=== PATIENT | female | born 1980 | race Caucasian/White ===

== ENCOUNTER 2023-10-27 22:22 | Emergency (ER) | payer OTHER, SELFPAY ==
--- NOTE | 2023-10-27 22:46 | ED.NURSE ---
patient checked in, then left to go home to take medications. removed from tracker, will create new account if patient returns.
--- OUTSIDE RECORDS SUMMARY | 2023-10-27 22:50 | XMS_ITS | Clinical Summary ---
Author Name Unknown Organization [place] Address [address] [facility] [place] [address] Care Team Providers Care Yard Coordinator Name Role Phone Chato Diaz MD Unavailable Chato Diaz MD Unavailable Jimenez Madera DO Primary Care Provider Jimenez Madera DO Unavailable [phone] Chato Diaz MD Unavailable Rosalba Romo MD Unavailable Allergies Active Allergy Reactions Criticality Noted Date Comments Sulfa Antibiotics 11/05/2011 Medications Medication Sig Dispensed Refills Start Date End Date Status Jmqkcsl-Aefnwrgkm-G itamin D 500-250-200 MG-MG-UNIT TABS Take by mouth daily 0 06/10/2016 Active Multiple Vitamins-Minerals (DAILY MULTI) TABS Take by mouth daily 0 Active progesterone [address] 50 mg vaginally as needed 0 Active labetalol (NORMODYNE) 100 MG tabletIndications:P VC's (premature ventricular contractions),Palpi tations Take 0.5 tablets (50 mg) by mouth 2 times daily 180 tablet 3 12/10/2021 Active Additional Information Patient taking differently:50 mg OralPRN, Reported on 08/12/2022 fish oil-omega-3 fatty acids 1000 MG capsule Take 1 g by mouth daily 0 Active co-enzyme Q-10 100 MG CAPS capsule Take 100 mg by mouth daily 0 Active INOSITOL PO Take 2 g by mouth daily 0 Active Probiotic Product (PROBIOTIC-10 PO) 0 Active UNABLE TO FIND heart calm 0 Active letrozole (FEMARA) 2.5 MG tablet TAKE 2 TABLET (5MG) ONCE DAILY DAYS 3-7 OF MENSES. 0 09/30/2022 Active OVIDREL 250 MCG/0.5ML syringe SC INJ 0 10/05/2022 Active aspirin (ASA) 81 MG chewable tablet 0 10/25/2022 Active potassium 99 MG TABS 0 Active metoprolol tartrate (LOPRESSOR) 50 MG tabletIndications:P alpitations Take 1 tablet (50 mg) by mouth every evening 90 tablet 3 11/16/2022 Active Active Problems Problem Noted Date Diagnosed Date Recurrent loss without current pregnan cy 05/04/2018 Indication for care in labor and delivery, antep artum 04/22/2017 Chest pain 01/18/2015 PCOS (polycystic ovarian syndrome) 11/07/2011 Hypercholesterolemia 11/07/2011 Overview: (Problem list name updated by automated process. Provider to review and confirm.) Hypertriglyceridemia 11/07/2011 Overview: (Problem list name updated by automated process. Provider to review and confirm.) Insulin resistance 11/07/2011 Anxiety state 04/02/2008 Palpitations Immunizations Name Administration Dates Next Due Historical DTP/aP 02/14/1987,11/24/1983,12/03/18 83,1982,1982 MMR 12/26/2018,04/29/1995,08/04/1983 OPV, trivalent, live 02/14/1987,11/24/1983,09/02,1982 TD,PF 7+ (Tenivac) 12/15/1994 TDAP Vaccine (Adacel) 05/02/2007 Family History Medical History Relation Comments Familial Adenomatous Polyposis (FAP) Father Sleep Apnea Maternal Aunt Snoring Maternal Grandmother Thyroid Disease Mother graves disease, celiac Diabetes Paternal Grandfather Relation Status Comments Father Alive Maternal Aunt Alive Maternal Grandmother Mother Alive Paternal Grandfather Social History Tobacco Use Types Packs/Day Years Used Date Smoking Tobacco: Never Smokeless Tobacco: Never Tobacco Cessation:Counseling Given: Not Answered Alcohol Use Standard Drinks/Week Comments No 0 (1 standard drink = 0.6 oz pur e alcohol) PHQ-2 Answer Date Recorded PHQ-2 Score 0 10/26/2022 Adolescent Education Answer Date Record ed Getting School Help Needed Not on file 07/15 Sex and Gender Information Value Date Recorded Sex Assigned at Female 10/26/2022 5:46 AM MOLDER MACHINE Gender Identity Female 10/26/2022 5:45 AM MOLDER MACHINE Sexual Orientation Straight 10/26/2022 5: 46 AM MOLDER MACHINE Last Filed Vital Signs Vital Sign Reading Time Taken Comments Blood Pressure 104/76 11/16/2022 1:52 PM MOLDER MACHINE Pulse 85 11/16/2022 1:52 PM MOLDER MACHINE Temperature 36.9 ??C (98.5 ??F) 10/26/2022 11:[address] Respiratory Rate 12 10/26/2022 11:13 AM MOLDER MACHINE Oxygen Saturation 98% 11/16/2022 1:52 PM MOLDER MACHINE Inhaled Oxygen Concentration - - Weight 67.1 kg (148 lb) 12/04/2022 7:37 AM MOLDER MACHINE Height 157.5 cm (5' 2) 12/04/2022 7:37 AM MOLDER MACHINE Body Mass Index 27.07 12/04/2022 7:37 AM MOLDER MACHINE Plan of Treatment Health Maintenance Due Date Last Done Comments ADVANCE CARE PLANNING 1982 HEPATITIS B IMMUNIZATION (1 of 3 - 3-dose series) 1982 COVID-19 Vaccine (#1) 1987 Pneumococcal Vaccine: Pediatrics (0 to 5 Years) and At-Risk Patients (6 to 64 Years) (1 of 2 - PCV) 1988 YEARLY PREVENTIVE VISIT 04/29/1996 04/29/1995 DTAP/TDAP/TD IMMUNIZATION (7 - Td or Tdap) 05/02/2017 05/02/2007, 12/15/1994, 02/14/1987, Additional history exists INFLUENZA VACCINE (#1) 2023 PHQ-2 (once per calendar year) 2023 10/26/2022, 10/26/2022, 02/07/2019 ANNUAL REVIEW OF HM ORDERS 10/26/2023 10/26/2022 HPV TEST 02/08/2024 02/07/2019, 02/07/2019 PAP 02/08/2024 02/07/2019 IPV IMMUNIZATION Completed 02/14/1987, 04/1984, 1982, Additional history exists HIV SCREENING Completed 08/18/2004 HEPATITIS C SCREENING Discontinued HPV IMMUNIZATION Aged Out No longer e ligible based on patient's age to complete this topic MENINGITIS IMMUNIZATION Aged Out No l onger eligible based on patient's age to complete this topic RSV MONOCLONAL ANTIBODY Aged Out No l onger eligible based on patient's age to complete this topic Care Teams Yard Coordinator Relationship Specialty [place] [address] [address] [facility] [place], [place] [id number] PCP - General Family Medicine 10/29/22 Chato Diaz MD [address] [place] [id number] Cardiovascular Disease 03/24/22 Chato Diaz MD [address] [place] [id number] Cardiovascular Disease 03/24/22 [place] [address] [place] [address] Assigned PCP 11/07/22 Chato Diaz MD [address] [place] [id number] Assigned Heart and Vascular Provider 11/21/22 Rosalba Romo MD [address] [address] Assigned Pulmonology Provider 12/12/22
--- OUTSIDE RECORDS SUMMARY | 2023-10-27 22:50 | XMS_ITS | Data Portability ---
Author Name Unknown Address [address] [place] [address] Phone [phone] Organization [facility] PHOTO EDITOR, [id number] Address [address] [address] Assessment Encounter Date Assessment Date Assessment LastModified by Organization Details LastModified Time 09/25/2021 09/25/2021 This service was provided using telemedicine including synchronous audio and/or video approved technology. The patient verbally Consents to telemedicine services, virtual check-ins and evisits. Telemedicine consultation via Synchronous Audio and Video Call. I spent a total of 40 minutes providing care for this patient including: preparing to see the patient, obtaining a medical history, completing a medically appropriate physical exam, completing documentation of visit information and plans in the EMR, counseling the patient and/or caregiver regarding her diagnosis, treatment options and follow up plans, as well as any necessary communication of subsequent test results to the patient, , , Assessment and Plan for this visit include the following: Not available 10/01/2021 15:11:20 Plan of Treatment Reminders Order Date Submit Date Provider Last Modified By Organization Details Last Modified Time Details Appointments None record ed. Lab None record ed. Referral None record ed. Procedures None record ed. Surgeries None record ed. Imaging None record ed. Medication Orders None record ed. Patient TargetsNo targets recorded. Patient Instructions Encounter Date Encounter Id Patient Instructions Last Modified By Organization Details Last Modified Time 09/25/2021 [id number] 1) Discussed all with dr payton - advice to pt would be to seek care/eval with [facility] - advised pt of this. Call with further questions. Not available 10/01/2021 15:15:11 Reason for Referral None Reported. Medical Equipment None Reported. Medications Name Sig Start Date Stop Date Status Note LastModified by Organization Details LastModified Time medroxyprogesterone 10 mg tablet active Not Available Not Available Not Available clomiphene citrate 50 mg tablet active Not Available Not Available Not Available progesterone micronized 200 mg capsule active Not Available Not Available Not Available Vitals None Recorded Social History None recorded. Functional Status None recorded. Mental Status None recorded. Family History Nothing Reported. Medical History No medical history recorded. Gynecological HistoryNo gynecological history recorded. Obstetrics History GPAL:G 0 P 0 0 0 0 Past Encounters Encounter ID Performer Location Encounter Start Date Encounter Closed Date Diagnosis/Indication [id number] HUYEN EPPERSON, GRECIA [id number] [facility]_[address] [address] 09/25/2021 13:26:00 10/02/2021 10:53:50 Recurrent miscarriage Polycystic ovary syndrome Health Concerns Section Related Observation LastModified by Organization Detai ls LastModified Time None Recorded Concern Status LastModified by Organization Details LastModified Time None Recorded Advance Directives Directive None Recorded Payers Encounter Date Sequence Insurance Name Policy Number Policy Poe Covered Member ID Poe Member ID Guarantor Name 09/25/[address] [facility] [id number] Beth Quinn [id number] Beth Quinn Notes Date Note Type Note Provider Name and Address Organization Details Recorded Time 09/25/2021 text/html HPI Notes: Cruz melchor is a new pt who present today to discuss her history and get our opinion on her health. She is 41 and has a history of PCOS, diagnosed in high school. She started menses in 5th grade and had irregular cycles from the beginning. When she was 18 she went on OC's and was on them x 5 years. She went off OC's age 23 and used no control from [age]; during this time she would have about 3 periods per year. At age 34 she started trying for . She used letrozol after trying more integrative approaches to fertility. She ended up conceiving with Letrozol 4 different times and miscarried each . She used progesterone suppositories each time. She was at different clnics for each one also. One of them was while she was a patient at [facility] she she states they did a complete genetic work-up, including MTHFR gene for which she is heterozygous. She was tested for several inflammatory and autoimmune conditions, all negative. Each miscarriage occurred around 5-6 weeks, longest one being 7 weeks gestation and was the only one where they saw a heartbeat at one point. Pt states she saw a top specialist in [place] for recurrent miscarriages and she was unable to help. She has had normal ultrasounds showing normal uterine structure, no defects, as well as normal tubal dye studies. She has also met with a vascular doctor and an engineering manager who she says were also not helpful. Pt states she has graves disease, celiac and RA in her family. She has tried Metformin and states it made her very sick so she stopped taking it. Pt states her last miscarriage was 3 years ago, April 2018. since then she has no spontaneous menses; she uses Prometrium vaginally to induce a period Q 3 months and this works. Pt states paperwork has been sent to us but at the time of visit I don't see any here. Pt states she is sedentary; she is trying to decrease her sugar intake and has been gluten and dairy free x 2 months. She says she is 5'2 and weighs 138lbs. Her current goal is to lose 10 lbs. She is unsure of her exact goal; she is considering another but is uncertain if she should attempt this or not. HUYEN EPPERSON, PAPER HANDLER [id number] [facility],[address], [place], [address], [place]AR[place] - PHOTO EDITOR 10/01/2021 15:16:19 OBGyn Episode No OBEpisode recorded.
--- OUTSIDE RECORDS SUMMARY | 2023-10-27 22:50 | XMS_ITS | Continuity of Care Document ---
Author Name Unknown Organization [facility] Address [address] [address] [place] [address] Phone Care Team Providers Care Manager Garage Name Role Phone Josh Severino MD Unavailable Unavailable Allergies, Adverse Reactions, Alerts Substance Reaction Status Criticality Sulfa (Sulfonamide Antibiotics) Unknown Active No Information Medications Medication Instructions Dosage Effective Dates (start - stop) Status Comments lansoprazole 30 mg capsule,delayed release take 1 capsule by oral route every day before a meal 30 MG - Active dicyclomine 20 mg tablet take 1 tablet by oral route 4 times every day as needed 20 MG - Active GAVISCON (unknown strength) use directed Not Available - Active Pepto-Bismol 262 mg/15 mL oral suspension use as needed - Active Herbal Medications/Suppleme nts unknown take 1 capsule by oral route every day DGL - Active Procedures Procedure Date Offic/outpt E&m Estab Mod-hi 2 19 Offic/outpt E&m Estab Mod-hi 2 19 Routine Serum Collection Gg; Iga, Igd, Igg, Igm, Ea C-reactive Prot Comp Metabolic Panel Ugi Endo; W/bx 1/mx Level Iv-surg Path Gross/micro 19 Offic/outpt E&m Estab Mod-hi 2 19 Offic/outpt E&m New Mod-hi Advance Directives Directive Yes / No Effective Date File Name No Information Encounters Encounter Description Practice Location Reason(s) For Visit Diagnoses Date Provider Providers Copied on Encounter [facility], [address] [address], [place], [place], [id number], [place] tel:[phone] [facility] No Information Jan- 2 Mere Moreno. [address] [facility] [facility] [address], [place], [place], [id number], [place]. tel:[phone] Offic/outpt E&m Estab Mod-hi 2 [facility], [address] [address], [place], [place], [address], [place] tel:[phone] [facility] GI Symptoms or Concerns (chief complaint) DyspepsiaDietary counseling and surveillance 9 Emily Marx. [address] [facility], [facility] [address], [place], [place], [address], [place]. tel:[phone] Referring Provider: Referral Self, USE FOR SELF REFERRALS. Offic/outpt E&m Estab Mod-ks 2 [facility], [address] [address], [place], [place], [address], [place] tel:[phone] [facility] GI Symptoms or Concerns (chief complaint) Chest pain, unspecified typeIrregular bowel habitsAbdominal pain, unspecified abdominal location 9 Angelo Currie. [address] [facility], [facility] [address], [place], [place], [id number], [place]. tel:[phone] Referring Provider: Referral Self, USE FOR SELF REFERRALS. [facility], [address] [address], [place], [place], [address], [place] tel:[phone] [facility] Change in bowel habits 9 Erik Grullon. [address] [facility], [place], [place], [address], [place]. tel:[phone] [facility], [address] [address], [place], [place], [address], [place] tel:[phone] [facility] Atypical chest painGastro-esophag eal reflux disease without esophagitis 9 Erik Grullon. [address] [facility] [address], [place], [place], [address], [place]. tel:[phone] Referring Provider: Referral Self, USE FOR SELF REFERRALS. Offic/outpt E&m Estab Mod-hi 2 [facility], [address] [address], [place], [place], [id number], tel:[phone] [facility] GI Symptoms or Concerns (chief complaint) Gastroesophageal reflux disease, esophagitis presence not specified 9 Deena Feliciano. [address] [facility] [address], [place], [place], [address], [place]. tel:[phone] Referring Provider: Referral Self, USE FOR SELF REFERRALS. Offic/outpt E&m New [facility], [address] [address], [place], [place], [address], [place] tel:[phone] [facility] GI Symptoms or Concerns (chief complaint) Gastroesophageal reflux disease, esophagitis presence not specifiedAtypical chest pain 9 Darian Wayne. [address] [facility] [address], [place], [place], [address], [place]. tel:[phone] Referring Provider: Cm Dumont MD, [address] [place], [address]. tel:[phone] Family History Family Member Type Diagnosis Age At Onset Brother Problem (finding) Alive and well Father Problem (finding) Alive and well Mother Problem (finding) celiac disease Payers Payer name Insurance type Covered green party ID Authoradaira marva(s) Morteza CI [id number] Social History Type Description Quantity Date Captured Comments Sex Female Smoking Status No Information Chief Complaint And Reason For Visit No Information Reason For Referral Reason For Referral No Information Plan Of Treatment Date Type Action Status Goal Lifestyle education regardin g diet completed Referral Ordered: follow-up visit with [facility] or Braden Shaffer MD upon completion of work-up ordered Referral Ordered: Xray Abdomen Complete Appointment date/timeframe: 10/05/2019 ordered History Of Present Illness Encounter Date Complaint History Of Prese nt Illness GI Symptoms or Concerns The hanh ent is here for followup of her abdominal pain and was last seen 4 days ago. Unfortunately, she was given multiple recommendations, test to do, and medications to try at her last appointment and those have not been done yet. She had basic labs, which were again unremarkable as were previous labs and CT scan of abdomen and pelvis. She was told to take some icy-hot for abdominal wall and chest wall pain, which she said was not helpful. She was asked to do Bentyl, but she has not picked that prescription up. She was asked to do an abdominal x-ray and she has not done that yet. She says over the weekend she had bad upper abdominal burning pain, worse with eating and also sometimes worse on an empty stomach. She is to have some heartburn and slime in the back of her throat, but does not have any heartburn anymore. She still has the upper abdominal burning. She is convinced that something serious or bad is going on. This is all in setting of recent miscarriage and increased GI Symptoms or Concerns This is a 39-year-old female who comes in for followup. She has previously been seen in our clinic by Dr. Farmer on 03/27/2019 for chest pain after shoveling rock and on 04/25/[address] Shaffer for chest pain, abdominal discomfort, change in bowel habits. She had undergone upper endoscopy for some of these symptoms by Dr. Valencia on 05/09/2019. This looked endoscopically normal. Biopsies from the stomach, distal, and mid esophagus were all normal. She has been on a PPI which has not helped with her symptoms. She now has been having nominally sharp chest pain, but also abdominal pain. She states abdominal pain is also since March when these other symptoms started. She describes some fullness or discomfort in her chest, this will be in the lower left chest area below her left breast, then in the left upper quadrant and now in the right upper quadrant and then is rips across her upper abdomen in a searing burning type pain. Sometimes, this can awaken her from sleep. Some GI Symptoms or Concerns Ms. Gavino hawk is here with ongoing chest pain. She reports that the pain first happened on March 21. It was bad enough that she went to the emergency room. There, it was suspected it was GI. A chest x-ray, EKG and troponin levels were all normal. At that time, she was . A short time prior to that, when she was not , she did have an abdominal discomfort that was severe enough that she had a CAT scan that was unremarkable. She also noticed a change in her stools that have persisted. Her stools are a greenish brown, rather than darker brown. The chest pain seems to be related to eating. She feels better when she eats bland food. About 30 minutes after, she has worse chest and upper abdominal pressure. Discomfort feels like a deep ache or stabbing pain. It is not atypical heartburn. She took omeprazole initially, and it felt better for a while. She stopped the medicine and did well until April 19. She was told about miscarriage at that time. She ate a lot of different GI Symptoms or Concerns Beth Quinn is a very pleasant 38-year-old woman, seen as a new patient visit today for further evaluation of her gastroesophageal reflux and atypical chest pain. She reports that she had been undergoing fertility treatments in January and February of this year. That led to some lower GI symptoms including an intermittent right-sided abdominal pain, which subsequently moved to her left side. That pain was coming and going. It would only last for a couple of seconds at a time and then resolve completely. At its worse, it was about 3 out of 10. It was not significantly associated with having bowel movements. For that, she started on a low FODMAP diet, which said that it helped. The main reason she came in today though was this past Wednesday she woke up with chest pain at around 3 or 3:30 in the morning. This was located in the middle of her chest. She described it as feeling like a rib slip. It was a sharp pain that would last for seconds at a time and then return in waves. This p Functional Status Date Functional Assessmen t No Information Instructions Date Instruction Additional Infor teddyophelia Try an alternate PPI and continue to do what we asked her to do which was doing abdominal x-ray and take Bentyl anti-spasm medicine. She should follow up with Dr. Shaffer in a few months' time. Related to Dyspepsia Lifestyle education regarding di et Related to Dietary counseling and surveillance Provider plan - we w ill check labs today including celiac labs, CMP, C-reactive protein. Check abdominal x-ray to assess stool burden. Could try topical icy hot and Bentyl to see if that could also potentially help. I will set up a followup appointment in clinic to reassess symptoms. If she is still symptomatic, we might consider colonoscopy,?gallbladder evaluation,?esophageal motility, etcetera depending on the symptoms. Related to Chest pain, unspecified type 1. Check labs today. 2. Check abd. xray to assess stool burden.3. Try topical icy hot.4. Try Bentyl (antispasm medication).5. F/U in clinic. Related to Abdominal pain, unspecified abdominal location 1. We discussed coup le of potential options at today's visit including empiric trial of omeprazole to see if we can get symptom resolution versus proceeding with an upper endoscopy to assess for esophagitis or pill esophagitis. At this time, we will plan to proceed with the empiric trial of medication as she otherwise does not have alarm signs, which would necessitate more of an urgent endoscopy. I will have her use omeprazole 20 mg daily with a plan for at least a 2-week trial. If after 1 week her symptoms are not better, it would be reasonable to have her increase the dose to 40 mg per day. If after 2 weeks, she is still having symptoms, I asked that she let us know and we could consider extending the trial for an additional couple of weeks with the thought of treating more severe esophagitis versus proceeding with upper endoscopy at that time.2. I gave her a handout on esophageal reflux lifestyle changes as well.3. We will plan to have her follow up in clinic on an as needed basis. She will call if she would like further evaluation. Related to Gastroesophageal reflux disease, esophagitis presence not specified Gastroesophageal Reflux Disease Related to Gastroesophageal reflux disease, esophagitis presence not specified Assessments Type Assessment Date No Information Patient Care Teams Name Effective Dates (start - stop) Status Members No Information
--- OUTSIDE RECORDS SUMMARY | 2023-10-27 22:50 | XMS_ITS | Clinical Summary ---
Author Name Unknown Organization [facility] Address [address] [place] [address] Care Team Providers Care Shot Coat Tender Name Role Phone Unknown, Physician Primary Care Provider [phone] Source Comments You are receiving this document as you are listed as the primary care provider,follow-up provider, or the patient has been referred to you for consultation.This is in compliance with the Medicare and[facility] EHR Incentive Program,which states Providers who transition their patient to another setting of careor provider of care or refers their patient to another provider of care shouldprovide summary care record for each transition of care or referral. navabi Allergies Active Allergy Reactions Criticality Noted Date Comments Sulfa Antibiotics Other, see comments 6 PN: Unknown reaction as child Medications Medication Sig Dispensed Refills Start Date End Date Status medroxyPROGESTERo ne (PROVERA) 10 MG tabletIndications :IZABELLA SALAS Micheal WedJun 10, 2016 1:28 PM Received from: External Pharmacy TAKE 1 TABLET (10 MG) BY MOUTH ONCE DAILY FOR 10 DAYS 1 05/05/2016 Active EPINEPHrine (EPIPEN) 0.3 MG/0.3ML injectionIndicati ons:IZABELLA SALAS Micheal WedJun 10, 2016 1:28 PM Received from: External Pharmacy INJECT 0.3 MG INTRAMUSCULARLY NEEDED 0 02/14/2016 Active Calcium-Magnesium -Vitamin D 500-250-200 MG-MG-UNIT Take 1 tablet by mouth daily (every 24 hours). 0 06/10/2016 Active cholecalciferol (VITAMIND3) 1000 UNITS capsule Take 1 capsule by mouth daily (every 24 hours). 0 06/10/2016 Active folic acid 400 MCG tablet Take 400 mcg by mouth daily (every 24 hours). 0 06/10/2016 Active Coenzyme Q10 (CO Q 10) 100 MG Take 1 capsule by mouth daily (every 24 hours). 0 06/10/2016 Active omega-3 fatty acids (FISH OIL) 1000 MG capsule Take 1 capsule by mouth daily (every 24 hours). 0 06/10/2016 Active clomiPHENE (CLOMID) 50 MG tabletIndications :Irregular menstrual cycle Take 2 tablets by mouth daily (every 24 hours). on days 3-7 of menstrual cycle 10 tablet 5 06/10/2016 Active Immunizations Name Administration Dates Next Due DTP 02/14/1987, 4,1982,1982 ,1982 MMR 04/29/1995,08/04/1983 OPV, Trivalent (Orimune or tOPV) 02/14/1987,04/1984,1982,1982 Td 12/15/1994 Family History Medical History Relation Name Comments Hypertension Father High Cholesterol Mother Hypertension Mother Thyroid Disorder Mother High Cholesterol Brother Heart Disease Maternal Grandfather High Cholesterol Maternal Grandfather Hypertension Maternal Grandfather Heart Disease Maternal Grandmother High Cholesterol Maternal Grandmother Heart Disease Paternal Grandfather High Cholesterol Paternal Grandfather Heart Disease Paternal Grandmother High Cholesterol Paternal Grandmother Hypertension Paternal Grandmother Relation Name Status Comments Father Alive Mother Alive Brother Alive Maternal Grandfather Alive Maternal Grandmother Alive Paternal Grandfather Paternal Grandmother Alive Social History Tobacco Use Types Packs/Day Years Used Date Smoking Tobacco: Never Assessed Sex and Gender Information Value Date Recorded Sex Assigned at Not on file Gender Identity Not on file Sexual Orientation Not on file Last Filed Vital Signs Vital Sign Reading Time Taken Comments Blood Pressure 112/82 06/10/2016 1:37 PM CDT Pulse 80 06/10/2016 1:37 PM CDT Temperature - - Respiratory Rate - - Oxygen Saturation - - Inhaled Oxygen Concentration - - Weight 61.8 kg (136 lb 3.2 oz) 06/10/2016 1:37 P M CDT Height - - Body Mass Index - - Plan of Treatment Health Maintenance Due Date Last Done Comments Cervical Cancer Screening Due 1982 Hep C Screening (Preventive Services) 1982 HepB (1) 1982 COVID-19 Vaccine (#1) 1982 HIV Screening (Preventive Services) 1998 Adult Preventive Visit 2000 04/29/1995 DTaP/Tdap/Td (7 - Tdap) 05/02/2017 05/02/20, 12/15/1994, 02/14/1987, Additional history exists Influenza (#1) 2023 Zoster/Shingles (1 of 2) 2032 IPV (Polio) Completed 02/14/1987, 04/1984, 1982, Additional history exists HPV Vaccine Aged Out No longer eligi ble based on patient's age to complete this topic HepA Aged Out No longer eligi ble based on patient's age to complete this topic Hib Aged Out No longer eligi ble based on patient's age to complete this topic MCV4 Aged Out No longer eligi ble based on patient's age to complete this topic Pneumococcal Aged Out No longer eligi ble based on patient's age to complete this topic Care Teams Shot Coat Tender Relationship Specialty Start Date End Date Unknown, Physician [address] [place] [address] PCP - General 01/06/1999
--- OUTSIDE RECORDS SUMMARY | 2023-10-27 22:50 | XMS_ITS | Encounter Summary ---
Author Name Unknown Organization [facility] Address [address] [place] [address] Care Team Providers Care Agribusiness Professor Name Role Phone Unknown, Physician Primary Care Provider [phone] Encounter Details Date Type Department Care Team Description 11/13/2022 1:00 PM [address] JE[facility] Telemedicine [facility] Genetics [address] [place] [address] Gisele Chi [facility] [address] [facility] [address] [place] [address] History of recurrent miscarriages (Primary Dx); POTS (postural orthostatic tachycardia syndrome) Social History Tobacco Use Types Packs/Day Years Used Date Smoking Tobacco: Never Assessed Sex and Gender Information Value Date Recorded Sex Assigned at Not on file Gender Identity Not on file Sexual Orientation Not on file documented as of this encounter Progress Notes * Gisele Munoz CGC - 11/13/2022 1:00 PM CST Genetic Counseling Consultation Name: Beth Quinn : 1980 Date: 11/13/2022 I had the pleasure of meeting with Beth Quinn on 11/13/[address] [facility] via video visit for review of personal/family history and genetic counseling, as applicable. Self referral for history of cardiovascular concerns and multiple miscarriages. Beth Quinn was alone for today's visit. Patient was located in [place]. Provider was located in [place]. The following history was collected via chart review and per patient report. IMPRESSION Beth has a very complicated medical history. She came to me searching for any additional geneticinformation that may help her situation. She reported that her two main concerns are her heart problems and history of miscarriages. She has history of recurrent loss in 2014, 2016, 2018, and 2019. These are all reported to be prior to 10th week of gestation. She has had a thorough workup with [facility] through [facility] and in [place]. The records from [facility] are available in the CareEverywhere tab from 01/2021-02/2021. I don't see records from [place], but the notes indicate that she has already met with many national fertility ex perts. She had a normal karyotype (46, XX) performed through [facility] on 05/21/2017. Beth reports that her also had a normal karyotype. She thought that she had genetic testing performed on previous miscarriage tissue, although the notes she read aloud during the appointment noted that the tissue was placed in formalin, which prevents genetic testing was being performed. I informed Beth that karyotype and POC testing are two standard genetic tests used for recurrentmiscarriages. I can look into the literature to see if there other other recommended tests, although I am guessing that the workup done at the fertility centers is the standard of care for recurrent miscarriages. Beth had questions about the different lab work that she had done and how many of her levels have been off. I informed her that ultimately that is not my speciality and I cannot help her interpret those results. She also questions if her 's history of elevated CK levels couldcontribute to miscarriages. I have not heard of this, but will look into it and send her a message. Beth's other main concern is her history of heart problems. Beth has been following with cardiology at [facility]. Starting in 03/2022 she started experiencing episodes of tachycardia waking her up from sleep. She wore a 30 day cardiac event monitor back in May. Ultimately, she was given a possible diagnosis of postural orthostatic tachycardia syndrome (POTS). We discussed that genetic testing is not offered for POTS. There are panels that focus on structural heart problems (dilation, HCM, etc) and arrhthymias, but I don't think this will be beneficial based on her records. There are some genetic conditions that are associated with POTS, such as connective tissue disorders like Gina-Danlos syndrome. This is not something we offer genetic testing for within /[facility] because we don't have any providers who can evaluate or manage EDS. We discussed the option of an evaluation at the [facility] clinic. OVERVIEW/PLAN Beth was interested in additional information and genetic testing options for her history of recurrent miscarriages and heart problems. Regarding her miscarriage history, I will look to see if there are updated guidelines that recommend additional testing beyond a karyotype. Unfortunately, a large majority of infertility and recurrent miscarriages are due to unknown causes. I informed her that POC testing can be very helpful. Thereare genetic counselors available at [facility] where she receives much of her other care. She should request information about this should she achieve another . For Beth's cardiac history, I think it would be appropriate for her to be seen by [facility] if she feels as though she has features of EDS. I can help arrange this orssofía can be referred by her other providers. I will plan to send Beth a [email or web address] message to follow up after this appointment. Beth had the opportunity to ask questions and expressed understanding of the information presented. There were no apparent barriers to the patient's ability to understand the information discussed. Beth was encouraged to call with any questions, concerns, and/or updates to the family history. It was a pleasure to meet with Beth in clinic today. Gisele Munoz MS, NICK 11/13/2022 Genetic Counselor JELLY documented in this encounter Plan of Treatment Not on file documented as of this encounter Visit Diagnoses Diagnosis History of recurrent miscarriages- Primary POTS (postural orthostatic tachycardia syndrome) Tachycardia, unspecified documented in this encounter Care Teams Agribusiness Professor Relationship Specialty Start Date End Date Unknown, Physician [address] [place] [address] PCP - General 01/06/1999 documented as of this encounter
--- OUTSIDE RECORDS SUMMARY | 2023-10-27 22:50 | XMS_ITS | Encounter Summary ---
Author Name Unknown Organization [facility] Address [address] [facility] [place] [address] Care Team Providers Care Wood Preserving Plant Laborer Name Role Phone Chaot Diaz MD Unavailable Chato Diaz MD Unavailable Jimenez Madera DO Primary Care Provider Jimenez Madera DO Unavailable [phone] Chato Diaz MD Unavailable Rosalba Romo MD Unavailable Encounter Details Date Type Department Care Team (Late st Contact Info) Description 07/02/2023 [facility] Medical Advice [facility] [address] [place] [address] [address] [place] [address] Chato Diaz MD [address] [place], [place] [address] Social History Tobacco Use Types Packs/Day Years Used Date Smoking Tobacco: Never Smokeless Tobacco: Never Alcohol Use Standard Drinks/Week Comments No 0 (1 standard drink = 0.6 oz pur e alcohol) PHQ-2 Answer Date Recorded PHQ-2 Score 0 10/26/2022 Sex and Gender Information Value Date Recorded Sex Assigned at Female 10/26/2022 5:46 AM FLOOR REFINISHER Gender Identity Female 10/26/2022 5:45 AM FLOOR REFINISHER Sexual Orientation Straight 10/26/2022 5: 46 AM FLOOR REFINISHER documented as of this encounter Miscellaneous Notes * Telephone Encounter - Elvin Carlson RN - 07/02/2023 12:40 PM CDT RN updated patient via [employer]. Could do Paxlovid if she likes Dr. Diaz * Telephone Encounter - Elvin Carlson RN - 07/02/2023 7:57 AM CDT Images from the original note were not included. [employer] messages received. RN will send to Dr. Diaz to inquire if he feels patient should be taking paxlovid based on information provided below. My heart rate is in the low 90s at rest right now and goes into the 100s with gentle walking. Have been getting fevers. Taking Tylenol. Beth Mayen [facility] Heart Team 4 (supporting Chato Diaz MD)5 minutes ago (7:51 AM) My hrv went from 40s to 16, now down to 13 on my Fitbit. My breath rate went from 15-16, to 22. I tested positive for covid yesterday. Not vaccinated... Worried for fertility that was why. I'm tryingto decide if i should take the paxlovid. It was an option with my bmi and irregular beats. Are these levels concerning? I haven't been sleeping much either. Bad headaches. documented in this encounter Plan of Treatment Not on file documented as of this encounter Visit Diagnoses Not on filedocumented in this encounter Care Teams Wood Preserving Plant Laborer Relationship Specialty [place] [address] [place] [address] PCP - General Family Medicine 10/29/22 Chato Diaz MD [address] [place] [address] Cardiovascular Disease 03/24/22 Chato Diaz MD [address] [place], [place] [id number] Cardiovascular Disease 03/24/22 [place] [address] [place] [address] Assigned PCP 11/07/22 Chato Diaz MD [address] [place], [place] [address] Assigned Heart and Vascular Provider 11/21/22 Rosalba Romo MD [address] [place] [id number] Assigned Pulmonology Provider 12/12/22 documented as of this encounter
--- OUTSIDE RECORDS SUMMARY | 2023-10-27 22:50 | XMS_ITS | Encounter Summary ---
Author Name Unknown Organization [facility] Address [address] [place] [address] Care Team Providers Care Die Sinker Apprentice Name Role Phone Unknown, Physician Primary Care Provider [phone] Encounter Details Date Type Department Care Team Description 04/29/1995 Orders Only Deepti Lima, FUNDRAISING SALE REPRESENTATIVE, LANGUAGE ASSISTANT [address] [place] [address] Social History Tobacco Use Types Packs/Day Years Used Date Smoking Tobacco: Never Assessed Sex and Gender Information Value Date Recorded Sex Assigned at Not on file Gender Identity Not on file Sexual Orientation Not on file documented as of this encounter Plan of Treatment Not on file documented as of this encounter Visit Diagnoses Not on filedocumented in this encounter Care Teams Die Sinker Apprentice Relationship Specialty Start Date End Date Unknown, Physician [address] [place] [address] PCP - General 01/06/1999 documented as of this encounter
--- OUTSIDE RECORDS SUMMARY | 2023-10-27 22:50 | XMS_ITS | Clinical Summary ---
Author Name Unknown Organization [facility] Address [place], [place] [address] Care Team Providers Care Machine Fur Cleaner Name Role Phone Josh Hsu MD Unavailable Pcp, No Primary Care Provider Unavailabl e Allergies Active Allergy Reactions Criticality Noted Date Comments Menard Other - Describe In Comment Field Unknown 10/22/2021 Found on MRT testing: Extreme Inflammation. Iodinated Contrast Media Tachycardia Unknown 10/22/2021 Lactose Other - Describe In Comment Field Unknown 10/22/2021 Found on MRT testing: Extreme Inflammation. Flaxseed Other - Describe In Comment Field Unknown 10/22/2021 MRT testing showed mild inflammation. Rahel Other - Describe In Comment Field Unknown 10/22/2021 MRT testing showed mild inflammation. Sulfa (Sulfonamide Antibiotics) 06/22/2006 family has allergies to this Wheat Other - Describe In Comment Field Unknown 10/22/2021 MRT testing showed mild inflammation. Medications Medication Sig Dispensed Refills Start Date End Date Status LORazepam (ATIVAN) 0.5 mg tab Take 0.5 mg by mouth once daily if needed. Use when flying. 0 Active propranoloL (INDERAL) 20 mg tablet Take 0.5 Tablets by mouth 3 times daily if needed. 0 03/02/2020 Active progesterone micronized (PROMETRIUM) 200 mg capsule Insert 1 Capsule into the vagina. 1 capsule per vagina on menstrual cycle days 30-40 for 14 days. 0 Active labetaloL (TRANDATE) 100 mg tablet Take 50 mg by mouth. 0 12/10/2021 Active medication order composerIndications :PCOS (polycystic ovarian syndrome),History of recurrent miscarriages *NOW Vit D 1,000 IU daily *Co-Q10 100 mg daily *Calcium-magnesi um-vitamin D 500-250-200 nightly *Potassium citrate 99 mcg daily *New Chapter Women's vitamin daily * [employer] Fish oil to 2,000mg daily *DIM Complex by [employer]: 2 capsules once daily with food *Natalie Herbs Chaste Tree Santiago (Vitex): 1-2 capsules daily in the morning. Stop taking when you have your period (bleeding starts) and restart in 7 days. -Heart Calm - taurine, magnesium glycinate, potassium, phosphorus: Take 1 capsule prn for PVCs Biocidin LSF Liposomal Formula Liquid: Start with 1 pump per day and gradually increase to three times per day 0 05/24/2023 Active Mudltihx-Cx-Tnz-Fe- FA tab tablet Take 1 Tablet by mouth once daily. 0 Active Oxgzd-0-ULC-EPA-Fis h Oil (Fish OiL) 1,000 mg (120 mg-180 mg) cap Take by mouth. 0 Active coenzyme q10 (Co Q-10) 100 mg cap Take 100 mg by mouth once daily. 0 Active cholecalciferol (Vitamin D) 1,000 unit tablet Take 1,000 units by mouth once daily. 0 Active methylPREDNISolone (Medrol, Jaxson,) 4 mg tabletIndications:N umbness Take by mouth as instructed per packaging. 21 Tablet 0 10/21/2023 Active cyclobenzaprine (FLEXERIL) 5 mg tabletIndications:C ervical radiculopathy Take 1 Tablet (5 mg) by mouth at bedtime if needed for Muscle Spasm. 20 Tablet 0 10/25/2023 Active methylPREDNISolone (Medrol, Jaxson,) 4 mg tabletIndications:N umbness Take by mouth as instructed per packaging. 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 Provider to review and confirm.) (Problem list name updated by automated process. Provider to review and confirm.) Insulin resistance 11/07/2011 Palpitations 11/10/2008 Overview: child monitor: September 2008: Normal holter: showing a few sinus arrythmia, PVC/PAC and Sinus Tachycardia. See report 09/25/08 - No further workup per Cards. Polycystic ovaries 04/02/2008 Anxiety state, unspecified 04/02/2008 Encounters Date Type Department Care Team Description 10/27/2023 Nurse Triage [facility] Centralized Nurse Triage Pcp, No Ear Pain/problem 10/27/2023 Telephone [facility] [address] [place] [address] Clinic, [facility] General Illness/Other 10/26/2023 4:00 PM TAXATION INSPECTOR Telemedicine [address] [address] Jonelle Franklin NP Follow Up; Telehealth 10/26/2023 Travel 10/25/2023 11:00 AM TAXATION INSPECTOR [place] [facility] [address] [place] [address] Jasiel Villela MD Shoulder Pain/problem (Left shoulder); Fever; Throat Problem 10/25/2023 Travel 10/21/2023 10:00 AM TAXATION INSPECTOR [place]illary [place] [facility] [address] [place] [address] 10/21/2023 9:45 AM TAXATION INSPECTOR Ancillary Procedure [address] [address] 10/21/2023 9:00 AM TAXATION INSPECTOR [place] [facility] [id number] [place] [address] Natalie Lindo MD Pain 10/21/2023 Travel 08/16/2023 11:00 AM CDT Telemedicine [address] [address] Jonelle Franklin NP Follow Up; Telehealth from Last 3 Months Immunizations Name Administration Dates Next Due DTP 02/14/1987, 4,1982,1981,1982 MMR 12/26/2018,04/29/1995,08/04/1983 Oral Polio Vaccine 02/14/1987, 4,1982,1981 Td (Age >=7 Years) 12/15/1994 Td, Preservative Free (age > = 7 Years) 12/15/1994 Tdap 05/02/2007 Family History Medical History Relation Name Comments Other Mother Diabetes Paternal Grandfather Relation Name Status Comments Mother Paternal Grandfather Social History Tobacco Use Types Packs/Day Years Used Date Smoking Tobacco: Never Smokeless Tobacco: Never Tobacco Cessation:Counseling Given: No Alcohol Use Standard Drinks/Week Comments No 0 (1 standard drink = 0.6 oz pur e alcohol) Social Connections Answer Date Recorded Frequency of Communication with Friends and Fami ly 0 10/25/2023 Financial Resource Strain Answer Date R ecorded Difficulty of Paying Living Expenses 3 10/25/2023 Difficulty of Paying Living Expenses Not on file 10/25/2023 Food Insecurity Answer Date Recorded Worried About Running Out of Food in the Last Ye ar 1 10/25/2023 Transportation Needs Answer Date Record ed Lack of Transportation (Medical) 1 10/25/2023 Housing Stability Answer Date Recorded Unable to Pay for Housing in the Last Year 1 10/25/2023 Sex and Gender Information Value Date Recorded Sex Assigned at Not on file Gender Identity Not on file Sexual Orientation Not on file Obstetrics History Last Filed Vital Signs Vital Sign Reading Time Taken Comments Blood Pressure 108/68 10/25/2023 11:05 AM TAXATION INSPECTOR Pulse 82 10/25/2023 11:05 AM TAXATION INSPECTOR Temperature 36.7 ??C (98 ??F) 06/04/2022 9:30 AM CDT Respiratory Rate 18 10/21/2023 9:16 AM TAXATION INSPECTOR Oxygen Saturation 97% 10/21/2023 9:16 AM TAXATION INSPECTOR Inhaled Oxygen Concentration - - Weight 71.2 kg (157 lb) 10/25/2023 11:05 AM TAXATION INSPECTOR Height 161 cm (5' 3.39) 10/25/2023 11:05 AM TAXATION INSPECTOR Body Mass Index 27.47 10/25/2023 11:05 AM TAXATION INSPECTOR Plan of Treatment Upcoming Encounters Date Type Department Care Team (Late st Contact Info) Description 10/28/2023 9:00 AM TAXATION INSPECTOR Office Visit [facility] [address] [place] [address] Mechelle Mendoza PA [address] [place] [address] Health Maintenance Due Date Last Done Comments COVID-19 vaccine series (#1) 1982 Depression screening for age 12+ 1994 HIV for age 15-65 1997 Hepatitis C screening for age 18-79 2000 Tetanus booster 05/02/2017 05/02/2007, 11/19, 12/15/1994 Influenza for age 9-49 06/18/2023 Pap test for age 21-65 02/08/2024 9 (Verified in Care Everywhere or Patient Record) BMI (ht and wt on same day) for age 18+ 10/25/2024 10/25/2023, 10/21/2023, 11/03/2019, Additional history exists Tdap Completed 05/02/2007 Pneumococcal series for age 6-64 Aged Out No longer eligible based on patient's age to complete this topic Procedures Procedure Name Priority Date/Time Associated Diagnosis Comments XR SPINE CERVICAL 3 VIEWS Routine 10/21/2023 10:03 AM TAXATION INSPECTOR Numbness XR SHOULDER 3 VIEWS LEFT Routine 10/21/2023 10:02 AM TAXATION INSPECTOR Chronic left shoulder pain from Last 3 Months Results * XR SPINE CERVICAL 3 VIEWS (10/21/2023 10:03 AM TAXATION INSPECTOR) Anatomical Region Laterality Modality CERVICAL SPINE Computed Radiogr aphy 10/25/2023 4:33 PM TAXATION INSPECTOR Impressions 10/25/2023 4:33 PM TAXATION INSPECTOR Unremarkable cervical spine. Dictated by Cortes Mccormick MD @ Oct ??8 2023 ??4:33PM (Electronically Signed) ?? Narrative 10/25/2023 4:33 PM TAXATION INSPECTOR For Patients: ??As a result of the Cures Act, medical imaging exams and procedure reports are released immediately into your electronic medical record. ??You may view this report before your referring provider. ??If you have questions, please contact your health care provider. INDICATION: Numbness. TECHNIQUE: Cervical spine 3 view. COMPARISON: None. FINDINGS: Bones: Alignment is normal. ??No fractures or significant bone lesions. ?? Joints: Disc spaces and facets are unremarkable. ?? Soft tissues: Unremarkable. Procedure Note Cortes Mccormick MD - 10/25/2023 For Patients: As a result of the s Act, medical imagingexams and procedure reports are released immediately into your electronicmedical record. You may view this report before your referring provider.If you have questions, please contact your health care provider. INDICATION: Numbness. TECHNIQUE: Cervical spine 3 view. COMPARISON: None. FINDINGS: Bones: Alignment is normal. No fractures or significant bone lesions. Joints: Disc spaces and facets are unremarkable. Soft tissues: Unremarkable. IMPRESSION: Unremarkable cervical spine. Dictated by Cortes Mccormick MD @ Oct 25 2023 4:33PM (Electronically Signed) Natalie Lindo MD GENERAL IMAGING * XR SHOULDER 3 VIEWS LEFT (10/21/2023 10:02 AM TAXATION INSPECTOR) Anatomical Region Laterality Modality SHOULDERS, SHOULDER L Computed R adiography 10/25/2023 4:31 PM TAXATION INSPECTOR Narrative 10/25/2023 4:31 PM TAXATION INSPECTOR For Patients: ??As a result of the s Act, medical imaging exams and procedure reports are released immediately into your electronic medical record. ??You may view this report before your referring provider. ??If you have questions, please contact your health care provider. Indication: Left shoulder pain. Technique: Left shoulder 3 views. Comparison: None. Findings: Bones: Alignment is normal. No fractures or bone lesions. ?? Joint spaces: Unremarkable. ?? Soft tissues: Unremarkable. ?? Impression: Unremarkable left shoulder. No specific finding to explain pain. Dictated by Cortes Mccormick MD @ Oct ??2023 ??4:31PM (Electronically Signed) ?? Procedure Note Cortes Mccormick MD - 10/25/2023 For Patients: As a result of the Cures Act, medical imagingexams and procedure reports are released immediately into your electronicmedical record. You may view this report before your referring provider.If you have questions, please contact your health care provider. Indication: Left shoulder pain. Technique: Left shoulder 3 views. Comparison: None. Findings: Bones: Alignment is normal. No fractures or bone lesions. Joint spaces: Unremarkable. Soft tissues: Unremarkable. Impression: Unremarkable left shoulder. No specific finding to explain pain. Dictated by Cortes Mccormick MD @ Oct 25 2023 4:31PM (Electronically Signed) Natalie Lindo MD GENERAL IMAGING from Last 3 Months Care Teams Machine Fur Cleaner Relationship Specialty Start Date End Date Pcp, No . PCP - General 02/05/22 Josh Hsu MD [address] [place] [address] Consulting Physician Cardiovascular Disease 01/18/15
--- OUTSIDE RECORDS SUMMARY | 2023-10-27 22:50 | XMS_ITS | Encounter Summary ---
Author Name Unknown Organization [facility] Address [address] [place] [address] Care Team Providers Care Mop Handle Assembler Name Role Phone Unknown, Physician Primary Care Provider [phone] Encounter Details Date Type Department Care Team Description 05/13/1995 [place] [address] [place] [address] Social History Tobacco Use Types Packs/Day Years Used Date Smoking Tobacco: Never Assessed Sex and Gender Information Value Date Recorded Sex Assigned at Not on file Gender Identity Not on file Sexual Orientation Not on file documented as of this encounter Plan of Treatment Not on file documented as of this encounter Visit Diagnoses Not on filedocumented in this encounter Care Teams Mop Handle Assembler Relationship Specialty Start Date End Date Unknown, Physician [address] [place] [address] PCP - General 01/06/1999 documented as of this encounter
--- OUTSIDE RECORDS SUMMARY | 2023-10-27 22:50 | XMS_ITS | Encounter Summary ---
Author Name Unknown Organization [facility] Address [address] [facility] [place] [address] Care Team Providers Care Clinical Trials Assistant Name Role Phone Chato Diaz MD Unavailable [phone] Chato Diaz MD Unavailable Jimenez Madera DO Primary Care Provider Jimenez Madera DO Unavailable Chato Diaz MD Unavailable Rosalba Romo MD Unavailable Encounter Details Date Type Department Care Team (Late st Contact Info) Description 07/14/2023 MyC Medical Advice [facility] [place] [address] [place] [address] [address] [place] [address] Chato Diaz MD [address] [place] [address] Social History Tobacco Use Types Packs/Day Years [...] Sex Assigned at Female 10/26/2022 5:46 AM CASH SALES AUDIT CLERK Gender Identity Female 10/26/2022 5:45 AM CASH SALES AUDIT CLERK Sexual Orientation Straight 10/26/2022 5: 46 AM CASH SALES AUDIT CLERK documented as of this encounter Plan of Treatment Not on file documented as of this encounter Visit Diagnoses Not on filedocumented in this encounter Care Teams Clinical Trials Assistant Relationship Specialty [place] [address] [place] [address] PCP - General Family Medicine 10/29/22 Chato Diaz MD [address] [place] [id number] Cardiovascular Disease 03/24/22 Chato Diaz MD [address] [place] [address] Cardiovascular Disease 03/24/22 [place] [address] [place] [address] Assigned PCP 11/07/22 Chato Diaz MD [address] [place] [address] Assigned Heart and Vascular Provider 11/21/22 Rosalba Romo MD [address] [place], [place] [address] Assigned Pulmonology Provider 12/12/22 documented as of this encounter
--- OUTSIDE RECORDS SUMMARY | 2023-10-27 22:50 | XMS_ITS | Referral Summary ---
Author Name Unknown Organization [facility] Address [address] [facility] [place] [address] Care Team Providers Care Stripper And Taper Name Role Phone Chato Diaz MD Unavailable Chato Diaz MD Unavailable Jimenez Madera DO Primary Care Provider Jimenez Madera DO Unavailable [phone] Chato Diaz MD Unavailable Rosalba Romo MD Unavailable Allergies Active Allergy Reactions Criticality Noted Date Comments Sulfa Antibiotics 11/05/2011 Medications Medication Sig Dispensed Refills Start Date End Date Status Ksoblgp-Yrgrpkqoz-J itamin D 500-250-200 MG-MG-UNIT TABS Take by [...] 7+ (Tenivac) 12/15/1994 TDAP Vaccine (Adacel) 05/02/2007 Social History Tobacco Use Types Packs/Day Years [...] Sex Assigned at Female 10/26/2022 5:46 AM ANALYSIS ENGINEER Gender Identity Female 10/26/2022 5:45 AM ANALYSIS ENGINEER Sexual Orientation Straight 10/26/2022 5: 46 AM ANALYSIS ENGINEER Last Filed Vital Signs Vital Sign Reading Time Taken Comments Blood Pressure 104/76 11/16/2022 1:52 PM ANALYSIS ENGINEER Pulse 85 11/16/2022 1:52 PM ANALYSIS ENGINEER Temperature 36.9 ??C (98.5 ??F) 10/26/2022 11:[address] Respiratory Rate 12 10/26/2022 11:13 AM ANALYSIS ENGINEER Oxygen Saturation 98% 11/16/2022 1:52 PM ANALYSIS ENGINEER Inhaled Oxygen Concentration - - Weight 67.1 kg (148 lb) 12/04/2022 7:37 AM ANALYSIS ENGINEER Height 157.5 cm (5' 2) 12/04/2022 7:37 AM ANALYSIS ENGINEER Body Mass Index 27.07 12/04/2022 7:37 AM ANALYSIS ENGINEER Plan of Treatment Not on file Care Teams Stripper And Taper Relationship Specialty [place] [address] [place] [address] PCP - General Family Medicine 10/29/22 Chato Diaz MD [address] [place] [id number] Cardiovascular Disease 03/24/22 Chato Diaz MD [address] [place] [id number] Cardiovascular Disease 03/24/22 [place] [address] [place] [address] Assigned PCP 11/07/22 Chato Diaz MD [address] [facility] [address] [place] [address] Assigned Heart and Vascular Provider 11/21/22 Rosalba Romo MD [address] [place], [place] [address] Assigned Pulmonology Provider 12/12/22
--- OUTSIDE RECORDS SUMMARY | 2023-10-27 22:51 | XMS_ITS | Encounter Summary ---
Author Name Unknown Organization [facility] Address [address] [facility] [place] [address] Care Team Providers Care Meat Manager Name Role Phone Chato Diaz MD Unavailable [phone] Chato Diaz MD Unavailable [phone] Ref-Primary, Physician Primary Care Provider Marko Smith MD Unavailable + Chato Diaz MD Unavailable [phone] Jimenez Madera DO Primary Care Provider Jimenez Madera DO Unavailable [phone] Chato Diaz MD Unavailable [phone] Rosalba Room MD Unavailable [phone] Encounter Details Date Type Department Care Team (Late st Contact Info) Description 08/12/2022 [facility] Medical Advice [facility] [place] [address] [facility] [address] [place] [address] Marko Smith MD [address] [facility] [address] [place], [place] [address] Social History Tobacco Use Types Packs/Day Years Used Date Smoking Tobacco: Never Smokeless Tobacco: Never Alcohol Use Standard Drinks/Week Comments No 0 (1 standard drink = 0.6 oz pur e alcohol) PHQ-2 Answer Date Recorded PHQ-2 Score 0 02/07/2019 Sex and Gender Information Value Date Recorded Sex Assigned at Female 10/26/2022 5:46 AM PETROLEUM INSPECTOR SUPERVISOR Gender Identity Female 10/26/2022 5:45 AM PETROLEUM INSPECTOR SUPERVISOR Sexual Orientation Straight 10/26/2022 5: 46 AM PETROLEUM INSPECTOR SUPERVISOR COVID-19 Exposure Response Date Recorded In the last 10 days, have yo u been in contact with someone who was confirmed or suspected to have Coronavirus/COVID-19? No / Unsure 08/12/2022 9:10 AM CDT documented as of this encounter Plan of Treatment Not on file documented as of this encounter Visit Diagnoses Not on filedocumented in this encounter Care Teams Meat Manager Relationship Specialty Start Date End Date No Ref-Primary, Physician PCP - General 08/12/22 10/28/22 [place] [address] [place] [address] PCP - General Family Medicine 10/29/22 Chato Diaz MD [address] [place] [id number] Cardiovascular Disease 03/24/22 Chato Diaz MD [address] [place] [id number] Cardiovascular Disease 03/24/22 Marko Smith MD [address] [place] [address] Assigned Heart and Vascular Provider 08/15/22 11/20/22 Chato iDaz MD [address] [place] [address] Assigned Heart and Vascular Provider 07/18/22 08/14/22 [place] [address] [place] [address] Assigned PCP 11/07/22 Chato Diaz MD [address] [facility] [address] [place], [place] [address] Assigned Heart and Vascular Provider 11/21/22 Rosalba Romo MD [address] [place], [place] [address] Assigned Pulmonology Provider 12/12/22 documented as of this encounter
--- OUTSIDE RECORDS SUMMARY | 2023-10-27 22:51 | XMS_ITS | Encounter Summary ---
Author Name Unknown Organization [facility] Address [address] [facility] [place] [address] Care Team Providers Care Fitness Coordinator Name Role Phone Chato Diaz MD Unavailable Chato Diaz MD Unavailable Jimenez Madera DO Primary Care Provider Jimenez Madera DO Unavailable Chato Diaz MD Unavailable Rosalba Romo MD Unavailable Reason for Visit * Reason Onset Date Comments MyChart Communication 07/02/2023 Encounter Details Date Type Department Care Team (Latest Contact Info) Description 07/02/2023 MyC Medical [address] [address] [place] [id number] [place] [address] MyChart Communication Social History Tobacco Use Types Packs/Day Years Used Date Smoking Tobacco: Never Smokeless Tobacco: Never Alcohol Use Standard Drinks/Week Comments No 0 (1 standard drink = 0.6 oz pur e alcohol) PHQ-2 Answer Date Recorded PHQ-2 Score 0 10/26/2022 Sex and Gender Information Value Date Recorded Sex Assigned at Female 10/26/2022 5:46 AM FIELD GAUGER Gender Identity Female 10/26/2022 5:45 AM FIELD GAUGER Sexual Orientation Straight 10/26/2022 5: 46 AM FIELD GAUGER documented as of this encounter Miscellaneous Notes * Telephone Encounter - Yas Cisneros RN - 07/02/2023 10:28 AM CDT Per protocol, RN triaged though telephone encounter due to chest pain. Please see tel. Encounter for more information. Yas Cristobal RN * Telephone Encounter - Bárbara Urrutia RN - 07/02/2023 9:23 AM CDT See my chart COVID positve Bárbara Urrutia RN documented in this encounter Plan of Treatment Not on file documented as of this encounter Visit Diagnoses Not on filedocumented in this encounter Care Teams Fitness Coordinator Relationship Specialty Start [place] [address] [place] [address] PCP - General Family Medicine 10/29/22 Chato Diaz MD [address] [place] [address] Cardiovascular Disease 03/24/22 Chato Diaz MD [address] [place] [address] Cardiovascular Disease 03/24/22 [place] [address] [place] [address] Assigned PCP 11/07/22 Chato Diza MD [address] [place] [address] Assigned Heart and Vascular Provider 11/21/22 Rosalba Romo MD [address] [place] [address] Assigned Pulmonology Provider 12/12/22 documented as of this encounter
--- OUTSIDE RECORDS SUMMARY | 2023-10-27 22:51 | XMS_ITS | Encounter Summary ---
Author Name Unknown Organization [place] Address [address] [facility] [place] [address] Care Team Providers Care Antique Automobiles Repairer Name Role Phone Chato Diaz MD Unavailable [phone] Chato Diaz MD Unavailable [phone] Marko Smith MD Unavailable + Jimenez Madera DO Primary Care Provider Jimenez Madera DO Unavailable [phone] Chato Diaz MD Unavailable Rosalba Romo MD Unavailable [phone] Reason for Referral * Diagnostic Imaging XR (Routine) - Pending Review Specialty Diagnoses / Procedures Referred By Betsy manzanares Referred To Contact Diagnoses Fertility testing Procedures XR Hysterosalpingogram June Luna DO [address] [facility] [address] [place] [address] Referral ID Status Reason Start Date Expiration Date V isits Requested Visits Authorized [id number] Pending Review 11/05/2022 11/05/2023 1 1 UNT REVIEW SPECIALIST * Diagnostic Imaging XR (Routine) - Pending Review Specialty Diagnoses / Procedures Referred By Betsy manzanares Referred To Contact Diagnoses Fertility testing Procedures XR Hysterosalpingogram FURNITURE ARRANGER Performs Cath June Luna DO [address] [place] [address] Referral ID Status Reason Start Date Expiration Date V isits Requested Visits Authorized [id number] Pending Review 11/05/2022 11/05/2023 1 1 UNT REVIEW SPECIALIST Encounter Details Date Type Department Care Team (Late st Contact Info) Description 11/05/2022 Orders Only [place] [facility] [address] [place] [address] June Luna DO [address] [place] [id number] Fertility testing (Primary Dx) Social History Tobacco Use Types Packs/Day Years Used Date Smoking Tobacco: Never Smokeless Tobacco: Never Alcohol Use Standard Drinks/Week Comments No 0 (1 standard drink = 0.6 oz pur e alcohol) PHQ-2 Answer Date Recorded PHQ-2 Score 0 10/26/2022 Sex and Gender Information Value Date Recorded Sex Assigned at Female 10/26/2022 5:46 AM ACCOUNT REVIEW SPECIALIST Gender Identity Female 10/26/2022 5:45 AM ACCOUNT REVIEW SPECIALIST Sexual Orientation Straight 10/26/2022 5: 46 AM ACCOUNT REVIEW SPECIALIST COVID-19 Exposure Response Date Recorded In the last 10 days, have yo u been in contact with someone who was confirmed or suspected to have Coronavirus/COVID-19? No / Unsure 10/28/2022 8:49 AM ACCOUNT REVIEW SPECIALIST documented as of this encounter Plan of Treatment Scheduled Orders Name Type Priority Associated Diagnoses Orde r Schedule XR Hysterosalpingogram OB/GY N Performs Cath Imaging Routine Fertility testing Expected: 11/09/2022 (Approximate), Expires: 11/05/2023 XR Hysterosalpingogram Imaging Routine Fertility testing Expected: 11/09/2022 (Approximate), Expires: 11/05/2023 documented as of this encounter Visit Diagnoses Diagnosis Fertility testing- Primary documented in this encounter Care Teams Antique Automobiles Repairer Relationship Specialty [place] [address] [place] [address] PCP - General Family Medicine 10/29/22 Chato Diaz MD [address] [place] [address] Cardiovascular Disease 03/24/22 Chato Diaz MD [address] [place] [address] Cardiovascular Disease 03/24/22 Marko Smith MD [address] [place] [address] Assigned Heart and Vascular Provider 08/15/22 11/20/22 [place] [address] [place] [address] Assigned PCP 11/07/22 Chato Diaz MD [address] [place] [address] Assigned Heart and Vascular Provider 11/21/22 Rosalba Romo MD [address] [place], [place] [address] Assigned Pulmonology Provider 12/12/22 documented as of this encounter
--- OUTSIDE RECORDS SUMMARY | 2023-10-27 22:51 | XMS_ITS | Encounter Summary ---
Author Name Unknown Organization [place] Address [address] [facility] [place] [address] Care Team Providers Care Golf Starter And Ranger Name Role Phone Chato Diaz MD Unavailable [phone] Chato Diaz MD Unavailable [phone] Ref-Primary, Physician Primary Care Provider Marko Smith MD Unavailable + Jimenez Madera DO Primary Care Provider Jimenez Madera DO Unavailable [phone] Chato Diaz MD Unavailable [phone] Rosalba Romo MD Unavailable [phone] Reason for Visit * Reason Onset Date Comments Call Back 10/23/2022 Referral daniel vigil Encounter Details Date Type Department Care Team (Late st Contact Info) Description 10/23/2022 Telephone [facility] [place] [address] [facility] [address] [place] [address] Chato Diaz MD [address] [facility] [address] [place] [id number] Call Back (Referral questions ) Social History Tobacco Use Types Packs/Day Years Used Date Smoking Tobacco: Never Smokeless Tobacco: Never Alcohol Use Standard Drinks/Week Comments No 0 (1 standard drink = 0.6 oz pur e alcohol) PHQ-2 Answer Date Recorded PHQ-2 Score 0 10/26/2022 Sex and Gender Information Value Date Recorded Sex Assigned at Female 10/26/2022 5:46 AM VIRTUAL OFFICE ASSISTANT Gender Identity Female 10/26/2022 5:45 AM VIRTUAL OFFICE ASSISTANT Sexual Orientation Straight 10/26/2022 5: 46 AM VIRTUAL OFFICE ASSISTANT COVID-19 Exposure Response Date Recorded In the last 10 days, have yo u been in contact with someone who was confirmed or suspected to have Coronavirus/COVID-19? No / Unsure 10/26/2022 5:52 AM VIRTUAL OFFICE ASSISTANT documented as of this encounter Miscellaneous Notes * Telephone Encounter - Abiola Ballard MA - 10/23/2022 2:33 PM [facility] Phone Message May a detailed message be left on voicemail: yes Reason for Call: Other: Please call pt back to discuss referral for POTS. Pt is very confused on where to go. Action Taken: Message routed to: Other: Cardiology Travel Screening: Not Applicable Thank you! [facility] UAL OFFICE ASSISTANT documented in this encounter Plan of Treatment Not on file documented as of this encounter Visit Diagnoses Not on filedocumented in this encounter Care Teams Golf Starter And Ranger Relationship Specialty Start Date End Date No Ref-Primary, Physician PCP - General 08/12/22 10/28/22 [place] [address] [place] [address] PCP - General Family Medicine 10/29/22 Chato Diaz MD [address] [place] [address] Cardiovascular Disease 03/24/22 Chato Diaz MD [address] [place] [address] Cardiovascular Disease 03/24/22 Marko Smith MD [address] [place], [place] [address] Assigned Heart and Vascular Provider 08/15/22 11/20/22 [place] [address] [place] [address] Assigned PCP 11/07/22 Chato Diaz MD [address] [place], [place] [address] Assigned Heart and Vascular Provider 11/21/22 Rosalba Romo MD [address] [place] [id number] Assigned Pulmonology Provider 12/12/22 documented as of this encounter
--- OUTSIDE RECORDS SUMMARY | 2023-10-27 22:51 | XMS_ITS | Encounter Summary ---
Author Name Unknown Organization [place] Address [address] [facility] [place] [address] Care Team Providers Care Senior Controls Engineer Name Role Phone Chato Diaz MD Unavailable [phone] Chato Diaz MD Unavailable [phone] Ref-Primary, Physician Primary Care Provider Marko Smith MD Unavailable + Jimenez Madera DO Primary Care Provider Jimenez Madera DO Unavailable [phone] Chato Diaz MD Unavailable Rosalba Romo MD Unavailable [phone] Encounter Details Date Type Department Care Team (Late st Contact Info) Description 09/26/2022 [facility] [place] [address] [facility] [address] [place] [address] Chato Diaz MD [address] [facility] [address] [place] [address] Social History Tobacco Use Types Packs/Day Years Used Date Smoking Tobacco: Never Smokeless Tobacco: Never Alcohol Use Standard Drinks/Week Comments No 0 (1 standard drink = 0.6 oz pur e alcohol) PHQ-2 Answer Date Recorded PHQ-2 Score 0 02/07/2019 Sex and Gender Information Value Date Recorded Sex Assigned at Female 10/26/2022 5:46 AM NEEDLE GRINDER Gender Identity Female 10/26/2022 5:45 AM NEEDLE GRINDER Sexual Orientation Straight 10/26/2022 5: 46 AM NEEDLE GRINDER documented as of this encounter Miscellaneous Notes * Telephone Encounter - Elvin Carlson RN - 10/23/2022 11:41 AM NEEDLE GRINDER Continuent message received. Attachment is within Continuent encounter. RN will send to Dr. Diaz for further review. 3 spikes in the 140s happened last night. My watch can't log it unfortunately correctly. It's awful. I tried to do an at home study. I don't have drops in my oxygen at all at night- according to my o2 on my watch. No crazy heart drops either- just the jumps. I'm noticing it a lot more after fertility med causing ovulation and now going into progesterone phase with increased heart and dreams. Is there a way to shut dreams off? Your like a magician , i know you'll find a way!!! Lol. ;) I think endocrinology maybe too. [place] rejected me so far for anything. Btw, you'll see my mom soon in November. See you then! LE GRINDER documented in this encounter Plan of Treatment Not on file documented as of this encounter Visit Diagnoses Not on filedocumented in this encounter Care Teams Senior Controls Engineer Relationship Specialty Start Date End Date No Ref-Primary, Physician PCP - General 08/12/22 10/28/22 [place] [address] [place] [address] PCP - General Family Medicine 10/29/22 Chato Diaz MD [address] [facility] [address] [place] [address] Cardiovascular Disease 03/24/22 Chato Diaz MD [address] [place] [address] Cardiovascular Disease 03/24/22 Marko Smith MD [address] [place] [address] Assigned Heart and Vascular Provider 08/15/22 11/20/22 [place] [address] [place] [address] Assigned PCP 11/07/22 Chato Diaz MD [address] [place] [address] Assigned Heart and Vascular Provider 11/21/22 Rosalba Romo MD [address] [place], [place] [address] Assigned Pulmonology Provider 12/12/22 documented as of this encounter
--- OUTSIDE RECORDS SUMMARY | 2023-10-27 22:51 | XMS_ITS | Encounter Summary ---
Author Name Unknown Organization [place] Address [address] [facility] [place] [address] Care Team Providers Care Boat Designer Name Role Phone Chato Diaz MD Unavailable [phone] Chato Diaz MD Unavailable [phone] Ref-Primary, Physician Primary Care Provider Marko Smith MD Unavailable + Jimenez Madera DO Primary Care Provider Jimenez Madera DO Unavailable Chato Diaz MD Unavailable Rosalba Romo MD Unavailable [phone] Encounter Details Date Type Department Care Team (Late st Contact Info) Description 08/21/2022 [facility] [place] [place] [address] [facility] [address] [place] [address] Chato Diaz MD [address] [facility] [address] [place] [address] Social History Tobacco Use Types Packs/Day Years Used Date Smoking Tobacco: Never Smokeless Tobacco: Never Alcohol Use Standard Drinks/Week Comments No 0 (1 standard drink = 0.6 oz pur e alcohol) PHQ-2 Answer Date Recorded PHQ-2 Score 0 02/07/2019 Sex and Gender Information Value Date Recorded Sex Assigned at Female 10/26/2022 5:46 AM RETAIL CUSTODIAL ASSOCIATE Gender Identity Female 10/26/2022 5:45 AM RETAIL CUSTODIAL ASSOCIATE Sexual Orientation Straight 10/26/2022 5: 46 AM RETAIL CUSTODIAL ASSOCIATE COVID-19 Exposure Response Date Recorded In the last 10 days, have yo u been in contact with someone who was confirmed or suspected to have Coronavirus/COVID-19? Unable to assess 08/21/2022 4:29 PM CDT documented as of this encounter Plan of Treatment Not on file documented as of this encounter Visit Diagnoses Not on filedocumented in this encounter Care Teams Boat Designer Relationship Specialty Start Date End Date No Ref-Primary, Physician PCP - General 08/12/22 10/28/22 [place] [address] [facility] [place] [address] PCP - General Family Medicine 10/29/22 Chato Diaz MD [address] [place] [address] Cardiovascular Disease 03/24/22 Chato Diaz MD [address] [place] [address] Cardiovascular Disease 03/24/22 Marko Smith MD [address] [place] [address] Assigned Heart and Vascular Provider 08/15/22 11/20/22 [place] [address] [place] [address] Assigned PCP 11/07/22 Chato Diaz MD [address] [place] [address] Assigned Heart and Vascular Provider 11/21/22 Rosalba Romo MD [address] [place], [place] [address] Assigned Pulmonology Provider 12/12/22 documented as of this encounter
--- OUTSIDE RECORDS SUMMARY | 2023-10-27 22:51 | XMS_ITS | Encounter Summary ---
Author Name Unknown Organization [place] Address [address] [facility] [place] [address] Care Team Providers Care Alteration Hand Name Role Phone Cecelia Kruegerveronica Young Primary Care Provider [phone] Chato Diaz MD Unavailable [phone] Chato Diaz MD Unavailable [phone] Ref-Primary, Physician Primary Care Provider Marko Smith MD Unavailable + Chato Diaz MD Unavailable [phone] Jimenez Madera DO Primary Care Provider [phone] Jimenez Madera DO Unavailable [phone] Chato Diaz MD Unavailable [phone] Rosalba Romo MD Unavailable [phone] Encounter Details Date Type Department Care Team (Late st Contact Info) Description 07/17/2022 [facility] [place] [address] [facility] [address] [place] [address] Chato Diaz MD [address] [facility] [address] [place] [address] Social History Tobacco Use Types Packs/Day Years Used Date Smoking Tobacco: Never Smokeless Tobacco: Never Alcohol Use Standard Drinks/Week Comments No 0 (1 standard drink = 0.6 oz pur e alcohol) PHQ-2 Answer Date Recorded PHQ-2 Score 0 02/07/2019 Sex and Gender Information Value Date Recorded Sex Assigned at Female 10/26/2022 5:46 AM ROUGH RIB GRADER Gender Identity Female 10/26/2022 5:45 AM ROUGH RIB GRADER Sexual Orientation Straight 10/26/2022 5: 46 AM ROUGH RIB GRADER COVID-19 Exposure Response Date Recorded In the last 10 days, have yo u been in contact with someone who was confirmed or suspected to have Coronavirus/COVID-19? No / Unsure 07/17/2022 11:00 AM CDT documented as of this encounter Plan of Treatment Not on file documented as of this encounter Visit Diagnoses Not on filedocumented in this encounter Care Teams Alteration Hand Relationship Specialty Start Date End Date Keven Krueger [address] [id number] PCP - General Family Practice 05/01/19 08/11/22 No Ref-Primary, Physician PCP - General 08/12/22 10/28/22 [place] [address] [place] [address] PCP - General Family Medicine 10/29/22 Chato Diaz MD [address] [place] [address] Cardiovascular Disease 03/24/22 Chaot Diaz MD [address] [place] [address] Cardiovascular Disease 03/24/22 Marko Smith MD [address] [place] [address] Assigned Heart and Vascular Provider 08/15/22 11/20/22 Chato Diaz MD [address] [place], [place] [address] Assigned Heart and Vascular Provider 07/18/22 08/14/22 [place] [address] [place] [address] Assigned PCP 11/07/22 Chato Diaz MD [address] [place] [address] Assigned Heart and Vascular Provider 11/21/22 Rosalba Romo MD [address] [place], [place] [address] Assigned Pulmonology Provider 12/12/22 documented as of this encounter
--- OUTSIDE RECORDS SUMMARY | 2023-10-27 22:51 | XMS_ITS | Encounter Summary ---
Author Name Unknown Organization [place] Address [address] [facility] [place] [address] Care Team Providers Care Validation Engineer Name Role Phone Chato Lopez MD Unavailable Chato Lopez MD Unavailable Jimenez Madera DO Primary Care Provider Jimenez Madera DO Unavailable [phone] Chato Lopez MD Unavailable Rosalba Romo MD Unavailable [phone] Encounter Details Date Type Department Care Team (Late st Contact Info) Description 03/31/2023 [facility] [place] [place] [facility] [id number] [place] [address] [address] [place] [address] Chato Lopez MD [address] [facility] [address] [place], [place] [address] Social History Tobacco Use Types Packs/Day Years Used Date Smoking Tobacco: Never Smokeless Tobacco: Never Alcohol Use Standard Drinks/Week Comments No 0 (1 standard drink = 0.6 oz pur e alcohol) PHQ-2 Answer Date Recorded PHQ-2 Score 0 10/26/2022 Sex and Gender Information Value Date Recorded Sex Assigned at Female 10/26/2022 5:46 AM TRAVELING INVENTORY ASSOCIATE Gender Identity Female 10/26/2022 5:45 AM TRAVELING INVENTORY ASSOCIATE Sexual Orientation Straight 10/26/2022 5: 46 AM TRAVELING INVENTORY ASSOCIATE documented as of this encounter Miscellaneous Notes * Telephone Encounter - Elvin Carlson RN - 03/31/2023 7:07 AM CDT mychart message received. RN will send to Dr. Lopez for further review and recommendation. Hi dr lopez, I've been getting these heavy heartbeats. Maybe it's like a bounding pulse if that's a thing? It sometimes wakes me up in my sleep and sometimes less often i feel it during the day. At night, when i wake up from it- I'll cross my legs and sometimes that helps. Or if i bare down for a sec- that willtake the feeling away for a few seconds- but then it can come right back. It'll last a couple minutes and then go away and come back and go away. Any ideas on what causes this? It's not a fast rhythmUSUALLY. ??It can happen in the 60s-80s bpm. Thanks! documented in this encounter Plan of Treatment Not on file documented as of this encounter Visit Diagnoses Not on filedocumented in this encounter Care Teams Validation Engineer Relationship Specialty [place] [address] [place] [address] PCP - General Family Medicine 10/29/22 Chato Lopez MD [address] [place] [address] Cardiovascular Disease 03/24/22 Chato Lopez MD [address] [place] [address] Cardiovascular Disease 03/24/22 [place] [address] [place] [address] Assigned PCP 11/07/22 Chato Lopez MD [address] [facility] [address] [place], [place] [address] Assigned Heart and Vascular Provider 11/21/22 Rosalba Romo MD [address] [facility] [address] [place], [place] [address] Assigned Pulmonology Provider 12/12/22 documented as of this encounter
--- OUTSIDE RECORDS SUMMARY | 2023-10-27 22:51 | XMS_ITS | Encounter Summary ---
Author Name Unknown Organization [place] Address [address] [place] [address] Care Team Providers Care Supervisor Firearms Name Role Phone Chato Diaz MD Unavailable [phone] Chato Diaz MD Unavailable [phone] Ref-Primary, Physician Primary Care Provider Marko Smith MD Unavailable + Encounter Details Date Type Department Care Team (Latest Contact Info) Description 10/28/2022 Travel Social History Tobacco Use Types Packs/Day Years Used Date Smoking Tobacco: Never Smokeless Tobacco: Never Alcohol Use Standard Drinks/Week Comments No 0 (1 standard drink = 0.6 oz pur e alcohol) PHQ-2 Answer Date Recorded PHQ-2 Score 0 10/26/2022 Sex and Gender Information Value Date Recorded Sex Assigned at Female 10/26/2022 5:46 AM DIP DYER Gender Identity Female 10/26/2022 5:45 AM DIP DYER Sexual Orientation Straight 10/26/2022 5: 46 AM DIP DYER COVID-19 Exposure Response Date Recorded In the last 10 days, have yo u been in contact with someone who was confirmed or suspected to have Coronavirus/COVID-19? No / Unsure 10/28/2022 8:49 AM DIP DYER documented as of this encounter Plan of Treatment Not on file documented as of this encounter Visit Diagnoses Not on filedocumented in this encounter Care Teams Supervisor Firearms Relationship Specialty Start Date End Date No Ref-Primary, Physician PCP - General 08/12/22 10/28/22 Chato Diaz MD [address] [place] [id number] Cardiovascular Disease 03/24/22 Chato Diaz MD [address] [place] [address] Cardiovascular Disease 03/24/22 Marko Smith MD [address] [place] [address] Assigned Heart and Vascular Provider 08/15/22 11/20/22 documented as of this encounter
--- OUTSIDE RECORDS SUMMARY | 2023-10-27 22:51 | XMS_ITS | Encounter Summary ---
Author Name Unknown Organization [facility] Address [address] [place] [address]. [place] [address] Care Team Providers Care Senior Devops Engineer Name Role Phone Chato Diaz MD Unavailable Chato Diaz MD Unavailable Jimenez Madera DO Primary Care Provider Jimenez Madera DO Unavailable [phone] Chato Diaz MD Unavailable Reason for Visit * Reason Comments cardio referred * Consultation (Routine: Next available opening) - Closed Specialty Diagnoses / Procedures Referred By Betsy t Referred To Contact Sleep Medicine Diagnoses Cardiac arrhythmia, unspecified cardiac arrhythmia [place] [address] [place] [address] [phone] Referral ID Status Reason Start Date Expiration Date Visits Re quested Visits Authorized [id number] Closed 10/26/2022 10/26/2023 1 1 Encounter Details Date Type Department Care Team (Late st Contact Info) Description 12/04/2022 8:00 AM BRAKE SPECIALIST Virtual Visit [facility] [address] [place] [phone] [place] [address] [place] [address] Rosalba Romo MD [address] [place] [address] Cardiac arrhythmia, unspecified cardiac arrhythmia type (Primary Dx); Vivid dream; Other insomnia Social History Tobacco Use Types Packs/Day Years Used Date Smoking Tobacco: Never Smokeless Tobacco: Never Tobacco Cessation:Counseling Given: Not Answered Alcohol Use Standard Drinks/Week Comments No 0 (1 standard drink = 0.6 oz pur e alcohol) PHQ-2 Answer Date Recorded PHQ-2 Score 0 10/26/2022 Sex and Gender Information Value Date Recorded Sex Assigned at Female 10/26/2022 5:46 AM BRAKE SPECIALIST Gender Identity Female 10/26/2022 5:45 AM BRAKE SPECIALIST Sexual Orientation Straight 10/26/2022 5: 46 AM BRAKE SPECIALIST COVID-19 Exposure Response Date Recorded In the last 10 days, have yo u been in contact with someone who was confirmed or suspected to have Coronavirus/COVID-19? No / Unsure 11/16/2022 1:47 PM BRAKE SPECIALIST documented as of this encounter Last Filed Vital Signs Vital Sign Reading Time Taken Comments Blood Pressure - - Pulse - - Temperature - - Respiratory Rate - - Oxygen Saturation - - Inhaled Oxygen Concentration - - Weight 67.1 kg (148 lb) 12/04/2022 7:37 AM BRAKE SPECIALIST Height 157.5 cm (5' 2) 12/04/2022 7:37 AM BRAKE SPECIALIST Body Mass Index 27.07 12/04/2022 7:37 AM BRAKE SPECIALIST documented in this encounter Patient Instructions * Patient Instructions* Rosalba Romo MD - 12/04/2022 8:00 AM BRAKE SPECIALIST Images from the original note were not included. MY TREATMENT INFORMATION FOR SLEEP APNEA- Beth Quinn DOCTOR : Rosalba Romo MD Am I having a home sleep study? --->Watch the video for the device you are using: -Disposable device sent out require phone/computer application- https://www.[employer].com/watch?v=BCce_vbiwxE Frequently asked questions: 1. What is Obstructive Sleep Apnea (JOCY)? JOCY is the most common type of sleep apnea. Apnea means, without breath. Apnea is most often caused by narrowing or collapse of the upper airway as musclesrelax during sleep. Almost everyone has occasional apneas. Most people with sleep apnea have had brief interruptions atnight frequently for many years. The severity of sleep apnea is related to how frequent and severe the events are. 2. What are the consequences of JOCY? Symptoms include: feeling sleepy during the day, snoring loudly, gasping or stopping of breathing, trouble sleeping, and occasionally morning headaches or heartburn at night. Sleepiness can be serious and even increase the risk of falling asleep while driving. Other health consequences may include development of high blood pressure and other cardiovascular disease in persons who are susceptible. Untreated JOCY can contribute to heart disease, stroke and diabetes. 3. What are the treatment options? In most situations, sleep apnea is a lifelong disease that must be managed with daily therapy. Medications are not effective for sleep apnea and surgery is generally not considered until other therapies have been tried. Your treatment is your choice . Continuous Positive Airway (CPAP) works right away and is the therapy that is effective in nearly everyone. An oral device to hold your jaw forward is usually the next most reliable option. Other options include postioning devices (to keep you off your back), weight loss, and surgery including a tongue pacing device. There is more detail about some of these options below. 4. Are my sleep studies covered by insurance? Although we will request verification of coverage, weadvise you also check in advance of the study to ensure there is coverage. Important tips for those choosing CPAP and similar devices Know your equipment: CPAP is continuous positive airway pressure that prevents obstructive sleep apnea by keeping the throat from collapsing while you are sleeping. In most cases, the device is ???smart?? and can slowlyself-adjusts if your throat collapses and keeps a record every day of how well you are treated-this information is available to you and your care team. BPAP is bilevel positive airway pressure that keeps your throat open and also assists each breath with a pressure boost to maintain adequate breathing. Special kinds of BPAP are used in patients who have inadequate breathing from lung or heart disease. In most cases, the device is ???smart?? and can slowly self-adjusts to assist breathing. Like CPAP, the device keeps a record of how well you aretreated. Your mask is your connection to the device. You get to choose what feels most comfortable and the staff will help to make sure if fits. Here: are some examples of the different masks that are available: Alston points to remember on your journey with sleep apnea: Sleep study. PAP devices often need to be adjusted during a sleep study to show that they are effective and adjusted right. Good tips to remember: Try wearing just the mask during a quiet time during the day so your body adapts to wearing it. A humidifier is recommended for comfort in most cases to prevent drying of your nose and throat. Allergy medication from your provider may help you if you are having nasal congestion. Getting settled-in. It takes more than one night for most of us to get used to wearing a mask. Try wearing just the mask during a quiet time during the day so your body adapts to wearing it. A humidifier is recommended for comfort in most cases. Our team will work with you carefully on the first day and will be in contact within 4 days and again at 2 and 4 weeks for advice and remote device adjustments. Your therapy is evaluated by the device each day. Use it every night. The more you are able to sleep naturally for 7-8 hours, the more likely you will have good sleep and to prevent health risks or symptoms from sleep apnea. Even if you use it 4 hours it helps. Occasionally all of us are unable to use a medical therapy, in sleep apnea, it is not dangerous to miss one night. Communicate. Call our skilled team on the number provided on the first day if your visit for problems that make it difficult to wear the device. Over 2 out of 3 patients can learn to wear the device long-term with help from our team. Remember to call our team or your sleep providers if you are unable to wear the device as we may have other solutions for those who cannot adapt to mask CPAP therapy. It is recommended that you sleep your sleep provider within the first 3 months and yearly after that if you are not having problems. Use it for your health. We encourage use of CPAP masks during daytime quiet periods to allow your face and brain to adapt to the sensation of CPAP so that it will be a more natural sensation to awaken to at night or during naps. This can be very useful during the first few weeks or months of adapting to CPAP though it does not help medically to wear CPAP during wakefulness and should not be used as a strategy just to meet guidelines. Take care of your equipment. Make sure you clean your mask and tubing using directions every day and that your filter and mask are replaced as recommended or if they are not working. BESIDES CPAP, WHAT OTHER THERAPIES ARE THERE? Positioning Device Positioning devices are generally used when sleep apnea is mild and only occurs on your back.This example shows a pillow that straps around the waist. It may be appropriate for those whose sleep study shows milder sleep apnea that occurs primarily when lying flat on one's back. Preliminary studies have shown benefit but effectiveness at home may need to be verified by a home sleep test. These devices are generally not covered by medical insurance. Examples of devices that maintain sleeping on the back to prevent snoring and mild sleep apnea. Belt type body positioner http://[employer]/ Electronic reminder http://nightshifttherapy.Demdex/ Oral Appliance What is oral appliance therapy? An oral appliance device fits on your teeth at night like a retainer used after having braces. The device is made by a specialized dentist and requires several visits over 1-2 months before a manufactured device is made to fit your teeth and is adjusted to prevent your sleep apnea. Once an oral device is working properly, snoring should be improved. A home sleep test may be recommended at that time if to determine whether the sleep apnea is adequately treated. Some things to remember: -Oral devices are often, but not always, covered by your medical insurance. Be sure to check with your insurance provider. -If you are referred for oral therapy, you will be given a list of specialized dentists to consideror you may choose to visit the Web site of the [place] [employer] -Oral devices are less likely to work if you have severe sleep apnea or are extremely overweight. More detailed information An oral appliance is a small acrylic device that fits over the upper and lower teeth (similar to a retainer or a mouth guard). This device slightly moves jaw forward, which moves the base of the tongue forward, opens the airway, improves breathing for effective treat snoring and obstructive sleep apnea in perhaps 7 out of 10 people . The best working devices are custom-made by a dental device radio message router after a mold is made of the teeth 1, 2, 3. When is an oral appliance indicated? Oral appliance therapy is recommended as a first-line treatment for patients with primary snoring, mild sleep apnea, and for patients with moderate sleep apnea who prefer appliance therapy to use of CPAP4, 5. Severity of sleep apnea is determined by sleep testing and is based on the number of respiratory events per hour of sleep. How successful is oral appliance therapy? The success rate of oral appliance therapy in patients with mild sleep apnea is 75-80% while in patients with moderate sleep apnea it is 50-70%. The chance of success in patients with severe sleep apnea is 40-50%. The research also shows that oral appliances have a beneficial effect on the cardiovascular health of JOCY patients at the same magnitude as CPAP therapy7. Oral appliances should be a second-line treatment in cases of severe sleep apnea, but if not completely successful then a combination therapy utilizing CPAP plus oral appliance therapy may be effective. Oral appliances tend to be effective in a broad range of patients although studies show that thepatients who have the highest success are females, younger patients, those with milder disease, andless severe obesity. 3, 6. Finding a dentist that practices dental sleep medicine Specific training is available through the [employer] for dentists interested in working in the field of sleep. To find a dentist who is educated in the field of sleep and the use of oral appliances, near you, visit the Web site of the [employer]. References 1. Gissel et al. Objectively measured vs self-reported compliance during oral appliance therapy for sleep-disordered breathing. Chest 2013; 144(5): 6870-6301. 2. Zurdo, et al. Objective measurement of compliance during oral appliance therapy for sleep-disordered breathing. Thorax 2013; 68(1): 91-96. 3. Sanjay, et al. Mandibular advancement devices in 620 men and women with JOCY and snoring: tolerability and predictors of treatment success. Chest 2004; 125: 3038-5763. 4. Ede et al. Oral appliances for snoring and JOCY: a review. Sleep 2006; 29: 244-262. 5. Lian et al. Oral appliance treatment for JOCY: an update. J Clin Sleep Med 2014; 10(2): 215-227. 6. Khang et al. Predictors of OSAH treatment outcome. J Bulloch Res 2007; 86: 0738-2233. Weight Loss: Weight loss is a long-term strategy that may improve sleep apnea in some patients. Weight management is a personal decision and the decision should be based on your interest and the potential benefits. If you are interested in exploring weight loss strategies, the following discussion covers the impact on weight loss on sleep apnea and the approaches that may be successful. Being overweight does not necessarily mean you will have health consequences. Those who have BMI over 35 or over 27 with existing medical conditions carries greater risk. Weight loss decreases severity of sleep apnea in most people with obesity. For those with mild obesity who have developed snoring with weight gain, even 15-30 pound weight loss can improve and occasionally eliminate sleep apnea. Structured and life-long dietary and health habits are necessary to lose weight and keep healthier weight levels. Though there may be significant health benefits from weight loss, long-term weight loss is very difficult to achieve- studies show success with dietary management in less than 10% of people. In addition, substantial weight loss may require years of dietary control and may be difficult if patients have severe obesity. In these cases, surgical management may be considered. Finally, older individuals who have tolerated obesity without health complications may be less likely to benefit from weight loss strategies. Surgery: Surgery for obstructive sleep apnea is considered generally only when other therapies fail to work.Surgery may be discussed with you if you are having a difficult time tolerating CPAP and or when there is an abnormal structure that requires surgical correction. Nose and throat surgeries often enlarge the airway to prevent collapse. Most of these surgeries create pain for 1-2 weeks and up to halfof the most common surgeries are not effective throughout life. You should carefully discuss the benefits and drawbacks to surgery with your sleep provider and surgeon to determine if it is the best solution for you. More information Surgery for JOCY is directed at areas that are responsible for narrowing or complete obstruction of the airway during sleep. There are a wide range of procedures available to enlarge and/or stabilize the airway to prevent blockage of breathing in the three major areas where it can occur: the palate,tongue, and nasal regions. Successful surgical treatment depends on the accurate identification of the factors responsible for obstructive sleep apnea in each person. A personalized approach is required because there is no single treatment that works well for everyone. Because of anatomic variation, consultation with an examination by a sleep surgeon is a critical first step in determining what surgical options are best for each patient. In some cases, examination during sedation may be recommended in order to guide the selection of procedures. Patients will be counseled about risks and benefits as well as the typical recovery course after surgery. Surgery is typically not a cure for a person???s JOCY. However, surgery will often significantly improve one???s JOCY severity (termed ???success rate?? ). Even in the absence of a cure, surgery will decrease the cardiovascular risk associated with OSA7; improve overall quality of life8 (sleepiness, functionality, sleep quality, etc). Palate Procedures: Patients with JOCY often have narrowing of their airway in the region of their tonsils and uvula. The goals of palate procedures are to widen the airway in this region as well as to help the tissues resist collapse. Modern palate procedure techniques focus on tissue conservation and soft tissue rearrangement, rather than tissue removal. Often the uvula is preserved in this procedure. Residual sleep apnea is common in patient after pharyngoplasty with an average reduction in sleep apnea events of33%2. Tongue Procedures: ExamWhile patients are awake, the muscles that surround the throat are active and keep this region open for breathing. These muscles relax during sleep, allowing the tongue and other structures to collapse and block breathing. There are several different tongue procedures available. Selection of a tongue base procedure depends on characteristics seen on physical exam. Generally, procedures are aimed at removing bulky tissues in this area or preventing the back of the tongue from falling back during sleep. Success rates for tongue surgery range from 50-62%3. Hypoglossal Nerve Stimulation: Hypoglossal nerve stimulation has recently received approval from the [place] Food and Drug Administration for the treatment of obstructive sleep apnea. This is based on research showing that the system was safe and effective in treating sleep apnea6. Results showed that the median AHI score decreased 68%, from 29.3 to 9.0. This therapy uses an implant system that senses breathing patterns and delivers mild stimulation to airway muscles, which keeps the airway open during sleep. The system consists of three fully implanted components: a small generator (similar in size to a pacemaker), a breathing sensor, and a stimulation lead. Using a small handheld remote, a patient turns the therapy on before bed and off upon awakening. Candidates for this device must be greater than 18 years of age, have moderate to severe JOCY (AHI between 15-65), BMI less than 35, have tried CPAP/oral appliance for at least 8 weeks without success, and have appropriate upper airway anatomy (determined by a sleep endoscopy performed by Dr. Hernán Fuentes). Hypoglossal Nerve Stimulation Pathway: The sleep surgeon???s office will work with the patient through the insurance prior-authorization process (including communications and appeals). Nasal Procedures: Nasal obstruction can interfere with nasal breathing during the day and night. Studies have shown that relief of nasal obstruction can improve the ability of some patients to tolerate positive airwaypressure therapy for obstructive sleep apnea1. Treatment options include medications such as nasal saline, topical corticosteroid and antihistamine sprays, and oral medications such as antihistaminesor decongestants. Non-surgical treatments can include external nasal dilators for selected patients. If these are not successful by themselves, surgery can improve the nasal airway either alone or incombination with these other options. Combination Procedures: Combination of surgical procedures and other treatments may be recommended, particularly if patients have more than one area of narrowing or persistent positional disease. The success rate of combination surgery ranges from 66-80%2,3. References Kell Deleon. The Role of the Nose in Snoring and Obstructive Sleep Apnoea: An Update. Eur Arch Otorhinolaryngol. 2011; 268: 1365-73. Melania SM; Amanda JA; Augie JR; Alexus JF; Cesario MB; Sybil SG; Naheed OROZCO. Surgical modifications of the upper airway for obstructive sleep apnea in adults: a systematic review and meta-analysis. SLEEP 2010;33(10):6516-5094. Rachel Vargas. Hypopharyngeal surgery in obstructive sleep apnea: an evidence-based medicine review. Arch Otolaryngol Head Neck Surg. 2005;132(2):206-13. Pankaj YH1, Elicia Y, Venkatesh RAFAEL. The efficacy of anatomically based multilevel surgery for obstructive sleep apnea. Otolaryngol Head Neck Surg. 2003 Jul;129(4):327-35. Cheryl Cannon. Hypopharyngeal Surgery in Obstructive Sleep Apnea: An Evidence-Based Medicine Review. Arch Otolaryngol Head Neck Surg. 2005;132(2):206-13. Omega MAGANA et al. Upper-Airway Stimulation for Obstructive Sleep Apnea. N Engl J Med. 2014 Oct 26;370(2):139-49. Elinor Y et al. Increased Incidence of Cardiovascular Disease in Middle-aged Men with Obstructive Sleep Apnea. Am J Respir Crit Care Med; 2002 166: 159-165 Todd REID et al. Studying Life Effects and Effectiveness of Palatopharyngoplasty (SLEEP) study: Subjective Outcomes of Isolated Uvulopalatopharyngoplasty. Otolaryngol Head Neck Surg. 2011; 144: 623-631. WHAT IF I ONLY HAVE SNORING? Mandibular advancement devices, lateral sleep positioning, long-term weight loss and treatment of nasal allergies have been shown to improve snoring. Exercising tongue muscles with a game ([employer]://apps.[employer]/arnulfo/cfrjwyf-yigpwt-jcktkop/cp9056243930) or stimulating the tongue during the day with a device (https://doi.org/10.3390/cql80019614)have improved snoring in some individuals. Remember to Drive Safe... Drive Alive Sleep health profoundly affects your health, mood, and your safety. Thirty three percent of the population (one in three of us) is not getting enough sleep and many have a sleep disorder. Not gettingenough sleep or having an untreated / undertreated sleep condition may make us sleepy without even knowing it. In fact, our driving could be dramatically impaired due to our sleep health. As your provider, here are some things I would like you to know about driving: Here are some warning signs for impairment and dangerous drowsy driving: -Having been awake more than 16 hours -Looking tired -Eyelid drooping -Head nodding (it could be too late at this point) -Driving for more than 30 minutes Some things you could do to make the driving safer if you are experiencing some drowsiness: -Stop driving and rest -Call for transportation -Make sure your sleep disorder is adequately treated Some things that have been shown NOT to work when experiencing drowsiness while driving: -Turning on the radio -Opening windows -Eating any ???distracting?? / ???entertaining?? foods (e.g., sunflower seeds, candy, or any other) -Talking on the phone Your decision may not only impact your life, but also the life of others. Please, remember to drivesafe for yourself and all of us. E SPECIALIST documented in this encounter Progress Notes * Rosalba Romo MD - 12/04/2022 8:00 AM CST Video-Visit Details Type of service: Video Visit Video Start Time (time video started): 7:59 AM Video End Time (time video stopped): 8:48 AM Originating Location (pt. Location): Home Distant Location (provider location): Off-site Mode of Communication: Video Conference via [employer] Chief complaint: Consultation requested by Jimenez Madera DO for evaluation of nocturnal tachycardia and palpitations History of Present Illness: 42-year-old female with past medical history of frequent miscarriages, polycystic ovarian syndrome, describes the development of nocturnal tachycardias. She recalls this starting after an ectopic last spring. She was treated with methotrexate for few months butshe started developing episodes where she would wake up with a sense of palpitations and heart racing. She eventually wore a monitor and that showed that heart rates would go up into the 140s and sometimes 160s. She finds the symptoms frightening. She has been learning to manage them. Sometimes crossing her legs can help. She is also tried various medications including metoprolol and labetalol. She is working with cardiology. She was recommended to have an evaluation for possible sleep apnea. She has noticed that these episodes are starting to happen more in the second half of the night and may be associated with vivid dreaming. Sometimes she can abort them if she wakes up with a sense of low heart rate and stays still she can prevent her her heart rate from jumping up really high. They tend to happen more on her left side than her right. She has been sleeping a little bit more on her back lately. She has occasional nocturnal reflux symptoms. Snoring is minimal. She is currently sleeping on the floor so she is not disturbed by her 's movements. She is a light sleeper. She uses a fan for white noise and keeps the bedroom cool. It is also dark. She is having difficulty returning to sleep 2-3 nights a week after these episodes. Sometimes she will listen to a TV show without watching it to help her fall asleep. The episodes tend to happen at higher frequency for a week or 2and then lower frequency for a few weeks. On occasion they can happen during the day. No history of restless legs, sleepwalking, sleep talking or dream enactment behavior. She is not drinking any caffeinated beverages or alcohol. She does a regular sleep schedule going to bed around 930 to 10 PM and getting up around 5- 5 30. She is not taking any naps. She denies excessive daytime sleepiness. Boyden Sleepiness Scale Sitting and reading: Would never doze Watching TV: Would never doze Sitting, inactive in a public place (e.g. a theatre or a meeting): Would never doze As a passenger in a car for an hour without a break: Slight chance of dozing Lying down to rest in the afternoon when circumstances permit: Would never doze Sitting and talking to someone: Would never doze Sitting quietly after a lunch without alcohol: Would never doze In a car, while stopped for a few minutes in traffic: Would never doze Total score - Boyden: 1 (Less than 10 normal) Insomnia Severity Scale GERI Total Score: 10 Total score categories: 0-7 = No clinically significant insomnia 8-14 = Subthreshold insomnia 15-21 = Clinical insomnia (moderate severity) 22-28 = Clinical insomnia (severe) Past Medical History: Diagnosis Date ??? Anxiety ??? Anxiety state 04/02/2008 ??? Chest pain 01/18/2015 ??? Hypercholesterolemia 11/07/2011 (Problem list name updated by automated process. Provider to review and confirm.) ??? Hyperlipidemia ??? Hypertriglyceridemia ??? Insulin resistance 11/07/2011 ??? Miscarriage recurrent x3 ??? Other specified viral warts ??? Palpitations ??? PCOS (polycystic ovarian syndrome) 11/07/2011 ??? PVC's (premature ventricular contractions) ??? Recurrent loss without current 05/04/2018 ??? Sinus tachycardia ??? Syncope Allergies Allergen Reactions ??? Sulfa Drugs Current Outpatient Medications Medication ??? Lzeeqmt-Ucxprbhgv-Rgodgvw D 500-250-200 MG-MG-UNIT TABS ??? co-enzyme Q-10 100 MG CAPS capsule ??? fish oil-omega-3 fatty acids 1000 MG capsule ??? labetalol (NORMODYNE) 100 MG tablet ??? letrozole (FEMARA) 2.5 MG tablet ??? metoprolol tartrate (LOPRESSOR) 50 MG tablet ??? Multiple Vitamins-Minerals (DAILY MULTI) TABS ??? OVIDREL 250 MCG/0.5ML syringe SC INJ ??? potassium 99 MG TABS ??? Probiotic Product (PROBIOTIC-10 PO) ??? progesterone 50 MG VA SUPP ??? UNABLE TO FIND ??? aspirin (ASA) 81 MG chewable tablet ??? INOSITOL PO No current facility-administered medications for this visit. Social History Socioeconomic History ??? Marital status: Spouse name: Not on file ??? Number of children: Not on file ??? Years of education: Not on file ??? Highest education level: Not on file Occupational History ??? 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 Smoking status: Never ??? Smokeless tobacco: Never Vaping Use ??? Vaping Use: Never used Substance and Sexual Activity ??? Alcohol use: No Alcohol/week: 0.0 standard drinks ??? Drug use: No ??? Sexual activity: Yes Partners: Male control/protection: None Other Topics Concern ??? Service No ??? Blood Transfusions No ??? Caffeine Concern No ??? Occupational Exposure No ??? Hobby Hazards No ??? Sleep Concern No ??? Stress Concern Yes ??? Weight Concern No ??? Special Diet Yes Comment: less sugar ??? Back Care No ??? Exercise Yes Comment: daily ??? Bike Helmet Yes ??? Seat Belt Yes ??? Self-Exams Yes ??? Parent/sibling w/ CABG, [place] or angioplasty before 65F 55M? Not Asked Social History Narrative ??? Not on file Social Determinants of Health Financial Resource Strain: Not on file Food Insecurity: Not on file Transportation Needs: Not on file Physical Activity: Not on file Stress: Not on file Social Connections: Not on file Intimate Partner Violence: Not on file Housing Stability: Not on file Family History Problem Relation Age of Onset ??? Thyroid Disease Mother graves disease, celiac ??? Familial Adenomatous Polyposis (FAP) Father ??? Diabetes Paternal Grandfather EXAM: Ht 1.575 m (5' 2) Wt 67.1 kg (148 lb) BMI 27.07 kg/m?? GENERAL: Alert and no distress EYES: Eyes grossly normal to inspection. No discharge or erythema, or obvious scleral/conjunctival abnormalities. RESP: No audible wheeze, cough, or visible cyanosis. No visible retractions or increased work of breathing. SKIN: Visible skin clear. No significant rash, abnormal pigmentation or lesions. NEURO: Cranial nerves grossly intact. Mentation and speech appropriate for age. PSYCH: Mentation appears normal, affect normal, judgement and insight intact, normal speech and appearance well-groomed. TSH Date Value Ref Range Status 03/22/2018 1.390 0.450 - 4.500 uIU/mL Final ASSESSMENT: 42-year-old female with history of polycystic ovarian syndrome, frequent miscarriages now developing supraventricular tachycardia events from sleep. Rare also happens occasionally during the day. Overall she is at low risk for obstructive sleep apnea however symptoms are concerning and she does have a history of PCOS which puts her at a little higher risk. She had home sleep apnea testing attempted through [facility] the [facility] but was unable to complete adequate test result. PLAN: Recommended second attempt for home sleep apnea testing this time with a WatchPAT One. Patient is instructed to not take her any metoprolol or labetalol as a preventative that night in case it impacts the quality of the test (PAT). If she needs it to abort a tachycardia episode with labetalol that night that is fine. Patient will work with the patient scheduler to try to coordinate testing during the typical 2-week period where symptoms are worse. 63 minutes spent on the date of the encounter doing chart review, history and exam, documentation and further activities per the note Rosalba Romo M.D. Pulmonary/Critical Care/Sleep Medicine [facility] Floor 1, [address] [place], [place] [address]e. [place] [address] Appointments: [phone] The above note was dictated using voice recognition software and may include typographical errors. Please contact the author for any clarifications. E SPECIALIST documented in this encounter Nursing Notes * Taryn Travis - 12/04/2022 8:00 AM CST Is the patient currently in the state of [place]? YES Visit mode:VIDEO If the visit is dropped, the patient can be reconnected by: VIDEO VISIT: Text to cell phone: [phone] Will anyone else be joining the visit? NO How would you like to obtain your AVS? MyChart Are changes needed to the allergy or medication list? NO Comments or concerns regarding today's visit: N/A E SPECIALIST documented in this encounter Plan of Treatment Scheduled Orders Name Type Priority Associated Diagnoses Orde r Schedule HST - Home Sleep Apnea Test - WatchPat NonReturnable Procedures Routine Cardiac arrhythmia, unspecified cardiac arrhythmia type Vivid dream Other insomnia Expected: 01/01/2023 (Approximate), Expires: 12/04/2023 documented as of this encounter Visit Diagnoses Diagnosis Cardiac arrhythmia, unspecified cardiac arrhythmia type- Primary Vivid dream Other dysfunctions of sleep stages or arousal from sleep Other insomnia documented in this encounter Care Teams Senior Devops Engineer Relationship Specialty [place] [address] [place] [address] PCP - General Family Medicine 10/29/22 Chato Diaz MD [address] [place] [address] Cardiovascular Disease 03/24/22 Chato Diaz MD [address] [place] [address] MD Cardiovascular Disease 03/24/22 [place] [address] [place] [address] Assigned PCP 11/07/22 Chato Diaz MD [address] [place] [address] Assigned Heart and Vascular Provider 11/21/22 documented as of this encounter
--- OUTSIDE RECORDS SUMMARY | 2023-10-27 22:51 | XMS_ITS | Encounter Summary ---
Author Name Unknown Organization [place] Address [address] [facility] [place] [address] Care Team Providers Care Hotel Services Supervisor Name Role Phone Chato Diaz MD Unavailable [phone] Chato Diaz MD Unavailable [phone] Ref-Primary, Physician Primary Care Provider Marko Smith MD Unavailable + Jimenez Madera DO Primary Care Provider [phone] Jimenez Madera DO Unavailable [phone] Chato Diaz MD Unavailable [phone] Rosalba Romo MD Unavailable [phone] Reason for Visit * Reason Onset Date Comments Referral 10/26/2022 Encounter Details Date Type Department Care Team (Late st Contact Info) Description 10/26/2022 Telephone [facility]rology [facility] - [address], [address] [place] [address] Unknown Referral Social History Tobacco Use Types Packs/Day Years Used Date Smoking Tobacco: Never Smokeless Tobacco: Never Alcohol Use Standard Drinks/Week Comments No 0 (1 standard drink = 0.6 oz pur e alcohol) PHQ-2 Answer Date Recorded PHQ-2 Score 0 10/26/2022 Sex and Gender Information Value Date Recorded Sex Assigned at Female 10/26/2022 5:46 AM BLENDING COORDINATOR Gender Identity Female 10/26/2022 5:45 AM BLENDING COORDINATOR Sexual Orientation Straight 10/26/2022 5: 46 AM BLENDING COORDINATOR COVID-19 Exposure Response Date Recorded In the last 10 days, have yo u been in contact with someone who was confirmed or suspected to have Coronavirus/COVID-19? No / Unsure 10/28/2022 8:49 AM BLENDING COORDINATOR documented as of this encounter Miscellaneous Notes * Telephone Encounter - Wandy Rosenberg - 10/26/2022 2:37 PM CST [facility] Phone Message May a detailed message be left on voicemail: yes Reason for Call: Appointment Intake Referring Provider Name: Jimenez Madera DO Diagnosis and/or Symptoms: Patient has symptoms suggestive of Pots disorder POTS is not listed in our protocols. Please review and contact the patient to discuss scheduling options. Action Taken: Message routed to: Other: [facility] Travel Screening: Not Applicable DING COORDINATOR documented in this encounter Plan of Treatment Not on file documented as of this encounter Visit Diagnoses Not on filedocumented in this encounter Care Teams Hotel Services Supervisor Relationship Specialty Start Date End Date No Ref-Primary, Physician PCP - General 08/12/22 10/28/22 [place] [address] [place] [address] PCP - General Family Medicine 10/29/22 Chato Diaz MD [address] [place] [address] Cardiovascular Disease 03/24/22 Chato Diaz MD [address] [place] [address] Cardiovascular Disease 03/24/22 Marko Smith MD [address] [place] [address] Assigned Heart and Vascular Provider 08/15/22 11/20/22 [place] [address] [place] [address] Assigned PCP 11/07/22 Chato Diaz MD [address] [facility] [address] [place], [place] [address] Assigned Heart and Vascular Provider 11/21/22 Rosalba Romo MD [address] [place], [place] [address] Assigned Pulmonology Provider 12/12/22 documented as of this encounter
--- OUTSIDE RECORDS SUMMARY | 2023-10-27 22:51 | XMS_ITS | Encounter Summary ---
Author Name Unknown Organization [place] Address [address] [facility] [place] [address] Care Team Providers Care Branding Specialist Name Role Phone Chato Diaz MD Unavailable [phone] Chato Diaz MD Unavailable [phone] Marko Smith MD Unavailable + Jimenez Madera DO Primary Care Provider [phone] Reason for Visit * Reason Onset Date Comments Results 10/29/2022 Encounter Details Date Type Department Care Team (Late st Contact Info) Description 10/29/2022 MyC Medical Advice [address] [address] Jimenez Madera DO [address] [place] [id number] Results Social History Tobacco Use Types Packs/Day Years Used Date Smoking Tobacco: Never Smokeless Tobacco: Never Alcohol Use Standard Drinks/Week Comments No 0 (1 standard drink = 0.6 oz pur e alcohol) PHQ-2 Answer Date Recorded PHQ-2 Score 0 10/26/2022 Sex and Gender Information Value Date Recorded Sex Assigned at Female 10/26/2022 5:46 AM INFORMATION SERVICES VICE PRESIDENT Gender Identity Female 10/26/2022 5:45 AM INFORMATION SERVICES VICE PRESIDENT Sexual Orientation Straight 10/26/2022 5: 46 AM INFORMATION SERVICES VICE PRESIDENT COVID-19 Exposure Response Date Recorded In the last 10 days, have derrell valdivia been in contact with someone who was confirmed or suspected to have Coronavirus/COVID-19? No / Unsure 10/28/2022 8:49 AM INFORMATION SERVICES VICE PRESIDENT documented as of this encounter Miscellaneous Notes * Telephone Encounter - Barney Santillan RN - 10/29/2022 9:41 AM CST Please see pt Li Creative Technologiest message and advise on results from 10/28/22 Barney Daniels RN RMATION SERVICES VICE PRESIDENT documented in this encounter Plan of Treatment Not on file documented as of this encounter Visit Diagnoses Not on filedocumented in this encounter Care Teams Branding Specialist Relationship Specialty [place] [address] [place] [address] PCP - General Family Medicine 10/29/22 Chato Diaz MD [address] [place] [address] Cardiovascular Disease 03/24/22 Chato Diaz MD [address] [place] [id number] Cardiovascular Disease 03/24/22 Marko Smith MD [address] [place] [address] Assigned Heart and Vascular Provider 08/15/22 11/20/22 documented as of this encounter
--- OUTSIDE RECORDS SUMMARY | 2023-10-27 22:51 | XMS_ITS | Encounter Summary ---
Author Name Unknown Organization [place] Address [address] [facility] [place] [address] Care Team Providers Care Balancer Scale Name Role Phone Chato Diaz MD Unavailable [phone] Chato Diaz MD Unavailable [phone] Ref-Primary, Physician Primary Care Provider Marko Smith MD Unavailable + Jimenez Madera DO Primary Care Provider Jimenez Madera DO Unavailable [phone] Chato Diaz MD Unavailable [phone] Rosalba Romo MD Unavailable [phone] Reason for Visit * Reason Onset Date Comments Appointment 10/28/2022 Encounter Details Date Type Department Care Team (Late st Contact Info) Description 10/28/2022 Telephone [facility] - [address], [address] [place] [address] Nadeem Blanco MD [address] [place] [address] Appointment Social History Tobacco Use Types Packs/Day Years Used Date Smoking Tobacco: Never Smokeless Tobacco: Never Alcohol Use Standard Drinks/Week Comments No 0 (1 standard drink = 0.6 oz pur e alcohol) PHQ-2 Answer Date Recorded PHQ-2 Score 0 10/26/2022 Sex and Gender Information Value Date Recorded Sex Assigned at Female 10/26/2022 5:46 AM FISHER POUND NET OR TRAP Gender Identity Female 10/26/2022 5:45 AM FISHER POUND NET OR TRAP Sexual Orientation Straight 10/26/2022 5: 46 AM FISHER POUND NET OR TRAP COVID-19 Exposure Response Date Recorded In the last 10 days, have yo u been in contact with someone who was confirmed or suspected to have Coronavirus/COVID-19? No / Unsure 10/28/2022 8:49 AM FISHER POUND NET OR TRAP documented as of this encounter Miscellaneous Notes * Telephone Encounter - Tikajosé Rosa - 10/28/2022 3:40 PM CST Spoke with patient today to schedule with a general neurologist per patient call staff message. Patient is primarily concerned with a diagnosis of POTS and wants to know if this is something that canbe diagnosed by a general neurologist-Dr. Blanco- is this something that he has experience with. Patient also mentioned something about a Tilt Test and asked if this is something a neurologist would do. Please advise. Patient is currently scheduled and understands if this is not the right placeor provider to be scheduled with. ER POUND NET OR TRAP documented in this encounter Plan of Treatment Not on file documented as of this encounter Visit Diagnoses Not on filedocumented in this encounter Care Teams Balancer Scale Relationship Specialty Start Date End Date No Ref-Primary, Physician PCP - General 08/12/22 10/28/22 [place] [address] [place] [address] PCP - General Family Medicine 10/29/22 Chato Diaz MD [address] [facility] [address] [place] [address] Cardiovascular Disease 03/24/22 Chato Diaz MD [address] [place] [address] Cardiovascular Disease 03/24/22 Marko Smith MD [address] [place] [address] Assigned Heart and Vascular Provider 08/15/22 11/20/22 [place] [address] [place] [address] Assigned PCP 11/07/22 Chato Diaz MD [address] [place] [address] Assigned Heart and Vascular Provider 11/21/22 Rosalba Romo MD [address] [place], [place] [address] Assigned Pulmonology Provider 12/12/22 documented as of this encounter
--- OUTSIDE RECORDS SUMMARY | 2023-10-27 22:51 | XMS_ITS | Encounter Summary ---
Author Name Unknown Organization [place] Address [address] [facility] [place] [address] Care Team Providers Care Tablet Tester Name Role Phone Chato Diaz MD Unavailable [phone] Chato Diaz MD Unavailable [phone] Marko Smith MD Unavailable + Jimenez Madera DO Primary Care Provider [phone] Jimenez Madera DO Unavailable [phone] Reason for Visit * Reason Comments Palpitations Follow up palpitatio ns Encounter Details Date Type Department Care Team (Late st Contact Info) Description 11/16/2022 1:45 PM CLINICAL SOCIAL WORK AIDE Office Visit [facility] [address] [facility] [address] [place] [address] Chato Diaz MD [address] [facility] [address] [place], [place] [address] Palpitations (Primary Dx) Social History Tobacco Use Types Packs/Day Years Used Date Smoking Tobacco: Never Smokeless Tobacco: Never Tobacco Cessation:Counseling Given: Not Answered Alcohol Use Standard Drinks/Week Comments No 0 (1 standard drink = 0.6 oz pur e alcohol) PHQ-2 Answer Date Recorded PHQ-2 Score 0 10/26/2022 Sex and Gender Information Value Date Recorded Sex Assigned at Female 10/26/2022 5:46 AM CLINICAL SOCIAL WORK AIDE Gender Identity Female 10/26/2022 5:45 AM CLINICAL SOCIAL WORK AIDE Sexual Orientation Straight 10/26/2022 5: 46 AM CLINICAL SOCIAL WORK AIDE COVID-19 Exposure Response Date Recorded In the last 10 days, have derrell u been in contact with someone who was confirmed or suspected to have Coronavirus/COVID-19? No / Unsure 11/16/2022 1:47 PM CLINICAL SOCIAL WORK AIDE documented as of this encounter Last Filed Vital Signs Vital Sign Reading Time Taken Comments Blood Pressure 104/76 11/16/2022 1:52 PM CLINICAL SOCIAL WORK AIDE Pulse 85 11/16/2022 1:52 PM CLINICAL SOCIAL WORK AIDE Temperature - - Respiratory Rate - - Oxygen Saturation 98% 11/16/2022 1:52 PM CLINICAL SOCIAL WORK AIDE Inhaled Oxygen Concentration - - Weight 69 kg (152 lb 1.6 oz) 11/16/2022 1:52 PM CLINICAL SOCIAL WORK AIDE Height 158.8 cm (5' 2.5) 11/16/2022 1:52 PM CLINICAL SOCIAL WORK AIDE Body Mass Index 27.38 11/16/2022 1:52 PM CLINICAL SOCIAL WORK AIDE documented in this encounter Progress Notes * Chato Diaz MD - 11/16/2022 1:45 PM CST Cardiology Progress Note Assessment and Plan: 1. Sinus tachycardia ?? Trial of metoprolol tartrate 50 mg at bedtime to cover overnight. ?? Okay for further evaluation at [facility]. 30 minutes was spent with the patient, precharting and reviewing tests as well as post visit charting all done today.. This note was transcribed using electronic voice recognition software and there may be typographical errors present. 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 We discussed some of her concerns and questions. Review of Systems: Review of Systems: Skin: Eyes: ENT: Respiratory: Negative Cardiovascular: palpitations;Positive for;dizziness;chest pain Gastroenterology: Genitourinary: Musculoskeletal: Neurologic: Psychiatric: Heme/Lymph/Imm: Endocrine: Physical Exam: Vitals: BP 104/76 (BP Location: Right arm, Patient Position: Sitting, Cuff Size: Adult Regular) Pulse 85 Ht 1.588 m (5' 2.5) Wt 69 kg (152 lb 1.6 oz) LMP 09/28/2022 (Approximate) SpO2 98% BMI 27.38 kg/m?? Constitutional: cooperative, alert and oriented, well developed, well nourished, in no acute distress Skin: warm and dry to the touch, no apparent skin lesions or masses noted Head: normocephalic, no masses or lesions Eyes: Equal and reactive Chest: normal breath sounds, clear to auscultation, normal A-P diameter, normal symmetry, normal respiratory excursion, no use of accessory muscles Cardiac: regular rhythm;no murmurs, gallops or rubs detected;normal S1 and S2 Extremities and Back: no deformities, clubbing, cyanosis, erythema observed;no edema Neurological: no gross motor deficits;affect appropriate Medications: Current Outpatient Medications Medication Sig Dispense Refill ??? Ktuydta-Updjwvtnx-Jvmfxvt D 500-250-200 MG-MG-UNIT TABS Take by mouth daily ??? co-enzyme Q-10 100 MG CAPS capsule Take 100 mg by mouth daily ??? fish oil-omega-3 fatty acids 1000 MG capsule Take 1 g by mouth daily ??? INOSITOL PO Take 2 g by mouth daily ??? labetalol (NORMODYNE) 100 MG tablet Take 0.5 tablets (50 mg) by mouth 2 times daily (Patient taking differently: Take 50 mg by mouth as needed) 180 tablet 3 ??? letrozole (FEMARA) 2.5 MG tablet TAKE 2 TABLET (5MG) ONCE DAILY DAYS 3-7 OF MENSES. ??? metoprolol tartrate (LOPRESSOR) 50 MG tablet Take 1 tablet (50 mg) by mouth every evening 90 tablet 3 ??? Multiple Vitamins-Minerals (DAILY MULTI) TABS Take by mouth daily ??? OVIDREL 250 MCG/0.5ML syringe SC INJ ??? potassium 99 MG TABS ??? Probiotic Product (PROBIOTIC-10 PO) ??? progesterone [address] 50 mg vaginally as needed ??? aspirin (ASA) 81 MG chewable tablet (Patient not taking: Reported on 11/16/2022) ??? UNABLE TO FIND heart calm Data: All laboratory data reviewed No results found for this or any previous visit (from the past 24 hour(s)). All laboratory data reviewed Lab Results Component Value Date CHOL 270 10/28/2022 Lab Results Component Value Date HDL 58 10/28/2022 Lab Results Component Value Date LDL 194 10/28/2022 Lab Results Component Value Date TRIG 91 10/28/2022 No results found for: CHOLHDLRATIO TSH Date Value Ref Range Status 03/22/2018 1.390 0.450 - 4.500 uIU/mL Final Last Basic Metabolic Panel: Lab Results Component Value Date NA 138 10/28/2022 NA 139 08/30/2017 Lab Results Component Value Date POTASSIUM 4.3 10/28/2022 POTASSIUM 3.9 08/30/2017 Lab Results Component Value Date CHLORIDE 105 10/28/2022 CHLORIDE 106 08/30/2017 Lab Results Component Value Date CONRADO 9.5 10/28/2022 CONRADO 9.0 08/30/2017 Lab Results Component Value Date CO2 22 10/28/2022 CO2 25 08/30/2017 Lab Results Component Value Date BUN 13.5 10/28/2022 BUN 15 08/30/2017 Lab Results Component Value Date CR 0.75 10/28/2022 CR 0.67 08/30/2017 Lab Results Component Value Date GLC 94 10/28/2022 GLC 88 08/30/2017 Lab Results Component Value Date WBC 7.9 07/26/2017 Lab Results Component Value Date RBC 4.15 07/26/2017 Lab Results Component Value Date HGB 12.9 07/26/2017 Lab Results Component Value Date HCT 36.6 07/26/2017 Lab Results Component Value Date MCV 88 07/26/2017 Lab Results Component Value Date MCH 31.1 07/26/2017 Lab Results Component Value Date MCHC 35.2 07/26/2017 Lab Results Component Value Date RDW 12.3 07/26/2017 Lab Results Component Value Date PLT 285 07/26/2017 ICAL SOCIAL WORK AIDE documented in this encounter Plan of Treatment Not on file documented as of this encounter Visit Diagnoses Diagnosis Palpitations- Primary documented in this encounter Care Teams Tablet Tester Relationship Specialty [place] [address] [address] [address] PCP - General Family Medicine 10/29/22 Chato Diaz MD [address] [facility] [address] [place] [address] Cardiovascular Disease 03/24/22 Chato Diaz MD [address] [place] [address] Cardiovascular Disease 03/24/22 Marko Smith MD [address] [place] [address] Assigned Heart and Vascular Provider 08/15/22 11/20/22 [place] [address] [place] [address] Assigned PCP 11/07/22 documented as of this encounter
--- OUTSIDE RECORDS SUMMARY | 2023-10-27 22:51 | XMS_ITS | Encounter Summary ---
Author Name Unknown Organization [place] Address [address] [place] [address] Care Team Providers Care Manager Metal Name Role Phone Chato Diaz MD Unavailable [phone] Chato Diaz MD Unavailable [phone] Marko Smith MD Unavailable + Jimenez Madera DO Primary Care Provider [phone] Jimenez Madera DO Unavailable [phone] Encounter Details Date Type Department Care Team (Latest Contact Info) Description 11/16/2022 Travel Social History Tobacco Use Types Packs/Day Years Used Date Smoking Tobacco: Never Smokeless Tobacco: Never Alcohol Use Standard Drinks/Week Comments No 0 (1 standard drink = 0.6 oz pur e alcohol) PHQ-2 Answer Date Recorded PHQ-2 Score 0 10/26/2022 Sex and Gender Information Value Date Recorded Sex Assigned at Female 10/26/2022 5:46 AM KNOCKOUT MACHINE OPERATOR Gender Identity Female 10/26/2022 5:45 AM KNOCKOUT MACHINE OPERATOR Sexual Orientation Straight 10/26/2022 5: 46 AM KNOCKOUT MACHINE OPERATOR COVID-19 Exposure Response Date Recorded In the last 10 days, have yo u been in contact with someone who was confirmed or suspected to have Coronavirus/COVID-19? No / Unsure 11/16/2022 1:47 PM KNOCKOUT MACHINE OPERATOR documented as of this encounter Plan of Treatment Not on file documented as of this encounter Visit Diagnoses Not on filedocumented in this encounter Care Teams Manager Metal Relationship Specialty [place] [address] [address] [address] PCP - General Family Medicine 10/29/22 Chato Diaz MD [address] [place] [id number] Cardiovascular Disease 03/24/22 Chato Diaz MD [address] [place] [id number] Cardiovascular Disease 03/24/22 Marko Smith MD [address] [place] 216085 Assigned Heart and Vascular Provider 08/15/22 11/20/22 [place] [address] [address] [address] Assigned PCP 11/07/22 documented as of this encounter
--- OUTSIDE RECORDS SUMMARY | 2023-10-27 22:51 | XMS_ITS | Encounter Summary ---
Author Name Unknown Organization [place] Address [address] [facility] [place] [address] Care Team Providers Care Canceling And Cutting Control Clerk Name Role Phone Chato Diaz MD Unavailable [phone] Chato Diaz MD Unavailable [phone] Jimenez Madera DO Primary Care Provider Jimenez Madera DO Unavailable [phone] Chato Diaz MD Unavailable Rosalba Romo MD Unavailable [phone] Encounter Details Date Type Department Care Team (Late st Contact Info) Description 06/15/2023 [facility] Medical Advice [facility] Heart [facility] [address] [place] [address] [address] [place] [address] Chato Diaz MD [address] [facility] [address] [place] [address] Social History Tobacco Use Types Packs/Day Years Used Date Smoking Tobacco: Never Smokeless Tobacco: Never Alcohol Use Standard Drinks/Week Comments No 0 (1 standard drink = 0.6 oz pur e alcohol) PHQ-2 Answer Date Recorded PHQ-2 Score 0 10/26/2022 Sex and Gender Information Value Date Recorded Sex Assigned at Female 10/26/2022 5:46 AM DENTIST Gender Identity Female 10/26/2022 5:45 AM DENTIST Sexual Orientation Straight 10/26/2022 5: 46 AM DENTIST documented as of this encounter Plan of Treatment Not on file documented as of this encounter Visit Diagnoses Not on filedocumented in this encounter Care Teams Canceling And Cutting Control Clerk Relationship Specialty [place] [address] [place] [address] PCP - General Family Medicine 10/29/22 Chato Diaz MD [address] [place], [place] [address] Cardiovascular Disease 03/24/22 Chato Diaz MD [address] [place], [place] [address] Cardiovascular Disease 03/24/22 [place] [address] [place] [address] Assigned PCP 11/07/22 Chato Diaz MD [address] [place], [place] [address] Assigned Heart and Vascular Provider 11/21/22 Rosalba Romo MD [address] [place], [place] [address] Assigned Pulmonology Provider 12/12/22 documented as of this encounter
--- OUTSIDE RECORDS SUMMARY | 2023-10-27 22:51 | XMS_ITS | Encounter Summary ---
Author Name Unknown Organization [place] Address [address] [facility] [place] [address] Care Team Providers Care Delivery Representative Name Role Phone Chato Diaz MD Unavailable [phone] Chato Diaz MD Unavailable [phone] Marko Smith MD Unavailable + Jimenez Madera DO Primary Care Provider [phone] Jimenez Madera DO Unavailable [phone] Chato Diaz MD Unavailable [phone] Rosalba Romo MD Unavailable [phone] Encounter Details Date Type Department Care Team (Late st Contact Info) Description 11/18/2022 [facility] Medical Advice [facility] [place] [address] [place] [address] [address] [place] [address] Chato Diaz MD [address] [facility] [address] [place], [place] [address] Social History Tobacco Use Types Packs/Day Years Used Date Smoking Tobacco: Never Smokeless Tobacco: Never Alcohol Use Standard Drinks/Week Comments No 0 (1 standard drink = 0.6 oz pur e alcohol) PHQ-2 Answer Date Recorded PHQ-2 Score 0 10/26/2022 Sex and Gender Information Value Date Recorded Sex Assigned at Female 10/26/2022 5:46 AM AIRPLANE TECHNICIAN Gender Identity Female 10/26/2022 5:45 AM AIRPLANE TECHNICIAN Sexual Orientation Straight 10/26/2022 5: 46 AM AIRPLANE TECHNICIAN COVID-19 Exposure Response Date Recorded In the last 10 days, have yo u been in contact with someone who was confirmed or suspected to have Coronavirus/COVID-19? No / Unsure 11/16/2022 1:47 PM AIRPLANE TECHNICIAN documented as of this encounter Plan of Treatment Not on file documented as of this encounter Visit Diagnoses Not on filedocumented in this encounter Care Teams Delivery Representative Relationship Specialty [place] [address] [place] [address] PCP - General Family Medicine 10/29/22 Chato Diaz MD [address] [place] [address] Cardiovascular Disease 03/24/22 Chato Diaz MD [address] [place] [address] Cardiovascular Disease 03/24/22 Marko Smith MD [address] [place] [address] Assigned Heart and Vascular Provider 08/15/22 11/20/22 [place] [address] [place] [address] Assigned PCP 11/07/22 Chato Diaz MD [address] [place] [address] Assigned Heart and Vascular Provider 11/21/22 Rosalba Romo MD [address] [place] [address] Assigned Pulmonology Provider 12/12/22 documented as of this encounter
--- OUTSIDE RECORDS SUMMARY | 2023-10-27 22:51 | XMS_ITS | Encounter Summary ---
Author Name Unknown Organization [place] Address [address] [facility] [place] [address] Care Team Providers Care Industrial Specialist Name Role Phone Chato Diaz MD Unavailable [phone] Chato Diaz MD Unavailable [phone] Ref-Primary, Physician Primary Care Provider Marko Smith MD Unavailable + Encounter Details Date Type Department Care Team (Late st Contact Info) Description 10/28/2022 8:45 AM BOOM CONVEYOR OPERATOR [facility] [address] [place] [address] Cardiac arrhythmia, unspecified cardiac arrhythmia type; Low vitamin D level Social History Tobacco Use Types Packs/Day Years Used Date Smoking Tobacco: Never Smokeless Tobacco: Never Alcohol Use Standard Drinks/Week Comments No 0 (1 standard drink = 0.6 oz pur e alcohol) PHQ-2 Answer Date Recorded PHQ-2 Score 0 10/26/2022 Sex and Gender Information Value Date Recorded Sex Assigned at Female 10/26/2022 5:46 AM BOOM CONVEYOR OPERATOR Gender Identity Female 10/26/2022 5:45 AM BOOM CONVEYOR OPERATOR Sexual Orientation Straight 10/26/2022 5: 46 AM BOOM CONVEYOR OPERATOR COVID-19 Exposure Response Date Recorded In the last 10 days, have yo u been in contact with someone who was confirmed or suspected to have Coronavirus/COVID-19? No / Unsure 10/28/2022 8:49 AM BOOM CONVEYOR OPERATOR documented as of this encounter Plan of Treatment Not on file documented as of this encounter Procedures Procedure Name Priority Date/Time Associated Diagnosis Comments VITAMIN D DEFICIENCY SCREENING Routine 10/28/2022 8:50 AM BOOM CONVEYOR OPERATOR Low vitamin D level MAGNESIUM Routine 10/28/2022 8:50 AM BOOM CONVEYOR OPERATOR Cardiac arrhythmia, unspecified cardiac arrhythmia type LIPID PROFILE Routine 10/28/2022 8:50 AM BOOM CONVEYOR OPERATOR Cardiac arrhythmia, unspecified cardiac arrhythmia type BASIC METABOLIC PANEL Routine 10/28/2022 8:50 AM BOOM CONVEYOR OPERATOR Cardiac arrhythmia, unspecified cardiac arrhythmia type documented in this encounter Results * Vitamin D Deficiency (10/28/2022 8:50 AM BOOM CONVEYOR OPERATOR) Vitamin D, Total (25-Hydroxy) 37 20 - 75 ug/L 10/28/2022 6:55 PM BOOM CONVEYOR OPERATOR [facility] Blood BLOOD SPECIMEN / Unknown Venipuncture / Unknown 10/28/2022 8:50 AM BOOM CONVEYOR OPERATOR 10/28/2022 8:50 AM BOOM CONVEYOR OPERATOR Narrative [facility]/ENDO - 10/28/2022 6:55 PM BOOM CONVEYOR OPERATOR Season, race, dietary intake, and treatment affect the concentration of 32-fiacfth-Ndkwdxx D. Values may decrease during winter months and increase during summer months. Values 20-29 ug/L may indicate Vitamin D insufficiency and values <20 ug/L may indicate Vitamin D deficiency. Vitamin D determination is routinely performed by an immunoassay specific for 25 hydroxyvitamin D3. ??If an individual is on vitamin D2(ergocalciferol) supplementation, please specify 25 [place] vitamin D2 and D3 level determination by LCMSMS test VITD23. Jimenez Madera DO LAB - BLOOD ORDERABL ES [facility]/PROT/ENDO [facility]Prot/Endo [address] [facility], [address] [phone] * (ABNORMAL) Magnesium (10/28/2022 8:50 AM BOOM CONVEYOR OPERATOR) Magnesium 3.1(H) 1.7 - 2.3 mg/dL 10/28/2022 5:14 PM BOOM CONVEYOR OPERATOR [facility] Blood BLOOD SPECIMEN / Unknown Venipuncture / Unknown 10/28/2022 8:50 AM BOOM CONVEYOR OPERATOR 10/28/2022 8:50 AM BOOM CONVEYOR OPERATOR Jimenez Madera DO LAB - BLOOD ORDERABL ES [facility] [address] [facility], [address] [place] [address], [facility] [phone] * BASIC METABOLIC PANEL (10/28/2022 8:50 AM BOOM CONVEYOR OPERATOR) Sodium 138 136 - 145 mmol/L 10/28/2022 5:14 PM BOOM CONVEYOR OPERATOR [facility] Potassium 4.3 3.4 - 5.3 mmol/L 10/28/2022 5:14 PM BOOM CONVEYOR OPERATOR [facility] Chloride 105 98 - 107 mmol/L 10/28/2022 5:14 PM BOOM CONVEYOR OPERATOR [facility] Carbon Dioxide (CO2) 22 22 - 29 mmol/L 10/28/2022 5:14 PM BOOM CONVEYOR OPERATOR [facility] Anion Gap 11 7 - 15 mmol/L 10/28/2022 5:14 PM BOOM CONVEYOR OPERATOR [facility] Urea Nitrogen 13.5 6.0 - 20.0 mg/dL 10/28/2022 5:14 PM BOOM CONVEYOR OPERATOR [facility] Creatinine 0.75 0.51 - 0.95 mg/dL 10/28/2022 5:14 PM BOOM CONVEYOR OPERATOR [facility] Calcium 9.5 8.6 - 10.0 mg/dL 10/28/2022 5:14 PM BOOM CONVEYOR OPERATOR [facility] Glucose 94 70 - 99 mg/dL 10/28/2022 5:14 PM BOOM CONVEYOR OPERATOR [facility] GFR Estimate >90 >60 mL/min/1.7 3m2 10/28/2022 5:14 PM BOOM CONVEYOR OPERATOR [facility] Comment:Effective September 182020 eGFRcr in adults is calculated using the 2020 CKD-EPI creatinine equation which includes age and gender (Surinder zheng al., NEJM, DOI: 10.1056/CTSWnw7928562) Blood BLOOD SPECIMEN / Unknown Venipuncture / Unknown 10/28/2022 8:50 AM BOOM CONVEYOR OPERATOR 10/28/2022 8:50 AM BOOM CONVEYOR OPERATOR Jimenez Madera DO LAB - BLOOD ORDERABL ES [facility] [address] [facility], [address] [address], [facility] [phone] * (ABNORMAL) Lipid Profile (10/28/2022 8:50 AM BOOM CONVEYOR OPERATOR) Cholesterol 270(H) <200 mg/dL 10/28/2022 5:14 PM BOOM CONVEYOR OPERATOR [facility] Triglycerides 91 <150 mg/dL 10/28/2022 5:14 PM BOOM CONVEYOR OPERATOR [facility] Direct Measure HDL 58 >=50 mg/dL 10/28/2022 5:14 PM BOOM CONVEYOR OPERATOR [facility] LDL Cholesterol Calculated 194(H) <=100 mg/dL 10/28/2022 5:14 PM BOOM CONVEYOR OPERATOR [facility] Non HDL Cholesterol 212(H) <130 mg/dL 10/28/2022 5:14 PM BOOM CONVEYOR OPERATOR [facility] Blood BLOOD SPECIMEN / Unknown Venipuncture / Unknown 10/28/2022 8:50 AM BOOM CONVEYOR OPERATOR 10/28/2022 8:50 AM BOOM CONVEYOR OPERATOR Narrative [facility] - 10/28/2022 5:14 PM BOOM CONVEYOR OPERATOR Cholesterol Desirable: ??<200 mg/dL Triglycerides Normal: ??Less than 150 mg/dL Borderline High: ??150-199 mg/dL High: ??200-499 mg/dL Very High: ??Greater than or equal to 500 mg/dL Direct Measure HDL Female: ??Greater than or equal to 50 mg/dL Male: ??Greater than or equal to 40 mg/dL LDL Cholesterol Desirable: ??<100mg/dL Above Desirable: ??100-129 mg/dL Borderline High: ??130-159 mg/dL High: ??160-189 mg/dL Very High: ??>= 190 mg/dL Non HDL Cholesterol Desirable: ??130 mg/dL Above Desirable: ??130-159 mg/dL Borderline High: ??160-189 mg/dL High: ??190-219 mg/dL Very High: ??Greater than or equal to 220 mg/dL Jimenez Madera DO LAB - BLOOD ORDERABL ES [facility] Lab [address] [facility] [facility], [address] [place] [address], [facility] [phone] documented in this encounter Visit Diagnoses Diagnosis Cardiac arrhythmia, unspecified cardiac arrhythmia type Low vitamin D level documented in this encounter Care Teams Industrial Specialist Relationship Specialty Start Date End Date No Ref-Primary, Physician PCP - General 08/12/22 10/28/22 Chato Diaz MD [address] [place] [address] Cardiovascular Disease 03/24/22 Chato Diaz MD [address] [place] [address] Cardiovascular Disease 03/24/22 Marko Smith MD [address] [place] [address] Assigned Heart and Vascular Provider 08/15/22 11/20/22 documented as of this encounter
--- OUTSIDE RECORDS SUMMARY | 2023-10-27 22:51 | XMS_ITS | Encounter Summary ---
Author Name Unknown Organization [place] Address [address] [facility] [place] [address] Care Team Providers Care Manager Supply Chain Planning Name Role Phone Chato Diaz MD Unavailable Chato Diaz MD Unavailable Jimenez Madera DO Primary Care Provider Jimenez Madera DO Unavailable [phone] Chato Diaz MD Unavailable Rosalba Romo MD Unavailable [phone] Encounter Details Date Type Department Care Team (Late st Contact Info) Description 04/05/2023 [facility] Medical Advice [facility] Neurology [address], [address] [place] [address] Beba Ocampo Social History Tobacco Use Types Packs/Day Years Used Date Smoking Tobacco: Never Smokeless Tobacco: Never Alcohol Use Standard Drinks/Week Comments No 0 (1 standard drink = 0.6 oz pur e alcohol) PHQ-2 Answer Date Recorded PHQ-2 Score 0 10/26/2022 Sex and Gender Information Value Date Recorded Sex Assigned at Female 10/26/2022 5:46 AM ACTUARIAL ASSISTANT Gender Identity Female 10/26/2022 5:45 AM ACTUARIAL ASSISTANT Sexual Orientation Straight 10/26/2022 5: 46 AM ACTUARIAL ASSISTANT documented as of this encounter Plan of Treatment Not on file documented as of this encounter Visit Diagnoses Not on filedocumented in this encounter Care Teams Manager Supply Chain Planning Relationship Specialty [place] [address] [place] [address] PCP - General Family Medicine 10/29/22 Chato Diaz MD [address] [place] [id number] Cardiovascular Disease 03/24/22 Chato Diaz MD [address] [place] [address] Cardiovascular Disease 03/24/22 [place] [address] [address] [place] [address] Assigned PCP 11/07/22 Chato Diaz MD [address] [place], [place] [address] Assigned Heart and Vascular Provider 11/21/22 Rosalba Romo MD [address] [place], [place] [address] Assigned Pulmonology Provider 12/12/22 documented as of this encounter
--- OUTSIDE RECORDS SUMMARY | 2023-10-27 22:52 | XMS_ITS | Encounter Summary ---
Author Name Unknown Organization [place] Address [address] [facility] [place] [address] Care Team Providers Care Line Department Supervisor Name Role Phone Gypsy Mcfadden APRN LAPPER Unavailable + Keven Krueger Primary Care Provider + [phone] Chato Diaz MD Unavailable [phone] Chato Diaz MD Unavailable [phone] Chato Diaz MD Unavailable [phone] Ref-Primary, Physician Primary Care Provider Marko Smith MD Unavailable + Chato Diaz MD Unavailable [phone] Jimenez Madera DO Primary Care Provider +[phone] Jimenez Madera DO Unavailable +[phone] Chato Diaz MD Unavailable +[phone] Rosalba Romo MD Unavailable +[phone] Encounter Details Date Type Department Care Team (Late st Contact Info) Description 01/29/2021 [facility] [place] [address] [facility] [address] [place] [phone] Chato Diaz MD [address] [facility] [address] [place] [id number] Social History Tobacco Use Types Packs/Day Years Used Date Smoking Tobacco: Never Smokeless Tobacco: Never Alcohol Use Standard Drinks/Week Comments No 0 (1 standard drink = 0.6 oz pur e alcohol) PHQ-2 Answer Date Recorded PHQ-2 Score 0 02/07/2019 Sex and Gender Information Value Date Recorded Sex Assigned at Female 10/26/2022 5:46 AM DATA SPECIALIST Gender Identity Female 10/26/2022 5:45 AM DATA SPECIALIST Sexual Orientation Straight 10/26/2022 5: 46 AM DATA SPECIALIST documented as of this encounter Miscellaneous Notes * Telephone Encounter - Elvin Carlson RN - 02/06/2021 9:41 AM CDT [employer] message received. RN will send to Dr. Diaz as MARCELINO. Thank you- I have an appt scheduled with [facility]- and if they feel it is related or something of concern- they are going to have me see hematology over there. I'll keep you posted if I hear anything on the hematology side. Thanks again. Also, tyrell is recovering slowly but surely from her stroke... And seems in happy spirits now that she's back home. Have a great weekend! * Telephone Encounter - Elvin Carlson RN - 02/06/2021 7:25 AM CDT jesus manuelt message received. Will send update to Dr. Diaz for review. We are still open to the idea of getting , if that happens. Also, I'm such a worry wart. Should I be concerned about a positive platelet anti body, and the monocytes, lymphocytes being slightly elevated fairly often? I looked back and my platelets are on the high end of normal and sometimesslightly over. Does any of this make sense? H pylori test was negative. Thanks for any advice. 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 * Telephone Encounter - Leigha Cheatham RN - 02/03/2021 9:07 AM CDT MyChart message received from patient. Will route to Dr. Diaz for review. Last OV 04/29/2020 w/ Dr. Diaz: ?? Assessment and Plan: ? 1. Symptomatic PVCs ?? Currently improved after hormone treatment has resolved. ?? Plan to use the labetalol as needed MAME Weldon February 03, 2021 9:11 AM * Telephone Encounter - Elvin Carlson RN - 01/29/2021 1:30 PM CDT Updated mychart message received. Will send to Dr. Diaz for review. Sounds good. Is there a specific test you would recommend having done to confirm this diagnosis besides the same one? What I mean by that is, if this is still positive but the platelets are fine, then I don't have to worry about this being an issue? Or is this going to be a clotting issue if it tests positive again? * Telephone Encounter - Elvin Carlson RN - 01/29/2021 1:12 PM CDT Images from the original note were not included. Follow up mychart message received. RN will send to Dr. Diaz for review. Wow. I thought i attached it. Lol. One of those days. It's platelet ab indirect, igg. It's showing as positive. I attached it below. * Telephone Encounter - Elvin Carlson RN - 01/29/2021 7:34 AM CDT mychart message received. RN will send to Dr. Diaz for further review and recommendation. 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 This was a test I don't think I've had done before but it came out positive. She said, this could definitely have contributed to recurrent loss (I did mention all mine were at 5.5-8 weeks, so they were really early). She said I would need to retest to confirm it is a genuine positive. Also I would need to rule out it isn't something like h. pylori that could give a false positive. Couple quick questions, because I know you do vascular... 1) do you think this could contribute to recurrent loss that early? I read somewhere, the platelet thing isn't an issue until like 16 weeks. 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 What would this mean for me? I have never had an issue with blood clotting. However, when I was having more regular cycles when I was younger, I did bleed heavier. My mom is also a carrier for hemachromatosis. Not sure what that means. :/ Thanks!! 04/29/[address] Diaz 1. Symptomatic PVCs ?? Currently improved after hormone treatment has resolved. ?? Plan to use the labetalol as needed ?? This note was transcribed using electronic voice recognition software and there may be typographical errors present. Chato Diaz MD documented in this encounter Plan of Treatment Not on file documented as of this encounter Visit Diagnoses Not on filedocumented in this encounter Care Teams Line Department Supervisor Relationship Specialty Start Date End Date Keven Krueger [address] [address] PCP - General Family Practice 05/01/19 08/11/22 No Ref-Primary, Physician PCP - General 08/12/22 10/28/22 [place] [address] [address] [place], [place] [id number] PCP - General Family Medicine 10/29/22 Gypsy Mcfadden APRN LAPPER [address] [place] [address] Assigned PCP 02/12/19 02/07/22 Chato Diaz MD [address] [place] [address] Assigned Heart and Vascular Provider 08/09/20 11/01/21 Chato Diaz MD [address] [place], [place] [address] Cardiovascular Disease 03/24/22 Chato Diaz MD [address] [place] [address] Cardiovascular Disease 03/24/22 Marko Smith MD [address] [place] [address] Assigned Heart and Vascular Provider 08/15/22 11/20/22 Chato Diaz MD [address] [place] [address] Assigned Heart and Vascular Provider 07/18/22 08/14/22 [place] [address] [place] [address] Assigned PCP 11/07/22 Chato Diaz MD [address] [place] [address] Assigned Heart and Vascular Provider 11/21/22 Rosalba Romo MD [address] [address] Assigned Pulmonology Provider 12/12/22 documented as of this encounter
--- OUTSIDE RECORDS SUMMARY | 2023-10-27 22:52 | XMS_ITS | Encounter Summary ---
Author Name Unknown Organization [place] Address [address] [facility] [place] [address] Care Team Providers Care Sales Expert Name Role Phone Gypsy Mcfadden APRN SHEEP FARMER Unavailable + Keven Krueger Primary Care Provider + [phone] Chato Diaz MD Unavailable [phone] Chato Diaz MD Unavailable [phone] Chato Diaz MD Unavailable [phone] Ref-Primary, Physician Primary Care Provider Marko Smith MD Unavailable + Chato Diaz MD Unavailable [phone] Jimenez Madera DO Primary Care Provider [phone] Jimenez Madera DO Unavailable [phone] Chato Diaz MD Unavailable [phone] Rosalba Romo MD Unavailable +[phone] Encounter Details Date Type Department Care Team (Late st Contact Info) Description 03/23/2021 [facility] [place] [address] [facility] [address] [place] [address] Chato Diaz MD [address] [facility] [address] [place] [id number] Social History Tobacco Use Types Packs/Day Years Used Date Smoking Tobacco: Never Smokeless Tobacco: Never Alcohol Use Standard Drinks/Week Comments No 0 (1 standard drink = 0.6 oz pur e alcohol) PHQ-2 Answer Date Recorded PHQ-2 Score 0 02/07/2019 Sex and Gender Information Value Date Recorded Sex Assigned at Female 10/26/2022 5:46 AM COMPLIANCE PROGRAM MANAGER Gender Identity Female 10/26/2022 5:45 AM COMPLIANCE PROGRAM MANAGER Sexual Orientation Straight 10/26/2022 5: 46 AM COMPLIANCE PROGRAM MANAGER documented as of this encounter Miscellaneous Notes * Telephone Encounter - Miri Herzog RN - 03/24/2021 8:30 AM CDT MyChart message received from patient: I have been having barely any irregular heartbeats, which has been a wonderful break. Yesterday (Wednesday) I was outside slowly moving around, but I made sure I drank. I even went in the pool to makesure I stayed cool. In the morning I walked a lot at a car show and did feel fatigued and I haven'tbeen have a little but of balance being off slightly. However, yesterday I got an irregular beat and then I felt icky after. This icky feeling seems to happen more often now after an irregular beat or beats. So, can heat cause this? I did stay hydrated was much as possible. Other question. I read an article that women with pcos can have cardiac hypertrophy. Apparently that alone can cause irregular beats, fatigue (which I get easily with exercise), etc. This would have been caught by now, correct? I believe I've had at least some heart imaging. Thanks for letting me know. Also, I've been seeing a dietitian who suggests going vegan. She says all carbs are fine, meat is bad. How is this diet for heart health? Will route to Dr. Diaz for review. documented in this encounter Plan of Treatment Not on file documented as of this encounter Visit Diagnoses Not on filedocumented in this encounter Care Teams Sales Expert Relationship Specialty Start Date End Date Keven Krueger [place] [address] [place], [place] [id number] PCP - General Family Practice 05/01/19 08/11/22 No Ref-Primary, Physician PCP - General 08/12/22 10/28/22 [place] [address] [address] [place], [place] [address] PCP - General Family Medicine 10/29/22 Gypsy Mcfadden APRN CNP [address] [place], [place] [address] Assigned PCP 02/12/19 02/07/22 Chato Diaz MD [address] [place] [address] Assigned Heart and Vascular Provider 08/09/20 11/01/21 Chato Diaz MD [address] [place] [address] Cardiovascular Disease 03/24/22 Chato Diaz MD [address] [place] [address] Cardiovascular Disease 03/24/22 Marko Smith MD [address] [place] [address] Assigned Heart and Vascular Provider 08/15/22 11/20/22 Chato Diaz MD [address] [place] [address] Assigned Heart and Vascular Provider 07/18/22 08/14/22 [place] [address] [place] [address] Assigned PCP 11/07/22 Chato Diaz MD [address] [facility] [address] [place] [address] Assigned Heart and Vascular Provider 11/21/22 Rosalba Romo MD [address] [facility] [address] [place], [place] [address] Assigned Pulmonology Provider 12/12/22 documented as of this encounter
--- OUTSIDE RECORDS SUMMARY | 2023-10-27 22:52 | XMS_ITS | Encounter Summary ---
Author Name Unknown Organization [place] Address [address] [place] [address] Care Team Providers Care Housing Liaison Name Role Phone Gypsy Mcfadden APRN CIRCULAR SAW FILER Unavailable + Keven Krueger Primary Care Provider + [phone] Chato Diaz MD Unavailable [phone] Chato Diaz MD Unavailable +[phone] Chato Diaz MD Unavailable [phone] Ref-Primary, Physician Primary Care Provider Marko Smith MD Unavailable + Chato Diaz MD Unavailable [phone] Jimenez Madera DO Primary Care Provider [phone] Jimenez Madera DO Unavailable [phone] Chato Diaz MD Unavailable [phone] Rosalba Romo MD Unavailable [phone] Encounter Details Date Type Department Care Team (Late st Contact Info) Description 04/24/2020 [facility] Medical Advice [facility] [place] [address] [facility] [address] [place] [address] Chato Diaz MD [address] [facility] [address] [place] [address] Social History Tobacco Use Types Packs/Day Years Used Date Smoking Tobacco: Never Smokeless Tobacco: Never Alcohol Use Standard Drinks/Week Comments No 0 (1 standard drink = 0.6 oz pur e alcohol) PHQ-2 Answer Date Recorded PHQ-2 Score 0 02/07/2019 Sex and Gender Information Value Date Recorded Sex Assigned at Female 10/26/2022 5:46 AM FISH CUTTER Gender Identity Female 10/26/2022 5:45 AM FISH CUTTER Sexual Orientation Straight 10/26/2022 5: 46 AM FISH CUTTER documented as of this encounter Plan of Treatment Not on file documented as of this encounter Visit Diagnoses Not on filedocumented in this encounter Care Teams Housing Liaison Relationship Specialty Start Date End Date Keven Krueger [address] [id number] PCP - General Family Practice 05/01/19 08/11/22 No Ref-Primary, Physician PCP - General 08/12/22 10/28/22 [place] [address] [place] [address] PCP - General Family Medicine 10/29/22 Gypsy Mcfadden APRN CIRCULAR SAW FILER [address] [place] [address] Assigned PCP 02/12/19 02/07/22 Chato Diaz MD [address] [place] [address] Assigned Heart and Vascular Provider 08/09/20 11/01/21 Chato Diaz MD [address] [place] [address] Cardiovascular Disease 03/24/22 Chato Diaz MD [address] [place] [address] Cardiovascular Disease 03/24/22 Marko Smith MD [address] [place] [address] Assigned Heart and Vascular Provider 08/15/22 11/20/22 Chato Diaz MD [address] [place] [address] Assigned Heart and Vascular Provider 07/18/22 08/14/22 [place] [address] [place] [address] Assigned PCP 11/07/22 Chato Diaz MD [address] [place] [address] Assigned Heart and Vascular Provider 11/21/22 Rosalba Romo MD [address] [place], [place] [address] Assigned Pulmonology Provider 12/12/22 documented as of this encounter
--- OUTSIDE RECORDS SUMMARY | 2023-10-27 22:52 | XMS_ITS | Encounter Summary ---
Author Name Unknown Organization [place] Address [address] [facility] [place] [address] Care Team Providers Care Food Storeroom Clerk Name Role Phone Gypsy Mcfadden APRN COOK SHORT ORDER Unavailable + Keven Krueger Primary Care Provider + [phone] Chato Diaz MD Unavailable [phone] Chato Diaz MD Unavailable [phone] Chato Diaz MD Unavailable [phone] Ref-Primary, Physician Primary Care Provider Marko Smith MD Unavailable + Chato Diaz MD Unavailable [phone] Jimenez Madera DO Primary Care Provider +[phone] Jimenez Madera DO Unavailable [phone] Chato Diaz MD Unavailable [phone] Rosalba Romo MD Unavailable +[phone] Encounter Details Date Type Department Care Team (Late st Contact Info) Description 11/19/2020 [facility] [place] [address] [facility] [address] [place] [address] Chato Diaz MD [address] [facility] [address] [place] [address] Social History Tobacco Use Types Packs/Day Years Used Date Smoking Tobacco: Never Smokeless Tobacco: Never Alcohol Use Standard Drinks/Week Comments No 0 (1 standard drink = 0.6 oz pur e alcohol) PHQ-2 Answer Date Recorded PHQ-2 Score 0 02/07/2019 Sex and Gender Information Value Date Recorded Sex Assigned at Female 10/26/2022 5:46 AM TRAINING REPRESENTATIVE Gender Identity Female 10/26/2022 5:45 AM TRAINING REPRESENTATIVE Sexual Orientation Straight 10/26/2022 5: 46 AM TRAINING REPRESENTATIVE documented as of this encounter Miscellaneous Notes * Telephone Encounter - Leigha Cheatham RN - 11/19/2020 2:55 PM TRAINING REPRESENTATIVE [employer] message received from patient, will route to Dr. Diaz for review. MAME Weldon November 19, 2020 3:01 PM NING REPRESENTATIVE documented in this encounter Plan of Treatment Not on file documented as of this encounter Visit Diagnoses Not on filedocumented in this encounter Care Teams Food Storeroom Clerk Relationship Specialty Start Date End Date Keven Krueger [address] [address] PCP - General Family Practice 05/01/19 08/11/22 No Ref-Primary, Physician PCP - General 08/12/22 10/28/22 [place] [address] [place] [address] PCP - General Family Medicine 10/29/22 Gypsy Mcfadden APRN CNP [address] [place] [address] Assigned PCP 02/12/19 02/07/22 Chato Diaz MD [address] [place] [address] Assigned Heart and Vascular Provider 08/09/20 11/01/21 Chato Diaz MD [address] [place] [address] Cardiovascular Disease 03/24/22 Chato Diaz MD [address] [place], [place] [address] Cardiovascular Disease 03/24/22 Marko Smith MD [address] [place], [place] [address] Assigned Heart and Vascular Provider 08/15/22 11/20/22 Chato Diaz MD [address] [place], [place] [address] Assigned Heart and Vascular Provider 07/18/22 08/14/22 [place] [address] [place] [address] Assigned PCP 11/07/22 Chato Diaz MD [address] [place] [address] Assigned Heart and Vascular Provider 11/21/22 Rosalba Romo MD [address] [place], [place] [address] Assigned Pulmonology Provider 12/12/22 documented as of this encounter
--- OUTSIDE RECORDS SUMMARY | 2023-10-27 22:52 | XMS_ITS | Encounter Summary ---
Author Name Unknown Organization [place] Address [address] [facility] [place] [address] Care Team Providers Care Food Service Coordinator Name Role Phone Cecelia Kruegerveronica Young Primary Care Provider + [phone] Chato Diaz MD Unavailable [phone] Chato Diaz MD Unavailable [phone] Ref-Primary, Physician Primary Care Provider Marko Smith MD Unavailable + Chato Diaz MD Unavailable [phone] Jimenez Madera DO Primary Care Provider +[phone] Jimenez Madera DO Unavailable [phone] Chato Diaz MD Unavailable [phone] Rosalba Romo MD Unavailable [phone] Reason for Visit * Reason Onset Date Comments Call Back 04/01/2022 Holter Monitor Encounter Details Date Type Department Care Team (Late st Contact Info) Description 04/01/2022 [facility] [place] [id number] [facility] [address] [place] [address] Chato Diaz MD [address] [facility] [address] [place] [address] Call Back (Holter Monitor) Social History Tobacco Use Types Packs/Day Years Used Date Smoking Tobacco: Never Smokeless Tobacco: Never Alcohol Use Standard Drinks/Week Comments No 0 (1 standard drink = 0.6 oz pur e alcohol) PHQ-2 Answer Date Recorded PHQ-2 Score 0 02/07/2019 Sex and Gender Information Value Date Recorded Sex Assigned at Female 10/26/2022 5:46 AM RESTAURANT EXPEDITOR Gender Identity Female 10/26/2022 5:45 AM RESTAURANT EXPEDITOR Sexual Orientation Straight 10/26/2022 5: 46 AM RESTAURANT EXPEDITOR documented as of this encounter Miscellaneous Notes * Telephone Encounter - Ashley Soares - 04/01/2022 8:59 AM CDT [facility] Call Center Phone Message May a detailed message be left on voicemail: yes Reason for Call: Other: Patient states she was recently seen at the ER and they recommended for herto get a holter monitor. Patient was wondering if this is something she should do or if she should just come in to see her doctor. Please call patient back to discuss further, thank you. Action Taken: Message routed to: Other: Cardiology Travel Screening: Not Applicable documented in this encounter Plan of Treatment Not on file documented as of this encounter Visit Diagnoses Not on filedocumented in this encounter Care Teams Food Service Coordinator Relationship Specialty Start Date End Date Keven Krueger [address] [address] PCP - General Family Practice 05/01/19 08/11/22 No Ref-Primary, Physician PCP - General 08/12/22 10/28/22 [place] [address] [place] [address] PCP - General Family Medicine 10/29/22 Chato Diaz MD [address] [facility] [address] [place] [address] Cardiovascular Disease 03/24/22 Chato Diaz MD [address] [place] [address] Cardiovascular Disease 03/24/22 Marko Smith MD [address] [place] [address] Assigned Heart and Vascular Provider 08/15/22 11/20/22 Chato Diaz MD [address] [place] [address] Assigned Heart and Vascular Provider 07/18/22 08/14/22 [place] [address] [place] [address] Assigned PCP 11/07/22 Chato Diaz MD [address] [place] [address] Assigned Heart and Vascular Provider 11/21/22 Rosalba Romo MD [address] [place], [place] [address] Assigned Pulmonology Provider 12/12/22 documented as of this encounter
--- OUTSIDE RECORDS SUMMARY | 2023-10-27 22:52 | XMS_ITS | Encounter Summary ---
Author Name Unknown Organization [place] Address [address] [facility] [place] [address] Care Team Providers Care Drywall Foreman Name Role Phone Cecelia Kruegerveronica Young Primary Care Provider + [phone] Chato Diaz MD Unavailable [phone] Chato Diaz MD Unavailable [phone] Ref-Primary, Physician Primary Care Provider Marko Smith MD Unavailable + Chato Diaz MD Unavailable [phone] Jimenez Madera DO Primary Care Provider +[phone] Jimenez Madera DO Unavailable [phone] Chato Diaz MD Unavailable +[phone] Rosalba Romo MD Unavailable +[phone] Reason for Referral * CV Testing (Routine) - Closed Specialty Diagnoses / Procedures Referred By Contac t Referred To Contact Diagnoses Palpitations Procedures Cardiac Event Monitor Adult Pediatric Chato Diaz MD [address] [facility] [address] [place] [address] Referral ID Status Reason Start Date Expiration Date Visits Re quested Visits Authorized [id number] Closed 06/02/2022 06/02/2023 1 1 Reason for Visit * Reason Onset Date Comments Orders 06/02/2022 Request for Zio Patch Encounter Details Date Type Department Care Team (Late st Contact Info) Description 06/02/2022 [facility] [place] [address] [facility] [address] [place] [phone] Chato Diaz MD [address] [facility] [address] [place] [address] Orders (Request for Zio Patch) Social History Tobacco Use Types Packs/Day Years Used Date Smoking Tobacco: Never Smokeless Tobacco: Never Alcohol Use Standard Drinks/Week Comments No 0 (1 standard drink = 0.6 oz pur e alcohol) PHQ-2 Answer Date Recorded PHQ-2 Score 0 02/07/2019 Sex and Gender Information Value Date Recorded Sex Assigned at Female 10/26/2022 5:46 AM DIET AIDE Gender Identity Female 10/26/2022 5:45 AM DIET AIDE Sexual Orientation Straight 10/26/2022 5: 46 AM DIET AIDE documented as of this encounter Miscellaneous Notes * Telephone Encounter - Miri Murry RN - 06/02/2022 8:49 AM CDT Reviewed chart. Dr. Diaz ok with 30 day event monitor for patient (see encounter 03/31/22). Order placed. Message sent to scheduling to set up 30 day event monitor. * Telephone Encounter - Rachelle Hernandez - 06/02/2022 8:29 AM CDT [facility] Call Center Phone Message May a detailed message be left on voicemail: yes Reason for Call: Order(s): Other: Reason for requested: Beth calling to request a 30 day Ziopatch order be placed so she can get that done prior to her upcoming appointment. Mirnaease call her once the order is placed to schedule. Date needed: 06/02/2022 Provider name: Dr. Diaz Action Taken: Message routed to: Other: Cardiology Travel Screening: Not Applicable documented in this encounter Plan of Treatment Not on file documented as of this encounter Results * CARDIAC EVENT MONITOR APPLICATION AND PROVIDER INTERPRETATION (06/10/2022 10:30 AM CDT) Anatomical Region Laterality Modality Other Chato Diaz MD CV CARDIAC SERVICE S ORDERABLES documented in this encounter Visit Diagnoses Diagnosis Palpitations- Primary documented in this encounter Care Teams Drywall Foreman Relationship Specialty Start Date End Date Keven Krueger [address] [id number] PCP - General Family Practice 05/01/19 08/11/22 No Ref-Primary, Physician PCP - General 08/12/22 10/28/22 [place] [address] [place] [address] PCP - General Family Medicine 10/29/22 Chato Diaz MD [address] [place] [address] Cardiovascular Disease 03/24/22 Chato Diaz MD [address] [place] [address] Cardiovascular Disease 03/24/22 Marko Smith MD [address] [place] [address] Assigned Heart and Vascular Provider 08/15/22 11/20/22 Chato Diaz MD [address] [place] [address] Assigned Heart and Vascular Provider 07/18/22 08/14/22 [place] [address] [place] [address] Assigned PCP 11/07/22 Chato Diaz MD [address] [facility] [address] [place] [address] Assigned Heart and Vascular Provider 11/21/22 Rosalba Romo MD [address] [facility] [address] [place], [place] [address] Assigned Pulmonology Provider 12/12/22 documented as of this encounter
--- OUTSIDE RECORDS SUMMARY | 2023-10-27 22:52 | XMS_ITS | Encounter Summary ---
Author Name Unknown Organization [place] Address [address] [place] [place] [address] Care Team Providers Care Screw Eye Assembler Name Role Phone Gypsy Mcfadden APRN PRODUCT MARKETING CONSULTANT Unavailable + Keven Krueger Primary Care Provider + [phone] Chato Diaz MD Unavailable [phone] Chato Diaz MD Unavailable [phone] Chato Diaz MD Unavailable [phone] Ref-Primary, Physician Primary Care Provider Marko Smith MD Unavailable + Chato Diaz MD Unavailable [phone] iJmenez Madera DO Primary Care Provider +[phone] Jimenez Madera DO Unavailable [phone] Chato Diaz MD Unavailable [phone] Rosalba Romo MD Unavailable +[phone] Encounter Details Date Type Department Care Team (Late st Contact Info) Description 03/06/2020 [place] Medical Advice [facility] [place] [address] [facility] [address] [place] [address] Chato Diaz MD [address] [facility] [address] [place] [address] Social History Tobacco Use Types Packs/Day Years Used Date Smoking Tobacco: Never Smokeless Tobacco: Never Alcohol Use Standard Drinks/Week Comments No 0 (1 standard drink = 0.6 oz pur e alcohol) PHQ-2 Answer Date Recorded PHQ-2 Score 0 02/07/2019 Sex and Gender Information Value Date Recorded Sex Assigned at Female 10/26/2022 5:46 AM PUSH BENCH OPERATOR HELPER Gender Identity Female 10/26/2022 5:45 AM PUSH BENCH OPERATOR HELPER Sexual Orientation Straight 10/26/2022 5: 46 AM PUSH BENCH OPERATOR HELPER COVID-19 Exposure Response Date Recorded In the last month, have you been in contact with someone who was confirmed or suspected to have Coronavirus / COVID-19? No / Unsure 03/05/2020 8:31 AM CDT documented as of this encounter Miscellaneous Notes * Telephone Encounter - Salma Teresa EP - 03/12/2020 4:53 PM CDT PATIENT WELLNESS TELEPHONE SCREENING Step 1: Answer all screening questions. 1. In the past 3 weeks, have you been exposed to someone with a known positive illness below? COVID-19 (known or suspected): NO Chickenpox: NO Measles: NO Pertussis: NO 2. Do you have any of the following new symptoms or symptoms that have started within the past 14 days? Fever (subjective or >100.0)?: NO A new cough: NO Shortness of breath: NO Chills?NO New loss of taste or smell?NO Generalized body aches?NO New persistent headache?NO New sore throat?NO Nausea, vomiting or diarrhea: NO Step 2: If the patient is positive for symptoms, consult the ordering provider/consult IP to determine if the procedure is deemed necessary and inform the patient you will call them back. Step 3 . If no symptoms, patient informed of the no visitor policy in place. YES Step 4. If positive new symptoms, and the procedure is deemed necessary. Notify your frozen food department manager/batch plant supervisor. The patient must be informed to call the procedural department. A operations team leader with the appropriate PPE will bring the mask to the patient at door 2. The patient will be brought to the proceduraldepartment and registered over the phone. * Telephone Encounter - Leigha Cheatham RN - 03/07/2020 8:42 AM CDT MyChart message received from patient regarding questions on TSH lab. Will route to provider for further review. MAME Weldon March 07, 2020 8:42 AM documented in this encounter Plan of Treatment Not on file documented as of this encounter Visit Diagnoses Not on filedocumented in this encounter Care Teams Screw Eye Assembler Relationship Specialty Start Date End Date Thanh Kruegerolaveronica Young [address] [id number] PCP - General Family Practice 05/01/19 08/11/22 No Ref-Primary, Physician PCP - General 08/12/22 10/28/22 [place] [address] [place] [address] PCP - General Family Medicine 10/29/22 Gypsy Mcfadden APRN CNP [address] [place] [address] Assigned PCP 02/12/19 02/07/22 Chato Diaz MD [address] [place] [id number] Assigned Heart and Vascular Provider 08/09/20 11/01/21 Chato Diaz MD [address] [place] [address] Cardiovascular Disease 03/24/22 Chato Diaz MD [address] [place] [address] Cardiovascular Disease 03/24/22 Marko Smith MD [address] [place] [address] Assigned Heart and Vascular Provider 08/15/22 11/20/22 Chato Diaz MD [address] [place] [address] Assigned Heart and Vascular Provider 07/18/22 08/14/22 [place] [address] [place] [address] Assigned PCP 11/07/22 Chato Diaz MD [address] [place] [address] Assigned Heart and Vascular Provider 11/21/22 Rosalba Romo MD [address] [place], [place] [address] Assigned Pulmonology Provider 12/12/22 documented as of this encounter
--- OUTSIDE RECORDS SUMMARY | 2023-10-27 22:52 | XMS_ITS | Encounter Summary ---
Author Name Unknown Organization [place] Address [address] [facility] [place] [address] Care Team Providers Care Inventory Controller Name Role Phone Gypsy Mcfadden APRN LUMBER SALES SUPERVISOR Unavailable + Keven Krueger Primary Care Provider + [phone] Chato Diaz MD Unavailable [phone] Chato Diaz MD Unavailable [phone] Chato Diaz MD Unavailable [phone] Ref-Primary, Physician Primary Care Provider Marko Smith MD Unavailable + Chato Diaz MD Unavailable [phone] Jimenez Madera DO Primary Care Provider [phone] Jimenez Madera DO Unavailable [phone] Chato Diaz MD Unavailable [phone] Rosalba Romo MD Unavailable [phone] Encounter Details Date Type Department Care Team (Late st Contact Info) Description 03/04/2020 [place] Medical Advice [facility] [address] [facility] [address] [place] [address] Chato Diaz MD [address] [facility] [address] [place] [address] Social History Tobacco Use Types Packs/Day Years Used Date Smoking Tobacco: Never Smokeless Tobacco: Never Alcohol Use Standard Drinks/Week Comments No 0 (1 standard drink = 0.6 oz pur e alcohol) PHQ-2 Answer Date Recorded PHQ-2 Score 0 02/07/2019 Sex and Gender Information Value Date Recorded Sex Assigned at Female 10/26/2022 5:46 AM TIRE REPAIRMAN Gender Identity Female 10/26/2022 5:45 AM TIRE REPAIRMAN Sexual Orientation Straight 10/26/2022 5: 46 AM TIRE REPAIRMAN COVID-19 Exposure Response Date Recorded In the last month, have you been in contact with someone who was confirmed or suspected to have Coronavirus / COVID-19? No / Unsure 03/05/2020 8:31 AM CDT documented as of this encounter Plan of Treatment Not on file documented as of this encounter Visit Diagnoses Not on filedocumented in this encounter Care Teams Inventory Controller Relationship Specialty Start Date End Date Keven Krueger [address] [phone] PCP - General Family Practice 05/01/19 08/11/22 No Ref-Primary, Physician PCP - General 08/12/22 10/28/22 [place] [address] [place] [address] PCP - General Family Medicine 10/29/22 Gypsy Mcfadden APRN LUMBER SALES SUPERVISOR [address] [place] [address] Assigned PCP 02/12/19 02/07/22 Chato Diaz MD [address] [facility] [address] [place] [address] Assigned Heart and Vascular Provider 08/09/20 11/01/21 Chato Diaz MD [address] [place], [place] [address] Cardiovascular Disease 03/24/22 Chato Diaz MD [address] [place] [address] Cardiovascular Disease 03/24/22 Marko Smith MD [address] [place], [place] [address] Assigned Heart and Vascular Provider 08/15/22 11/20/22 Chato Diaz MD [address] [place], [place] [address] Assigned Heart and Vascular Provider 07/18/22 08/14/22 [place] [address] [place] [address] Assigned PCP 11/07/22 Chato Diaz MD [address] [place] [address] Assigned Heart and Vascular Provider 11/21/22 Rosalba Romo MD [address] [place], [place] [address] Assigned Pulmonology Provider 12/12/22 documented as of this encounter
--- OUTSIDE RECORDS SUMMARY | 2023-10-27 22:52 | XMS_ITS | Encounter Summary ---
Author Name Unknown Organization [place] Address [address] [place] [address] Care Team Providers Care Ice Cream Maker Name Role Phone Cecelia Kruegerveronica Young Primary Care Provider + [phone] Chato Diaz MD Unavailable [phone] Chato Diaz MD Unavailable [phone] Ref-Primary, Physician Primary Care Provider Marko Smith MD Unavailable + Chato Diaz MD Unavailable [phone] Jimenez Madera DO Primary Care Provider +[phone] Jimenez Madera DO Unavailable Chato Diaz MD Unavailable [phone] Rosalba Romo MD Unavailable +[phone] Encounter Details Date Type Department Care Team (Late st Contact Info) Description 03/31/2022 [facility] Medical Advice [facility] [place] [address] [facility] [address] [place] [address] Chato Diaz MD [address] [facility] [address] [place] [address] Social History Tobacco Use Types Packs/Day Years Used Date Smoking Tobacco: Never Smokeless Tobacco: Never Alcohol Use Standard Drinks/Week Comments No 0 (1 standard drink = 0.6 oz pur e alcohol) PHQ-2 Answer Date Recorded PHQ-2 Score 0 02/07/2019 Sex and Gender Information Value Date Recorded Sex Assigned at Female 10/26/2022 5:46 AM ENGINE PILOT Gender Identity Female 10/26/2022 5:45 AM ENGINE PILOT Sexual Orientation Straight 10/26/2022 5: 46 AM ENGINE PILOT documented as of this encounter Miscellaneous Notes * Telephone Encounter - Miri Murry RN - 04/06/2022 1:22 PM CDT Images from the original note were not included. Chato Diaz MD You 37 minutes ago (12:44 PM) CK Sure, let's list propranolol just as historic and we can figure out dosing later. I'm okay with 30 day event monitor for her as well. Message text Responded to patient via [employer]. * Telephone Encounter - Elvin Carlson RN - 03/31/2022 9:16 AM CDT [facility] message received. RN will send to Dr. Diaz for review. Dr Diaz, something isn't right. I woke up again last night (around 330am) and my chest felt funny- when I finally figured out that it was my heart beating so fast that woke me up, I put on my oximeter. The rate was ranging between 150s- 160s. I went in to ER. When I got there it was 110-120s. They hooked everything up and said- yes, your heart is beating fast- but normal. After a bit, my heart switched again and when back into 150s-160s for a few minutes and then switched back off to regular. I feel it. Like I'm having to work hard to breath normal and relaxed, I have to move or it feels like my heart is coming out of my chest. It's a hard pounding. I can put my hand on my chest and feel it banging. They have me something like propranolol and Ativan and sent me home. They ran labs and they said everything looks ok. They asked what I was taking. I'm going to let you know too. I can't keep having this. It's awful. I feel worried to be alone. Now I have a headache from everything that happened. Such an awful way to wake up. Frightening, but because of all my irregular beats in the past- I can focus on staying calm. I'm not full of anxiety, I am severely uncomfortable though during it... And confused to know what to do. Here's what I'm on: Jordan/d chiro inositol by randell andersen (for PCOS) Ovablend (herbals, I'm including a picture of them, I just take two a day total) Zinc picollinate 22mg for PCOS Fish oil twice a day Chito/mag blend 500/250 Potassium citrate 99mcg Vitamin d 1000 Coq10 100mg Ovablend x2 pills Women's multivitamin by randell andersen Extra methylfolate (400) because of taking methotrexate (2.5 months ago) and being mthfr c677t documented in this encounter Plan of Treatment Not on file documented as of this encounter Visit Diagnoses Not on filedocumented in this encounter Care Teams Ice Cream Maker Relationship Specialty Start Date End Date Keven Krueger [address] [address] PCP - General Family Practice 05/01/19 08/11/22 No Ref-Primary, Physician PCP - General 08/12/22 10/28/22 [place] [address] [place] [address] PCP - General Family Medicine 10/29/22 Chato Diaz MD [address] [facility] [address] [place] [address] Cardiovascular Disease 03/24/22 Chato Diaz MD [address] [place] [address] Cardiovascular Disease 03/24/22 Marko Smith MD [address] [place] [address] Assigned Heart and Vascular Provider 08/15/22 11/20/22 Chato Diaz MD [address] [place] [address] Assigned Heart and Vascular Provider 07/18/22 08/14/22 [place] [address] [place] [address] Assigned PCP 11/07/22 Chato Diaz MD [address] [place] [address] Assigned Heart and Vascular Provider 11/21/22 Rosalba Romo MD [address] [place], [place] [address] Assigned Pulmonology Provider 12/12/22 documented as of this encounter
--- OUTSIDE RECORDS SUMMARY | 2023-10-27 22:52 | XMS_ITS | Encounter Summary ---
Author Name Unknown Organization [place] Address [address] [facility] [place] [address] Care Team Providers Care Heel Trimmer Name Role Phone Gypsy Mcfadden APRN DIRECTOR ADVERTISING Unavailable + Keven Krueger Primary Care Provider + [phone] Chato Diaz MD Unavailable [phone] Chato Diaz MD Unavailable +[phone] Chato Diaz MD Unavailable [phone] Ref-Primary, Physician Primary Care Provider Marko Smith MD Unavailable + Chato Diaz MD Unavailable [phone] Jimenez Madera DO Primary Care Provider +[phone] Jimenez Madera DO Unavailable [phone] Chato Diaz MD Unavailable +[phone] Rosalba Romo MD Unavailable [phone] Encounter Details Date Type Department Care Team (Late st Contact Info) Description 05/06/[address] [address] [facility] [place] [address] [facility] [address] [place] [address] Chato Diaz MD [address] [facility] [address] [place] [address] Social History Tobacco Use Types Packs/Day Years Used Date Smoking Tobacco: Never Smokeless Tobacco: Never Alcohol Use Standard Drinks/Week Comments No 0 (1 standard drink = 0.6 oz pur e alcohol) PHQ-2 Answer Date Recorded PHQ-2 Score 0 02/07/2019 Sex and Gender Information Value Date Recorded Sex Assigned at Female 10/26/2022 5:46 AM BOX TENDER Gender Identity Female 10/26/2022 5:45 AM BOX TENDER Sexual Orientation Straight 10/26/2022 5: 46 AM BOX TENDER COVID-19 Exposure Response Date Recorded In the last month, have you been in contact with someone who was confirmed or suspected to have Coronavirus / COVID-19? No / Unsure 04/29/2020 10:01 AM CDT documented as of this encounter Plan of Treatment Not on file documented as of this encounter Visit Diagnoses Not on filedocumented in this encounter Care Teams Heel Trimmer Relationship Specialty Start Date End Date Keven Krueger [address] [phone] PCP - General Family Practice 05/01/19 08/11/22 No Ref-Primary, Physician PCP - General 08/12/22 10/28/22 [place] [address] [place] [address] PCP - General Family Medicine 10/29/22 Gypsy Mcfadden APRN DIRECTOR ADVERTISING [address] [place] [address] Assigned PCP 02/12/19 02/07/22 Chato Diaz MD [address] [facility] [address] [place] [address] Assigned Heart and Vascular Provider 08/09/20 11/01/21 Chato Diaz MD [address] [place], [place] [address] Cardiovascular Disease 03/24/22 Chato Diaz MD [address] [place] [address] Cardiovascular Disease 03/24/22 Marko Smith MD [address] [place], [place] [address] Assigned Heart and Vascular Provider 08/15/22 11/20/22 Chato Diaz MD [address] [place] [address] Assigned Heart and Vascular Provider 07/18/22 08/14/22 [place] [address] [place] [address] Assigned PCP 11/07/22 Chato Diaz MD [address] [place] [address] Assigned Heart and Vascular Provider 11/21/22 Rosalba Romo MD [address] [place], [place] [address] Assigned Pulmonology Provider 12/12/22 documented as of this encounter
--- OUTSIDE RECORDS SUMMARY | 2023-10-27 22:52 | XMS_ITS | Encounter Summary ---
Author Name Unknown Organization [place] Address [address] [facility] [place] [address] Care Team Providers Care Retail Property Manager Name Role Phone Gypsy Mcfadden APRN INKING MACHINE TENDER Unavailable + Keven Kreuger Primary Care Provider + [phone] Chato Diaz MD Unavailable [phone] Chato Diaz MD Unavailable +[phone] Chato Diaz MD Unavailable +[phone] Ref-Primary, Physician Primary Care Provider Marko Smith MD Unavailable + Chato Diaz MD Unavailable [phone] Jimenez Madera DO Primary Care Provider +[phone] Jimenez Madera DO Unavailable [phone] Chato Diaz MD Unavailable +[phone] Rosalba Romo MD Unavailable [phone] Encounter Details Date Type Department Care Team (Late st Contact Info) Description 04/24/[address] [facility] [place] [address] [facility] [address] [place] [address] Chato Diaz MD [address] [facility] [address] [place] [address] Social History Tobacco Use Types Packs/Day Years Used Date Smoking Tobacco: Never Smokeless Tobacco: Never Alcohol Use Standard Drinks/Week Comments No 0 (1 standard drink = 0.6 oz pur e alcohol) PHQ-2 Answer Date Recorded PHQ-2 Score 0 02/07/2019 Sex and Gender Information Value Date Recorded Sex Assigned at Female 10/26/2022 5:46 AM MUSEUM EXHIBIT TECHNICIAN Gender Identity Female 10/26/2022 5:45 AM MUSEUM EXHIBIT TECHNICIAN Sexual Orientation Straight 10/26/2022 5: 46 AM MUSEUM EXHIBIT TECHNICIAN documented as of this encounter Plan of Treatment Not on file documented as of this encounter Visit Diagnoses Not on filedocumented in this encounter Care Teams Retail Property Manager Relationship Specialty Start Date End Date Keven Krueger [address] [phone] PCP - General Family Practice 05/01/19 08/11/22 No Ref-Primary, Physician PCP - General 08/12/22 10/28/22 [place] [address] [place] [address] PCP - General Family Medicine 10/29/22 Gypsy Mcfadden APRN INKING MACHINE TENDER [address] [place] [address] Assigned PCP 02/12/19 02/07/22 Chato Diaz MD [address] [place] [address] Assigned Heart and Vascular Provider 08/09/20 11/01/21 Chato Diaz MD [address] [place] [address] Cardiovascular Disease 03/24/22 Chato Diaz MD [address] [place] [address] Cardiovascular Disease 03/24/22 Marko Smith MD [address] [place] [address] Assigned Heart and Vascular Provider 08/15/22 11/20/22 Chtao Diaz MD [address] [place] [address] Assigned Heart and Vascular Provider 07/18/22 08/14/22 [place] [address] [place] [address] Assigned PCP 11/07/22 Chato Diaz MD [address] [place] [address] Assigned Heart and Vascular Provider 11/21/22 Rosalba Romo MD [address] [place], [place] [address] Assigned Pulmonology Provider 12/12/22 documented as of this encounter
--- OUTSIDE RECORDS SUMMARY | 2023-10-27 22:52 | XMS_ITS | Encounter Summary ---
Author Name Unknown Organization [place] Address [address] [facility] [place] [address] Care Team Providers Care Cops Name Role Phone Gypsy Mcfadden APRN NETWORK ASSOCIATE Unavailable + Keven Krueger Primary Care Provider + [phone] Chato Diaz MD Unavailable Chato Diaz MD Unavailable [phone] Ref-Primary, Physician Primary Care Provider Marko Smith MD Unavailable + Chato Diaz MD Unavailable Jimenez Madera DO Primary Care Provider +[phone] Jimenez Madera DO Unavailable [phone] Chato Diaz MD Unavailable Rosalba Romo MD Unavailable [phone] Encounter Details Date Type Department Care Team (Late st Contact Info) Description 01/01/2022 [facility] Medical Advice [facility] [address] [place] [address] Gypsy Mcfadden, ANA LAURA NETWORK ASSOCIATE [address] [place] [address] Social History Tobacco Use Types Packs/Day Years Used Date Smoking Tobacco: Never Smokeless Tobacco: Never Alcohol Use Standard Drinks/Week Comments No 0 (1 standard drink = 0.6 oz pur e alcohol) PHQ-2 Answer Date Recorded PHQ-2 Score 0 02/07/2019 Sex and Gender Information Value Date Recorded Sex Assigned at Female 10/26/2022 5:46 AM WARP DYEING VAT TENDER Gender Identity Female 10/26/2022 5:45 AM WARP DYEING VAT TENDER Sexual Orientation Straight 10/26/2022 5: 46 AM WARP DYEING VAT TENDER documented as of this encounter Miscellaneous Notes * Telephone Encounter - Gypsy Mcfadden APRN CNP - 01/05/2022 8:20 AM CDT Sent to me in error. Gypsy Mcfadden NETWORK ASSOCIATE documented in this encounter Plan of Treatment Not on file documented as of this encounter Visit Diagnoses Not on filedocumented in this encounter Care Teams Cops Relationship Specialty Start Date End Date Keven Krueger [address] [phone] PCP - General Family Practice 05/01/19 08/11/22 No Ref-Primary, Physician PCP - General 08/12/22 10/28/22 [place] [address] [place] [address] PCP - General Family Medicine 10/29/22 Gypsy Mcfadden APRN NETWORK ASSOCIATE [address] [place] [address] Assigned PCP 02/12/19 02/07/22 Chato Diaz MD [address] [facility] [address] [place] [address] Cardiovascular Disease 03/24/22 Chato Diaz MD [address] [place] [address] Cardiovascular Disease 03/24/22 Marko Smith MD [address] [place] [address] Assigned Heart and Vascular Provider 08/15/22 11/20/22 Chato Diaz MD [address] [place] [address] Assigned Heart and Vascular Provider 07/18/22 08/14/22 [place] [address] [place] [address] Assigned PCP 11/07/22 Chato Diaz MD [address] [place] [address] Assigned Heart and Vascular Provider 11/21/22 Rosalba Romo MD [address] [place] [address] 450164 Assigned Pulmonology Provider 12/12/22 documented as of this encounter
--- OUTSIDE RECORDS SUMMARY | 2023-10-27 22:52 | XMS_ITS | Encounter Summary ---
Author Name Unknown Organization [place] Address [address] [facility] [place] [address] Care Team Providers Care Print Washer Name Role Phone Gypsy Mcfadden APRN NURSE EXAMINER Unavailable + Keven Krueger Primary Care Provider + [phone] Chato Diaz MD Unavailable [phone] Chato Diaz MD Unavailable +[phone] Chato Diaz MD Unavailable [phone] Ref-Primary, Physician Primary Care Provider Marko Smith MD Unavailable + Chato Diaz MD Unavailable [phone] Jimenez Madera DO Primary Care Provider +[phone] Jimenez Madera DO Unavailable Chato Diaz MD Unavailable [phone] Rosalba Romo MD Unavailable +[phone] Encounter Details Date Type Department Care Team (Late st Contact Info) Description 06/03/2021 [facility] [place] [address] [facility] [address] [place] [address] Chato Diaz MD [address] [facility] [address] [place] [address] Social History Tobacco Use Types Packs/Day Years Used Date Smoking Tobacco: Never Smokeless Tobacco: Never Alcohol Use Standard Drinks/Week Comments No 0 (1 standard drink = 0.6 oz pur e alcohol) PHQ-2 Answer Date Recorded PHQ-2 Score 0 02/07/2019 Sex and Gender Information Value Date Recorded Sex Assigned at Female 10/26/2022 5:46 AM KEYBOARD INSTRUMENT TUNER Gender Identity Female 10/26/2022 5:45 AM KEYBOARD INSTRUMENT TUNER Sexual Orientation Straight 10/26/2022 5: 46 AM KEYBOARD INSTRUMENT TUNER documented as of this encounter Miscellaneous Notes * Telephone Encounter - Leigha Cheatham RN - 06/04/2021 8:35 AM CDT [employer]hart message received from patient; Will route to Dr. Diaz for review. Last OV 04/29/20 w/ Dr. Diaz: Assessment and Plan: ? 1. Symptomatic PVCs ?? Currently improved after hormone treatment has resolved. ?? Plan to use the labetalol as needed MAME Weldon June 04, 2021 8:36 AM documented in this encounter Plan of Treatment Not on file documented as of this encounter Visit Diagnoses Not on filedocumented in this encounter Care Teams Print Washer Relationship Specialty Start Date End Date Keven Krueger [address] [phone] PCP - General Family Practice 05/01/19 08/11/22 No Ref-Primary, Physician PCP - General 08/12/22 10/28/22 [place] [address] [place] [address] PCP - General Family Medicine 10/29/22 Gypsy Mcfadden APRN NURSE EXAMINER [address] [place] [address] Assigned PCP 02/12/19 02/07/22 Chato Diaz MD [address] [place] [address] Assigned Heart and Vascular Provider 08/09/20 11/01/21 Chato Diaz MD [address] [place] [address] Cardiovascular Disease 03/24/22 Chato Diaz MD [address] [place] [address] Cardiovascular Disease 03/24/22 Mrako Smith MD [address] [place] [address] Assigned Heart and Vascular Provider 08/15/22 11/20/22 Chato Diaz MD [address] [place] [address] Assigned Heart and Vascular Provider 07/18/22 08/14/22 [place] [address] [place] [address] Assigned PCP 11/07/22 Chato Diaz MD [address] [place] [address] Assigned Heart and Vascular Provider 11/21/22 Rosalba Romo MD [address] [address] [address] Assigned Pulmonology Provider 12/12/22 documented as of this encounter
--- OUTSIDE RECORDS SUMMARY | 2023-10-27 22:52 | XMS_ITS | Encounter Summary ---
Author Name Unknown Organization [place] Address [address] [facility] [place] [address] Care Team Providers Care Press Service Reader Name Role Phone Gypsy Mcfadden APRN CYBER OPS PLANNER Unavailable + Keven Krueger Primary Care Provider + [phone] Chato Diaz MD Unavailable [phone] Chato Diaz MD Unavailable [phone] Chato Diaz MD Unavailable [phone] Ref-Primary, Physician Primary Care Provider Marko Smith MD Unavailable + Chato Diaz MD Unavailable [phone] Jimenez Madera DO Primary Care Provider +[phone] Jimenez Madera DO Unavailable Chato Diaz MD Unavailable [phone] Rosalba Romo MD Unavailable [phone] Encounter Details Date Type Department Care Team (Late st Contact Info) Description 03/04/2020 [facility] Heart [facility] [address] [facility] [address] [place] [address] Chato Diaz MD [address] [facility] [address] [place] [address] Social History Tobacco Use Types Packs/Day Years Used Date Smoking Tobacco: Never Smokeless Tobacco: Never Alcohol Use Standard Drinks/Week Comments No 0 (1 standard drink = 0.6 oz pur e alcohol) PHQ-2 Answer Date Recorded PHQ-2 Score 0 02/07/2019 Sex and Gender Information Value Date Recorded Sex Assigned at Female 10/26/2022 5:46 AM STEWARDING SUPERVISOR Gender Identity Female 10/26/2022 5:45 AM STEWARDING SUPERVISOR Sexual Orientation Straight 10/26/2022 5: 46 AM STEWARDING SUPERVISOR COVID-19 Exposure Response Date Recorded In the last month, have you been in contact with someone who was confirmed or suspected to have Coronavirus / COVID-19? No / Unsure 03/05/2020 8:31 AM CDT documented as of this encounter Plan of Treatment Not on file documented as of this encounter Visit Diagnoses Not on filedocumented in this encounter Care Teams Press Service Reader Relationship Specialty Start Date End Date Keven Krueger [address] [phone] PCP - General Family Practice 05/01/19 08/11/22 No Ref-Primary, Physician PCP - General 08/12/22 10/28/22 [place] [address] [place] [address] PCP - General Family Medicine 10/29/22 Gypsy Mcfadden APRN CYBER OPS PLANNER [address] [place] [address] Assigned PCP 02/12/19 02/07/22 Chato Diaz MD [address] [facility] [address] [place] [address] Assigned Heart and Vascular Provider 08/09/20 11/01/21 Chato Diaz MD [address] [place], [place] [address] Cardiovascular Disease 03/24/22 Chato Diaz MD [address] [place] [address] Cardiovascular Disease 03/24/22 Marko Smith MD [address] [place], [place] [address] Assigned Heart and Vascular Provider 08/15/22 11/20/22 Chato Diaz MD [address] [place], [place] [address] Assigned Heart and Vascular Provider 07/18/22 08/14/22 [place] [address] [place] [address] Assigned PCP 11/07/22 Chato Diaz MD [address] [place] [address] Assigned Heart and Vascular Provider 11/21/22 Rosalba Romo MD [address] [place], [place] [address] Assigned Pulmonology Provider 12/12/22 documented as of this encounter
--- OUTSIDE RECORDS SUMMARY | 2023-10-27 22:52 | XMS_ITS | Encounter Summary ---
Author Name Unknown Organization [place] Address [address] [facility] [place] [address] Care Team Providers Care Manager Medicare Marketing Name Role Phone Gypsy Mcfadden APRN SCHOOL COMMISSIONER Unavailable + Keven Krueger Primary Care Provider + [phone] Chato Diaz MD Unavailable [phone] Chato Diaz MD Unavailable +[phone] Chato Diaz MD Unavailable +[phone] Ref-Primary, Physician Primary Care Provider Marko Smith MD Unavailable + Chato Diaz MD Unavailable +[phone] Jimenez Madera DO Primary Care Provider +[phone] Jimenez Madear DO Unavailable [phone] Chato Diaz MD Unavailable +[phone] Rosalba Romo MD Unavailable [phone] Encounter Details Date Type Department Care Team (Late st Contact Info) Description 09/01/2019 [facility] [place] [address] [facility] [address] [place] [address] Chato Diaz MD [address] [facility] [address] [place] [address] Social History Tobacco Use Types Packs/Day Years Used Date Smoking Tobacco: Never Smokeless Tobacco: Never Alcohol Use Standard Drinks/Week Comments No 0 (1 standard drink = 0.6 oz pur e alcohol) PHQ-2 Answer Date Recorded PHQ-2 Score 0 02/07/2019 Sex and Gender Information Value Date Recorded Sex Assigned at Female 10/26/2022 5:46 AM RESIDENT PHYSICIAN Gender Identity Female 10/26/2022 5:45 AM RESIDENT PHYSICIAN Sexual Orientation Straight 10/26/2022 5: 46 AM RESIDENT PHYSICIAN documented as of this encounter Plan of Treatment Not on file documented as of this encounter Visit Diagnoses Not on filedocumented in this encounter Care Teams Manager Medicare Marketing Relationship Specialty Start Date End Date Keven Krueger [address] [phone] PCP - General Family Practice 05/01/19 08/11/22 No Ref-Primary, Physician PCP - General 08/12/22 10/28/22 [place] [address] [place] [address] PCP - General Family Medicine 10/29/22 Gypsy Mcfadden APRN SCHOOL COMMISSIONER [address] [place] [address] Assigned PCP 02/12/19 02/07/22 Chato Diaz MD [address] [place] [address] Assigned Heart and Vascular Provider 08/09/20 11/01/21 Chato Diaz MD [address] [place] [address] Cardiovascular Disease 03/24/22 Chato Diaz MD [address] [place] 118[address] Cardiovascular Disease 03/24/22 Marko Smith MD [address] [place] 239625 Assigned Heart and Vascular Provider 08/15/22 11/20/22 Chato Diaz MD [address] [place] [address] Assigned Heart and Vascular Provider 07/18/22 08/14/22 [place] [address] [place] [address] Assigned PCP 11/07/22 Chato Diaz MD [address] [place] [address]85 Assigned Heart and Vascular Provider 11/21/22 Rosalba Romo MD [address] [place], [place] [address] Assigned Pulmonology Provider 12/12/22 documented as of this encounter
--- OUTSIDE RECORDS SUMMARY | 2023-10-27 22:52 | XMS_ITS | Encounter Summary ---
Author Name Unknown Organization [place] Address [address] [facility] [place] [address] Care Team Providers Care Mind Reader Name Role Phone Gypsy Mcfadden APRN SALESFORCE SPECIALIST Unavailable + Keven Krueger Primary Care Provider + [phone] Chato Diaz MD Unavailable [phone] Chato Diaz MD Unavailable +[phone] Chato Diaz MD Unavailable [phone] Ref-Primary, Physician Primary Care Provider Marko Smith MD Unavailable + Chato Diaz MD Unavailable [phone] Jimenez Madera DO Primary Care Provider +[phone] Jimenez Madera DO Unavailable +[phone] Chato Diaz MD Unavailable +[phone] Rosalba Romo MD Unavailable +[phone] Encounter Details Date Type Department Care Team (Late st Contact Info) Description 08/08/2021 [facility] [place] [address] [facility] [address] [place] [address] Chato Diaz MD [address] [facility] [address] [place] [address] Social History Tobacco Use Types Packs/Day Years Used Date Smoking Tobacco: Never Smokeless Tobacco: Never Alcohol Use Standard Drinks/Week Comments No 0 (1 standard drink = 0.6 oz pur e alcohol) PHQ-2 Answer Date Recorded PHQ-2 Score 0 02/07/2019 Sex and Gender Information Value Date Recorded Sex Assigned at Female 10/26/2022 5:46 AM CLOCK ASSEMBLER Gender Identity Female 10/26/2022 5:45 AM CLOCK ASSEMBLER Sexual Orientation Straight 10/26/2022 5: 46 AM CLOCK ASSEMBLER documented as of this encounter Plan of Treatment Not on file documented as of this encounter Visit Diagnoses Not on filedocumented in this encounter Care Teams Mind Reader Relationship Specialty Start Date End Date Keven Krueger [address] [phone] PCP - General Family Practice 05/01/19 08/11/22 No Ref-Primary, Physician PCP - General 08/12/22 10/28/22 [place] [address] [address] [place], [place] [address] PCP - General Family Medicine 10/29/22 Gypsy Mcfadden APRN SALESFORCE SPECIALIST [address] [place] [address] Assigned PCP 02/12/19 02/07/22 Chato Diaz MD [address] [place] [address] Assigned Heart and Vascular Provider 08/09/20 11/01/21 Chato Diaz MD [address] [place] [address] Cardiovascular Disease 03/24/22 Chato Diaz MD [address] [place] [address]1455 Cardiovascular Disease 03/24/22 Marko Smith MD [address] [place] 129985 Assigned Heart and Vascular Provider 08/15/22 11/20/22 Chato Diaz MD [address] [place] 68[address]15 Assigned Heart and Vascular Provider 07/18/22 08/14/22 [place] [address] [place] [address] Assigned PCP 11/07/22 Chato Diaz MD [address] [place] [address]85 Assigned Heart and Vascular Provider 11/21/22 Rosalba Romo MD [address] [place], [place] [address] Assigned Pulmonology Provider 12/12/22 documented as of this encounter
--- OUTSIDE RECORDS SUMMARY | 2023-10-27 22:52 | XMS_ITS | Encounter Summary ---
Author Name Unknown Organization [place] Address [address] [facility] [place] [address] Care Team Providers Care Cargo Agent Name Role Phone Gypsy Mcfadden APRN COURTROOM DEPUTY Unavailable + Keven Krueger Primary Care Provider + [phone] Chato Diaz MD Unavailable [phone] Chato Diaz MD Unavailable +[phone] Chato Diaz MD Unavailable [phone] Ref-Primary, Physician Primary Care Provider Marko Smith MD Unavailable + Chato Diaz MD Unavailable [phone] Jimenez Madera DO Primary Care Provider +[phone] Jimenez Madera DO Unavailable [phone] Chato Diaz MD Unavailable +[phone] Rosalba Romo MD Unavailable +[phone] Encounter Details Date Type Department Care Team (Late st Contact Info) Description 09/02/2021 [facility] [place] [address] [facility] [address] [place] [address] Chato Diaz MD [address] [facility] [address] [place] [address] Social History Tobacco Use Types Packs/Day Years Used Date Smoking Tobacco: Never Smokeless Tobacco: Never Alcohol Use Standard Drinks/Week Comments No 0 (1 standard drink = 0.6 oz pur e alcohol) PHQ-2 Answer Date Recorded PHQ-2 Score 0 02/07/2019 Sex and Gender Information Value Date Recorded Sex Assigned at Female 10/26/2022 5:46 AM MOBILE SERVICE RV TECHNICIAN Gender Identity Female 10/26/2022 5:45 AM MOBILE SERVICE RV TECHNICIAN Sexual Orientation Straight 10/26/2022 5: 46 AM MOBILE SERVICE RV TECHNICIAN documented as of this encounter Miscellaneous Notes * Telephone Encounter - Elvin Carlson RN - 09/02/2021 9:55 AM MOBILE SERVICE RV TECHNICIAN [email or web address] message received. RN will send to Dr. Diaz as MARCELINO. Thank you, have a great Thanksgiving :) I will start stomach OTCs. Pretty harsh diet change, so just wanted to get basics figured. Here's a couple records from January also to add in. LE SERVICE RV TECHNICIAN * Telephone Encounter - Elvin Carlson RN - 09/02/2021 7:52 AM MOBILE SERVICE RV TECHNICIAN Images from the original note were not included. [email or web address] messages received. RN will send to Dr. Diaz for review. For comparison, this was my previous one in July. They look different to me but I'm no expert ;) Beth Quinn Charles Xavier, MD 1 hour ago (6:49 AM) I see that the file is password protected. I sent it again below and updated it. The password is [email or web address] ?? thank you for looking. It's an ecg Beth Quinn Charles Xavier, MD 1 hour ago (6:45 AM) I hate asking this- but can you peak at this quick and lmk if anything stands out? I'm just trying to figure this out. Yesterday I had a horrible ripping sensation on my left side by my stomach and then have been getting these weird shocky tingles. Chest randomly and fingers/hands a little. Trying to distinguish if it's diet/dietitian changes causing odd sensations or heart. Thanks! Not a fun feeling. If no heart indications- I will move to OTC heartburn meds. LE SERVICE RV TECHNICIAN documented in this encounter Plan of Treatment Not on file documented as of this encounter Visit Diagnoses Not on filedocumented in this encounter Care Teams Cargo Agent Relationship Specialty Start Date End Date Keven Krueger [address] [phone] PCP - General Family Practice 05/01/19 08/11/22 No Ref-Primary, Physician PCP - General 08/12/22 10/28/22 [place] [address] [address] [place], [place] [address] PCP - General Family Medicine 10/29/22 Gypsy Mcfadden APRN CNP [address] [place] 1858968 Assigned PCP 02/12/19 02/07/22 Chato Diaz MD [address] [place] [address] Assigned Heart and Vascular Provider 08/09/20 11/01/21 Chato Diaz MD [address] [place] 928[address] Cardiovascular Disease 03/24/22 Chato Diaz MD [address] [place] [address] Cardiovascular Disease 03/24/22 Marko Smith MD [address] [place], [place] [address] Assigned Heart and Vascular Provider 08/15/22 11/20/22 Chato Diaz MD [address] [place], [place] [address] Assigned Heart and Vascular Provider 07/18/22 08/14/22 [place] [address] [place] [address] Assigned PCP 11/07/22 Chato Diaz MD [address] [place] [address] Assigned Heart and Vascular Provider 11/21/22 Rosalba Romo MD [address] [place], [place] [address] Assigned Pulmonology Provider 12/12/22 documented as of this encounter
--- OUTSIDE RECORDS SUMMARY | 2023-10-27 22:52 | XMS_ITS | Encounter Summary ---
Author Name Unknown Organization [place] Address [address] [facility] [place] [address] Care Team Providers Care Maintenance Engineer Oil Field Name Role Phone Gypsy Mcfadden APRN CRIME SCENE EVIDENCE TECHNICIAN Unavailable + Keven Krueger Primary Care Provider + [phone] Chato Diaz MD Unavailable +[phone] Chato Diaz MD Unavailable [phone] Chato Diaz MD Unavailable [phone] Ref-Primary, Physician Primary Care Provider Marko Smith MD Unavailable + Chato Diaz MD Unavailable [phone] Jimenez Madera DO Primary Care Provider +[phone] Jimenez Madera DO Unavailable [phone] Chato Diaz MD Unavailable +[phone] Rosalba Romo MD Unavailable +[phone] Encounter Details Date Type Department Care Team (Late st Contact Info) Description 10/21/[address] [facility] [address] [facility] [place] [address] [facility] [address] [place] [address] Chato Diaz MD [address] [facility] [address] [place] [address] Social History Tobacco Use Types Packs/Day Years Used Date Smoking Tobacco: Never Smokeless Tobacco: Never Alcohol Use Standard Drinks/Week Comments No 0 (1 standard drink = 0.6 oz pur e alcohol) PHQ-2 Answer Date Recorded PHQ-2 Score 0 02/07/2019 Sex and Gender Information Value Date Recorded Sex Assigned at Female 10/26/2022 5:46 AM SPINNING FRAME CHANGER Gender Identity Female 10/26/2022 5:45 AM SPINNING FRAME CHANGER Sexual Orientation Straight 10/26/2022 5: 46 AM SPINNING FRAME CHANGER documented as of this encounter Plan of Treatment Not on file documented as of this encounter Visit Diagnoses Not on filedocumented in this encounter Care Teams Maintenance Engineer Oil Field Relationship Specialty Start Date End Date Keven Krueger [address] [phone] PCP - General Family Practice 05/01/19 08/11/22 No Ref-Primary, Physician PCP - General 08/12/22 10/28/22 [place] [address] [address] [place], [place] [address] PCP - General Family Medicine 10/29/22 Gypsy Mcfadden APRN CRIME SCENE EVIDENCE TECHNICIAN [address] [place] [address] Assigned PCP 02/12/19 02/07/22 Chato Diaz MD [address] [place] [address] Assigned Heart and Vascular Provider 08/09/20 11/01/21 Chato Diaz MD [address] [place] [address] Cardiovascular Disease 03/24/22 Chato Diaz MD [address] [place] 525035 Cardiovascular Disease 03/24/22 Marko Smith MD [address] [place] 386705 Assigned Heart and Vascular Provider 08/15/22 11/20/22 Chato Diaz MD [address] [place] [address]887[address] Assigned Heart and Vascular Provider 07/18/22 08/14/22 [place] [address] [place] [address] Assigned PCP 11/07/22 Chato Diaz MD [address] [place] [address] Assigned Heart and Vascular Provider 11/21/22 Rosalba Romo MD [address] [place], [place] [address] Assigned Pulmonology Provider 12/12/22 documented as of this encounter
--- OUTSIDE RECORDS SUMMARY | 2023-10-27 22:52 | XMS_ITS | Encounter Summary ---
Author Name Unknown Organization [place] Address [address] [facility] [place] [address] Care Team Providers Care Mail Censor Name Role Phone Thanh Kruegersemaj Young Primary Care Provider + [phone] Chato Diaz MD Unavailable [phone] Chato Diaz MD Unavailable [phone] Ref-Primary, Physician Primary Care Provider Marko Smith MD Unavailable + Chato Diaz MD Unavailable [phone] Jimenez Madera DO Primary Care Provider +[phone] Jimenez Madera DO Unavailable [phone] Chato Diaz MD Unavailable [phone] Rosalba Romo MD Unavailable [phone] Reason for Visit * Reason Onset Date Comments Appointment 06/26/2022 NEW EP Encounter Details Date Type Department Care Team (Late st Contact Info) Description 06/26/2022 Telephone [facility] Heart [address] [address] Maico Gambino MD [address] [place] [id number] Appointment (NEW EP) Social History Tobacco Use Types Packs/Day Years Used Date Smoking Tobacco: Never Smokeless Tobacco: Never Alcohol Use Standard Drinks/Week Comments No 0 (1 standard drink = 0.6 oz pur e alcohol) PHQ-2 Answer Date Recorded PHQ-2 Score 0 02/07/2019 Sex and Gender Information Value Date Recorded Sex Assigned at Female 10/26/2022 5:46 AM GENERAL PRODUCTION LABORER Gender Identity Female 10/26/2022 5:45 AM GENERAL PRODUCTION LABORER Sexual Orientation Straight 10/26/2022 5: 46 AM GENERAL PRODUCTION LABORER COVID-19 Exposure Response Date Recorded In the last 10 days, have yo u been in contact with someone who was confirmed or suspected to have Coronavirus/COVID-19? No / Unsure 06/10/2022 10:07 AM CDT documented as of this encounter Miscellaneous Notes * Telephone Encounter - Laina Duarte CMA - 06/26/2022 12:28 PM CDT Spoke with pt who said she couldn't get a hold of office regarding on how long she should wear the monitor she got it placed 06/10 and wore it til 06/24 and sent it back. Got her in with Im[facility] 07/27 Pt did not wear for 30 days * Telephone Encounter - Ashley Soares - 06/26/2022 11:30 AM CDT Health Call Center Phone Message May a detailed message be left on voicemail: yes Reason for Call: Other: Patient called looking to discuss her NEW EP appt with a member of her careteam. Patient would like to discuss who would be best suited for her. Patient had various questionsfor her care team, but did not want a message to be placed. Please call patient back to further discuss, thank you. Action Taken: Message routed to: Other: Cardiology Travel Screening: Not Applicable documented in this encounter Plan of Treatment Not on file documented as of this encounter Visit Diagnoses Not on filedocumented in this encounter Care Teams Mail Censor Relationship Specialty Start Date End Date Keven Krueger [address] [id number] PCP - General Family Practice 05/01/19 08/11/22 No Ref-Primary, Physician PCP - General 08/12/22 10/28/22 [place] [address] [place] [address] PCP - General Family Medicine 10/29/22 Chato Diaz MD [address] [place] [id number] Cardiovascular Disease 03/24/22 Chato Diaz MD [address] [place] [address] Cardiovascular Disease 03/24/22 Marko Smith MD [address] [place] [address] Assigned Heart and Vascular Provider 08/15/22 11/20/22 Chato Diaz MD [address] [place] [address] Assigned Heart and Vascular Provider 07/18/22 08/14/22 [place] [address] [place] [address] Assigned PCP 11/07/22 Chato Diaz MD [address] [place] [id number] Assigned Heart and Vascular Provider 11/21/22 Rosalba Romo MD [address] [address] Assigned Pulmonology Provider 12/12/22 documented as of this encounter
--- OUTSIDE RECORDS SUMMARY | 2023-10-27 22:53 | XMS_ITS | Clinical Summary ---
Author Name Unknown Organization [facility] Address [address] [place] [address] Care Team Providers Care Workers Compensation Claims Adjuster Name Role Phone None Reported, Pcp Primary Care Provider Unavail able Source Comments Patient records contain information from all sites at [facility]. For routine questions regarding patient records, call [phone] during business hours, M-F 8:00 AM - 5:00 PM Central Time. Record requests for emergency care only can be directed to [phone] at any time.[facility] Allergies Active Allergy Reactions Criticality Noted Date Comments Sulfa (Sulfonamide Antibiotics) Other (see comments) 06/22/2006 family has allergies to this Medications Medication Sig Dispensed Refills Start Date End Date Status omega 3-wjb-jad-fish oil 1,000 mg (120 mg-180 mg) capsule Take 1,000 mg by mouth daily. 0 11/03/2019 Active co-enzyme Q-10 (CO Q-10) 100 mg capsule Take 1 capsule by mouth daily. 0 06/10/2016 Active labetaloL (NORMODYNE) 100 mg tablet Take 50 mg by mouth as needed. 0 03/05/2020 Active POTASSIUM CITRATE ORAL Take 99 mcg by mouth. 0 Act nithya propranoloL (INDERAL) 20 mg tablet 20 mg every 8 (eight) hours. 0 03/02/2020 Active vit calc,iron,folic ( VITAMIN ORAL) 0 Active CALCIUM CITRATE ORAL Take 1 tablet by mouth daily. 0 Active progesterone (PROMETRIUM) 200 mg capsule progesterone micronized 200 mg capsule 0 Active cholecalciferol, vitamin D3, (cholecalciferol) 25 mcg (1,000 Unit) tablet Take 25 mcg by mouth daily. 0 Active progesterone (PROMETRIUM) 100 mg capsule Take 300 mg by mouth at bedtime. 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 Hyperplasia Endometrial With Atypia (Primary Dx) 08/02/2023 Clinical Communication Department of Obstetrics and Gynecology in [place], [place] [address] [place] [address] Rachelle Gómez M.D. Appointment 07/28/2023 Orders Only Department of Obstetrics and Gynecology in [place], [place] [address] [place] [address] Xenia Delatorre M.S.N., R.N. from Last 3 Months Social History Tobacco Use Types Packs/Day Years Used Date Smoking Tobacco: Never Smokeless Tobacco: Never Tobacco Cessation:Counseling Given: Not Answered Humiliation, Afraid, Rape, and Kick questionnair e Answer Date Recorded Within the last year, have y ou been afraid of your partner or ex-partner? No 11/24/2022 Within the last year, have y ou been humiliated or emotionally abused in other ways by your partner or ex-partner? No Within the last year, have y ou been kicked, hit, slapped, or otherwise physically hurt by your partner or ex-partner? No 11/24/2022 Within the last year, have y ou been raped or forced to have any kind of sexual activity by your partner or ex-partner? No 11/24/2022 Social Connection and Isolat ion Panel [NHANES] Answer Date Recorded In a typical week, how many times do you talk on the phone with family, friends, or neighbors? More than three times a week 11/24/2022 How often do you get togethe r with friends or relatives? Three times a week 11/24/2022 How often do you attend chur ch or hindu services? More than 4 times per year 11/24/2022 Do you belong to any clubs o r organizations such as synagogue groups, unions, fraternal or athletic groups, or school groups? Yes 11/24/2022 How often do you attend meet ings of the clubs or organizations you belong to? More than 4 times per year 11/24/2022 Are you , , di vorced, , never , or living with a partner? 11/24/2022 AUDIT-C Answer Date Recorded Q1: How often do you have a drink containing alc ohol? Never 11/24/2022 Average Number of Drinks Not on file 023 Frequency of Binge Drinking Not on file 04/2023 Overall Financial Resource Strain (CARDIA) Answe r Date Recorded How hard is it for you to pa y for the very basics like food, housing, medical care, and heating? Not hard at all 11/24/2022 PHQ-2 Answer Date Recorded PHQ-2 Score 0 11/04/2022 [facility] - Occupational Stress Questionnaire Answer Date Recorded Do you feel stress - tense, restless, nervous, or anxious, or unable to sleep at night because your mind is troubled all the time - these days? Only a little 11/24/2022 Exercise Vital Sign Answer Date Recorde d On average, how many days pe r week do you engage in moderate to strenuous exercise (like a brisk walk)? 3 days 11/24/2022 On average, how many minutes do you engage in exercise at this level? 30 min 11/24/2022 Hunger Vital Sign Answer Date Recorded Within the past 12 months, y ou worried that your food would run out before you got the money to buy more. Never true 11/24/19 23 Within the past 12 months, t he food you bought just didn't last and you didn't have money to get more. Never true 11/24/2022 PRAPARE - Transportation Answer Date Re corded In the past 12 months, has l ack of transportation kept you from medical appointments or from getting medications? No 04/2023 In the past 12 months, has l ack of transportation kept you from meetings, work, or from getting things needed for daily living? No 11/24/2022 Housing Stability Vital Sign Answer Cornelio e Recorded In the last 12 months, was t here a time when you were not able to pay the mortgage or rent on time? No 11/24/2022 In the last 12 months, how many places have you lived? 1 11/24/2022 In the last 12 months, was t here a time when you did not have a steady place to sleep or slept in a fpc (including now)? No 11/24/2022 Nutrition Answer Date Recorded Nutrition: EVOO Fat Source Yes 11/24 On average, how many serving s of fruits and vegetables do you eat per day (serving size is equal to 1 cup or approximately the size of a tennis ball)? 2-3 11/24/2022 Dental Answer Date Recorded Dental: Regular Dentist Yes 05/21/20 Employment Answer Date Recorded Employment status Unemployed/not in [facility] [employer] [employer] paid workforce and NOT seeking employment 11/24/2022 Education Answer Date Recorded What is the highest level of school you have completed or the highest degree you have received? Associate degree: academic program 03/08/2020 Sex and Gender Information Value Date Recorded Sex Assigned at Female 05/07/2018 8:20 PM CDT Gender Identity Female 05/07/2018 8:20 PM CDT Sexual Orientation Straight 05/07/2018 8: 20 PM CDT Last Filed Vital Signs Vital Sign Reading Time Taken Comments Blood Pressure 104/70 05/21/2022 10:42 AM CDT Pulse 76 05/21/2022 10:42 AM CDT Temperature - - Respiratory Rate - - Oxygen Saturation - - Inhaled Oxygen Concentration - - Weight 67.4 kg (148 lb 9.4 oz) 05/21/2022 10:42 AM CDT Height 160.3 cm (5' 3.11) 05/21/2022 10:42 AM C DT Body Mass Index 26.23 05/21/2022 10:42 AM CDT Plan of Treatment Health Maintenance Due Date Last Done Comments HIV Screening 1982 Hepatitis B Vaccines (1 of 3 - 3-dose series) 1982 Mammogram 1982 COVID-19 Vaccine (#1) 1982 DTaP,Tdap,and Td Vaccines (7 - Td or Tdap) 05/02/2017 05/02/2007, 12/15/1994, 02/14/1987, Additional history exists Cervical Cancer Screening 02/07/20222018, 05/18/2016 (Performed elsewhere) Influenza Vaccine (#1) 2023 Lipid (Cholesterol) Screening 10/28/2027 10/28/2022, 05/31/2015 Depression Screening (Annual PHQ-2) Completed 11/04/2022 HPV Vaccines Aged Out No longer eligi ble based on patient's age to complete this topic Pneumococcal vaccine (0-64 years) Aged Out No longer eligible based on patient's age to complete this topic Care Teams Workers Compensation Claims Adjuster Relationship Specialty Start Date End Date None Reported, Pcp PCP - General Family Medicine 05/20/22
--- OUTSIDE RECORDS SUMMARY | 2023-10-27 22:53 | XMS_ITS | Encounter Summary ---
Author Name Unknown Organization [place] Address [address] [facility] [place] [address] Care Team Providers Care Bottom Sander Name Role Phone Gypsy Mcfadden APRN [employer] Unavailable + Keven Krueger Primary Care Provider + [phone] Chato Diaz MD Unavailable [phone] Chato Diaz MD Unavailable [phone] Chato Diaz MD Unavailable [phone] Ref-Primary, Physician Primary Care Provider Marko Smith MD Unavailable + Chato Diaz MD Unavailable [phone] Jimenez Madera DO Primary Care Provider [phone] Jimenez Madera DO Unavailable Chato Diaz MD Unavailable [phone] Rosalba Romo MD Unavailable [phone] Encounter Details Date Type Department Care Team (Late st Contact Info) Description 09/01/2019 [place] [facility] [place] [address] [facility] [address] [place] [address] Chato Diaz MD [address] [facility] [address] [place] [address] Social History Tobacco Use Types Packs/Day Years Used Date Smoking Tobacco: Never Smokeless Tobacco: Never Alcohol Use Standard Drinks/Week Comments No 0 (1 standard drink = 0.6 oz pur e alcohol) PHQ-2 Answer Date Recorded PHQ-2 Score 0 02/07/2019 Sex and Gender Information Value Date Recorded Sex Assigned at Female 10/26/2022 5:46 AM [employer] MANAGER Gender Identity Female 10/26/2022 5:45 AM [employer] MANAGER Sexual Orientation Straight 10/26/2022 5: 46 AM CAR[employer] GR[employer] MANAGER documented as of this encounter Miscellaneous Notes * Telephone Encounter - Elvin Carlson RN - 09/01/2019 1:30 PM [employer] MANAGER Received [employer] message from patient in reply to Dr. Diaz's response and recommendations. RN will send to Dr. Diaz to inquire about chief pilot as well as if any alternative testing can be performed d/t patient's previous reaction with contrast dye. Is there a way to get a recommendation to a chief pilot (I didn't know what that Dr would be called so that definitely helps!) and also- what are alternatives to the dye test- I had a bad reactionwith contrast dye before. Can they do an ultrasound of the arteries at all? I wouldn't be concerned- but the odd pain just hasn't resolved. Or are there other ways to no if their isn't clogging? I would say it does feel almost like something deep inside is spasms or squeezes- or maybe angry nerve feelings- hard to explain :'( . Thanks! [employer]AMPING [employer] MANAGER * Telephone Encounter - Elvin Carlson RN - 09/01/2019 7:23 AM [employer] MANAGER [employer] message(s) received. RN will send patient's [employer] messages to Dr. Diaz for review and recommendation. 7:24 (AM) My body also bounces back and forth on these two levels. Maybe this is a general Dr question.... But I just wonder if this isn't heart or autoimmune. Maybe there is some way to come up with some ideaon where to go next. Chest pain, joint pain- worse in the morning, fatigue, recurrent miscarriage. I'd love to just have an answer or know who to see or what to check. I don't want to miscarry again if we get , and I don't want to feel like an 80 year old grandma (I've felt this way since my 20s). 6:51 (AM) Also- I've been sweating more than normal, felt crushing fatigue, I've been getting headaches (I never get headaches), and I worry something bad will happen because of this pain that comes and goes. It has been since February. I've NEVER had heartburn last longer than a few days. I've never had it last months on end. (6:44 AM) I'm still having chest pain. I've been using a series of antacids and that has helped take down one aspect of the pain. I notice that the other aspect is still present. When I describe it to others, they say it sounds like angina. It's like my chest is squeezing. Yesterday I got hit with a hard zap/pressure for a second and it was right below the breast line and hit the left shoulder at exactly the same time. How can I distinguish if this isn't some sort of angina vs indigestion? On the echostess test- does it ultrasound the arteries going to the heart? Or is there something we can do to see that? I'm very concerned that they could be clogging up since I have had high cholesterol since I was 18 (21 years now). My chest hurts almost every day now, and it's a squeezing deep ache... I know you weren't concerned... But something in my brain keeps telling me to look more into my heart. Probably because thats where it hurts. 07/28/[address] Diaz 1. Palpitations ?? Negative stress test ?? Patient would like to do things naturally. May resume the potassium supplementation and start magnesium supplementation. ?? Patient still has the prescriptions for diltiazem and labetalol if needed. ? 2. Hyperlipidemia with strong family history of multivessel coronary artery disease ?? Patient will try diet and exercise ?? In 3 months, will check lipids and if LDL greater than 120, may start a small dose of pravastatin. ?? [employer]ING GR[employer] MANAGER documented in this encounter Plan of Treatment Not on file documented as of this encounter Visit Diagnoses Not on filedocumented in this encounter Care Teams Bottom Sander Relationship Specialty Start Date End Date Keven Krueger [address] [phone] PCP - General Family Practice 05/01/19 08/11/22 No Ref-Primary, Physician PCP - General 08/12/22 10/28/22 [place] [address] [place] [address] PCP - General Family Medicine 10/29/22 Gypsy Mcfadden APRN CNP [address] [place] [address] Assigned PCP 02/12/19 02/07/22 Chato Diaz MD [address] [place] [address] Assigned Heart and Vascular Provider 08/09/20 11/01/21 Chato Diaz MD [address] [place] [address] Cardiovascular Disease 03/24/22 Chato Diaz MD [address] [place] [address] Cardiovascular Disease 03/24/22 Marko Smith MD [address] [place] [address] Assigned Heart and Vascular Provider 08/15/22 11/20/22 Chato Diaz MD [address] [place] [address] Assigned Heart and Vascular Provider 07/18/22 08/14/22 [place] [address] [place] [address] Assigned PCP 11/07/22 Chato Diaz MD [address] [place] [address] Assigned Heart and Vascular Provider 11/21/22 Rosalba Romo MD [address] [place], [place] [address] Assigned Pulmonology Provider 12/12/22 documented as of this encounter
--- OUTSIDE RECORDS SUMMARY | 2023-10-27 22:53 | XMS_ITS | Encounter Summary ---
Author Name Unknown Organization [place] Address [address] [facility] [place] [address] Care Team Providers Care Online User Experience Strategist Name Role Phone Gypsy Mcfadden APRN [employer] Unavailable + Keven Krueger Primary Care Provider + [phone] Chato Diaz MD Unavailable [phone] Chato Diaz MD Unavailable [phone] Chato Diaz MD Unavailable [phone] Ref-Primary, Physician Primary Care Provider Marko Smith MD Unavailable + Chato Diaz MD Unavailable [phone] Jimenez Madera DO Primary Care Provider [phone] Jimenez Madera DO Unavailable [phone] Chato Diaz MD Unavailable [phone] Rosalba Romo MD Unavailable [phone] Encounter Details Date Type Department Care Team (Late st Contact Info) Description 07/10/2019 [place] [facility] [place] [address] [facility] [address] [place] [address] Chato Diaz MD [address] [facility] [address] [place] [address] Social History Tobacco Use Types Packs/Day Years Used Date Smoking Tobacco: Never Smokeless Tobacco: Never Alcohol Use Standard Drinks/Week Comments No 0 (1 standard drink = 0.6 oz pur e alcohol) PHQ-2 Answer Date Recorded PHQ-2 Score 0 02/07/2019 Sex and Gender Information Value Date Recorded Sex Assigned at Female 10/26/2022 5:46 AM ONCOLOGY SOCIAL WORKER Gender Identity Female 10/26/2022 5:45 AM ONCOLOGY SOCIAL WORKER Sexual Orientation Straight 10/26/2022 5: 46 AM ONCOLOGY SOCIAL WORKER documented as of this encounter Plan of Treatment Not on file documented as of this encounter Visit Diagnoses Not on filedocumented in this encounter Care Teams Online User Experience Strategist Relationship Specialty Start Date End Date Keven Krueger [address] [phone] PCP - General Family Practice 05/01/19 08/11/22 No Ref-Primary, Physician PCP - General 08/12/22 10/28/22 [place] [address] [place] [address] PCP - General Family Medicine 10/29/22 Gypsy Mcfadden APRN [employer] [address] [place] [id number] Assigned PCP 02/12/19 02/07/22 Chato Diaz MD [address] [place] [address] Assigned Heart and Vascular Provider 08/09/20 11/01/21 Chato Diaz MD [address] [place] [address] Cardiovascular Disease 03/24/22 Chato Diaz MD [address] [place] [id number] Cardiovascular Disease 03/24/22 Marko Smith MD [address] [place] [id number] Assigned Heart and Vascular Provider 08/15/22 11/20/22 Chato Diaz MD [address] [place] [id number] Assigned Heart and Vascular Provider 07/18/22 08/14/22 [place] [address] [place] [address] Assigned PCP 11/07/22 Chato Diaz MD [address] [place] [id number] Assigned Heart and Vascular Provider 11/21/22 Rosalba Romo MD [address] [place], [place] [address] Assigned Pulmonology Provider 12/12/22 documented as of this encounter
--- OUTSIDE RECORDS SUMMARY | 2023-10-27 22:53 | XMS_ITS | Encounter Summary ---
Author Name Unknown Organization [facility] Address [address] [place] [address] Care Team Providers Care Offender Employment Specialist Name Role Phone Gypsy Mcfadden APRN LEAD FRONT DESK AGENT Unavailable + Keven Krueger Primary Care Provider + [phone] Chato Diaz MD Unavailable [phone] Chato Diaz MD Unavailable +[phone] Cahto Diaz MD Unavailable +[phone] Ref-Primary, Physician Primary Care Provider Marko Smith MD Unavailable + Chato Diaz MD Unavailable [phone] Jimenez Madera DO Primary Care Provider +[phone] Jimenez Madera DO Unavailable [phone] Chato Diaz MD Unavailable +[phone] Rosalba Romo MD Unavailable +[phone] Encounter Details Date Type Department Care Team (Late st Contact Info) Description 07/09/2019 [place] Medical Advice [facility] [place] [address] [facility] [address] [place] [phone] Chato Diaz MD [address] [facility] [address] [place] [address] Social History Tobacco Use Types Packs/Day Years Used Date Smoking Tobacco: Never Smokeless Tobacco: Never Alcohol Use Standard Drinks/Week Comments No 0 (1 standard drink = 0.6 oz pur e alcohol) PHQ-2 Answer Date Recorded PHQ-2 Score 0 02/07/2019 Sex and Gender Information Value Date Recorded Sex Assigned at Female 10/26/2022 5:46 AM LEASING MACHINE TENDER Gender Identity Female 10/26/2022 5:45 AM LEASING MACHINE TENDER Sexual Orientation Straight 10/26/2022 5: 46 AM LEASING MACHINE TENDER documented as of this encounter Plan of Treatment Not on file documented as of this encounter Visit Diagnoses Not on filedocumented in this encounter Care Teams Offender Employment Specialist Relationship Specialty Start Date End Date Keven Krueger [address] [id number] PCP - General Family Practice 05/01/19 08/11/22 No Ref-Primary, Physician PCP - General 08/12/22 10/28/22 [place] [address] [place] [address] PCP - General Family Medicine 10/29/22 Gypsy Mcfadden APRN LEAD FRONT DESK AGENT [address] [place] [address] Assigned PCP 02/12/19 02/07/22 Chato Diaz MD [address] [place] [address] Assigned Heart and Vascular Provider 08/09/20 11/01/21 Chato Diaz MD [address] [place] [address] Cardiovascular Disease 03/24/22 Chato Diaz MD [address] [place] 471875 Cardiovascular Disease 03/24/22 Marko Smith MD [address] [place] 663125 Assigned Heart and Vascular Provider 08/15/22 11/20/22 Chtao Diaz MD [address] [place] [address] Assigned Heart and Vascular Provider 07/18/22 08/14/22 [place] [address] [place] [address] Assigned PCP 11/07/22 Chato Diaz MD [address] [place] [address] Assigned Heart and Vascular Provider 11/21/22 Rosalba Romo MD [address] [place], [place] [address] Assigned Pulmonology Provider 12/12/22 documented as of this encounter
--- OUTSIDE RECORDS SUMMARY | 2023-10-27 22:53 | XMS_ITS | Encounter Summary ---
Author Name Unknown Organization [facility] Address [address] [facility] [place] [address] Care Team Providers Care Pet House Sitter Name Role Phone Keven Krueger Primary Care Provider [phone] Michelle Ware PA-C Unavailable Michelle Ware PA-C Unavailable No Ref-Primary, Physician Primary Care Provider Gypsy Mcfadden APRN CAR PILOT Unavailable + Keven Krueger Primary Care Provider [phone] Chato Diaz MD Unavailable +[phone] Chato Diaz MD Unavailable +[phone] Chato Diaz MD Unavailable [phone] No Ref-Primary, Physician Primary Care Provider Marko Smith MD Unavailable + Chato Diaz MD Unavailable +[phone] Jimenez Madera DO Primary Care Provider [phone] Jimenez Madera DO Unavailable [phone] Chato Diaz MD Unavailable +[phone] Rosalba Romo MD Unavailable Encounter Details Date Type Department Care Team (Late st Contact Info) Description 04/25/2018 [place] Medical Advice [facility] [id number] [place] [phone] Michelle Ware PA-C [address] [place], [place] [phone] Social History Tobacco Use Types Packs/Day Years Used Date Smoking Tobacco: Never Smokeless Tobacco: Never Alcohol Use Standard Drinks/Week Comments No 0 (1 standard drink = 0.6 oz pur e alcohol) Comments Yes Sex and Gender Information Value Date Recorded Sex Assigned at Female 10/26/2022 5:46 AM MEDICAL CARE EVALUATION SPECIALIST Gender Identity Female 10/26/2022 5:45 AM MEDICAL CARE EVALUATION SPECIALIST Sexual Orientation Straight 10/26/2022 5: 46 AM MEDICAL CARE EVALUATION SPECIALIST documented as of this encounter Plan of Treatment Not on file documented as of this encounter Visit Diagnoses Not on filedocumented in this encounter Care Teams Pet House Sitter Relationship Specialty Start Date End Date Keven Krueger [address] [address] PCP - General Family Practice 12/26/15 02/06/19 Michelle Ware PA-C [address] [place] [address] PCP - Assigned PCP 07/02/17 12/20/18 No Ref-Primary, Physician PCP - General 02/07/19 04/30/19 Keven Krueger [address] [address] PCP - General Family Practice 05/01/19 08/11/22 No Ref-Primary, Physician PCP - General 08/12/22 10/28/22 [place] [address] [place] [address] PCP - General Family Medicine 10/29/22 Michelle Ware PA-C [address] [place] [address] Assigned PCP 07/02/17 02/11/19 Gypsy Mcfadden APRN [facility] [address] [place] [address] Assigned PCP 02/12/19 02/07/22 Chato Diaz MD [address] [place] [address] Assigned Heart and Vascular Provider 08/09/20 11/01/21 Chato Diaz MD [address] [place] [address] Cardiovascular Disease 03/24/22 Chato Diaz MD [address] [place] [address] Cardiovascular Disease 03/24/22 Marko Smith MD [address] [place] [address] Assigned Heart and Vascular Provider 08/15/22 11/20/22 Chato Diaz MD [address] [place] [address] Assigned Heart and Vascular Provider 07/18/22 08/14/22 [place] [address] [place] [address] Assigned PCP 11/07/22 Chato Diaz MD [address] [facility] [address] [place] [address] Assigned Heart and Vascular Provider 11/21/22 Rosalba Romo MD [address] [place], [place] [address] Assigned Pulmonology Provider 12/12/22 documented as of this encounter
--- OUTSIDE RECORDS SUMMARY | 2023-10-27 22:53 | XMS_ITS | Encounter Summary ---
Author Name Unknown Organization [facility] Address [address] [place] [address] Care Team Providers Care Tool Trouble Shooter Name Role Phone Gypsy Mcfadden APRN SOFTWARE DEVELOPER INTERN Unavailable + Keven Krueger Primary Care Provider + [phone] Chato Diaz MD Unavailable [phone] Chato Diaz MD Unavailable [phone] Chato Diaz MD Unavailable [phone] Ref-Primary, Physician Primary Care Provider Marko Smith MD Unavailable + Chato Diaz MD Unavailable [phone] Jimenez Madera DO Primary Care Provider [phone] Jimenez Madera DO Unavailable [phone] Chato Diaz MD Unavailable [phone] Rosalba Romo MD Unavailable [phone] Reason for Referral * (Routine) - Closed Specialty Diagnoses / Procedures Referred By Contranjana t Referred To Contact Diagnoses Encounter for preconception consultation Sienna Marks MD [address] [place] [address] Referral ID Status Reason Start Date Expiration Date Visits Re quested Visits Authorized [id number] Closed 08/08/2019 08/07/2020 1 1 Question Answer M Location [facility] Indication: recurrent loss Inflammatory Bowel Disease Clinic: Joint MFM and GI Consultation: Yes Genetic Counseling Consultation: No fax [phone]/Taryn Marks/Remedios Comments >> Patient may proceed with recommendations for further testing as directed by the Maternal Medicine Specialist >> Please be aware that coverage of these services is subject to the terms and limitations of your health insurance plan. Call member services at your health plan with any benefit or coverage questions. Please bring the following to your appointment: >> Any x-rays, CTs or MRIs which have been performed. Contact the facility where they were done to arrange for slat pickler prior to your scheduled appointment. Any new CT, MRI or other procedures ordered by your specialist must be performed at a [facility] facility or coordinated by your clinic's referral office. >> List of current medications >> This referral request >> Any documents/labs given to you for this referral Encounter Details Date Type Department Care Team (Latest Contact Info) Description 08/08/2019 Transcribe Orders [facility] [address] [place] [address] Sienna Marks MD [address] [place], [place] [id number] Encounter for preconception consultation (Primary Dx) Social History Tobacco Use Types Packs/Day Years Used Date Smoking Tobacco: Never Smokeless Tobacco: Never Alcohol Use Standard Drinks/Week Comments No 0 (1 standard drink = 0.6 oz pur e alcohol) PHQ-2 Answer Date Recorded PHQ-2 Score 0 02/07/2019 Sex and Gender Information Value Date Recorded Sex Assigned at Female 10/26/2022 5:46 AM MARKETING RECRUITER Gender Identity Female 10/26/2022 5:45 AM MARKETING RECRUITER Sexual Orientation Straight 10/26/2022 5: 46 AM MARKETING RECRUITER documented as of this encounter Plan of Treatment Scheduled Referrals Name Type Priority Associated Diagnoses Orde r Schedule MAT MED CTR REFERRAL-PRECONCEPTI ON Referral Routine Encounter for preconception consultation Ordered: 08/08/2019 documented as of this encounter Visit Diagnoses Diagnosis Encounter for preconception consultation- Primary documented in this encounter Care Teams Tool Trouble Shooter Relationship Specialty Start Date End Date Keven Krueger [address] [phone] PCP - General Family Practice 05/01/19 08/11/22 No Ref-Primary, Physician PCP - General 08/12/22 10/28/22 [place] [address] [address] [place], [place] [phone] PCP - General Family Medicine 10/29/22 Gypsy Mcfadden APRN CNP [address] [place], [place] [address] Assigned PCP 02/12/19 02/07/22 Chato Diaz MD [address] [place] [address] Assigned Heart and Vascular Provider 08/09/20 11/01/21 Chato Diaz MD [address] [place] [address] Cardiovascular Disease 03/24/22 Chato Diaz MD [address] [place] 1677[address] Cardiovascular Disease 03/24/22 Marko Smith MD [address] [place] [address]14[address] Assigned Heart and Vascular Provider 08/15/22 11/20/22 Chato Diaz MD [address] [place], [place] [address] Assigned Heart and Vascular Provider 07/18/22 08/14/22 [place] [address] [place] [address] Assigned PCP 11/07/22 Chato Diaz MD [address] [place], [place] [address] Assigned Heart and Vascular Provider 11/21/22 Rosalba Romo MD [address] [place], [place] [address] Assigned Pulmonology Provider 12/12/22 documented as of this encounter
--- OUTSIDE RECORDS SUMMARY | 2023-10-27 22:53 | XMS_ITS | Encounter Summary ---
Author Name Unknown Organization [facility] Address [address] [facility] [place] [address] Care Team Providers Care Egg Buyer Name Role Phone Gypsy Mcfadden APRN DOVETAILER Unavailable + Keven Krueger Primary Care Provider + [phone] Chato Diaz MD Unavailable [phone] Chato Diaz MD Unavailable [phone] Chato Diaz MD Unavailable [phone] Ref-Primary, Physician Primary Care Provider Marko Smith MD Unavailable + Chato Diaz MD Unavailable [phone] Jimenez Madera DO Primary Care Provider [phone] Jimenez Madera DO Unavailable [phone] Chato Diaz MD Unavailable [phone] Rosalba Romo MD Unavailable [phone] Encounter Details Date Type Department Care Team (Late st Contact Info) Description 09/01/2019 [place] Medical Advice [facility] [place] [address] [facility] [address] [place] [address] Chato Diaz MD [address] [facility] [address] [place] [address] Social History Tobacco Use Types Packs/Day Years Used Date Smoking Tobacco: Never Smokeless Tobacco: Never Alcohol Use Standard Drinks/Week Comments No 0 (1 standard drink = 0.6 oz pur e alcohol) PHQ-2 Answer Date Recorded PHQ-2 Score 0 02/07/2019 Sex and Gender Information Value Date Recorded Sex Assigned at Female 10/26/2022 5:[address] SQL DEVELOPER Gender Identity Female 10/26/2022 5:[address] SQL DEVELOPER Sexual Orientation Straight 10/26/2022 5: [address] SQL DEVELOPER documented as of this encounter Plan of Treatment Not on file documented as of this encounter Visit Diagnoses Not on filedocumented in this encounter Care Teams Egg Buyer Relationship Specialty Start Date End Date Keven Krueger [address] [phone] PCP - General Family Practice 05/01/19 08/11/22 No Ref-Primary, Physician PCP - General 08/12/22 10/28/22 [place] [address] [place] [address] PCP - General Family Medicine 10/29/22 Gypsy Mcfadden APRN DOVETAILER [address] [place] [address] Assigned PCP 02/12/19 02/07/22 Chato Diaz MD [address] [place] [address] Assigned Heart and Vascular Provider 08/09/20 11/01/21 Chato Diaz MD [address] [place] [address] Cardiovascular Disease 03/24/22 Chato Diaz MD [address] [place] [address] Cardiovascular Disease 03/24/22 Marko Smith MD [address] [place] 4[address] Assigned Heart and Vascular Provider 08/15/22 11/20/22 Chato Diaz MD [address] [place] [address] Assigned Heart and Vascular Provider 07/18/22 08/14/22 [place] [address] [place] [address] Assigned PCP 11/07/22 Chato Diaz MD [address] [place] [address] Assigned Heart and Vascular Provider 11/21/22 Rosalba Romo MD [address] [place], [place] [address] Assigned Pulmonology Provider 12/12/22 documented as of this encounter
--- OUTSIDE RECORDS SUMMARY | 2023-10-27 22:53 | XMS_ITS | Encounter Summary ---
Author Name Unknown Organization [facility] Address [address] [facility] [place] [address] Care Team Providers Care Distillery Miller Name Role Phone Elke Allred MD Primary Care Provider Keven Krueger Primary Care Provider [phone] Michelle Ware-C Unavailable Michelle Ware-Pancho Unavailable No Ref-Primary, Physician Primary Care Provider Gypsy Mcfadden APRN PUBLIC ACCOUNTANT Unavailable + Keven Krueger Primary Care Provider [phone] Chato Diaz MD Unavailable +[phone] Chato Diaz MD Unavailable [phone] Chato Diaz MD Unavailable +[phone] No Ref-Primary, Physician Primary Care Provider Marko Smith MD Unavailable + Chato Diaz MD Unavailable [phone] Jimenez Madera DO Primary Care Provider [phone] Jimenez Madera DO Unavailable [phone] Chato Diaz MD Unavailable Rosalba Romo MD Unavailable Encounter Details Date Type Department Care Team (Late st Contact Info) Description 08/05/2012 Office Visit-[facility] INTERFACE P DEPT Aramis Jolley MD [address] [facility] [place] [address] [place], [place] [address] Social History Tobacco Use Types Packs/Day Years Used Date Smoking Tobacco: Never Smokeless Tobacco: Never Alcohol Use Standard Drinks/Week Comments No 0 (1 standard drink = 0.6 oz pur e alcohol) Sex and Gender Information Value Date Recorded Sex Assigned at Female 10/26/2022 5:46 AM BRASS MOLDER Gender Identity Female 10/26/2022 5:45 AM BRASS MOLDER Sexual Orientation Straight 10/26/2022 5: 46 AM BRASS MOLDER documented as of this encounter Progress Notes * Aramis Jolley MD - 08/05/2012 10:00 AM CDT Hairspring Truer: Aramis Jolley Status: Final - Signature Encounter: 2012-08-05 10:00:00.000 Type: Neurology Letter [facility] [address] [place] [address] August 05, 2012 Leann Ray MD [address] [address] RE: Beth Quinn : 1980 KRYSTYNA: 08/05/2012 Dear Leann: Thank you for the referral of Richa Kai for chief complaint of tremor. As you know, she is a 32-year-old, right-handed woman with complaints of tremor about three weeks ago. She also had symptoms of tingling. She is here with her mother, Oksana. She reports the first symptom was that she was in the car with her . They were holding hands, and her hand twitched. Then, she noticed thatshe awoke from sleep one night and her left hand seemed to be twitching and tapping her on the leg.She has noticed symptoms when she works at her keyboard. At a certain angle, her left index finger starts to twitch. She also has noticed that when she flexes her right wrist, it has a ratchet quality, and is not smooth. She says at times her muscles are not moving smoothly. Her handwriting is normal. She has noticed that some days are better than others. She does report that she did have some sort of illness about this time including fever. She does get a tingling in her arms at times whenshe has the tremor. She does not have the symptom in her legs. The symptom is now much improved. She has had some problems with neck pain and saw a chiropractor. The symptoms seemed to improve after that chiropractic treatment. She has no problems with vision, hearing, speech, swallowing, or bowel or bladder function. She does have a history of vitamin D deficiency and also polycystic ovarian syndrome. She has not been taking her vitamin D replacement, but when she started a multivitamin recently, she began to feel better. She has a history of anxiety and panic in the past, but this feels differently. She also has noticed at times a clumsiness in the left fingers when she goes to grab something small like a sheet of paper. Her past medical history is otherwise largely noncontributory. She is ALLERGIC TO SULFA. Social history is that she is without children. She does not work outside the home. Family history is positive for tremor in her mother, and also her maternal grandfather. On exam, the patient is cooperative and in no distress. Blood pressure 120/75 in the sitting position, and 110/80 in the standing position. There are no carotid bruits. Auscultation of the heart shows S1, S2 without murmur, rub, or gallop. Chest is clear to auscultation. On neurologic exam, the patient is alert, oriented, and lucid. Cranial nerve testing shows full visual jim to confrontation.Funduscopic exam shows sharp discs bilaterally. Eye movements are complete and conjugate without nystagmus. Pupils react to light. Facies are symmetric. Tongue protrudes in the midline. Motor evaluation shows no pronator drift, normal finger tapping, nsbest-cbfz-pdtgam, and nvni-uwym-jdrd. There isno tremor with her hands held out in front of her. There is no rigidity at the wrists, and I could not detect any ratchet quality or see any ratchet quality on movement of her hands. She has excellent strength in the arms and legs. Muscle stretch reflexes are of normal amplitude and symmetric. Toesare downgoing. Sensory exam shows preserved vibration and temperature. Romberg sign is absent. The patient can walk on her heels, toes, and tandem without difficulty. She has had extensive testing at your clinic. A folic acid level is normal. ZENY is negative. Glucose is 112. A TSH is normal. Vitamin B12 level is 7.9. An ESR is 15. A CBC is normal. Assessment: Intermittent tremor. Discussion: This patient is seen for evaluation of intermittent tremor. Her exam today is completely normal. I reassured the patient on this and on her negative workup to date. I would recommend monitoring her neurologic status for now. The tremor may have been due to her illness that she describes. She may have a hereditary disposition to develop essential tremor. However, I find no evidence forit at the current time. There is no tremor when she holds her hands out in front of her or assumes different postures. I would recommend monitoring her neurologic status. If there is any return of symptoms or escalation of symptoms, she would need to have followup to review her exam and determine what further workup should be undertaken. She is in agreement with the plan. If you have questions about this, please contact me. Sincerely, Aramis Jolley MD Department of Neurology [facility] [id number] Electronically signed by:Aramis Jolley M.D. Aug 05 2012 12:52PM BRASS MOLDER documented in this encounter Plan of Treatment Not on file documented as of this encounter Visit Diagnoses Not on filedocumented in this encounter Care Teams Distillery Miller Relationship Specialty Start Date End Date Elke Allred MD [facility] [address] [place] [address] PCP - General 07/25/04 12/25/15 Keven Krueger [address] [address] PCP - General Family Practice 12/26/15 02/06/19 Michelle Ware PA-C [address] [place] [address] PCP - Assigned PCP 07/02/17 12/20/18 No Ref-Primary, Physician PCP - General 02/07/19 04/30/19 Keven Krueger [address] [address] PCP - General Family Practice 05/01/19 08/11/22 No Ref-Primary, Physician PCP - General 08/12/22 10/28/22 [place] [address] [place] [address] PCP - General Family Medicine 10/29/22 Michelle Ware PA-C [address] [place] [address] Assigned PCP 07/02/17 02/11/19 Gypsy Mcfadden APRN PUBLIC ACCOUNTANT [address] [address] [id number] Assigned PCP 02/12/19 02/07/22 Chato Diaz MD [address] [place] [address] [place] [address] Assigned Heart and Vascular Provider 08/09/20 11/01/21 Chato Diaz MD [address] [place] [address] Cardiovascular Disease 03/24/22 Chato Diaz MD [address] [place], [place] [address] Cardiovascular Disease 03/24/22 Marko Smith MD [address] [place], [place] [address] Assigned Heart and Vascular Provider 08/15/22 11/20/22 Chato Diaz MD [address] [place] [address] Assigned Heart and Vascular Provider 07/18/22 08/14/22 [place] [address] [place] [address] Assigned PCP 11/07/22 Chato Diaz MD [address] [place] [address] Assigned Heart and Vascular Provider 11/21/22 Rosalba Romo MD [address] [place], [place] [address] Assigned Pulmonology Provider 12/12/22 documented as of this encounter
--- OUTSIDE RECORDS SUMMARY | 2023-10-27 22:53 | XMS_ITS | Encounter Summary ---
Author Name Unknown Organization [place] Address [address] [facility] [place] [address] Care Team Providers Care Lumber Stacker Name Role Phone Gypsy Mcfadden APRN FIELD SUPPORT ENGINEER Unavailable + Keven Krueger Primary Care Provider + [phone] Chato Lopez MD Unavailable [phone] Chato Lopez MD Unavailable +[phone] Chato Lopez MD Unavailable +[phone] Ref-Primary, Physician Primary Care Provider Marko Smith MD Unavailable + Chato Lopez MD Unavailable +[phone] Jimenez Madera DO Primary Care Provider +[phone] Jimenez Madera DO Unavailable +[phone] Chato Lopez MD Unavailable +[phone] Rosalba Romo MD Unavailable +[phone] Encounter Details Date Type Department Care Team (Late st Contact Info) Description 05/11/2019 [facility] [place] [address] [facility] [address] [place] [phone] Chato Lopez MD [address] [facility] [address] [place] [address] Social History Tobacco Use Types Packs/Day Years Used Date Smoking Tobacco: Never Smokeless Tobacco: Never Alcohol Use Standard Drinks/Week Comments No 0 (1 standard drink = 0.6 oz pur e alcohol) PHQ-2 Answer Date Recorded PHQ-2 Score 0 02/07/2019 Sex and Gender Information Value Date Recorded Sex Assigned at Female 10/26/2022 5:46 AM RACE BOARD ATTENDANT Gender Identity Female 10/26/2022 5:45 AM RACE BOARD ATTENDANT Sexual Orientation Straight 10/26/2022 5: 46 AM RACE BOARD ATTENDANT documented as of this encounter Miscellaneous Notes * Telephone Encounter - Elvin Carlson RN - 05/12/2019 11:19 AM CDT mychart message received. RN will send to Dr. Lopez for review. Ok great- i will let the gastro know. The next thing he suggested was testing for esophageal spasms. I've been feeling fairly better though after the endoscopy. Maybe i just needed to have a swizzle stick run around down there! Lol. Thanks again! * Telephone Encounter - Carmen Carvalho RN - 05/11/2019 10:58 AM CDT MyChart message received: Hi- just had the echo stress test done. My chest is actually feeling a bit better today. Had the endoscopy done and had a lot more chest pain then and they wanted me to follow through with the echo. At the echo i did get a little nervous. I've had so much stress from miscarriage, father in law drinking again, and life. If I'm being completely honest- Lately I've been getting lightheaded if i talk about medical stuff. Sometimes i get lightheaded anyway and a little dizzy... Like sitting and watc nia a movie (i get it worse crossing or pulling my legs up for a while). I usually go to the chiropractor and feel better for a week or so. I do think that over the past month my blood pressure has been fluctuating. Not sure why its off or if stress can have a reverse effect and make it drop... Orif it's just from lack of exercise. I've been pretty sedate the last few weeks. Maybe dr lopez will have some insight. I asked to not do the dye because dr lopez thought this test was only necessary If i continued to experience issues. He was certain it's just gastro. They didn't find anything gastro related- but he said they can't see things if they are on the mend. So i could have had it but they are clearing up. Because of the gastro dr recommending stress test- i figured i better follow through. Can lack of exer cise cause blood pressure to fluctuate and lightheaded? Feel free to message me dr lopezs suggestions and details about test. He's welcome to call if he prefers. Thanks! Oh- just adding on to that last letter... I've had very poor sleep lately too. Not sure if that effects things as well. One last last thing in regards to the first message... I forgot to mention i started feeling symptoms of the lower blood pressure and bigger swings about 5 weeks ago. I miscarried 2 weeks ago and thepregnancy hormone is finally negative now. I know sometimes that can cause shifts too. I was activeduring that time except the last 2 or 3 weeks. I have been gently active only. Resting a lot. Will route to Dr. Lopez to review patients concerns and stress echo (currently in process) documented in this encounter Plan of Treatment Not on file documented as of this encounter Visit Diagnoses Not on filedocumented in this encounter Care Teams Lumber Stacker Relationship Specialty Start Date End Date Keven Krueger [address] [address] PCP - General Family Practice 05/01/19 08/11/22 No Ref-Primary, Physician PCP - General 08/12/22 10/28/22 [place] [address] [place] [address] PCP - General Family Medicine 10/29/22 Gypsy Mcfadden APRN FIELD SUPPORT ENGINEER [address] [place] [address] Assigned PCP 02/12/19 02/07/22 Chato Lopez MD [address] [place] [address] Assigned Heart and Vascular Provider 08/09/20 11/01/21 Chato Lopez MD [address] [place] [address] Cardiovascular Disease 03/24/22 Chato Lopez MD [address] [place] [address] Cardiovascular Disease 03/24/22 Marko Smith MD [address] [place] [address] Assigned Heart and Vascular Provider 08/15/22 11/20/22 Chato Lopez MD [address] [place] [address] Assigned Heart and Vascular Provider 07/18/22 08/14/22 [place] [address] [address] [address] Assigned PCP 11/07/22 Chato Lopez MD [address] [place] [address] Assigned Heart and Vascular Provider 11/21/22 Rosalba Romo MD [address] [address] Assigned Pulmonology Provider 12/12/22 documented as of this encounter
--- OUTSIDE RECORDS SUMMARY | 2023-10-27 22:53 | XMS_ITS | Encounter Summary ---
Author Name Unknown Organization [place] Address [address] [facility] [place] [address] Care Team Providers Care Tree Trimmer Name Role Phone Gypsy Mcfadden APRN SAND CLEANING MACHINE OPERATOR Unavailable + Keven Krueger Primary Care Provider + [phone] Chato Diaz MD Unavailable [phone] Chato Diaz MD Unavailable +[phone] Chato Diaz MD Unavailable +[phone] Ref-Primary, Physician Primary Care Provider Marko Smith MD Unavailable + Chato Diaz MD Unavailable +[phone] Jimenez Madera DO Primary Care Provider +[phone] Jimenez Madera DO Unavailable [phone] Chato Diaz MD Unavailable +[phone] Rosalba Romo MD Unavailable +[phone] Encounter Details Date Type Department Care Team (Late st Contact Info) Description 07/10/[address] [place] [facility] [address] [facility] [place] [address] [facility] [address] [place] [address] Chato Diaz MD [address] [facility] [address] [place] [address] Social History Tobacco Use Types Packs/Day Years Used Date Smoking Tobacco: Never Smokeless Tobacco: Never Alcohol Use Standard Drinks/Week Comments No 0 (1 standard drink = 0.6 oz pur e alcohol) PHQ-2 Answer Date Recorded PHQ-2 Score 0 02/07/2019 Sex and Gender Information Value Date Recorded Sex Assigned at Female 10/26/2022 5:46 AM LAB SUPPORT TECHNICIAN Gender Identity Female 10/26/2022 5:45 AM LAB SUPPORT TECHNICIAN Sexual Orientation Straight 10/26/2022 5: 46 AM LAB SUPPORT TECHNICIAN documented as of this encounter Plan of Treatment Not on file documented as of this encounter Visit Diagnoses Not on filedocumented in this encounter Care Teams Tree Trimmer Relationship Specialty Start Date End Date Keven Krueger [address] [phone] PCP - General Family Practice 05/01/19 08/11/22 No Ref-Primary, Physician PCP - General 08/12/22 10/28/22 [place] [address] [place] [address] PCP - General Family Medicine 10/29/22 Gypsy Mcfadden APRN SAND CLEANING MACHINE OPERATOR [address] [place] [address] Assigned PCP 02/12/19 02/07/22 Chato Diaz MD [address] [place] [address] Assigned Heart and Vascular Provider 08/09/20 11/01/21 Chato Diaz MD [address] [place] [address] Cardiovascular Disease 03/24/22 Chato Diaz MD [address] [place] [address]79[address] Cardiovascular Disease 03/24/22 Marko Smith MD [address] [place] [id number] Assigned Heart and Vascular Provider 08/15/22 11/20/22 Chato Diaz MD [address] [place] [address] Assigned Heart and Vascular Provider 07/18/22 08/14/22 [place] [address] [place] [address] Assigned PCP 11/07/22 Chato Diaz MD [address] [place] 4[address] Assigned Heart and Vascular Provider 11/21/22 Rosalba Romo MD [address] [place], [place] [address] Assigned Pulmonology Provider 12/12/22 documented as of this encounter
--- OUTSIDE RECORDS SUMMARY | 2023-10-27 22:53 | XMS_ITS | Encounter Summary ---
Author Name Unknown Organization [place] Address [address] [place] [address] Care Team Providers Care Manager House Name Role Phone Gypsy Mcfadden APRN PHP SOFTWARE ENGINEER Unavailable + Keven Krueger Primary Care Provider + [phone] Chato Diaz MD Unavailable +[phone] Chato Diaz MD Unavailable +[phone] Chato Diaz MD Unavailable +[phone] Ref-Primary, Physician Primary Care Provider Marko Smith MD Unavailable + Chato Diaz MD Unavailable +[phone] Jimenez Madera DO Primary Care Provider +[phone] Jimenez Madera DO Unavailable +[phone] Chato Diaz MD Unavailable +[phone] Rosalba Romo MD Unavailable +[phone] Encounter Details Date Type Department Care Team (Late st Contact Info) Description 07/30/2019 [place] [facility] [place] [address] [facility] [address] [place] [address] Chato Diaz MD [address] [facility] [address] [place] [address] Social History Tobacco Use Types Packs/Day Years Used Date Smoking Tobacco: Never Smokeless Tobacco: Never Alcohol Use Standard Drinks/Week Comments No 0 (1 standard drink = 0.6 oz pur e alcohol) PHQ-2 Answer Date Recorded PHQ-2 Score 0 02/07/2019 Sex and Gender Information Value Date Recorded Sex Assigned at Female 10/26/2022 5:46 AM DRILL PRESS TENDER Gender Identity Female 10/26/2022 5:45 AM DRILL PRESS TENDER Sexual Orientation Straight 10/26/2022 5: 46 AM DRILL PRESS TENDER documented as of this encounter Miscellaneous Notes * Telephone Encounter - Elvin Carlson RN - 08/03/2019 7:59 AM CDT Patient's mychart response. RN will send to Dr. Diaz for review/MARCELINO Chow. Ok. It did all that while I was standing a long time or sitting. Not doing activity. Please don't think I'm crazy. How would I know if i had pots? I was reading on it and I get a lot of the symptoms. Fatigue that's worse with exercise, foggy thinking, intolerance to heat, if I sit and get up I feel light headed, changing my head different directions gets me dizzy, standing for a long time- I occasionally get dizzy, etc. Thanks Dr Diaz! I asked grams about coming in and she says her heart has been feeling better. She isgoing to get surgery on her eyes. Would you prefer to see her for preop or local Dr? * Telephone Encounter - Elvin Carlson RN - 08/03/2019 7:31 AM CDT Follow up mychart message received. RN will send to Dr. Diaz for review. last night we went to visit my bro in law at [place]. I got out of car and walked, then took elevator. My heart rate was all over. It would jump from 89 to 112, 126 to 98, 79 to 97, all over and in the matter of seconds each time. It was very erratic- not gradual increases and decreases- but jumping. There was a pulsimator in the room so I compared. Sure enough, similar results... Maybe slightly less drastic jumps- but still erratic. I'm trying to learn about my heart and i now understand increasing and decreasing heart rate due to external and internal factors- but this made NO sense. Since then my heart rate is no longer averaging in the low 60s... It's like it switched and is now in the 70s to 80s again resting. My hubby saw the erratic stuff last night and he was like- maybe that's just what you're heart does, and that explains palpitations. I didn't feel weird or anything when it was happening- maybe a little on edge. I've had sharp zappy heartburn yesterday and today. That about it. Is this still normal for my age? :/ if so, I'm selling the tracker. Lol. ??I don't like knowing so much. Thank you for being patient... Just trying to learn how my body works to keep it the best I can. I was exercising (treadmill) before and it was incredibly hard to get my heart in the upper 120s.Last night, it did mid 120s on its own (and everything else in between), barely walking. So confused. * Telephone Encounter - Elvin Carlson RN - 07/31/2019 7:10 AM CDT [employer] message received. RN will send to Dr. Diaz for review and recommendation. After the appointment my heart started to go into a low heart rate. No idea why. It's been in the low 50s at night in bed and mid 60s to 80s for daily activity. It's also trickier to get heart in target range. It takes more effort. When i an exercising and I slow down the pass my heart will go up for a few seconds and then down. Why does it go up each time a slow down? Do I need to be concerned ab out it being so low... I just looked a bit ago laying in bed and it was 51. Just seems like a big change in such a short time. Sorry to keep bugging!! 07/28/19 1. Palpitations ?? Negative stress test ?? [...] may start a small dose of pravastatin. documented in this encounter Plan of Treatment Not on file documented as of this encounter Visit Diagnoses Not on filedocumented in this encounter Care Teams Manager House Relationship Specialty Start Date End Date Keven Krueger [address] [phone] PCP - General Family Practice 05/01/19 08/11/22 No Ref-Primary, Physician PCP - General 08/12/22 10/28/22 [place] [address] [place] [address] PCP - General Family Medicine 10/29/22 Gypsy Mcfadden APRN CNP [address] [place] [address] Assigned PCP 02/12/19 02/07/22 Chato Diaz MD [address] [place] [id number] Assigned Heart and Vascular Provider 08/09/20 11/01/21 Chato Diaz MD [address] [place] 855405 Cardiovascular Disease 03/24/22 Chato Diaz MD [address] [place] [address]37[address] Cardiovascular Disease 03/24/22 Marko Smith MD [address] [place] 4415[address] Assigned Heart and Vascular Provider 08/15/22 11/20/22 Chato Diaz MD [address] [place] [address] Assigned Heart and Vascular Provider 07/18/22 08/14/22 [place] [address] [place] [address] Assigned PCP 11/07/22 Chato Diaz MD [address] [place] [address] Assigned Heart and Vascular Provider 11/21/22 Rosalba Romo MD [address] [place] [address]3894 Assigned Pulmonology Provider 12/12/22 documented as of this encounter
--- OUTSIDE RECORDS SUMMARY | 2023-10-27 22:53 | XMS_ITS | Encounter Summary ---
Author Name Unknown Organization [place] Address [address] [facility] [place] [address] Care Team Providers Care Ping Pong Table Assembler Name Role Phone Gypsy Mcfadden APRN REQUIREMENTS ENGINEER Unavailable + Keven Krueger Primary Care Provider + [phone] Chato Diaz MD Unavailable [phone] Chato Diaz MD Unavailable +[phone] Chato Diaz MD Unavailable +[phone] Ref-Primary, Physician Primary Care Provider Marko Smith MD Unavailable + Chato Diaz MD Unavailable +[phone] Jimenez Madera DO Primary Care Provider +[phone] Jimenez Madera DO Unavailable Chato Diaz MD Unavailable +[phone] Rosalba Romo MD Unavailable +[phone] Encounter Details Date Type Department Care Team (Late st Contact Info) Description 05/11/2019 [place] [facility] [place] [address] [facility] [address] [place] [address] Chato Diaz MD [address] [facility] [address] [place] [address] Social History Tobacco Use Types Packs/Day Years Used Date Smoking Tobacco: Never Smokeless Tobacco: Never Alcohol Use Standard Drinks/Week Comments No 0 (1 standard drink = 0.6 oz pur e alcohol) PHQ-2 Answer Date Recorded PHQ-2 Score 0 02/07/2019 Sex and Gender Information Value Date Recorded Sex Assigned at Female 10/26/2022 5:46 AM COCOA ROASTER Gender Identity Female 10/26/2022 5:45 AM COCOA ROASTER Sexual Orientation Straight 10/26/2022 5: 46 AM COCOA ROASTER documented as of this encounter Plan of Treatment Not on file documented as of this encounter Visit Diagnoses Not on filedocumented in this encounter Care Teams Ping Pong Table Assembler Relationship Specialty Start Date End Date Keven Krueger [address] [phone] PCP - General Family Practice 05/01/19 08/11/22 No Ref-Primary, Physician PCP - General 08/12/22 10/28/22 [place] [address] [place] [address] PCP - General Family Medicine 10/29/22 Gypsy Mcfadden APRN REQUIREMENTS ENGINEER [address] [place] [address] Assigned PCP 02/12/19 02/07/22 Chato Diaz MD [address] [place] [address] Assigned Heart and Vascular Provider 08/09/20 11/01/21 Chato Diaz MD [address] [place] [address] Cardiovascular Disease 03/24/22 Chato Diaz MD [address] [place] 528565 Cardiovascular Disease 03/24/22 Marko Smith MD [address] [place] [address] Assigned Heart and Vascular Provider 08/15/22 11/20/22 Chato Diaz MD [address] [place] 139495 Assigned Heart and Vascular Provider 07/18/22 08/14/22 [place] [address] [place] [address] Assigned PCP 11/07/22 Chato Diaz MD [address] [place] 740845 Assigned Heart and Vascular Provider 11/21/22 Rosalba Romo MD [address] [place], [place] [address] Assigned Pulmonology Provider 12/12/22 documented as of this encounter
--- OUTSIDE RECORDS SUMMARY | 2023-10-27 22:53 | XMS_ITS | Encounter Summary ---
Author Name Unknown Organization [place] Address [address] [place] [address] Care Team Providers Care Household Appliance Repairer Name Role Phone Gypsy Mcfadden APRN MANAGER FREELANCE Unavailable + Keven Krueger Primary Care Provider + [phone] Chato Diaz MD Unavailable [phone] Chato Diaz MD Unavailable +[phone] Chato Diaz MD Unavailable +[phone] Ref-Primary, Physician Primary Care Provider Marko Smith MD Unavailable + Chato Diaz MD Unavailable +[phone] Jimenez Madera DO Primary Care Provider +[phone] Jimenez Madera DO Unavailable +[phone] Chato Diaz MD Unavailable +[phone] Rosalba Romo MD Unavailable +[phone] Encounter Details Date Type Department Care Team (Late st Contact Info) Description 05/11/2019 [place] [facility] [place] [address] [facility] [address] [place] [address] Chato Diaz MD [address] [facility] [address] [place] [address] Social History Tobacco Use Types Packs/Day Years Used Date Smoking Tobacco: Never Smokeless Tobacco: Never Alcohol Use Standard Drinks/Week Comments No 0 (1 standard drink = 0.6 oz pur e alcohol) PHQ-2 Answer Date Recorded PHQ-2 Score 0 02/07/2019 Sex and Gender Information Value Date Recorded Sex Assigned at Female 10/26/2022 5:46 AM MANAGER REVIEW Gender Identity Female 10/26/2022 5:45 AM MANAGER REVIEW Sexual Orientation Straight 10/26/2022 5: 46 AM MANAGER REVIEW documented as of this encounter Plan of Treatment Not on file documented as of this encounter Visit Diagnoses Not on filedocumented in this encounter Care Teams Household Appliance Repairer Relationship Specialty Start Date End Date Keven Krueger [address] [phone] PCP - General Family Practice 05/01/19 08/11/22 No Ref-Primary, Physician PCP - General 08/12/22 10/28/22 [place] [address] [place] [address] PCP - General Family Medicine 10/29/22 Gypsy Mcfadden APRN MANAGER FREELANCE [address] [place] [address] Assigned PCP 02/12/19 02/07/22 Chato Diaz MD [address] [place] [address] Assigned Heart and Vascular Provider 08/09/20 11/01/21 Chato Diaz MD [address] [place] [address] Cardiovascular Disease 03/24/22 Chato Diaz MD [address] [place] [address] Cardiovascular Disease 03/24/22 Marko Smith MD [address] [place] [address]7035 Assigned Heart and Vascular Provider 08/15/22 11/20/22 Chato Diaz MD [address] [place] 248255 Assigned Heart and Vascular Provider 07/18/22 08/14/22 [place] [address] [place] [address] Assigned PCP 11/07/22 Chato Diaz MD [address] [place] 375675 Assigned Heart and Vascular Provider 11/21/22 Rosalba Romo MD [address] [place], [place] [address] Assigned Pulmonology Provider 12/12/22 documented as of this encounter
--- OUTSIDE RECORDS SUMMARY | 2023-10-27 22:53 | XMS_ITS | Encounter Summary ---
Author Name Unknown Organization [place] Address [address] [facility] [address] Care Team Providers Care Massotherapist Name Role Phone Gypsy Mcfadden APRN DIESEL MECHANIC CONSTRUCTION Unavailable + Keven Krueger Primary Care Provider + [phone] Chato Diaz MD Unavailable [phone] Chato Diaz MD Unavailable +[phone] Chato Diaz MD Unavailable +[phone] Ref-Primary, Physician Primary Care Provider Marko Smith MD Unavailable + Chato Diaz MD Unavailable +[phone] Jimenez Madera DO Primary Care Provider +[phone] Jimenez Madera DO Unavailable [phone] Chato Diaz MD Unavailable +[phone] Rosalba Romo MD Unavailable +[phone] Encounter Details Date Type Department Care Team (Late st Contact Info) Description 07/28/2019 [place] [facility] [place] [address] [facility] [address] [place] [address] Chato Diaz MD [address] [facility] [address] [place] [address] Social History Tobacco Use Types Packs/Day Years Used Date Smoking Tobacco: Never Smokeless Tobacco: Never Alcohol Use Standard Drinks/Week Comments No 0 (1 standard drink = 0.6 oz pur e alcohol) PHQ-2 Answer Date Recorded PHQ-2 Score 0 02/07/2019 Sex and Gender Information Value Date Recorded Sex Assigned at Female 10/26/2022 5:46 AM QUALITY ASSURANCE SUPERVISOR FINAL Gender Identity Female 10/26/2022 5:45 AM QUALITY ASSURANCE SUPERVISOR FINAL Sexual Orientation Straight 10/26/2022 5: 46 AM QUALITY ASSURANCE SUPERVISOR FINAL documented as of this encounter Plan of Treatment Not on file documented as of this encounter Visit Diagnoses Not on filedocumented in this encounter Care Teams Massotherapist Relationship Specialty Start Date End Date Keven Krueger [address] [phone] PCP - General Family Practice 05/01/19 08/11/22 No Ref-Primary, Physician PCP - General 08/12/22 10/28/22 [place] [address] [place] [address] PCP - General Family Medicine 10/29/22 Gypsy Mcfadden APRN DIESEL MECHANIC CONSTRUCTION [address] [place] [address] Assigned PCP 02/12/19 02/07/22 Chato Diaz MD [address] [place] [address] Assigned Heart and Vascular Provider 08/09/20 11/01/21 Chato Diaz MD [address] [place] [address] Cardiovascular Disease 03/24/22 Chato Diaz MD [address] [place] 915035 Cardiovascular Disease 03/24/22 Marko Smith MD [address] [place] 194055 Assigned Heart and Vascular Provider 08/15/22 11/20/22 Chato Diaz MD [address] [place] [address]35 Assigned Heart and Vascular Provider 07/18/22 08/14/22 [place] [address] [place] [address] Assigned PCP 11/07/22 Chato Diaz MD [address] [place] 2250[address] Assigned Heart and Vascular Provider 11/21/22 Rosalba Romo MD [address] [place], [place] [address] Assigned Pulmonology Provider 12/12/22 documented as of this encounter
--- OUTSIDE RECORDS SUMMARY | 2023-10-27 22:53 | XMS_ITS | Encounter Summary ---
Author Name Unknown Organization [facility] Address [address] [place] [address] Care Team Providers Care Studio Operations Engineer In Charge Name Role Phone Keven Krueger Primary Care Provider [phone] Michelle Ware PA-C Unavailable Michelle Ware PA-C Unavailable No Ref-Primary, Physician Primary Care Provider Gypsy Mcfadden APRN RENTAL CLERK Unavailable + Keven Krueger Primary Care Provider [phone] Chato Diaz MD Unavailable [phone] Chato Diaz MD Unavailable [phone] Chato Diaz MD Unavailable [phone] No Ref-Primary, Physician Primary Care Provider Marko Smith MD Unavailable + Chato Diaz MD Unavailable +[phone] Jimenez Madera DO Primary Care Provider [phone] Jimenez Madera DO Unavailable [phone] Chato Diaz MD Unavailable [phone] Rosalba Romo MD Unavailable Reason for Referral * - Closed Specialty Diagnoses / Procedures Referred By Betsy manzanares Referred To Contact Diagnoses Encounter for preconception consultation Kyra Silva MD [address] [address] [place] [address] Referral ID Status Reason Start Date Expiration Date Visits Re quested Visits Authorized [id number] Closed 05/27/2018 05/27/2019 1 1 Question Answer [facility] Consult Yes - In consult clinic Comments recurrent loss x3 * - Closed Specialty Diagnoses / Procedures Referred By Betsy manzanares Referred To Contact Diagnoses Encounter for preconception consultation Kyra Silva MD [address] [facility] [address] [place] [address] Referral ID Status Reason Start Date Expiration Date Visits Re quested Visits Authorized [id number] Closed 05/26/2018 05/26/2019 1 1 Question Answer [facility] Location [facility] Indication: recurrent loss x3 Genetic Counseling Consultation: No fax data warehousing specialist Basia Silva [phone] Comments >> Patient may proceed with recommendations for further testing as directed by the Maternal Medicine Specialist >> Dear Patient: Please be aware that coverage of these services is subject to the terms and limitations of your health insurance plan. Call member services at your health plan with any benefit or coverage questions. Please bring the following to your appointment: >> Any x-rays, CTs or MRIs which have been performed. Contact the facility where they were done to arrange for black pickler prior to your scheduled appointment. Any new CT, MRI or other procedures ordered by your specialist must be performed at a [facility] facility or coordinated by your clinic's referral office. >> List of current medications >> This referral request >> Any documents/labs given to you for this referral Encounter Details Date Type Department Care Team (Late st Contact Info) Description 05/26/2018 Orders Only [facility] [place] [address] [address] Kyra Silva MD [address] [facility] [address] [place] [address] Encounter for preconception consultation (Primary Dx) Social History Tobacco Use Types Packs/Day Years Used Date Smoking Tobacco: Never Smokeless Tobacco: Never Alcohol Use Standard Drinks/Week Comments No 0 (1 standard drink = 0.6 oz pur e alcohol) Sex and Gender Information Value Date Recorded Sex Assigned at Female 10/26/2022 5:46 AM ETL INFORMATICA ARCHITECT Gender Identity Female 10/26/2022 5:45 AM ETL INFORMATICA ARCHITECT Sexual Orientation Straight 10/26/2022 5: 46 AM ETL INFORMATICA ARCHITECT documented as of this encounter Plan of Treatment Scheduled Referrals Name Type Priority Associated Diagnoses Orde r Schedule MAT MED CTR REFERRAL-PRECONCEPT ION Referral Routine Encounter for preconception consultation Ordered: 05/26/2018 [facility] Office Visit Referral Routine Encounter for preconception consultation 1 Occurrences starting 05/27/2018 until 05/27/2019 documented as of this encounter Visit Diagnoses Diagnosis Encounter for preconception consultation- Primary documented in this encounter Care Teams Studio Operations Engineer In Charge Relationship Specialty Start Date End Date Keven Krueger [address] [address] PCP - General Family Practice 12/26/15 02/06/19 Michelle Ware PA-C [address] [place] [address] PCP - Assigned PCP 07/02/17 12/20/18 No Ref-Primary, Physician PCP - General 02/07/19 04/30/19 Keven Krueger [address] [address] PCP - General Family Practice 05/01/19 08/11/22 No Ref-Primary, Physician PCP - General 08/12/22 10/28/22 [place] [address] [place] [address] PCP - General Family Medicine 10/29/22 Michelle Ware PA-C [address] [place] [address] Assigned PCP 07/02/17 02/11/19 Gypsy Mcfadden APRN CNP [address] [place] [place], [place] [id number] Assigned PCP 02/12/19 02/07/22 Chato Diaz MD [address] [place] [address] Assigned Heart and Vascular Provider 08/09/20 11/01/21 Chato Diaz MD [address] [place] [address] Cardiovascular Disease 03/24/22 Chato Diaz MD [address] [place] [address] Cardiovascular Disease 03/24/22 Marko Smith MD [address] [place] [address] Assigned Heart and Vascular Provider 08/15/22 11/20/22 Chato Diaz MD [address] [place] [address] Assigned Heart and Vascular Provider 07/18/22 08/14/22 [place] [address] [address] [place] [address] Assigned PCP 11/07/22 Chato Diaz MD [address] [place] [address] Assigned Heart and Vascular Provider 11/21/22 Rosalba Romo MD [address] [place], [place] [address] Assigned Pulmonology Provider 12/12/22 documented as of this encounter
--- OUTSIDE RECORDS SUMMARY | 2023-10-27 22:53 | XMS_ITS | Encounter Summary ---
Author Name Unknown Organization [facility] Address [address] [facility] [place] [address] Care Team Providers Care Systems Analyst Name Role Phone Keven Krueger Primary Care Provider [phone] Michelle Ware PA-C Unavailable Michelle Ware PA-C Unavailable No Ref-Primary, Physician Primary Care Provider Gypsy Mcfadden APRN TAX EXAMINER Unavailable + Keven Krueger Primary Care Provider [phone] Chato Diaz MD Unavailable [phone] Chato Diaz MD Unavailable [phone] Chato Diaz MD Unavailable [phone] No Ref-Primary, Physician Primary Care Provider Marko Smith MD Unavailable + Chato Diaz MD Unavailable +[phone] Jimenez Madera DO Primary Care Provider [phone] Jimenez Madera DO Unavailable [phone] Chato Diaz MD Unavailable [phone] Rosalba Romo MD Unavailable [phone] Encounter Details Date Type Department Care Team (Late st Contact Info) Description 04/10/2018 [facility] Only [facility] [place] [facility] [address] [place] [place] [phone] Jean Jimenez MD [facility] [address] [facility] [address] [place] [phone] Social History Tobacco Use Types Packs/Day Years Used Date Smoking Tobacco: Never Smokeless Tobacco: Never Alcohol Use Standard Drinks/Week Comments No 0 (1 standard drink = 0.6 oz pur e alcohol) Comments Yes Sex and Gender Information Value Date Recorded Sex Assigned at Female 10/26/2022 5:46 AM WIRE BENDER Gender Identity Female 10/26/2022 5:45 AM WIRE BENDER Sexual Orientation Straight 10/26/2022 5: 46 AM WIRE BENDER documented as of this encounter Plan of Treatment Not on file documented as of this encounter Visit Diagnoses Not on filedocumented in this encounter Care Teams Systems Analyst Relationship Specialty Start Date End Date Keven Krueger [address] [address] PCP - General Family Practice 12/26/15 02/06/19 Michelle Ware PA-C [address] [place] [address] PCP - Assigned PCP 07/02/17 12/20/18 No Ref-Primary, Physician PCP - General 02/07/19 04/30/19 Keven Krueger [address] [address] PCP - General Family Practice 05/01/19 08/11/22 No Ref-Primary, Physician PCP - General 08/12/22 10/28/22 [place] [address] [place] [address] PCP - General Family Medicine 10/29/22 Michelle Ware PA-C [address] [place] [address] Assigned PCP 07/02/17 02/11/19 Gypsy Mcfadden APRN [facility] [address] [place] [address] Assigned PCP 02/12/19 02/07/22 Chato Diaz MD [address] [place] [address] Assigned Heart and Vascular Provider 08/09/20 11/01/21 Chato Diaz MD [address] [place] [address] Cardiovascular Disease 03/24/22 Chato Diaz MD [address] [place] [address] Cardiovascular Disease 03/24/22 Marko Smith MD [address] [place] [address] Assigned Heart and Vascular Provider 08/15/22 11/20/22 Chato Diaz MD [address] [place], [place] [address] Assigned Heart and Vascular Provider 07/18/22 08/14/22 [place] [address] [place] [address] Assigned PCP 11/07/22 Chato Diaz MD [address] [facility] [address] [place], [place] [address] Assigned Heart and Vascular Provider 11/21/22 Rosalba Romo MD [address] [place], [place] [address] Assigned Pulmonology Provider 12/12/22 documented as of this encounter
--- OUTSIDE RECORDS SUMMARY | 2023-10-27 22:54 | XMS_ITS | Encounter Summary ---
Author Name Unknown Organization [facility] Address [address] [place] [address] Care Team Providers Care Gear Generator Set Up Operator Name Role Phone None Reported, Pcp Primary Care Provider Unavail able Reason for Visit * Outpatient (Routine) - Closed Specialty Diagnoses / Procedures Referred By Contac t Referred To Contact Obstetrics and Gynecology Diagnoses Hyperplasia Endometrial With Atypia Rachelle Gómez M.D. [address] [place] [address] [facility] Referral ID Status Reason Start Date Expiration Date Visits Re quested Visits Authorized [id number] Closed 04/26/2023 04/25/2024 1 1 Encounter Details Date Type Department Care Team (Late st Contact Info) Description 05/25/2023 11:30 AM CDT Office Visit Department of Obstetrics and Gynecology in [place], [place] [address] [place] [address] Rachelle Gómez M.D. [address] [place] [phone] Hyperplasia Endometrial With Atypia Social History Tobacco Use Types Packs/Day Years Used Date Smoking Tobacco: Never Smokeless Tobacco: Never Humiliation, Afraid, Rape, and Kick questionnair e [...] often do you attend chur ch or scientologist services? More than 4 times per year 11/24/2022 Do you belong to any clubs o r organizations such as mandaeism groups, unions, fraternal or athletic groups, or [...] Answer Date Recorded PHQ-2 Score 0 11/04/2022 [facility] - Occupational Stress [...] place to sleep or slept in a [facility]p (including now)? No 11/24/2022 Nutrition Answer Date Recorded Nutrition: EVOO Fat Source Yes 11/24 On average, how many serving s of fruits and vegetables do you eat per day (serving size is equal to 1 cup or approximately the size of a tennis ball)? 2-3 11/24/2022 Dental Answer Date Recorded Dental: Regular Dentist Yes 05/21/20 Employment Answer Date Recorded Employment status Unemployed/not in th e paid workforce and NOT seeking employment 11/24/2022 Education Answer Date Recorded What is the highest level of school you have completed or the highest degree you have received? Associate degree: academic program 03/08/2020 Sex and Gender Information Value Date Recorded Sex Assigned at Female 05/07/2018 8:20 PM CDT Gender Identity Female 05/07/2018 8:20 PM CDT Sexual Orientation Straight 05/07/2018 8: 20 PM CDT documented as of this encounter Progress Notes * Rachelle Gómez M.D. - 05/25/2023 11:30 AM CDT SUBJECTIVE REFERRING PROVIDER Rachelle Gómez M.D. REASON FOR VISIT Consult HISTORY OF PRESENT CONDITION Chief complaint: Endometrial Cancer Ms. Quinn is a 43 y.o., who presents in consultation at the request of Rachelle Gómez M.D. for an opinion regarding complex atypical endometrial hyperplasia. Patient presents today to discuss levonorgestrel IUD placement. Patient has no new complaints. The following portions of the patient's history were reviewed and updated as appropriate: allergies, current medications, family history, medical history, social history, surgical history and problemlist. FAMILY HISTORY Breast, ovarian, colon, or uterine cancer-related family history is not on file. REVIEW OF SYSTEMS A comprehensive review of systems was negative except as noted in HPI. OBJECTIVE VITAL SIGNS There is no height or weight on file to calculate BMI. ECOG status: 0 PHYSICAL EXAM 1. General: Well appearing, no apparent distress, alert and oriented. [place]UR[place] Exam Amb DIAGNOSTICS Hemoglobin Date Value Ref Range Status 05/31/2015 13.6 12.0 - 15.5 G/DL Final Leukocytes Date Value Ref Range Status 05/31/2015 6.3 3.5 - 10.5 X10(9)/L Final Platelet Count Date Value Ref Range Status 05/31/2015 355 150 - 450 X10(9)/L Final EXT Glucose Date Value Ref Range Status 10/28/2022 94 70 - 99 mg/dL Final EXT Creatinine, S Date Value Ref Range Status 10/28/2022 0.75 0.51 - 0.95 mg/dL Final PATHOLOGY, LAST 30 DAYS No results found for this or any previous visit (from the past 720 hour(s)). IMAGING RESULTS, LAST 7 DAYS - IMPRESSION ONLY No results found. ASSESSMENT / PLAN Visit diagnosis: #1 Hyperplasia Endometrial With Atypia I reviewed with the patient the management of complex hyperplasia with atypia. We discussed the role of surgery and the role of hormone treatment. Discussed with the patient my preference would be toproceed with treatment with levonorgestrel IUD. Patient is nervous and reluctant to proceed with anIUD at this time. The patient would like to proceed with cyclic progesterone treatment. I reviewed with the patient that although this is not standard of care would be a reasonable option. Will plan for the patient undergo close follow-up. We will see her back here in 3 months for hysteroscopy and biopsy. I discussed with the patient that this would be done with our online journalist team. The patient is encouraged to reach out if she has increasing bleeding or would like to proceed with more definitive management prior to that visit. We again discussed with the patient's desire is to achieve if possible. Questions were answered to the best of my ability. PATIENT EDUCATION Ready to learn, no apparent learning barriers were identified; learning preferences include listening. Explained diagnosis and treatment plan; patient expressed understanding of the content. INFORMED CONSENT Discussed the risks, benefits, and alternatives of the procedure and of possible blood transfusion.Discussed the necessity of other members of the healthcare team participating in the procedure. Allquestions answered and consent given. I discussed with the patient that in our practice at [facility], we sometimes perform overlapping surgeries, meaning that I will be present for the entire critical portion of the surgery, and that my team members will assist me with the noncritical portions of the procedure. BILLING I personally spent over half of a total 45 minutes in counseling and discussion with the patient and coordination of care as described above. Rachelle Gómez M.D. documented in this encounter Miscellaneous Notes * Addendum Note - Brooklyn Dial RAmandaN. - 05/25/2023 11:30 AM CDTAddended by: BROOKLYN DIAL on: 05/31/2023 08:35 AM Modules accepted: Orders documented in this encounter Plan of Treatment Not on file documented as of this encounter Visit Diagnoses Diagnosis Hyperplasia Endometrial With Atypia documented in this encounter Care Teams Gear Generator Set Up Operator Relationship Specialty Start Date End Date None Reported, Pcp PCP - General Family Medicine 05/20/22 documented as of this encounter
--- OUTSIDE RECORDS SUMMARY | 2023-10-27 22:54 | XMS_ITS | Encounter Summary ---
Author Name Unknown Organization [facility] Address [address] [place] [address] Care Team Providers Care Kier Drier Name Role Phone None Reported, Pcp Primary Care Provider Unavail able Encounter Details Date Type Department Care Team (Late st Contact Info) Description 05/20/2023 Clinical Communication Department of Obstetrics and Gynecology in [place], [place] [address] [place] [address] Brooklyn Dial RIvan [address] [place] [address] Social History Tobacco Use Types Packs/Day Years [...] often do you attend chur ch or zoroastrianism services? More than 4 times per year 11/24/2022 Do you belong to any clubs o r organizations such as hoahaoism groups, unions, fraternal or athletic groups, or [...] Answer Date Recorded PHQ-2 Score 0 11/04/2022 [facility] - Occupational Stress Questionnaire Answer Date Recorded [...] place to sleep or slept in a senior care (including now)? No 11/24/2022 Nutrition Answer Date Recorded Nutrition: EVOO Fat Source Yes 11/24 On average, how many serving s of fruits and vegetables do you eat per day (serving size is equal to 1 cup or approximately the size of a tennis ball)? 2-3 11/24/2022 Dental Answer Date Recorded Dental: Regular Dentist Yes 05/21/20 Employment Answer Date Recorded Employment status Unemployed/not in e paid workforce and NOT seeking employment [...] on filedocumented in this encounter Care Teams Kier Drier Relationship Specialty Start Date End Date None Reported, Pcp PCP - General Family Medicine 05/20/22 documented as of this encounter
--- OUTSIDE RECORDS SUMMARY | 2023-10-27 22:54 | XMS_ITS | Encounter Summary ---
Author Name Unknown Organization [facility] Address [address] [place] [address] Care Team Providers Care Tumbler Machine Operator Name Role Phone None Reported, Pcp Primary Care Provider Unavail able Reason for Referral * MRI/CAT/PET Scan (Routine) - Closed Specialty Diagnoses / Procedures Referred By Betsy manzanares Referred To Contact Radiology Diagnoses Endometriosis Procedures MR Gynecologic Pelvis without and with IV Contrast Rachelle Gómez M.D. [address] [place] [address] [facility] Referral ID Status Reason Start Date Expiration Date Visits Re quested Visits Authorized [id number] Closed 04/23/2023 04/22/2024 1 1 Reason for Visit * MRI/CAT/PET Scan (Routine) - Closed Specialty Diagnoses / Procedures Referred By Betsy manzanares Referred To Contact Radiology Diagnoses Endometriosis Procedures MR Gynecologic Pelvis without and with IV Contrast Rachelle Gómez M.D. [address] [place] [address] [facility] Referral ID Status Reason Start Date Expiration Date Visits Re quested Visits Authorized [id number] Closed 04/23/2023 04/22/2024 1 1 Encounter Details Date Type Department Care Team (Latest Contact Info) Description 2023 7:13 AM CDT - 2023 11:59 PM CDT Hospital Encounter Department of Radiology, [facility] in [place], [place] [address] [place] [address] Rachelle Gómez M.D. [address] [place] [address] Endometriosis Discharge Disposition: Home or Self Care Social History Tobacco Use Types Packs/Day Years [...] week 11/24/2022 How often do you attend [facility] or congregation services? More than 4 times per year 11/24/2022 Do you belong to any clubs o r organizations such as rastafari groups, unions, fraternal or athletic groups, or [...] Answer Date Recorded PHQ-2 Score 0 11/04/2022 [facility] of Occupat ional Health - Occupational Stress [...] place to sleep or slept in a care home (including now)? No 11/24/2022 Nutrition Answer Date [...] PM CDT documented as of this encounter Medications at Time of Discharge Medication Sig Dispensed Refills Start Date End Date CALCIUM CITRATE ORAL Take 1 tablet by mouth daily. 0 cholecalciferol, vitamin D3, (cholecalciferol) 25 mcg (1,000 Unit) tablet Take 25 mcg by mouth daily. 0 co-enzyme Q-10 (CO Q-10) 100 mg capsule Take 1 capsule by mouth daily. 0 06/10/2016 labetaloL (NORMODYNE) 100 mg tablet Take 50 mg by mouth as needed. 0 03/05/2020 omega 2-vzg-emc-fish oil 1,000 mg (120 mg-180 mg) capsule Take 1,000 mg by mouth daily. 0 11/03/2019 POTASSIUM CITRATE ORAL Take 99 mcg by mouth. 0 vit calc,iron,folic ( VITAMIN ORAL) 0 progesterone (PROMETRIUM) 200 mg capsule progesterone micronized 200 mg capsule 0 propranoloL (INDERAL) 20 mg tablet 20 mg every 8 (eight) hours. 0 03/02/2020 documented as of this encounter Nursing Notes * Jasiel Gusman M.S.N., R.N. - 2023 7:45 AM CDT Glucagon Administration Screening: Does patient have an allergy to glucagon or lactose (e.g. hives, difficulty breathing, anaphylaxis,necrolytic migratory erythema)? Note: nausea vomiting, bloating, and diarrhea are common and expected adverse effects of glucagon and/or lactose intolerance. NO If no???continue. Does patient have a history of insulinoma or phenochromocytoma? NO If no???continue. If yes, discuss with Radiologist. Does patient have diabetes? YES If no.. continue.. If yes??? initiate nurse initiated protocol to order POC blood glucose . If yes and insulin dependent, provide patient with Glucagon Injections if you Have Diabetes card. What is patient's glucose? (Need RMG) - less than 70 treat f using Hypoglycemia Nurse Initiated Protocol - between 70 and 300 administer medication as ordered. - greater than 300 notify radiologist and do not administer medication. Is patient safe to receive Glucagon If yes.. Administer Glucagon as outlined in order. (Patient needs RMG's as she stated being pre-diabetic and had taken medication for diabetes in the past. ) Does the patient need to remain NPO following scan for additional appointments today? NO Gel Administration Screening: * If also ordered with Glucagon, perform that screening as well. If not ordered with Glucagon, verify with Technologist if this may have been an oversight and Glucagon is wanted. Does patient have an allergy or sensitivity to Lidocaine or other amide-type (Prilocaine, Mepivacaine, Bupivacaine, Levobupivacaine, Articaine, Ropivacaine) local anesthetics? NO If no... continue Prostate exams only: Does patient have a latex allergy? NO If no, administer as ordered and outlined in medication reference document. * Stella Guadalupe R.N. - 2023 7:45 AM CDT This RN obtained blood sample and tested patient's BG. BG level between 70-300. documented in this encounter Plan of Treatment Not on file documented as of this encounter Procedures Procedure Name Priority Date/Time Associated Diagnosis Comments MR GYNECOLOGIC PELVIS WITHOUT AND WITH IV CONTRAST RAD - Routine (most inpatients and all outpatients) 2023 8:43 AM CDT Endometriosis GLUCOSE POCT, B Routine 2023 7:32 AM CDT documented in this encounter Results * MR Gynecologic Pelvis without and with IV Contrast (2023 8:43 AM CDT) Anatomical Region Laterality Modality Pelvis, Abdominal RST LOS, A bdominal ARZ LOS, Abdominal FLA LOS, Musculoskeletal ARZ LOS N/A Magnetic Resonance 2023 8:32 AM CDT Impressions 2023 10:13 AM CDT No evidence of deep infiltrative endometrial deposits within the pelvis. Narrative 2023 10:13 AM CDT EXAM: MR GYNECOLOGIC PELVIS WITHOUT AND WITH IV CONTRAST COMPARISON: None FINDINGS: ANTERIOR COMPARTMENT: BLADDER: Bladder is absent of any disease. No evidence of implants within the vesicouterine pouch, vesicovaginal septum, or distal ureters. MIDDLE COMPARTMENT: UTERUS: Uterus is anteflexed. Measures 4.7 x 4.0 x 6.3cm. Nabothian cysts. UTERINE LIGAMENTS: Round, and broad ligaments appear normal without any thickening or nodularity. VAGINA: The vagina is well distended with gel. Normal appearance. OVARIES: The ovaries are visualized and are marginally increased in appearance with multiple peripherally follicles in keeping with known PCOS. The right ovary measures 3.3 x 2.3 x 2.2 cm. The left ovary measures 2.8 x 2.7 x 1.9 cm. Kissing ovaries morphology is absent. FALLOPIAN TUBES: Nondilated and normal in appearance. POSTERIOR COMPARTMENT: RECTUM: Normal appearance to the rectum without any evidence of serosal deposits or enhancing nodules. TORUS UTERINUS: Normal appearance without significant thickening or deposits. UTEROSACRAL LIGAMENTS: Right side: Normal. Left side: ??Normal POUCH OF MITCHEL: No evidence of any nodular deposits within the pouch of Mitchel. Additional sites: Normal posterior vaginal fornix and rectovaginal septum. ADDITIONAL SITES: APPENDIX: Visualized and normal. LYMPH NODES: No lymphadenopathy. FREE FLUID: No free fluid. KIDNEYS: Bilateral kidneys are normal. No hydronephrosis. URETERS: Not well visualized. OTHER: No evidence of nodular deposits within the cecum, small bowel, inguinal canal, sciatic nerve, anterior abdominal wall liver, diaphragm, and upper abdomen. Tarlov cysts. Procedure Note Aramis Velazquez M.B.B.S., MMichell. - 2023 EXAM: MR GYNECOLOGIC PELVIS WITHOUT AND WITH IV CONTRAST COMPARISON: None FINDINGS: ANTERIOR COMPARTMENT: BLADDER: Bladder is absent of any disease. No evidence of implants withinthe vesicouterine pouch, vesicovaginal septum, or distal ureters. MIDDLE COMPARTMENT: UTERUS: Uterus is anteflexed. Measures 4.7 x 4.0 x 6.3cm. Nabothian cysts. UTERINE LIGAMENTS: Round, and broad ligaments appear normal without anythickening or nodularity. VAGINA: The vagina is well distended with gel. Normal appearance. OVARIES: The ovaries are visualized and are marginally increased inappearance with multiple peripherally follicles in keeping with known PCOS. The right ovarymeasures 3.3 x 2.3 x 2.2 cm. The left ovary measures 2.8 x 2.7 x 1.9 cm. Kissing ovaries morphology isabsent. FALLOPIAN TUBES: Nondilated and normal in appearance. POSTERIOR COMPARTMENT: RECTUM: Normal appearance to the rectum without any evidence of serosaldeposits or enhancing nodules. TORUS UTERINUS: Normal appearance without significant thickening ordeposits. UTEROSACRAL LIGAMENTS: Right side: Normal. Left side: Normal POUCH OF MITCHEL: No evidence of any nodular deposits within the pouch ofDouglas. Additional sites: Normal posterior vaginal fornix and rectovaginalseptum. ADDITIONAL SITES: APPENDIX: Visualized and normal. LYMPH NODES: No lymphadenopathy. FREE FLUID: No free fluid. KIDNEYS: Bilateral kidneys are normal. No hydronephrosis. URETERS: Not well visualized. OTHER: No evidence of nodular deposits within the cecum, small bowel,inguinal canal, sciatic nerve, anterior abdominal wall liver, diaphragm, and upper abdomen. Tarlovcysts. IMPRESSION: No evidence of deep infiltrative endometrial deposits within the pelvis. Rachelle RUIZ MRI PROCEDU RES * Glucose, POCT (2023 7:32 AM CDT) Glucose, POCT, B 95 70 - 140 mg/dL 2023 7:40 AM CDT PCMO Blood 2023 7:32 AM CDT 2023 7:40 AM CDT Unknown Provider LAB POCT ORDERABLES- MANUAL POC RST SCIENTOLOGIST OUTPATIENT LABS [address] [place] [address], [facility] P[facility] [address] [place] [address] documented in this encounter Visit Diagnoses Diagnosis Endometriosis documented in this encounter Administered Medications Inactive Administered Medications - up to 3 most recent administrations Medication Order MAR Action Action Date Dose Rate Site gadobutrol injection 0.01-30 mL (GADAVIST) 0.01-30 mL, intravenous, Once in imaging, contrast, Starting on Wed05/03/23 at 0721, For 1 dose, Imaging Protocol Orders, Dose per Radiant Medication Guidelines Intrathecal doses greater than 0.25 mL not recommended. Given 2023 8:36 AM CDT 7 mL glucagon injection 0.5-1 mg (GlucaGen) 0.5-1 mg, subcutaneous, Once, On Wed05/03/23 at 0745, For 1 dose, Imaging Protocol Orders Given 2023 8:37 AM CDT 1 mg Right Upper Arm (Back) sodium chloride (PF) 0.9 % injection 1-100 mL 1-100 mL, intravenous, Once, On Wed05/03/23 at 0745, For 1 dose, Imaging Protocol Orders Given 2023 8:37 AM CDT 40 mL ultrasound gel topical gel 60-180 mL 60-180 mL, vaginal, Once, On Wed05/03/23 at 0745, For 1 dose, Imaging Protocol Orders, Dose per Radiant Medication Guidelines Given 2023 8:38 AM CDT 60 mL documented in this encounter Care Teams Tumbler Machine Operator Relationship Specialty Start Date End Date None Reported, Pcp PCP - General Family Medicine 05/20/22 documented as of this encounter
--- OUTSIDE RECORDS SUMMARY | 2023-10-27 22:54 | XMS_ITS | Encounter Summary ---
Author Name Unknown Organization [facility] Address [address] [place] [address] Care Team Providers Care Cad Designer Name Role Phone None Reported, Pcp Primary Care Provider Unavail able Encounter Details Date Type Department Care Team (Late st Contact Info) Description 05/04/2023 Clinical Communication Department of Obstetrics and Gynecology in [place], [place] [address] [place] [address] Jeanette Farmer, R.N. [address] [place] [address] Social History Tobacco Use Types Packs/Day Years [...] often do you attend chur ch or scientology services? More than 4 times per year 11/24/2022 Do you belong to any clubs o r organizations such as spiritism groups, unions, fraternal or athletic groups, or [...] Answer Date Recorded PHQ-2 Score 0 11/04/2022 [facility] of Occupat ional [facility] - Occupational Stress Questionnaire Answer Date [...] to sleep or slept in a senior living (including now)? No 11/24/2022 Nutrition Answer Date Recorded Nutrition: EVOO Fat Source Yes 11/24 On average, how many serving s of fruits and vegetables do you eat per day (serving size is equal to 1 cup or approximately the size of a tennis ball)? 2-3 11/24/2022 Dental Answer Date Recorded Dental: Regular Dentist Yes 05/21/20 Employment Answer Date Recorded Employment status Unemployed/not in [employer] paid workforce and NOT seeking employment 11/24/2022 [...] PM CDT documented as of this encounter Miscellaneous Notes * Telephone Encounter - Jeanette Farmer R.N. - 05/04/2023 4:31 PM CDT Patient states she did not tolerate oral progesterone in the past and wants vaginal progesterone to induce a period. * Telephone Encounter - Jeanette Farmer R.N. - 05/04/2023 9:59 AM CDT I contacted Richa to discuss her pelvic MRI results. We discussed the MRI was within normal limits, there is no evidence of endometriosis, and there is no evidence of a deeply invasive endometrial cancer. She is scheduled to see Dr. Rachelle Gómez virtually on 05/25/23, and I offered to change that appointment to [id number] if she is interested in an IUD. She would like to contact her local doctor to see if an IUD can be placed sooner. Beth asks if she can try progesterone vaginally right now to help induce bleeding. She states she has pain on her right side, which is similar to ovulation pain. She has used progesterone vaginally in the past. She asks if she can take 300 mg vaginally. I will notify Doctor Gómez of this question. documented in this encounter Plan of Treatment Not on file documented as of this encounter Visit Diagnoses Not on filedocumented in this encounter Care Teams Cad Designer Relationship Specialty Start Date End Date None Reported, Pcp PCP - General Family Medicine 05/20/22 documented as of this encounter
--- OUTSIDE RECORDS SUMMARY | 2023-10-27 22:54 | XMS_ITS ---
Author Name Unknown Organization [facility] Address [address] [place] [address] Care Team Providers Care Restoration Officer Name Role Phone Unavailable Unavailable Unavailable Surgery Details Not on file Complications Check Surgery Details section. Procedure Estimated Blood Loss Check Surgery Details section. Procedure Findings Check Surgery Details section. Procedure Specimens Taken Check Surgery Details section.
--- OUTSIDE RECORDS SUMMARY | 2023-10-27 22:54 | XMS_ITS | Encounter Summary ---
Author Name Unknown Organization [facility] Address [address] [place] [address] Care Team Providers Care C Unix Developer Name Role Phone None Reported, Pcp Primary Care Provider Unavail able Encounter Details Date Type Department Care Team (Late st Contact Info) Description 06/01/2023 Orders Only Department of Obstetrics and Gynecology in [place], [place] [address] [place] [address] Xenia Delatorre M.S.N., R.N. [address] [place] [address] Hyperplasia Endometrial With Atypia (Primary Dx) Social History Tobacco Use Types [...] often do you attend chur ch or hoahaoism services? More than 4 times per year 11/24/2022 Do you belong to any clubs o r organizations such as jehovah's witness groups, unions, fraternal or athletic groups, or [...] Answer Date Recorded PHQ-2 Score 0 11/04/2022 [facility] of Occupat ional Health - Occupational Stress [...] place to sleep or slept in a detention (including now)? No 11/24/2022 Nutrition Answer Date [...] encounter Visit Diagnoses Diagnosis Hyperplasia Endometrial With Atypia- Primary documented in this encounter Care Teams C Unix Developer Relationship Specialty Start Date End Date None Reported, Pcp PCP - General Family Medicine 05/20/22 documented as of this encounter
--- OUTSIDE RECORDS SUMMARY | 2023-10-27 22:54 | XMS_ITS | Encounter Summary ---
Author Name Unknown Organization [facility] Address [address] [place] [address] Care Team Providers Care Checkman Name Role Phone None Reported, Pcp Primary Care Provider Unavail able Reason for Visit * Reason Onset Date Comments Communication 05/12/2023 CLL Encounter Details Date Type Department Care Team (Latest Contact Info) Description 05/12/2023 Clinical Communication Department of Obstetrics and Gynecology in [place], [place] [address] [place] [address] Rachelle Gómez M.D. [address] [place] [address] Communication (CLL) Social History Tobacco Use Types Packs/Day Years [...] often do you attend chur ch or episcopal services? More than 4 times per year 11/24/2022 Do you belong to any clubs o r organizations such as faith groups, unions, fraternal or athletic groups, or [...] Answer Date Recorded PHQ-2 Score 0 11/04/2022 [facility] of Occupat ional Health - Occupational [...] encounter Miscellaneous Notes * Telephone Encounter - Brooklyn Dial R.N. - 05/12/2023 3:12 PM CDT Patient called today to check on the path review being done at [facility]. She is aware it is in process and we are unsure of how long it will take to be final. She would like a phone call with the results, sooner than her 05/25/[address] Gómez. I will put a message in to the team. documented in this encounter Plan of Treatment Not on file documented as of this encounter Visit Diagnoses Not on filedocumented in this encounter Care Teams Checkman Relationship Specialty Start Date End Date None Reported, Pcp PCP - General Family Medicine 05/20/22 documented as of this encounter
--- OUTSIDE RECORDS SUMMARY | 2023-10-27 22:54 | XMS_ITS | Encounter Summary ---
Author Name Unknown Organization [facility] Address [address] [place] [address] Care Team Providers Care Windows Security Analyst Name Role Phone None Reported, Pcp Primary Care Provider Unavail able Encounter Details Date Type Department Care Team (Late st Contact Info) Description 05/20/2023 Clinical Communication Department of Obstetrics and Gynecology in [place], [place] [address] [place] [address] Brooklyn Dial RIvan [address] [place] [address] Social History Tobacco Use Types Packs/Day Years [...] often do you attend chur ch or lutheran services? More than 4 times per year [...] Answer Date Recorded PHQ-2 Score 0 11/04/2022 [facility] of Occupat ional [facility] - Occupational Stress Questionnaire Answer Date [...] place to sleep or slept in a snf (including now)? No 11/24/2022 Nutrition Answer Date [...] Notes * Telephone Encounter - Brooklyn Dial RAmandaN. - 05/20/2023 12:23 PM CDT SUBJECTIVE CHIEF COMPLAINT / REASON FOR CALL No chief complaint on file. Information Discussed I contacted Beth to let her know that a hcg blood test will need to be performed prior to IUD placement. She is waiting to hear back from her local OB to see if they want to place the IUD, or if Dr. Gómez should. She would like to leave her appointment as virtual for now, and will let us know once she has spoken with her OB. All questions answered to the best of my ability. PLAN Disposition/Recommendation: self-care appropriate at this time, patient encouraged to call back with questions Information/Education: patient/caller able to teach back Caller agreeable to plan of care: yes The following references were used: nursing clinical judgement documented in this encounter Plan of Treatment Not on file documented as of this encounter Visit Diagnoses Not on filedocumented in this encounter Care Teams Windows Security Analyst Relationship Specialty Start Date End Date None Reported, Pcp PCP - General Family Medicine 05/20/22 documented as of this encounter
--- OUTSIDE RECORDS SUMMARY | 2023-10-27 22:54 | XMS_ITS | Encounter Summary ---
Author Name Unknown Organization [facility] Address [address] [place] [address] Care Team Providers Care Deckhand Name Role Phone None Reported, Pcp Primary Care Provider Unavail able Encounter Details Date Type Department Care Team (Late st Contact Info) Description 05/24/2023 Documentation Department of Obstetrics and Gynecology in [place], [place] [address] [place] [address] Brooklyn Dial, RAmandaNAmanda [address] [place] [address] Social History Tobacco Use Types Packs/Day Years [...] often do you attend chur ch or shinto services? More than 4 times per year 11/24/2022 Do you belong to any clubs o r organizations such as jain groups, unions, fraternal or athletic groups, or [...] Answer Date Recorded PHQ-2 Score 0 11/04/2022 [facility] [place] [facility] - Occupational Stress Questionnaire Answer Date [...] place to sleep or slept in a group home (including now)? No 11/24/2022 Nutrition Answer [...] as of this encounter Progress Notes * Brooklyn Dial R.N. - 05/24/2023 10:58 AM CDT Responded to patient via portal about what IUD would be placed tomorrow at her visit with Dr. Gómez. documented in this encounter Plan of Treatment Not on file documented as of this encounter Visit Diagnoses Not on filedocumented in this encounter Care Teams Deckhand Relationship Specialty Start Date End Date None Reported, Pcp PCP - General Family Medicine 05/20/22 documented as of this encounter
--- OUTSIDE RECORDS SUMMARY | 2023-10-27 22:54 | XMS_ITS | Referral Summary ---
Author Name Unknown Organization [facility] Address [address] [place] [address] Care Team Providers Care Groover Operator Name Role Phone None Reported, Pcp Primary Care Provider Unavail able Source Comments Patient records contain information from all sites at [facility]. For routine questions regarding patient records, call [phone] during business hours, M-F 8:00 AM - 5:00 PM Central Time. Record requests for emergency care only can be directed to [phone] at any time.[facility] Encounters Date Type Department Care Team Description 08/17/2023 8:30 AM CDT Telemedicine Department of Obstetrics and Gynecology in [place], [place] [address] [place] [address] Rachelle Gómez M.D. Hyperplasia Endometrial With Atypia (Primary Dx) 08/02/2023 Clinical Communication Department of Obstetrics and Gynecology in [place], [place] [address] [place] [address] Rachelle Gómez M.D. Appointment 07/28/2023 Orders Only Department of Obstetrics and Gynecology in [place], [place] [address] [place] [address] Xenia Delatorre M.S.N., R.N. from Last 3 Months Allergies Active Allergy Reactions Criticality Noted Date Comments Sulfa (Sulfonamide Antibiotics) Other (see comments) 06/22/2006 family has allergies to this Medications Medication Sig Dispensed Refills Start Date End Date Status omega 1-ara-glt-fish oil 1,000 mg (120 mg-180 mg) capsule [...] Syndrome 05/12/2018 Recurrent Loss Not Currently 05/04/2018 Social History Tobacco Use Types Packs/Day Years [...] often do you attend chur ch or orthodoxy services? More than 4 times per year 11/24/2022 Do you belong to any clubs o r organizations such as cheondoism groups, unions, fraternal or athletic groups, or [...] Answer Date Recorded PHQ-2 Score 0 11/04/2022 [facility] [place] [facility] of Occupat ional Health - Occupational [...] place to sleep or slept in a assisted (including now)? No 11/24/2022 Nutrition Answer Date [...] 05/21/2022 10:42 AM CDT Plan of Treatment Not on file Care Teams Groover Operator Relationship Specialty Start Date End Date None Reported, Pcp PCP - General Family Medicine 05/20/22
--- OUTSIDE RECORDS SUMMARY | 2023-10-27 22:54 | XMS_ITS | Encounter Summary ---
Author Name Unknown Organization [facility] Address [address] [place] [address] Care Team Providers Care Appeals Board Referee Name Role Phone None Reported, Pcp Primary Care Provider Unavail able Encounter Details Date Type Department Care Team (Latest Contact Info) Description 05/25/2023 10:50 AM CDT - 05/25/2023 11:59 PM CDT Hospital Encounter Department of Laboratory Medicine and Pathology, [facility] in [place], [place] [address] [place] [address] Rachelle Gómez M.D. [address] [place] [address] Insertion Intrauterine Device Discharge Disposition: Home or Self Care Social [...] often do you attend chur ch or confucianism services? More than 4 times per year 11/24/2022 Do you belong to any clubs o r organizations such as congregation groups, unions, fraternal or athletic groups, or [...] Answer Date Recorded PHQ-2 Score 0 11/04/2022 [facility] - Occupational Stress Questionnaire Answer [...] by mouth as needed. 0 03/05/2020 omega 1-peg-qyb-fish oil 1,000 mg (120 mg-180 mg) capsule Take 1,000 mg by mouth daily. 0 11/03/2019 POTASSIUM CITRATE ORAL Take 99 mcg by mouth. 0 vit calc,iron,folic ( VITAMIN ORAL) 0 progesterone (PROMETRIUM) 100 mg capsule Take 300 mg by mouth at bedtime. 0 05/11/2023 progesterone (PROMETRIUM) 200 mg capsule progesterone micronized 200 mg capsule 0 propranoloL (INDERAL) 20 mg tablet 20 mg every 8 (eight) hours. 0 03/02/2020 documented as of this encounter Plan of Treatment Not on file documented as of this encounter Procedures Procedure Name Priority Date/Time Associated Diagnosis Comments HUMAN CHORIONIC GONADOTROPIN (HCG), ETIENNE, Routine 05/25/2023 11:12 AM CDT Insertion Intrauterine Device documented in this encounter Results * hCG (Human Chorionic Gonadotropin), Quantitative, (05/25/2023 11:12 AM CDT) HCG, Quantitative, , S <0.5 <5 IU/L 05/25/2023 12:21 PM CDT DTL Blood (Blood, Venous) 05/25/2023 11:12 AM CDT 05/25/2023 11:51 AM CDT Rachelle Gómez M.D. LAB BLOOD ADD-O N [facility] [address] [place] [address], [facility] [address] [place] [address] documented in this encounter Visit Diagnoses Diagnosis Insertion Intrauterine Device documented in this encounter Care Teams Appeals Board Referee Relationship Specialty Start Date End Date None Reported, Pcp PCP - General Family Medicine 05/20/22 documented as of this encounter
--- OUTSIDE RECORDS SUMMARY | 2023-10-27 22:54 | XMS_ITS | Encounter Summary ---
Author Name Unknown Organization [facility] Address [address] [place] [address] Care Team Providers Care Lumber Chain Offbearer Name Role Phone None Reported, Pcp Primary Care Provider Unavail able Reason for Referral * Outpatient (Routine) - Closed Specialty Diagnoses / Procedures Referred By Contranjana t Referred To Contact Obstetrics and Gynecology Rachelle Gómez M.D. [address] [place] [phone] Rachelle Gómez M.D. [address] [place] [phone] Referral ID Status Reason Start Date Expiration Date Visits Re quested Visits Authorized [id number] Closed 07/28/2023 07/27/2026 1 1 Encounter Details Date Type Department Care Team (Late st Contact Info) Description 07/28/2023 Orders Only Department of Obstetrics and Gynecology in [place], [place] [address] [place] [phone] Xenia Delatorre M.S.N., R.N. [address] [place] [phone] Social History Tobacco Use Types Packs/Day Years [...] often do you attend chur ch or episcopalian services? More than 4 times per year 11/24/2022 Do you belong to any clubs o r organizations such as hinduism groups, unions, fraternal or athletic groups, or [...] Answer Date Recorded PHQ-2 Score 0 11/04/2022 [facility] Occupat ional Health - Occupational Stress [...] Scheduled Referrals Name Type Priority Associated Diagnoses Order Schedule Obstetrics and Gynecology office visit (clinic) Outpatient Referral Routine Expected: 08/25/2023, Expires: 10/28/2024 documented as of this encounter Visit Diagnoses Not on filedocumented in this encounter Care Teams Lumber Chain Offbearer Relationship Specialty Start Date End Date None Reported, Pcp PCP - General Family Medicine 05/20/22 documented as of this encounter
--- OUTSIDE RECORDS SUMMARY | 2023-10-27 22:54 | XMS_ITS | Encounter Summary ---
Author Name Unknown Organization [facility] Address [address] [place] [address] Care Team Providers Care Box Order Person Name Role Phone None Reported, Pcp Primary Care Provider Unavail able Encounter Details Date Type Department Care Team (Late st Contact Info) Description 05/24/2023 Orders Only Department of Obstetrics and Gynecology in [place], [place] [address] [place] [address] [facility] [address] [place] [address] Insertion Intrauterine Device (Primary Dx) Social History Tobacco Use Types [...] often do you attend chur ch or rastafari services? More than 4 times per year 11/24/2022 Do you belong to any clubs o r organizations such as samaritan groups, unions, fraternal or athletic groups, or [...] Answer Date Recorded PHQ-2 Score 0 11/04/2022 [facility] Occupat ional [facility] - Occupational Stress Questionnaire Answer Date [...] documented as of this encounter Results * hCG (Human Chorionic Gonadotropin), Quantitative, (05/25/2023 11:12 AM CDT) HCG, Quantitative, , S <0.5 <5 IU/L 05/25/2023 12:21 PM CDT DTL Blood (Blood, Venous) 05/25/2023 11:12 AM CDT 05/25/2023 11:51 AM CDT Rachelle Gómez M.D. LAB BLOOD ADD-O N [facility] [address] [place] [address], [place] [facility] 200 [place] [address] documented in this encounter Visit Diagnoses Diagnosis Insertion Intrauterine Device- Primary documented in this encounter Care Teams Box Order Person Relationship Specialty Start Date End Date None Reported, Pcp PCP - General Family Medicine 05/20/22 documented as of this encounter
--- OUTSIDE RECORDS SUMMARY | 2023-10-27 22:54 | XMS_ITS | Encounter Summary ---
Author Name Unknown Organization [facility] Address [address] [place] [address] Care Team Providers Care Fast Food Assistant Restaurant Manager Name Role Phone None Reported, Pcp Primary Care Provider Unavail able Encounter Details Date Type Department Care Team (Late st Contact Info) Description 05/24/2023 Clinical Communication Department of Oncology in [place], [place] [address] [place] [address] Rachelle Gómez M.D. 200 [place] [address] Social History Tobacco Use Types Packs/Day Years [...] often do you attend chur ch or rastafarian services? More than 4 times per year 11/24/2022 Do you belong to any clubs o r organizations such as congregational groups, unions, fraternal or athletic groups, or [...] Answer Date Recorded PHQ-2 Score 0 11/04/2022 [facility] of Occupat ional Health - Occupational Stress [...] place to sleep or slept in a [place] (including now)? No 11/24/2022 Nutrition Answer Date [...] on filedocumented in this encounter Care Teams Fast Food Assistant Restaurant Manager Relationship Specialty Start Date End Date None Reported, Pcp PCP - General Family Medicine 05/20/22 documented as of this encounter
--- OUTSIDE RECORDS SUMMARY | 2023-10-27 22:54 | XMS_ITS | Encounter Summary ---
Author Name Unknown Organization [facility] Address [address] [place] [address] Care Team Providers Care Final Inspector Balance Wheel Name Role Phone None Reported, Pcp Primary Care Provider Unavail able Reason for Visit * Outpatient (Routine) - Closed Specialty Diagnoses / Procedures Referred By Contac t Referred To Contact Obstetrics and Gynecology Rachelle Gómez M.D. [address] [place] [address] Rachelle Gómez M.D. [address] [place] [phone] Referral ID Status Reason Start Date Expiration Date Visits Re quested Visits Authorized [id number] Closed 07/28/2023 07/27/2026 1 1 Encounter Details Date Type Department Care Team (Late st Contact Info) Description 08/17/2023 8:30 AM CDT Telemedicine Department of Obstetrics and Gynecology in [place], [place] [address] [place] [phone] Rachelle Gómez M.D. [address] [place] [phone] Hyperplasia Endometrial With Atypia (Primary Dx) Social [...] 11/24/2022 How often do you attend chur or cheondoism services? More than 4 times per year 11/24/2022 Do you belong to any clubs o r organizations such as pentecostalism groups, unions, fraternal or athletic groups, or [...] Answer Date Recorded PHQ-2 Score 0 11/04/2022 [facility] of Occupat ional Health - Occupational Stress [...] place to sleep or slept in a nursing home (including now)? No 11/24/2022 Nutrition Answer [...] Progress Notes * Rachelle Gómez M.D. - 08/17/2023 8:30 AM CDT SUBJECTIVE REFERRING PROVIDER Rachelle Gómez M.D. REASON FOR VISIT Consult HISTORY OF PRESENT CONDITION Chief complaint: complex hyperplasia with atypia Ms. Quinn is a 43 y.o., who presents in consultation at the request of Rachelle Gómez M.D. for an opinion regarding complex hyperplasia with atypia. She was diagnosed with complex hyperplasia this past year. She has been on vaginal progesterone, using this every 4 months. Currently using Vitex and another herbal supplement. She reports that she is now having cycles monthly. Consult conducted via real-time audio/video technology by Rachelle Gómez M.D. in [facility] to the patient in Patient's Home The following portions of the patient's history were reviewed and updated as appropriate: allergies, current medications, family history, medical history, social history, surgical history and problemlist. MENSTRUAL HISTORY No LMP recorded. FAMILY HISTORY Breast, ovarian, colon, or uterine cancer-related family history is not on file. REVIEW OF SYSTEMS A comprehensive review of systems was negative. OBJECTIVE VITAL SIGNS There is no height or weight on file to calculate BMI. ECOG status: 0 PHYSICAL EXAM GYNSURG Exam Amb General: Well appearing, no apparent distress, alert and oriented. DIAGNOSTICS Hemoglobin Date Value Ref Range Status [...] Visit diagnosis: #1 Hyperplasia Endometrial With Atypia We reviewed her most recent biopsy shows squamous metaplasia. Per the patient, no polyps were seen during her office hysteroscopy. I discussed the recommendation to continue taking progesterone. The best recommendation is to continue with daily progesterone. If she prefers, she could also consider cyclic progesterone as she is currently doing. Patient desires and will continue with cyclic progesterone. Discussed the r ecommendation to be seen by [facility] for additional assistance with . I would recommend repeat biopsy with hysteroscopy in 3 months. PATIENT EDUCATION Ready to learn, no apparent [...] the patient that in our practice at [facility], we sometimes perform overlapping surgeries, meaning that I will be present for the entire critical portion of the surgery, and that my team members will assist me with the noncritical portions of the procedure. BILLING I spent 30 minutes in consultation, greater than 50% of the time spent counseling. Rachelle Gómez M.D. documented in this encounter Plan of Treatment Not on file documented as of this encounter Visit Diagnoses Diagnosis Hyperplasia Endometrial With Atypia- Primary documented in this encounter Care Teams Final Inspector Balance Wheel Relationship Specialty Start Date End Date None Reported, Pcp PCP - General Family Medicine 05/20/22 documented as of this encounter
--- OUTSIDE RECORDS SUMMARY | 2023-10-27 22:54 | XMS_ITS | Encounter Summary ---
Author Name Unknown Organization [facility] Address [address] [place] [address] Care Team Providers Care Sheetrock Applicator Name Role Phone None Reported, Pcp Primary Care Provider Unavail able Reason for Visit * Reason Onset Date Comments Appointment 08/02/2023 Encounter Details Date Type Department Care Team (Late st Contact Info) Description 08/02/2023 Clinical Communication Department of Obstetrics and Gynecology in [place], [place] [address] [place] [address] Rachelle Gómez M.D. [address] [place] [address] Appointment Social History Tobacco Use Types Packs/Day [...] often do you attend chur ch or mu-ism services? More than 4 times per year 11/24/2022 Do you belong to any clubs o r organizations such as anglican groups, unions, fraternal or athletic groups, or [...] Answer Date Recorded PHQ-2 Score 0 11/04/2022 [facility] of Occupat ional Health - [...] place to sleep or slept in a [facility] (including now)? No 11/24/2022 Nutrition Answer Date [...] on filedocumented in this encounter Care Teams Sheetrock Applicator Relationship Specialty Start Date End Date None Reported, Pcp PCP - General Family Medicine 05/20/22 documented as of this encounter
--- OUTSIDE RECORDS SUMMARY | 2023-10-27 22:54 | XMS_ITS | Encounter Summary ---
Author Name Unknown Organization [facility] Address [address] [place] [address] Care Team Providers Care Gang Pusher Name Role Phone None Reported, Pcp Primary Care Provider Unavail able Reason for Visit * Reason Onset Date Comments Communication 04/28/2023 CLL Encounter Details Date Type Department Care Team (Latest Contact Info) Description 04/28/2023 Clinical Communication Department of Obstetrics and Gynecology in [place], [place] [address] [place] [address] Rachelle Gómez M.D. [address] [place] [phone] Communication (CLL) Social History Tobacco Use Types [...] often do you attend chur ch or restorationism services? More than 4 times per year 11/24/2022 Do you belong to any clubs o r organizations such as sabianist groups, unions, fraternal or athletic groups, or [...] Answer Date Recorded PHQ-2 Score 0 11/04/2022 [facility] of Occupat ional Health - Occupational [...] encounter Miscellaneous Notes * Telephone Encounter - Samina Guevara RAmandaN. - 04/28/2023 4:17 PM CDT I called Beth back to discuss her questions, including questions in her 04/27 online message. Prior to calling I reviewed her questions with Dr. Gómez. Dr. Gómez confirmed that she recommends MRI regardless of whether Beth decides to proceed with hysterectomy or conservative management. She would like to get updated imaging of the uterus, especially given Beth's history of en dometriosis. I explained that we have not yet received the pathology slides from Beth's endometrial biopsy yet, but the MRI is recommended regardless of those findings. Beth expressed understanding. She reports she has reviewed Dr. Gómez's most recent note andfound the same recommendations. She also reports she has been in touch with her local OB, who noted that she would be happy to do additional endometrial sampling and or place an IUD. Beth as long as the MRI findings and pathology review are reassuring. We reviewed she is currently scheduled for a virtual visit with Dr. Gómez on 05/25 to discuss next steps. Hopefully we would have the pathology review back by that time. I explained that we would typically call or send her an online message with the results of her MRI, once those area available. Beth expressed understanding and is satisfied with the way things are currently scheduled. We will be in touch with the results of her MRI. documented in this encounter Plan of Treatment Not on file documented as of this encounter Visit Diagnoses Not on filedocumented in this encounter Care Teams Gang Pusher Relationship Specialty Start Date End Date None Reported, Pcp PCP - General Family Medicine 05/20/22 documented as of this encounter
--- OUTSIDE RECORDS SUMMARY | 2023-10-27 22:55 | XMS_ITS | Encounter Summary ---
Author Name Unknown Organization [facility] Address [address] [place] [address] Care Team Providers Care Product Management Intern Name Role Phone None Reported, Pcp Primary Care Provider Unavail able Reason for Visit * Reason Onset Date Comments Prevention: LR 12/02/2022 Encounter Details Date Type Department Care Team (Latest Contact Info) Description 12/02/2022 Clinical Communication Department of Medical Genetics in [place], [place] [address] [place] [address] Marylu Menezes Prevention: LR Social History Tobacco Use Types Packs/Day Years [...] often do you attend chur ch or sabianism services? More than 4 times per year 11/24/2022 Do you belong to any clubs o r organizations such as yazdanism groups, unions, fraternal or athletic groups, or [...] Answer Date Recorded PHQ-2 Score 0 11/04/2022 [facility] - Occupational Stress Questionnaire Answer Date [...] place to sleep or slept in a fci (including now)? No 11/24/2022 Nutrition Answer Date Recorded Nutrition: EVOO Fat Source Yes 11/24 On average, how many serving s of fruits and vegetables do you eat per day (serving size is equal to 1 cup or approximately the size of a tennis ball)? 2-3 11/24/2022 Dental Answer Date Recorded Dental: Regular Dentist Yes 05/21/20 Employment Answer Date Recorded Employment status Unemployed/not in [employer] paid workforce and NOT seeking [...] on filedocumented in this encounter Care Teams Product Management Intern Relationship Specialty Start Date End Date None Reported, Pcp PCP - General Family Medicine 05/20/22 documented as of this encounter
--- OUTSIDE RECORDS SUMMARY | 2023-10-27 22:55 | XMS_ITS | Encounter Summary ---
Author Name Unknown Organization [facility] Address [address] [place] [address] Care Team Providers Care Physician Practice Market Manager Name Role Phone None Reported, Pcp Primary Care Provider Unavail able Encounter Details Date Type Department Care Team (Late st Contact Info) Description 04/26/2023 Orders Only Department of Obstetrics and Gynecology in [place], [place] [address] [place] [address] Taryn Singh M.S., [facility] [address] [place] [address] Hyperplasia Endometrial With Atypia (Primary Dx) Social [...] often do you attend chur ch or buddhism services? More than 4 times per year 11/24/2022 Do you belong to any clubs o r organizations such as anabaptist groups, unions, fraternal or athletic groups, or [...] Answer Date Recorded PHQ-2 Score 0 11/04/2022 [facility] of Occupat ional Health - [...] place to sleep or slept in a [facility] (including now)? No 11/24/2022 Nutrition Answer Date [...] Primary documented in this encounter Care Teams Physician Practice Market Manager Relationship Specialty Start Date End Date None Reported, Pcp PCP - General Family Medicine 05/20/22 documented as of this encounter
--- OUTSIDE RECORDS SUMMARY | 2023-10-27 22:55 | XMS_ITS | Encounter Summary ---
Author Name Unknown Organization [facility] Address [address] [place] [address] Care Team Providers Care Vice President Regulatory Name Role Phone None Reported, Pcp Primary Care Provider Unavail able Encounter Details Date Type Department Care Team (Late st Contact Info) Description 12/04/2022 Orders Only Department of Obstetrics and Gynecology in [place], [place] [address] [place] [address] Taryn Singh M.S., [place] [address] [place] [address] Infertility Female (Primary Dx) Social History Tobacco Use Types [...] often do you attend chur ch or yazidi services? More than 4 times per year 11/24/2022 Do you belong to any clubs o r organizations such as confucianist groups, unions, fraternal or athletic groups, or [...] Answer Date Recorded PHQ-2 Score 0 11/04/2022 [facility] of Occupat ional Health - Occupational Stress [...] place to sleep or slept in a alf (including now)? No 11/24/2022 Nutrition Answer Date [...] as of this encounter Visit Diagnoses Diagnosis Infertility Female- Primary documented in this encounter Care Teams Vice President Regulatory Relationship Specialty Start Date End Date None Reported, Pcp PCP - General Family Medicine 05/20/22 documented as of this encounter
--- OUTSIDE RECORDS SUMMARY | 2023-10-27 22:55 | XMS_ITS | Encounter Summary ---
Author Name Unknown Organization [facility] Address [address] [place] [address] Care Team Providers Care News Library Director Name Role Phone None Reported, Pcp Primary Care Provider Unavail able Reason for Visit * Reason Onset Date Comments [facility]: LR 12/17/2022 Encounter Details Date Type Department Care Team (Late st Contact Info) Description 12/17/2022 Clinical Communication Department of Medical Genetics in [place], [place] [address] [place] [address] Marylu Menezes [facility]: LR Social History Tobacco Use Types Packs/Day [...] often do you attend chur ch or congregational services? More than 4 times per year 11/24/2022 Do you belong to any clubs o r organizations such as judaism groups, unions, fraternal or athletic groups, or [...] Answer Date Recorded PHQ-2 Score 0 11/04/2022 [facility] - Occupational Stress Questionnaire Answer Date [...] encounter Miscellaneous Notes * Telephone Encounter - Marylu Menezes - 12/17/2022 12:16 PM CST Date: 12/02/2022 Lab: [facility] Test: Comprehensive Carrier Screening Sample: Lab to mail a kit to the pt and Mail Order has been scheduled and checked in. Provider: Taryn Singh CGC Insurance: Commercial [employer] documented in this encounter Plan of Treatment Not on file documented as of this encounter Visit Diagnoses Not on filedocumented in this encounter Care Teams News Library Director Relationship Specialty Start Date End Date None Reported, Pcp PCP - General Family Medicine 05/20/22 documented as of this encounter
--- OUTSIDE RECORDS SUMMARY | 2023-10-27 22:55 | XMS_ITS | Encounter Summary ---
Author Name Unknown Organization [facility] Address [address] [place] [address] Care Team Providers Care Supervisor Uranium Processing Name Role Phone None Reported, Pcp Primary Care Provider Unavail able Encounter Details Date Type Department Care Team (Latest Contact Info) Description 12/02/2022 11:46 AM ACDS BLOCK 1 OPERATOR - 12/02/2022 11:59 PM [facility] Hospital Encounter Department of Laboratory Medicine and Pathology, [facility] in [place], [place] [address] [place] [address] Lynn Romero M.D., Ph.D. [address] [place] [address] Encounter Of Female For Testing For Genetic Disease Carrier Status For Procreative Management Discharge Disposition: Home or Self Care Social [...] often do you attend chur ch or bahai services? More than 4 times per year 11/24/2022 Do you belong to any clubs o r organizations such as protestant groups, unions, fraternal or athletic groups, or [...] Answer Date Recorded PHQ-2 Score 0 11/04/2022 [facility] of Occupat ional Health - [...] place to sleep or slept in a longterm (including now)? No 11/24/2022 Nutrition Answer Date [...] Date Recorded Employment status Unemployed/not in [employer] paid workforce and NOT seeking employment 11/24/2022 [...] Take 1 tablet by mouth daily. 0 co-enzyme Q-10 (CO Q-10) 100 mg capsule Take 1 capsule by mouth daily. 0 06/10/2016 labetaloL (NORMODYNE) 100 mg tablet Take 50 mg by mouth as needed. 0 03/05/2020 omega 1-jqo-sks-fish oil 1,000 mg (120 mg-180 mg) capsule Take 1,000 mg by mouth daily. 0 11/03/2019 POTASSIUM CITRATE ORAL Take 99 mcg by mouth. 0 vit calc,iron,folic ( VITAMIN ORAL) 0 progesterone (PROMETRIUM) 200 mg capsule progesterone micronized 200 mg capsule 0 propranoloL (INDERAL) 20 mg tablet 20 mg every 8 (eight) hours. 0 03/02/2020 betamethasone dipropionate, augmented, (DIPROLENE) 0.05 % cream APPLY TO RIGHT ANKLE 2XDAILY FOR 2-3 WEEKS THEN NEEDED 0 04/08/2022 04/23/2023 cholecalciferol (VITAMIN D3) 125 mcg (5,000 Unit) tablet Take 1 capsule by mouth daily. 0 06/10/2016 04/23/2023 medroxyPROGESTERon e (PROVERA) 10 mg tablet medroxyprogesterone 10 mg tablet 0 04/23/2023 25-iron isz-eauxv-uok 30-855-200 mg-mcg-mg capsule Take 1 tablet by mouth. 0 01/18/2015 04/23/2023 rifAXIMin (XIFAXAN) 550 mg tablet Take 1 tablet by mouth 3 (three) times a day. 0 05/18/2022 04/23/2023 documented as of this encounter Plan of Treatment Pending Results Name Type Priority Associated Diagnoses Date /Time [id number] Satiety Comprehensive Carrier Screen - Miscellaneous Test Lab Routine Encounter Of Female For Testing For Genetic Disease Carrier Status For Procreative Management 12/28/2022 12:00 AM CDT documented as of this encounter Procedures Procedure Name Priority Date/Time Associated Diagnosis Comments [facility] Routine 12/28/2022 12:00 AM CDT MISCELLANEOUS SENT OUT LAB TEST Routine 12/28/2022 12:00 AM CDT Encounter Of Female For Testing For Genetic Disease Carrier Status For Procreative Management documented in this encounter Results * [employer] (12/28/2022 12:00 AM CDT) Test Name [employer] Comprehensive Carrier Screen 01/05/2023 10:02 AM CDT INVC Result SEE COMMENT 01/05/2023 10:07 AM CDT INVC Comment: For final report, select Lab-Send Out Lab Results hyperlink below. 12/28/2022 01/05/2023 10: 02 AM CDT Lynn Romero M.D., Ph.D. LAB MISC ORDERAB LES Performing Organization Address City/State/[facility] Co de Phone Number [employer] [address] [place] [phone] [employer] [address] [place] [phone] documented in this encounter Visit Diagnoses Diagnosis Encounter Of Female For Testing For Genetic Disease Carrier Status For Procreative Management documented in this encounter Care Teams Supervisor Uranium Processing Relationship Specialty Start Date End Date None Reported, Pcp PCP - General Family Medicine 05/20/22 documented as of this encounter
--- OUTSIDE RECORDS SUMMARY | 2023-10-27 22:55 | XMS_ITS | Encounter Summary ---
Author Name Unknown Organization [facility] Address [address] [place] [address] Care Team Providers Care Metal Riveter Name Role Phone None Reported, Pcp Primary Care Provider Unavail able Reason for Referral * Outpatient (Routine) - Authorized Specialty Diagnoses / Procedures Referred By Contac t Referred To Contact Diagnoses Tachycardia Procedures Autonomic reflex Screen Kyra Faulkner M.B., B.Ch. [address] [place] [address] [facility] Referral ID Status Reason Start Date Expiration Date V isits Requested Visits Authorized [id number] Authorized 11/25/2022 11/25/2023 1 1 TAL CONTENT PRODUCER * Outpatient (Routine) - Authorized Specialty Diagnoses / Procedures Referred By Contac t Referred To Contact Neurology Diagnoses Tachycardia Kyra Faulkner M.B., B.Ch. [address] [place] [address] [facility] Referral ID Status Reason Start Date Expiration Date V isits Requested Visits Authorized [id number] Authorized 11/25/2022 11/25/2023 1 1 TAL CONTENT PRODUCER Encounter Details Date Type Department Care Team (Late st Contact Info) Description 11/25/2022 Orders Only Division of Endocrinology in [place], [place] [address] [place] [address] Kyra Faulkner M.B., B.Ch. [address] [place] [address] Tachycardia (Primary Dx) Social History Tobacco Use Types [...] How often do you attend chur or oriental orthodox services? More than 4 times per year 11/24/2022 Do you belong to any clubs o r organizations such as baptism groups, unions, fraternal or athletic groups, or [...] Answer Date Recorded PHQ-2 Score 0 11/04/2022 [facility] - Occupational Stress Questionnaire Answer Date [...] place to sleep or slept in a chcf (including now)? No 11/24/2022 Nutrition Answer Date [...] Type Priority Associated Diagnoses Orde r Schedule Autonomic reflex Screen Neurology Routine Tachycardia Expected: 11/25/2022 (Approximate), Expires: 02/23/2024 Scheduled Referrals Name Type Priority Associated Diagnoses Orde r Schedule Neurology - Autonomic disorders consult (clinic) Outpatient Referral Routine Tachycardia Expected: 11/25/2022 (Approximate), Expires: 02/23/2024 documented as of this encounter Visit Diagnoses Diagnosis Tachycardia- Primary documented in this encounter Care Teams Metal Riveter Relationship Specialty Start Date End Date None Reported, Pcp PCP - General Family Medicine 05/20/22 documented as of this encounter
--- OUTSIDE RECORDS SUMMARY | 2023-10-27 22:55 | XMS_ITS | Encounter Summary ---
Author Name Unknown Organization [facility] Address [address] [place] [address] Care Team Providers Care Escapement Matcher Name Role Phone None Reported, Pcp Primary Care Provider Unavail able Reason for Referral * Outpatient (Routine) - Authorized Specialty Diagnoses / Procedures Referred By Contac t Referred To Contact Clinical Genomics Diagnoses Testing Genetic Santi Holt M.D. [address] [place] [address] [facility] Referral ID Status Reason Start Date Expiration Date V isits Requested Visits Authorized [id number] Authorized 01/18/2023 01/18/2024 1 1 Encounter Details Date Type Department Care Team (Late st Contact Info) Description 01/18/2023 Orders Only Department of Cardiovascular Medicine in [place], [place] [address] [place] [phone] Esperanza Centeno M.S., [facility] [address] [place] [phone] Testing Genetic (Primary Dx) Social History Tobacco Use Types [...] often do you attend chur ch or taoism services? More than 4 times per year 11/24/2022 Do you belong to any clubs o r organizations such as pentecostal groups, unions, fraternal or athletic groups, or [...] Answer Date Recorded PHQ-2 Score 0 11/04/2022 [facility] [place] of Occupat ional Health - Occupational Stress [...] money to buy more. Never true 11/24/19 Within the past 12 months, t he [...] place to sleep or slept in a long-term (including now)? No 11/24/2022 Nutrition Answer Date [...] Name Type Priority Associated Diagnoses Order Schedule Clinical Genomics - Cardiology counseling consult (clinic) Outpatient Referral Routine Testing Genetic Expected: 01/18/2023 (Approximate), Expires: 04/19/2024 documented as of this encounter Visit Diagnoses Diagnosis Testing Genetic- Primary documented in this encounter Care Teams Escapement Matcher Relationship Specialty Start Date End Date None Reported, Pcp PCP - General Family Medicine 05/20/22 documented as of this encounter
--- OUTSIDE RECORDS SUMMARY | 2023-10-27 22:55 | XMS_ITS | Encounter Summary ---
Author Name Unknown Organization [facility] Address [address] [place] [address] Care Team Providers Care Fiberglass Pipe Covering Supervisor Name Role Phone None Reported, Pcp Primary Care Provider Unavail able Reason for Visit * Reason Onset Date Comments Aggressive Behavior 04/26/2023 Encounter Details Date Type Department Care Team (Latest Contact Info) Description 04/26/2023 Clinical Communication Department of Oncology in [place], [place] [address] [place] [address] Rachelle Gómez M.D. [address] [place] [address] Aggressive Behavior Social History Tobacco Use Types Packs/Day Years [...] often do you attend chur ch or anabaptist services? More than 4 times per year 11/24/2022 Do you belong to any clubs o r organizations such as quaker groups, unions, fraternal or athletic groups, or [...] Answer Date Recorded PHQ-2 Score 0 11/04/2022 [facility] of Occupat ional Health - [...] place to sleep or slept in a half-way (including now)? No 11/24/2022 Nutrition Answer Date [...] Notes * Telephone Encounter - Jeanette Farmer RParam. - 04/26/2023 5:11 PM CDT Patient also sent a portal message, which I responded back to with these recommendations. documented in this encounter Plan of Treatment Not on file documented as of this encounter Visit Diagnoses Not on filedocumented in this encounter Care Teams Fiberglass Pipe Covering Supervisor Relationship Specialty Start Date End Date None Reported, Pcp PCP - General Family Medicine 05/20/22 documented as of this encounter
--- OUTSIDE RECORDS SUMMARY | 2023-10-27 22:55 | XMS_ITS | Encounter Summary ---
Author Name Unknown Organization [facility] Address [address] [place] [address] Care Team Providers Care Senior Application Software Engineer Name Role Phone None Reported, Pcp Primary Care Provider Unavail able Reason for Referral * MRI/CAT/PET Scan (Routine) - Closed Specialty Diagnoses / Procedures Referred By Betsy manzanares Referred To Contact Radiology Diagnoses Endometriosis Procedures MR Gynecologic Pelvis without and with IV Contrast Rachelle Gómez M.D. [address] [place] [address] [facility] Referral ID Status Reason Start Date Expiration Date Visits Re quested Visits Authorized [id number] Closed 04/23/2023 04/22/2024 1 1 Reason for Visit * Outpatient (Routine) - Closed Specialty Diagnoses / Procedures Referred By Betsy manzanares Referred To Contact Obstetrics and Gynecology Diagnoses Hyperplasia Endometrial With Atypia Beba Webb M.D., Ph.D. [address] [place] [address] [facility] Referral ID Status Reason Start Date Expiration Date Visits Re quested Visits Authorized [id number] Closed 04/21/2023 04/20/2024 1 1 Encounter Details Date Type Department Care Team (Latest Contact Info) Description 04/23/2023 1:45 PM CDT Comprehensive Visit Department of Obstetrics and Gynecology in [place], [place] [address] [place] [address] Rachelle Gómez M.D. [address] [place] [address] Hyperplasia Endometrial With Atypia (Primary Dx); Endometriosis Social History Tobacco Use Types Packs/Day Years [...] often do you attend chur ch or yarsani services? More than 4 times per year [...] [facility] of Occupat ional Health - Occupational [...] PM CDT documented as of this encounter Consult Notes * Ivelisse Cameron D.O., M.S. - 04/23/2023 1:45 PM CDT SUBJECTIVE REFERRING PROVIDER Beba Webb M.D., Ph.D. REASON FOR VISIT Consult HISTORY OF PRESENT CONDITION Chief complaint: Endometrial hyperplasia with atypia Ms. Quinn is a 42 y.o., who presents in consultation at the request of Blake Webb M.D., Ph.D. for an opinion regarding endometrial hyperplasia with atypia. Patient's PMH is significant for history of PCOS, infertility, recurrent loss, ectopic treated with met hotrexate, and supraventricular tachycardia likely secondary to medications. Patient reports that she has been having intermittent right lower quadrant abdominal pain and underwent a pelvic ultrasound at an outside institution and was noted to have an abnormality on the ultrasound that prompted a hysteroscopy with polypectomy with a dye study. The pathology findings were consistent with hyperplasia with atypia. She reports that since undergoing her procedure she has not been feeling well and had increased watery discharge after her procedure and wonders about infection. Has not resumed sexual intercourse based on post-op recommendations. Denies any foul smelling discharge, fever, chills, consistent abdominal pain, or vaginal bleeding. Past surgical history is notable for a right cystectomy with benign findings, D&C, and endoscopy. The following portions of the patient's history [...] appearing, no apparent distress, alert and oriented. Lungs: Normal respiratory rate, no accessory muscle use. Psych: Normal affect. Abdomen: Nondistended, soft, nontender, no masses palpated, no ascites, no hepatosplenomegaly. Skin: Warm, dry, no rashes or lesions. Extremities: Bilateral lower extremities without edema or tenderness. Genitourinary Pelvic Examination including: External genitalia are normal in appearance. No lesions noted. Urethral meatus is normal size, location, and appearance. Urethra is negative. Bladder is nontender. No masses noted. Vagina has normal mucosa with physiologic discharge. No lesions noted. Uterus of normal size and mobility. Adnexa with no masses or nodularity noted. Cervix without any obvious hard nodules or lesion, she has a subcentimeter area of hypervascularitynoted at the 11 o'clock position, a hypopigemented area at the 5 o'clock position, and a even smaller dark blue area at the 8 o'clock position that could be a related to recent dye testing, overall no concerning findings. DIAGNOSTICS Hemoglobin Date Value Ref Range Status [...] Visit diagnosis: #1 Hyperplasia Endometrial With Atypia #2 Endometriosis I reviewed the pathology report with the patient. Unfortunately, the pathology does not notice thiswas simple hyperplasia or complex hyperplasia with atypia. The patient does desire fertility preservation. Given this, will plan to obtain her outside endometrial biopsy and have this reviewed here. We will then make our final recommendations for treatment. Discussed with the patient that management with hormones would be reasonable if she desires to maintain her uterus. Discussed with the patient that if we proceeded with uterine conserving treatment, we would obtain an MRI prior to hormone treatment. We would also obtain an MRI prior to surgery given her possible history of endometriosis. Ul missy, I discussed with the patient that she would need to determine how she would like to proceed, uterine preserving treatment versus surgery. Patient is leaning towards surgery, but at this time is unable to proceed with surgery. We will plan to proceed with MRI of the pelvis, review of outside pathology, and then discuss next steps in treatment with the patient. All questions were answered to the best of my ability. At this time, patient is undecided about future fertility and the decision to pursue IVF, I discussed with the patient that if we were to undergo medical management it would include treatment with progesterone therapy, likely and IUD with endometrial biopsy in six months with the goal of undergoingfertility shortly thereafter. We discussed that eventually we would recommend hysterectomy after childbearing. I also discussed with the patient that we will order an MRI of the pelvis to look for evidence of endometriosis. Additionally we will schedule her for IUD placement in the next few weeks. Patient would like to discuss with partner to determine future fertility plans. Patient can plan to h ave follow up in 6 months with biopsy, she can follow up sooner if she decides that she would like to pursue surgical management. All questions answered to the best of [...] the patient that in our practice at [facility], we sometimes perform overlapping surgeries, meaning that I will be present for the entire critical portion of the surgery, and that my team members will assist me with the noncritical portions of the procedure. BILLING I spent 60 minutes in [id number]-[id number] consultation, greater than 50% of the time spent counseling. Ivelisse Cameron D.O., M.S. Associated attestation - Rachelle Gómez M.D. - 04/28/2023 8:45 AM CDT I saw and evaluated the patient, participating in the messina portions of the service. I reviewed the resident/fellow???s note. I agree with the resident/fellow???s findings and plan. Patient was seen and evaluated with the resident. Please see note dictated by Dr. Cameron. I spent 60 minutes in [id number]-[id number] consultation. documented in this encounter Plan of Treatment Not on file documented as of this encounter Results * MR Gynecologic Pelvis [...] Tarlov cysts. Procedure Note Aramis Velazquez M.B.B.S., M.D. - 2023 EXAM: MR GYNECOLOGIC PELVIS WITHOUT [...] infiltrative endometrial deposits within the pelvis. Rachelle Gómez M.D. IMG MRI PROCEDU RES * Pathology Review of Outside Material (04/12/2023 10:53 AM CDT) 05/18/2023 4:32 PM CDT DTL Participated in the Interpretation Lashanda Mckeon M.D. -Pathology Resident 05/18/2023 4:32 PM CDT DTL Report electronically signed by Everette Mata M.D. I verify that I have examined all relevant slides/materials for the specimen(s) and rendered or confirmed the diagnosis. Seen with Dr. Rod Saba. 05/18/2023 4:32 PM CDT DTL Material Received A. [id number]: Endometrium ? 3 stained slides 05/18/2023 4:32 PM CDT DTL Interpretation REVISION DESCRIPTION Additional information. Underlining in the PDF report indicates revision. FINAL DIAGNOSIS Endometrium, biopsy ([id number]; 04/12/2023): Endometrial hyperplasia with atypia ??(Endometrioid intraepithelial neoplasia, EIN), ??focally involving an endometrial polyp. 05/18/2023 4:32 PM CDT DTL Comment: REVISED RESULTS ----PREVIOUSLY REPORTED ---- FINAL DIAGNOSIS Endometrium, biopsy ([id number]; 04/12/2023): Endometrial hyperplasia with atypia, focally involving an endometrial polyp., Flagged as: ??(Reported 05/13/2023 16:34) Varies 04/12/2023 10:5 3 AM CDT 05/05/2023 11:03 AM CDT Rachelle Gómez M.D. LAB SURG PATH O RDERABLES [facility] [address] [place] [address], [facility] DTL [address] [place] [address] documented in this encounter Visit Diagnoses Diagnosis Hyperplasia Endometrial With Atypia- Primary Endometriosis Endometriosis documented in this encounter Care Teams Senior Application Software Engineer Relationship Specialty Start Date End Date None Reported, Pcp PCP - General Family Medicine 05/20/22 documented as of this encounter
--- OUTSIDE RECORDS SUMMARY | 2023-10-27 22:55 | XMS_ITS | Encounter Summary ---
Author Name Unknown Organization [facility] Address [address] [place] [address] Care Team Providers Care Embryology Professor Name Role Phone None Reported, Pcp Primary Care Provider Unavail able Reason for Referral * Outpatient (Routine) - Authorized Specialty Diagnoses / Procedures Referred By Contac t Referred To Contact Sleep Medicine Diagnoses Disturbance Sleep Kyra Faulkner M.B., B.Ch. [address] [place] [phone] [facility] Referral ID Status Reason Start Date Expiration Date Visits Requested Visits Authorized [id number] Authorized Specialty Services Required 12/03/2022 12/03/2023 1 1 PATIONAL THERAPIST PER DIEM Encounter Details Date Type Department Care Team (Late st Contact Info) Description 12/03/2022 Orders Only Division of Endocrinology in [place], [place] [address] [place] [phone] Kyra Faulkner M.B., B.Ch. [address] [place] [phone] Disturbance Sleep (Primary Dx) Social History Tobacco Use Types [...] often do you attend chur ch or mandaen services? More than 4 times per year 11/24/2022 Do you belong to any clubs o r organizations such as sabianism groups, unions, fraternal or athletic groups, or [...] Answer Date Recorded PHQ-2 Score 0 11/04/2022 [facility] [place] of Occupat ional Health - Occupational Stress [...] place to sleep or slept in a prison (including now)? No 11/24/2022 Nutrition Answer Date [...] Type Priority Associated Diagnoses Orde r Schedule Sleep Medicine - General consult (clinic) Outpatient Referral Routine Disturbance Sleep Expected: 12/03/2022 (Approximate), Expires: 03/02/2024 documented as of this encounter Visit Diagnoses Diagnosis Disturbance Sleep- Primary documented in this encounter Care Teams Embryology Professor Relationship Specialty Start Date End Date None Reported, Pcp PCP - General Family Medicine 05/20/22 documented as of this encounter
--- OUTSIDE RECORDS SUMMARY | 2023-10-27 22:55 | XMS_ITS | Encounter Summary ---
Author Name Unknown Organization [facility] Address [address] [place] [address] Care Team Providers Care Quality Lab Technician Name Role Phone None Reported, Pcp Primary Care Provider Unavail able Reason for Referral * Outpatient (Routine) - Closed Specialty Diagnoses / Procedures Referred By Contac t Referred To Contact Obstetrics and Gynecology Diagnoses Hyperplasia Endometrial With Atypia Rachelle Gómez M.D. [address] [place] [address] [facility] Referral ID Status Reason Start Date Expiration Date Visits Re quested Visits Authorized [id number] Closed 04/26/2023 04/25/2024 1 1 Scheduling Instructions Virtual visit with Doctor Rico Encounter Details Date Type Department Care Team (Late st Contact Info) Description 04/26/2023 Orders Only Department of Obstetrics and Gynecology in [place], [place] [address] [place] [address] Jeanette Farmer S, RAmandaN. [address] [place] [phone] Hyperplasia Endometrial With Atypia (Primary Dx) Social [...] often do you attend chur ch or alevism services? More than 4 times per year [...] Answer Date Recorded PHQ-2 Score 0 11/04/2022 [facility] [place] of Occupat ional Health - Occupational Stress [...] place to sleep or slept in a custodial (including now)? No 11/24/2022 Nutrition Answer Date [...] Type Priority Associated Diagnoses Orde r Schedule Obstetrics and Gynecology - Gynecologic oncology surgery consult (clinic) Outpatient Referral Routine Hyperplasia Endometrial With Atypia Expected: 04/26/2023 (Approximate), Expires: 07/27/2024 documented as of this encounter Visit Diagnoses Diagnosis Hyperplasia Endometrial With Atypia- Primary documented in this encounter Care Teams Quality Lab Technician Relationship Specialty Start Date End Date None Reported, Pcp PCP - General Family Medicine 05/20/22 documented as of this encounter
--- OUTSIDE RECORDS SUMMARY | 2023-10-27 22:55 | XMS_ITS | Encounter Summary ---
Author Name Unknown Organization [facility] Address [address] [place] [address] Care Team Providers Care Publicity Person Name Role Phone None Reported, Pcp Primary Care Provider Unavail able Reason for Referral * Outpatient (Routine) - Closed Specialty Diagnoses / Procedures Referred By Contac t Referred To Contact Obstetrics and Gynecology Diagnoses Hyperplasia Endometrial With Atypia Beba Webb M.D., Ph.D. [address] [place] [address] [facility] Referral ID Status Reason Start Date Expiration Date Visits Re quested Visits Authorized [id number] Closed 04/21/2023 04/20/2024 1 1 Reason for Visit * Reason Onset Date Comments Next Steps 04/21/2023 Encounter Details Date Type Department Care Team (Late st Contact Info) Description 04/21/2023 Clinical Communication Department of Obstetrics and Gynecology in [place], [place] [address] [place] [phone] eLigha Swann M.D. [address] [place] [phone] Next Steps Social History Tobacco Use Types Packs/Day Years [...] often do you attend chur ch or mosque services? More than 4 times per year [...] Answer Date Recorded PHQ-2 Score 0 11/04/2022 [facility] [place] of Occupat ional Health - Occupational Stress [...] encounter Miscellaneous Notes * Telephone Encounter - Candice Mckinley RIvan - 04/21/2023 4:16 PM CDT Information Discussed Patient calls to discuss management of endometrial hyperplasia with atypia. PLAN Referral ordered to Icicle Machine Operator ONC per SB to manage care. Disposition/Recommendation: recommended continue engagement in self-management activities Information/Education: patient/caller able to teach back Caller agreeable to plan of care: yes The following references were used: provider SB documented in this encounter Plan of Treatment Scheduled Referrals Name Type Priority Associated Diagnoses Orde r Schedule Obstetrics and Gynecology - Gynecologic oncology surgery consult (clinic) Outpatient Referral Routine Hyperplasia Endometrial With Atypia Expected: 04/21/2023 (Approximate), Expires: 07/22/2024 documented as of this encounter Visit Diagnoses Diagnosis Hyperplasia Endometrial With Atypia- Primary documented in this encounter Care Teams Publicity Person Relationship Specialty Start Date End Date None Reported, Pcp PCP - General Family Medicine 05/20/22 documented as of this encounter
--- OUTSIDE RECORDS SUMMARY | 2023-10-27 22:55 | XMS_ITS | Encounter Summary ---
Author Name Unknown Organization [facility] Address [address] [place] [address] Care Team Providers Care Contact Center Director Name Role Phone None Reported, Pcp Primary Care Provider Unavail able Encounter Details Date Type Department Care Team (Late st Contact Info) Description 04/23/2023 4:10 PM CDT Lab RST RO LMP [address] [place] [address] Rachelle Gómez M.D. [address] [place] [phone] Hyperplasia Endometrial With Atypia Social History Tobacco [...] often do you attend chur ch or restorationist services? More than 4 times per year [...] Answer Date Recorded PHQ-2 Score 0 11/04/2022 [facility] [place] of Occupat ional Health - Occupational Stress [...] place to sleep or slept in a jail (including now)? No 11/24/2022 Nutrition Answer Date [...] as of this encounter Miscellaneous Notes * Result Encounter Note - Rachelle Gómez M.D. - 05/17/2023 8:55 AM CDT I have reviewed the final pathology report and the identified diagnosis is consistent with the patient's clinical presentation. I have reviewed the final pathology with the patient. The final pathology shows complex hyperplasia with atypia. documented in this encounter Plan of Treatment Not on file documented as of this encounter Procedures Procedure Name Priority Date/Time Associated Diagnosis Comments PATHOLOGY REVIEW OF OUTSIDE MATERIAL Routine 04/12/2023 10:53 AM CDT Hyperplasia Endometrial With Atypia documented in this encounter Results * Pathology Review of Outside Material (04/12/2023 [...] 4:32 PM CDT DTL Material Received A. [id number]: Endometrium ? 3 stained slides 05/18/2023 4:32 PM CDT DTL Interpretation REVISION DESCRIPTION Additional information. Underlining in the PDF report indicates revision. 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 05/18/2023 4:32 PM CDT DTL Comment: REVISED RESULTS ----PREVIOUSLY REPORTED ---- FINAL DIAGNOSIS Endometrium, biopsy ([id number]; 04/12/2023): Endometrial hyperplasia with atypia, focally involving an endometrial polyp., Flagged as: ??(Reported 05/13/2023 16:34) Varies 04/12/2023 10:5 3 AM CDT 05/05/2023 11:03 AM CDT Rachelle Gómez M.D. LAB SURG PATH O RDERABLES [facility] [address] [place] [address], [facility] DTL [address] [place] [address] documented in this encounter Visit Diagnoses Diagnosis Hyperplasia Endometrial With Atypia documented in this encounter Care Teams Contact Center Director Relationship Specialty Start Date End Date None Reported, Pcp PCP - General Family Medicine 05/20/22 documented as of this encounter
--- OUTSIDE RECORDS SUMMARY | 2023-10-27 22:55 | XMS_ITS | Encounter Summary ---
Author Name Unknown Organization [facility] Address [address] [place] [address] Care Team Providers Care Facilities Engineer Name Role Phone None Reported, Pcp Primary Care Provider Unavail able Reason for Visit * Outpatient (Routine) - Closed Specialty Diagnoses / Procedures Referred By Betsy t Referred To Contact Clinical Genomics Diagnoses Recurrent Loss Not Currently Procedures Clinical Genomics - Connective Tissue Disease eConsult June Brady P.A.-C. [address] [place] [address] [facility] Referral ID Status Reason Start Date Expiration Date Visits Re quested Visits Authorized [id number] Closed 11/20/2022 11/20/2023 1 1 Encounter Details Date Type Department Care Team (Latest Contact Info) Description 11/27/2022 1:30 PM EXCAVATOR OPERATOR Internal E-Consult Department of Medical Genetics in [place], [place] [address] [place] [phone] Santi Holt M.D. [address] [place] [phone] Recurrent Loss Not Currently Social History Tobacco Use Types Packs/Day Years [...] How often do you attend chur or judaism services? More than 4 times per year 11/24/2022 Do you belong to any clubs o r organizations such as voodoo groups, unions, fraternal or athletic groups, or [...] Answer Date Recorded PHQ-2 Score 0 11/04/2022 [facility] [place] of Occupat ional Health - Occupational Stress [...] as of this encounter Consult Notes * Santi Holt M.D. - 11/27/2022 1:30 PM CST The patient was not personally interviewed or examined. The history and examination findings are based on the clinical documentation provided and/or discussed with a physician or provider who had personally interviewed and examined the patient. Referring Physician: June Brady P.A.-C. CHIEF COMPLAINT / REASON FOR VISIT Beth Quinn is a 42 y.o. female. Specific clinical question: HISTORY OF PRESENT ILLNESS Ms. Quinn is a 42-year-old female with a history of infertility and recurrent miscarriages. She has a history of PCOS and has irregular menses since being a teenager. She has been on multiple rounds of IVF and has had multiple losses including an ectopic . She also has a history that has been suggested to be POTS. The question is whether she could have underlying connective tissue disorder leading to multiple miscarriages. ASSESSMENT / PLAN 1. Multiple losses There are certain connective tissue disorders that can lead to loss however the vast majority of connective tissue disorders do not have loss as associated finding. These disorders do not lead two miscarriages but actual incompetence cervix and premature delivery. In addition these individuals will have other associated findings which Ms. Quinn does not have based on the electronic medical record. While there are other genetic conditions that can lead to miscarriages thisis generally not seen in connective tissue disorders. This would be more typical of acquired connective tissue disorders that be better addressed by Rheumatology. VATOR OPERATOR documented in this encounter Plan of Treatment Not on file documented as of this encounter Visit Diagnoses Diagnosis Recurrent Loss Not Currently documented in this encounter Care Teams Facilities Engineer Relationship Specialty Start Date End Date None Reported, Pcp PCP - General Family Medicine 05/20/22 documented as of this encounter
--- OUTSIDE RECORDS SUMMARY | 2023-10-27 22:55 | XMS_ITS | Encounter Summary ---
Author Name Unknown Organization [facility] Address [address] [place] [address] Care Team Providers Care Distribution Accounting Clerk Name Role Phone None Reported, Pcp Primary Care Provider Unavail able Reason for Visit * Outpatient (Routine) - Closed Specialty Diagnoses / Procedures Referred By Contac t Referred To Contact Obstetrics and Gynecology Diagnoses Recurrent Loss Not Currently June Brady P.A.-CAmanda [address] [place] [address] [facility] Referral ID Status Reason Start Date Expiration Date Visits Re quested Visits Authorized [id number] Closed 11/23/2022 11/23/2023 1 1 Encounter Details Date Type Department Care Team (Late st Contact Info) Description 11/30/2022 1:00 PM ELECTRONIC GAME DEVELOPER Nurse Only Department of Obstetrics and Gynecology in [place], [place] [address] [place] [address] June Brady P.A.-C. [address] [place] [phone] Marylu Menezes Social History Tobacco Use Types Packs/Day Years [...] often do you attend chur ch or amish services? More than 4 times per year 11/24/2022 Do you belong to any clubs o r organizations such as adventism groups, unions, fraternal or athletic groups, or [...] Answer Date Recorded PHQ-2 Score 0 11/04/2022 [facility] [place] of Occupat ional Health - Occupational Stress [...] as of this encounter Progress Notes * Marylu Menezes - 11/30/2022 1:00 PM CST CHIEF COMPLAINT/PURPOSE OF VISIT Obtain and construct family history for clinical assessment over the phone. HISTORY OF PRESENT ILLNESS Please see Taryn Singh MS, [facility] Clinical Genomics consultation for further details. FAMILY HISTORY A family history was obtained by phone and constructed for the Reproductive Endocrinology and Infertility (RAI) consult. The complete family history has been saved as a scanned document and is available for viewing. The patient was seen in Reproductive Endocrinology and Infertility ([facility]) by Taryn Singh MS, [facility]. Please see the consult note regarding pertinent findings of the family history in relation to the differential diagnosis and clinical assessment. TRONIC GAME DEVELOPER documented in this encounter Plan of Treatment Not on file documented as of this encounter Visit Diagnoses Diagnosis Recurrent Loss Not Currently documented in this encounter Care Teams Distribution Accounting Clerk Relationship Specialty Start Date End Date None Reported, Pcp PCP - General Family Medicine 05/20/22 documented as of this encounter
--- OUTSIDE RECORDS SUMMARY | 2023-10-27 22:55 | XMS_ITS | Encounter Summary ---
Author Name Unknown Organization [facility] Address [address] [place] [address] Care Team Providers Care Painter And Body Mechanic Apprentice Name Role Phone None Reported, Pcp Primary Care Provider Unavail able Encounter Details Date Type Department Care Team (Late st Contact Info) Description 11/27/2022 Clinical Communication Division of Endocrinology in [place], [place] [address] [place] [address] Kyra Faulkner M.B., B.Ch. [address] [place] [address] Social History Tobacco Use Types Packs/Day Years [...] any clubs o r organizations such as jew groups, unions, fraternal or athletic groups, or [...] Answer Date Recorded PHQ-2 Score 0 11/04/2022 [facility] of Occupat ional Health - [...] on filedocumented in this encounter Care Teams Painter And Body Mechanic Apprentice Relationship Specialty Start Date End Date None Reported, Pcp PCP - General Family Medicine 05/20/22 documented as of this encounter
--- OUTSIDE RECORDS SUMMARY | 2023-10-27 22:55 | XMS_ITS | Encounter Summary ---
Author Name Unknown Organization [facility] Address [address] [place] [address] Care Team Providers Care X Ray Nurse Name Role Phone None Reported, Pcp Primary Care Provider Unavail able Reason for Visit * Outpatient (Routine) - Closed Specialty Diagnoses / Procedures Referred By Contac t Referred To Contact Obstetrics and Gynecology Diagnoses Recurrent Loss Not Currently June Brady P.A.-CAmanda [address] [place] [phone] [facility] Referral ID Status Reason Start Date Expiration Date Visits Re quested Visits Authorized [id number] Closed 11/23/2022 11/23/2023 1 1 Encounter Details Date Type Department Care Team (Late st Contact Info) Description 12/01/2022 1:00 PM EDUCATION TRAINER Telemedicine Department of Obstetrics and Gynecology in [place], [place] [address] [place] [phone] June Brady P.A.-CAmanda [address] [place] [phone] Taryn Singh M.S., JD [facility] [address] [place] [address] [phone] Counseling Genetic For Family Planning (Primary Dx); Encounter Of Female For Testing For Genetic Disease Carrier Status For Procreative Management Social History Tobacco Use Types Packs/Day Years [...] week 11/24/2022 How often do you attend up health system or religion services? More than 4 times per year 11/24/2022 Do you belong to any clubs o r organizations such as methodist groups, unions, fraternal or athletic groups, or [...] Answer Date Recorded PHQ-2 Score 0 11/04/2022 [facility] - Occupational [...] as of this encounter Consult Notes * Taryn Singh M.S., NICK - 12/01/2022 1:00 PM CST Images from the original note were not included. REASON FOR VISIT Preconception consultation Recurrent miscarriages HISTORY OF PRESENT ILLNESS Beth was referred by Priya Knight-* for preconception genetic counseling. Beth and her partner have been trying to conceive for 10 years. They have had 5 miscarriages. Both Beth and her partner are reported to have had a normal karyotype. 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 Herpregnancy history is of note for five previous pregnancies. Prior genetic testing includes: - karyotype analysis (46,XX and 46,XY respectively) - chromosome analysis on POC for G3: FISH negative for trisomies 13, 16 and 18 but full karyotype not able to be performed due to specimen being in formalin The patient is unaccompanied. Consult conducted via real-time audio/video technology by Taryn Singh M.S., NICK in [facility] to the patient in Patient's Home FAMILY HISTORY A focused family history was obtained prior to today's appointment by Marylu Menezes. Our risk assessment is based upon medical and family history information as provided by the patient, and may change should new information be obtained. Overall, the remainder of the family history is not significant for intellectual disability, defects, multiple miscarriages or , or known genetic disorders. Beth is of descent. Her partner is of descent. There is no reported Ashkenazi Anabaptist ancestry or consanguinity. PATIENT EDUCATION #1 Preconception genetic counseling #2 Recurrent Loss Recurrent loss We discussed the couple's history of five early miscarriages. The most common cause for miscarriageis sporadic aneuploidy due to random errors in the formation of egg or sperm. There are age relatedrisk factors for sporadic aneuploidy and studies have shown that couples who have had a prior trisomic may have a slightly higher risk in future pregnancies. In many cases, the exact cause for miscarriage cannot be determined. However, about 3-5% of couples with recurrent lossesare carriers for a balanced chromosomal translocation. Balanced translocation carriers can produce gametes with an unbalanced translocation (usually a large chromosome deletion and duplication) whichcould result in significant disability in a child, or, more commonly, miscarriage of the .Both Beth and her partner have reportedly had normal karyotypes. We discussed the limitation of karyotypes being that very small deletions and duplications could be missed by standard karyotype analysis, however smaller changes may actually be more likely to result in a that progressesfurther in to the second or third trimester or live but present with congenial anomalies or developmental delays. Outside of chromosome microarray on POC testing, testing for balanced smaller copy number variants in parents is not readily available. Other non-genetic factors have been associated with RPL including uterine or cervical anomalies, Asherman syndrome, uterine fibroid or polyps, antiphospholipid syndrome, preexisting diabetes and PCOShave all been associated with increased risks of recurrent miscarriages. As I am not an expert in these evaluations, further assessment would be best undertaken by the couple's health care provider or our Reproductive Endocrinology group. For many couples, no identifiable cause will be discovered despite a thorough evaluation. We reviewed other possible genetic mechanisms such as recessively inherited conditions could certainly be an explanation for recurrent miscarriages, although at this time, our understanding of genes associated with an embryonic lethal phenotype are limited and the availability of clinical testing for this purpose is not widely available. There are some suggestions that homozygous or compound heterozygous mutations that result in Rwoxe-Vhzkh-Qsuuz syndrome could result in increased risk for miscarriage. Other studies have shown that certain metabolic disorders such as amnio acid, peroxisomal and lysosomal storage disorders, or alpha thalassemia major or X-linked male lethal disorders could al so be an explanation. Recently, pathogenic variants in genes associated with Long QT syndrome have been suggested to be linked to stillbirth. Mutations in these genes were reported in 3.3% of stillbirths compared to <0.05% in the general population, however these genes have not been studied in recurrent loss. For many of these examples, there are likely risks of later term (second orthird trimester) miscarriages rather than early gestation losses. To date, hundreds of genes have been linked to sporadic or recurrent loss and the genes can be catalogued in to pathways pertinent to a successful such as genes associated with or increasing the risk of aneuploidyor other chromosome abnormalities, placental developmental abnormalities, maternal immunologic dysregulation (including hyperimmunity), autoimmunity, and human leukocyte antigen abnormalities, thrombophilias, and angiogenic pathways. For the vast majority of these polymorphisms, the degree of association with RPL was quite modest, and screening for these is not clinically useful. There are assuredly a larger number of single gene mutations that cause RPL that are as yet undiscovered in humans. Numerous transgenic mice have been created that have been shown to be embryonic lethal often at predictable times in gestation/development. Translation to human RPL and availability of clinical testing for these types of disorders is not available. Further research in this arena is ongoing. There is an ongoing study at [facility] through Dr. Sarika Reid's group that is working to try to identify genetic factors responsible for repeated hydatidiform moles, spontaneous abortions and infertility. Research testing may be lengthy and not guaranteed to provide in any actionable results. We discussed female infertility genetic testing panels which are clinically available but generallyhave an extremely low yield since many of the genes included on the panels are associated with syndromic infertility (eg Bardet Biedl, Galactosemia, Kallman syndrome etc). Some of the genes are associated with oocyte maturation which would not fit Beth's clinical presentation. Possible results from this testing could include positive, negative or variant of uncertain significance. If a variantwere identified, it may or may not be something that could be actionable. Similarly, if this testing is not diagnostic, we would be in the same spot we are today. Beth notes that she and her partner are considering not trying for again or building their family in other ways and that insome ways, undergoing more testing would help them know they looked in to every possible avenue andclose this chapter (no stone left unturned). We also reviewed the availability of carrier screening which screens for carrier status a number ofinherited conditions. We discussed the nature of recessive conditions is such that a known family history could be negative for any affected individuals since both parents must be carriers for a child to be affected with an autosomal recessive condition. Approximately 80% of children affected by a recessive or X-linked disorder have no known family history of the condition. The [employer] [employer] ([employer]) published updated carrier screening recommendationsin 2020 due to evidence that supports the clinical utility of screening for multiple conditions simultaneously. Carrier screening should be ethnic and population neutral and more inclusive of diversepopulations to promote equity and inclusion. Due to this, ACMG recommends a tier-based system of carrier screening and recommends that all individuals be offered carrier screening for conditions thatthey have at least a 1 in 200 chance of being a carrier. Several laboratories offer carrier screening panels which screen for multiple recessive and some X-linked conditions. We discussed the availability of several different options depending on how much information a patient desires. Additional conditions screened for are individually rare, but, collectively, they are common and, together, they account for more than 10% of pediatric deaths. Over 80% of affected children will have no family history of the disorder. Carrier screening can be targeted to as few as 1-2 conditions to up to nearly 300 conditions. We discussed the variability in the severity of conditions as well as the options for preimplantation, or genetic diagnosis. With any carrier screening, the sensitivity of the testing is generally 90-99% for most genes tested. Negative results are risk-reducing, not risk eliminating and therefore there is still a small residual risk that an individual who screens negative could still be a carrier. Variants of uncertain significance (VUS's) are not reported. Expanded carrier screening does not screen for all possible autosomal recessive and X-linked genetic conditions. Additionally, there are dominant, X-linked, de jennifer and chromosomal conditions which cannot be detected with this screen. Carrier screening does not test for adult-onset conditions. However, some carriers may have implications for their own health. For example, 20% of women who are carriers of Fragile X syndrome will have premature ovarian insufficiency (POI) and carriers of Ataxia Telangiectasia may have a slightly increased lifetime risk of certain cancers. If an individual is identified to be a carrier of any of the conditions, all first degree relatives(parents, children and siblings) are at a 50% risk to also be a carrier of the same disorder. This information should be shared with at- risk relatives who are of reproductive age. Testing children for carrier status is not indicated until the child is of reproductive age and can make decisions for themselves on whether they wish to undergo carrier testing. Approximately 2-3% of couples are carrier couples. If they are both carriers of the same recessive genetic condition, they would have a 25% risk of having an affected child. If a woman is a carrierof an X-linked condition, there could be up to 50% risk to her children depending on the sex of thefetus. diagnostic testing or preimplantation genetic diagnosis would be available and would be discussed in further detail if indicated. The cost of this testing was reviewed. I explained that carrier screening is unlikely to provide answers for RPL, however it could be a factor in which the couple elects to not proceed with pursuing spontaneous because of risks to offspring and maybe elects for assisted reproductive technologies or grows their family through adoption. 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 her personal history is of note forhypermobility and POTS. She has not undergone any genetic testing related to hypermobility. Beth wonders if hypermobile Gina Danlos Syndrome (hEDS) could explain explain her history of hypermobility. We reviewed that hEDS can only be diagnosed if all of the following criteria are met: Generalized joint hypermobility with Beighton score of greater than or equal to 5 for adults up to age 50 Evidence of at least 5 syndromic features, musculoskeletal complications and/or positive family history (confirmed hEDS) Absence of all of the following: skin fragility, other heritable connective tissue disorders, otheracquired connective tissue disorders. Our Clinical People Manager has reviewed her medical record and has determined that she does not have enough criteria for hEDS, nor would this history explain her history of RPL. A rheumatology consultation was suggested. As a genetic counselor, I am unable to perform a physical exam to confirm or rule out this diagnosis. However, general education on hypermobility disorders was discussed today. Hypermobility disorders can present on-going clinical issue for patients throughout their life. Chronic joint pain, soft and mildly hyperextensible skin, and joint subluxations and dislocations are common even with minimal trauma. Degenerative joint disease is common. Easy bruising, POTS, Raynaud syndrome, functional bowel disease are occasionally present. Less than a third of individuals will have aortic root dilation and usually if this is present, it is at a mild degree. There is no increased risk of aortic dissection in the absence of significant dilation. If dilation is present it is typically stable over time. Unfortunately, no clinical genetic testing currently exists to verify a clinical suspicion for hypermobility disorders so even if Beth did meet criteria for hEDS, we would not be able to offer hertesting or test at risk relatives. Although there is no known gene related to general hypermobility disorders at this time, the inheritance is appears to be autosomal dominant with reduced penetrance and variable expressivity. It is not easy to predict how significantly affected an individual will be if they do present with symptoms. But it is hoped that appreciating this inheritance, and taking conservative measures to help limitjoint trauma in those who may be affected, we will help them lead waller lives. With regard to management, typically there is no need for any different management. Womenwho have hypermobility are generally not at increased risks for complications and have normal pregnancies and deliveries. A small study suggests that labor and delivery may progress quicker(<4 hours) in approximately one third of women but the actual incidence and risk over the general population is unknown. Joint laxity often increases in all women due to hormonal effects on the joints so this may be exacerbated in women with hypermobility. There is no clear advantage tovaginal vs. delivery. may reduce the risk of hip dislocation but carries the riskof surgical complications and poor wound healing. There is not increased risk for cervical incompetence and no other known complications associated with hypermobility. While there is no cure for hypermobility, symptomatic therapies are available that can help. Interaction with a pain clinic can be helpful. In addition, some OT/ PT can help to build up collateral muscles that will help to stabilize joints along with the ligaments. PLAN: Carrier screening pursued today Beth will be sent a saliva kit by the laboratory. We will submit a benefits investigation to [employer] for further testing It was a pleasure to meet Beth today. The patient was encouraged to contact me with any further questions. Patient Education: The impression and plans were explained in detail. There were no apparent barriers to learning or understanding. Questions were answered. 100% of 60 minutes spent on counseling and coordination of care. Taryn Singh M.S., NICK ATION TRAINER documented in this encounter Plan of Treatment Pending Results Name Type Priority Associated Diagnoses Date /Time [id number] [facility] - Miscellaneous Test Lab Routine Encounter Of Female For Testing For Genetic Disease Carrier Status For Procreative Management 12/28/2022 12:00 AM CDT documented as of this encounter Visit Diagnoses Diagnosis Counseling Genetic For Family Planning- Primary Encounter Of Female For Testing For Genetic Disease Carrier Status For Procreative Management documented in this encounter Care Teams X Ray Nurse Relationship Specialty Start Date End Date None Reported, Pcp PCP - General Family Medicine 05/20/22 documented as of this encounter
--- OUTSIDE RECORDS SUMMARY | 2023-10-27 22:56 | XMS_ITS | Encounter Summary ---
Author Name Unknown Organization [facility] Address [address] [place] [address] Care Team Providers Care Coverage Analyst Name Role Phone None Reported, Pcp Primary Care Provider Unavail able Reason for Visit * Outpatient (Routine) - Closed Specialty Diagnoses / Procedures Referred By Contac t Referred To Contact Endocrinology Diagnoses Adrenal Gland Disorder (HCC) Polycystic Ovary Syndrome June Brady P.A.-CAmanda [address] [place] [phone] [facility] Referral ID Status Reason Start Date Expiration Date Visits Re quested Visits Authorized [id number] Closed 11/04/2022 11/04/2023 1 1 Encounter Details Date Type Department Care Team (Late st Contact Info) Description 11/04/2022 10:00 AM [facility] Telemedicine Division of Endocrinology in [place], [place] [address] [place] [phone] June Brady P.A.-CAmanda [address] [place] [phone] Kyra Faulkner M.B., B.Ch. [address] [place] [phone] Adrenal Gland Disorder (HCC); Polycystic Ovary Syndrome Social History Tobacco Use Types Packs/Day Years Used Date Smoking Tobacco: Never Smokeless Tobacco: Never Humiliation, Afraid, Rape, and Kick questionnair e Answer Date Recorded Within the last year, have y ou been afraid of your partner or ex-partner? No 05/21/2022 Within the last year, have y ou been humiliated or emotionally abused in other ways by your partner or ex-partner? No Within the last year, have y ou been kicked, hit, slapped, or otherwise physically hurt by your partner or ex-partner? No 05/21/2022 Within the last year, have y ou been raped or forced to have any kind of sexual activity by your partner or ex-partner? No 05/21/2022 Social Connection and Isolat ion Panel [NHANES] Answer Date Recorded In a typical week, how many times do you talk on the phone with family, friends, or neighbors? More than three times a week 05/21/2022 How often do you get togethe r with friends or relatives? Twice a week 05/21/2022 How often do you attend [facility] or rastafari services? More than 4 times per year 05/21/2022 Do you belong to any clubs o r organizations such as pentecostal groups, unions, fraternal or athletic groups, or school groups? Yes 05/21/2022 How often do you attend meet ings of the clubs or organizations you belong to? 1 to 4 times per year 05/21/2022 Are you , , di vorced, , never , or living with a partner? 05/21/2022 AUDIT-C Answer Date Recorded Q1: How often do you have a drink containing alc ohol? Never 05/21/2022 Q2: How many drinks containi ng alcohol do you have on a typical day when you are drinking? 1 or 2 05/21/2022 Q3: How often do you have six or more drinks on one occasion? Never 05/21/2022 Overall Financial Resource Strain (CARDIA) Answe r Date Recorded How hard is it for you to pa y for the very basics like food, housing, medical care, and heating? Not hard at all 05/21/2022 PHQ-2 Answer Date Recorded PHQ-2 Score 0 11/04/2022 [facility] - Occupational Stress Questionnaire Answer Date Recorded Do you feel stress - tense, restless, nervous, or anxious, or unable to sleep at night because your mind is troubled all the time - these days? Only a little 05/21/2022 Exercise Vital Sign Answer Date Recorde d On average, how many days pe r week do you engage in moderate to strenuous exercise (like a brisk walk)? 1 day 05/21/2022 On average, how many minutes do you engage in exercise at this level? 20 min 05/21/2022 Hunger Vital Sign Answer Date Recorded Within the past 12 months, y ou worried that your food would run out before you got the money to buy more. Never true 05/21/20 Within the past 12 months, t he food you bought just didn't last and you didn't have money to get more. Never true 05/21/2022 PRAPARE - Transportation Answer Date Re corded In the past 12 months, has l ack of transportation kept you from medical appointments or from getting medications? No 01/2022 In the past 12 months, has l ack of transportation kept you from meetings, work, or from getting things needed for daily living? No 05/21/2022 Housing Stability Vital Sign Answer Cornelio e Recorded In the last 12 months, was t here a time when you were not able to pay the mortgage or rent on time? No 05/21/2022 In the last 12 months, how many places have you lived? 1 05/21/2022 In the last 12 months, was t here a time when you did not have a steady place to sleep or slept in a care home (including now)? No 05/21/2022 Nutrition Answer Date Recorded Nutrition: EVOO Fat Source No 05/21 On average, how many serving s of fruits and vegetables do you eat per day (serving size is equal to 1 cup or approximately the size of a tennis ball)? 2-3 05/21/2022 Dental Answer Date Recorded Dental: Regular Dentist Yes 05/21/20 Employment Answer Date Recorded Employment status Unemployed/not in th e paid workforce and NOT seeking employment 05/21/2022 Education Answer Date Recorded What is the [...] as of this encounter Consult Notes * Kyra Faulkner M.B., B.. - 11/04/2022 10:00 AM CST SUBJECTIVE REASON FOR CONSULT Rule out adrenal tumor. HISTORY OF PRESENT ILLNESS Beth is a very pleasant 42-year-old woman who visits today via real-time audio-video technology by Dr. Faulkner in [place] to the patient at home. She has seen Endocrinology in the past principally for abnormal thyroid function testing which is now normal. She has also met with our fertility group for recurrent miscarriages and met with Tristan this morning. She has a background history of PCOS that was diagnosed at the age of 18. Her androgen levels show mild elevation in DHEA, and her ovarian ultrasound and AMH are consistent with polycystic ovarian morphology. She has had menstrual irregularity since teenage years. She also has associated dyslipidemia. She was treated with control tablets until 23. She also has symptoms of hirsutism and acne. No cushingoid or acromegalic features. Since December of 2021, after treatment of methotrexate for loss, she has developed intermittent tachycardia that is predominantly present and symptomatic at night. This will typically wake her up. She has utilized her smart watch, and she has no evidence of hypoxia. She did have a Holter performed through her continuous improvement engineer at home which revealed intermittent tachycardia that was mostly sinus in rhythm. There was one episode of PSVT. The highest beats per minute was 147. Her continuous improvement engineer thought that maybe she had excess adrenaline whether this would be either POTS or a pheochromocytoma. She has been prescribed beta blockers intermittently for this. She does not take any regular medica tions through the day other than supplements for low potassium without hypertension and vitamin D deficiency. Associated with the tachycardia, she will have some symptoms of jitteriness and sweating as well as muscular tension at the back of her head. She notes having a home test for obstructive sleep apnea in the past, and this was negative. She otherwise is generally healthy and is likely moving forward with IVF. FAMILY HISTORY Significant for myocardial infarction in father and paternal grandfather, stroke in maternal grandfather and paternal grandmother. Congestive heart failure and celiac disease also run in the family. Mother has thyroid disease. Maternal grandmother with vulval cancer. ASSESSMENT / PLAN #1 Polycystic ovary syndrome with infertility #2 Tachycardia, mostly exacerbated by sleep Beth is currently experiencing very bothersome tachycardia, and it has been suggested by her local continuous improvement engineer that there could be an issue with hyperadrenalism, either POTS or a pheochromocytoma. We discussed the testing for pheochromocytoma rule out which will include 24-hour urine catecholamines and metanephrines. We will plan to mail this to her house. If this is negative, she would like to have this further assessed at [facility] through our POTS group, and we can provide this referral as needed. If she ultimately does not have POTS, other considerations could be a sleep disorder, or she may want to consider meeting with our Cardiology group here. We will contact Beth once we have the urine tests. Cyrus Murillo, B.Ch. CT CT Job ID: [id number] E AIDE documented in this encounter Plan of Treatment Not on file documented as of this encounter Results * Metanephrines, Fractionated, 24 Hour, Urine (11/19/2022 6:30 AM NURSE AIDE) Metanephrine, U 93 mcg/24 h 3:27 PM NURSE AIDE [facility]SC Comment: ----REFERENCE VALUE---- 30-180 (Normotensive) <400 (Hypertensive) Normetanephrine, U 248 mcg/24 h 2022 3:27 PM NURSE AIDE [facility] Comment: ----REFERENCE VALUE---- 119-451 (Normotensive) <900 (Hypertensive) Total Metanephrines, U 341 mcg/24 h 11/23/2022 3:27 PM NURSE AIDE [facility] Comment: ----REFERENCE VALUE---- 156-561 (Normotensive) <1300 (Hypertensive) Collection Duration 24 h 11/23 3:27 PM NURSE AIDE [facility] Volume 1000 mL 11/23/2022 3:27 PM NURSE AIDE [facility] Comment: ----ADDITIONAL INFORMATION---- This test was developed and its performance characteristics determined by [facility] in a manner consistent with CLIA requirements. This test has not been cleared or approved by the U.S. Food and Drug Administration. Urine (Urine, 24 Hours) 11/19/2022 6:30 AM NURSE AIDE 11/20/2022 12:40 PM NURSE AIDE Kyra Bridges, B.Ch. LAB URINE ORDERABLES Performing Organization Address [facility] Co de Phone Number [facility] [address] [place] [address] [place] [address] * Catecholamine Fractionation, Free, 24 Hour, Urine (11/19/2022 6:30 AM NURSE AIDE) Collection Duration 24 h 11/23 2:00 PM NURSE AIDE [facility] Volume 1000 mL 11/23/2022 2:00 PM NURSE AIDE [facility] Norepinephrine 28 15 - 80 mcg/24 h 11/23/2022 2:00 PM NURSE AIDE [facility] Epinephrine 2.9 <21 mcg/24 h 11/23/2022 2:00 PM NURSE AIDE [facility] Dopamine 178 65 - 400 mcg/24 h 11/23/2022 2:00 PM NURSE AIDE [facility] Comment: ----ADDITIONAL INFORMATION---- This test was developed and its performance characteristics determined by [facility] in a manner consistent with CLIA requirements. This test has not been cleared or approved by the U.S. Food and Drug Administration. Urine (Urine, 24 Hours) 11/19/2022 6:30 AM NURSE AIDE 11/20/2022 11:27 AM NURSE AIDE Kyra Bridges, B.Ch. LAB URINE ORDERABLES Performing Organization Address City/[facility] Co de Phone Number [facility] [address] [place] [address] [place] [phone] [place] [phone] documented in this encounter Visit Diagnoses Diagnosis Adrenal Gland Disorder (HCC) Polycystic Ovary Syndrome documented in this encounter Care Teams Coverage Analyst Relationship Specialty Start Date End Date None Reported, Pcp PCP - General Family Medicine 05/20/22 documented as of this encounter
--- OUTSIDE RECORDS SUMMARY | 2023-10-27 22:56 | XMS_ITS | Encounter Summary ---
Author Name Unknown Organization [facility] Address [address] [place] [address] Care Team Providers Care Textile Machine Operator Name Role Phone None Reported, Pcp Primary Care Provider Unavail able Reason for Referral * Outpatient (Routine) - Closed Specialty Diagnoses / Procedures Referred By Betsy manzanares Referred To Contact Endocrinology Diagnoses Adrenal Gland Disorder (HCC) Polycystic Ovary Syndrome June Brady P.A.-C. [address] [place] [phone] [facility] Referral ID Status Reason Start Date Expiration Date Visits Re quested Visits Authorized [id number] Closed 11/04/2022 11/04/2023 1 1 WORK FEEDER Reason for Visit * Outpatient (Routine) - Closed Specialty Diagnoses / Procedures Referred By Betsy manzanares Referred To Contact Obstetrics and Gynecology Diagnoses Infertility Female Estefania Riddle M.D., Ph.D. [address] [place] [phone] [facility] Referral ID Status Reason Start Date Expiration Date Visits Re quested Visits Authorized [id number] Closed 10/30/2022 10/30/2023 1 1 Encounter Details Date Type Department Care Team ([facility] st Contact Info) Description 11/04/2022 8:00 AM [employer] Telemedicine Department of Obstetrics and Gynecology in [place], [place] [address] [place] [phone] June Brady P.A.-C. [address] [place] [phone] Polycystic Ovary Syndrome (Primary Dx); Infertility Female; Adrenal Gland Disorder (HCC) Social History Tobacco Use Types Packs/Day Years [...] week 05/21/2022 How often do you attend chur or anglican services? More than 4 times per year [...] Answer Date Recorded PHQ-2 Score 0 11/04/2022 [facility] - Occupational Stress Questionnaire Answer Date Recorded [...] money to buy more. Never true 05/21/20 22 Within the past 12 months, t he [...] slept in a snf (including now)? No 05/21/2022 Nutrition Answer Date [...] as of this encounter Progress Notes * June Brady P.A.-C. - 11/04/2022 8:00 AM CST Images from the original note were not included. SUBJECTIVE Beth Quinn is a 42 y.o. who presents today to further discuss diagnosis and management of a potential adrenal disorder. She is alone. Visit conducted via real-time audio/video technology by June Brady P.A.-C. in [facility] to the patient in her home. Beth's history is significant for PCOS (diagnosed in 2013), infertility (s/p 15+ cycles of Letrozole), hypothyroidism, and recurrent loss. She has completed a complete RPL evaluation at [facility], as well as seeing a RPL specialist, Dr. Yohana Luo in [place]. She has been seen my multiple providers in the [facility]. She was recommended to pursue IVF with PGT-A by [facility] in 2019. Over the last year, Beth has followed with [facility]. She conceived on a letrozole cycle in 11/2021. Unfortunately, this resulted in an ectopic managed with MTX. She has since completed a few additional cycles of Letrozole without success. She is considering one more cycle and will then pursue IVF. Last spring, Beth developed tachycardia in her sleep. She has been evaluated thoroughly by her local roll contour grinder and was told that these episodes are adrenaline related. In light of this, Beth presents today to determine if she has an adrenal tumor or abnormality. Of note, Beth has completed several round of adrenal labs including testing at the time of her PCOS diagnosis and several years later: In addition, she had further testing through [facility] (scanned into the Media tab from 02/06) including: Normal total and free testosterone Normal sex hormone binding globulin Negative ZENY Negatives Sjorgen's antibody testing Negative rheumatoid factor Vitamin-D 37 ng/mL Negative ANCA-C Normal parathyroid hormone Normal total iron Normal electrolyte panel Normal DHEA-S Negative cardiolipin antibody Negative DNA antibodies FSH = 7, Estradiol = 75 Negative celiac testing Normal AM cortisol Negative adrenal antibody Normal prolactin Hemoglobin A1c = 5.4 Beth states that she underwent a CT abdomen in [place] in 2019 and the report stated normal adrenal gland. OBJECTIVE BMI Readings from Last 1 Encounters: 05/21/22 26.23 kg/m?? Blood Type: O Neg Lab Results Component Value Date FSH 3.7 02/15/2020 ESTRADIOLRAP 78.0 07/20/2018 LABESTR 35.8 02/15/2020 ANTIMULERIAN 17 (H) 02/14/2020 BHCGQUANT <1 08/03/2018 TSH 2.0 05/21/2022 RUBELLAIGG Positive 02/14/2020 PROLACTIN 16.7 11/19/2016 Lab Results Component Value Date [id number] Nonreactive/Negative 12/25/2019 HEPBSAG Negative 12/25/2019 HEPCAB Negative 12/25/2019 Lab Results Component Value Date DHEAS 313 (H) 11/19/2016 ANDROST 162 11/19/2016 17HYDROXYPRO 69 11/19/2016 IMAGING RESULTS, LAST 30 DAYS ASSESSMENT / PLAN #1 Infertility Female #2 Adrenal Gland Disorder (HCC) #3 Polycystic Ovary Syndrome Beth Quinn is a 42 y.o. with a history is significant for PCOS (diagnosed in 2013), infertility (s/p 15 cycles of Letrozole), hypothyroidism, and recurrent loss. 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 In light of this, Beth presents today wondering if any of her adrenal labs have ever been checked. She had tried to meet with our endocrinology team but was denied an appointment. I reviewed Beth's labs with her from over the years; she was found to have a mildly elevated DHEAS in 2013 and 2016 but this has improved. She denies any new signs of hyperandrogenism. We discussed the role of adrenal imaging to address her concerns; I recommend that she meets with our colleagues in the [facility] group to determine if Beth warrants any further evaluation or testing for possible hy peradrenalism or a pheochromocytoma. We discussed the role of a reproductive psychology consultation to help navigate the emotional tollof infertility and recurrent loss. I will send her this contact information. Beth asked if she could transfer her letrozole cycle care to [facility]. Given our guidelines for ineffective care, her age, and the number of letrozole cycles, I do not recommend this. She is welcome to reach back out to us if she desires IVF. (Of note, she did have labs obtained in 07/2022 revealing a robust AMH of 10.76). Plan Meet with [facility]/endocrinology team to address pending adrenal concerns Reproductive psychology Consider IVF I personally spent over half of a total 40 minutes face to face with the patient in counseling and discussion and/or coordination of care as described above. June Brady P.A.-C. WORK FEEDER documented in this encounter Plan of Treatment Scheduled Referrals Name Type Priority Associated Diagnoses Order Schedule Endocrinology - Pituitary / gonad / adrenal disorders consult (clinic) Outpatient Referral Routine Adrenal Gland Disorder (HCC) Polycystic Ovary Syndrome Expected: 11/04/2022 (Approximate), Expires: 02/03/2024 documented as of this encounter Visit Diagnoses Diagnosis Polycystic Ovary Syndrome- Primary Infertility Female Adrenal Gland Disorder (HCC) documented in this encounter Care Teams Textile Machine Operator Relationship Specialty Start Date End Date None Reported, Pcp PCP - General Family Medicine 05/20/22 documented as of this encounter
--- OUTSIDE RECORDS SUMMARY | 2023-10-27 22:56 | XMS_ITS | Encounter Summary ---
Author Name Unknown Organization [facility] Address [address] [place] [address] Care Team Providers Care Chicken Cleaner Name Role Phone None Reported, Pcp Primary Care Provider Unavail able Reason for Referral * Outpatient (Routine) - Closed Specialty Diagnoses / Procedures Referred By Contac t Referred To Contact Obstetrics and Gynecology Diagnoses Infertility Female Estefania Riddle M.D., Ph.D. [address] [place] [address] [facility] Referral ID Status Reason Start Date Expiration Date Visits Re quested Visits Authorized [id number] Closed 10/30/2022 10/30/2023 1 1 MOLDER HAND Encounter Details Date Type Department Care Team (Late st Contact Info) Description 10/30/2022 Orders Only Department of Obstetrics and Gynecology in [place], [place] [address] [place] [phone] Cathleen Apple R.N. [address] [place] [phone] Infertility Female (Primary Dx) Social History Tobacco [...] How often do you attend chur or presybeterian services? More than 4 times per year 05/21/2022 Do you belong to any clubs o r organizations such as religious groups, unions, fraternal or athletic groups, or [...] and heating? Not hard at all 05/21/2022 [facility] of Occupat ional Health - Occupational Stress [...] place to sleep or slept in a long term (including now)? No 05/21/2022 Nutrition Answer Date [...] Associated Diagnoses Order Schedule Obstetrics and Gynecology - Reproductive endocrinology and infertility consult (clinic) Outpatient Referral Routine Infertility Female Expected: 10/30/2022 (Approximate), Expires: 01/29/2024 documented as of this encounter Visit Diagnoses Diagnosis Infertility Female- Primary documented in this encounter Care Teams Chicken Cleaner Relationship Specialty Start Date End Date None Reported, Pcp PCP - General Family Medicine 05/20/22 documented as of this encounter
--- OUTSIDE RECORDS SUMMARY | 2023-10-27 22:56 | XMS_ITS | Encounter Summary ---
Author Name Unknown Organization [facility] Address [address] [place] [address] Care Team Providers Care Marketing Budget Analyst Name Role Phone None Reported, Pcp Primary Care Provider Unavail able Encounter Details Date Type Department Care Team (Latest Contact Info) Description 11/09/2022 10:31 AM ENVIRONMENTAL COORDINATOR - 11/09/2022 11:59 PM ENVIRONMENTAL COORDINATOR Hospital Encounter Department of Laboratory Medicine and Pathology, [facility] in [place], [place] [address] [place] [address] Kyra Faulkner M.B., B.Ch. [address] [place] [phone] Adrenal Gland Disorder (HCC) Discharge Disposition: Home or Self Care Social [...] 05/21/2022 How often do you attend chur ch or jain services? More than 4 times per year 05/21/2022 Do you belong to any clubs o r organizations such as hindu groups, unions, fraternal or athletic groups, or [...] Answer Date Recorded PHQ-2 Score 0 11/04/2022 [facility] of Occupat ional Health - Occupational Stress [...] the money to buy more. Never true 08/04/20 22 Within the past 12 months, t [...] slept in a custodial (including now)? No 05/21/2022 Nutrition Answer Date [...] by mouth as needed. 0 03/05/2020 omega 5-zkt-hlf-fish oil 1,000 mg (120 mg-180 mg) capsule [...] medroxyprogesterone 10 mg tablet 0 04/23/2023 25-iron vti-kcqur-dva 30-975-200 mg-mcg-mg capsule Take 1 tablet by mouth. 0 01/18/2015 04/23/2023 rifAXIMin (XIFAXAN) 550 mg tablet Take 1 tablet by mouth 3 (three) times a day. 0 05/18/2022 04/23/2023 documented as of this encounter Plan of Treatment Not on file documented as of this encounter Procedures Procedure Name Priority Date/Time Associated Diagnosis Comments METANEPHRINES, FRACTIONATED, 24H, U Routine 11/19/2022 6:30 AM ENVIRONMENTAL COORDINATOR Adrenal Gland Disorder (HCC) CATECHOLAMINE FRACT, FREE, U Routine 11/19/2022 6:30 AM ENVIRONMENTAL COORDINATOR Adrenal Gland Disorder (HCC) documented in this encounter Results * Metanephrines, Fractionated, 24 Hour, Urine (11/19/2022 6:30 AM ENVIRONMENTAL COORDINATOR) Metanephrine, U 93 mcg/24 h 3:27 PM ENVIRONMENTAL COORDINATOR [facility] Comment: ----REFERENCE VALUE---- 30-180 (Normotensive) <400 (Hypertensive) Normetanephrine, U 248 mcg/24 h 2022 3:27 PM ENVIRONMENTAL COORDINATOR [facility] Comment: ----REFERENCE VALUE---- 119-451 (Normotensive) <900 (Hypertensive) Total Metanephrines, U 341 mcg/24 h 11/23/2022 3:27 PM ENVIRONMENTAL COORDINATOR [facility] Comment: ----REFERENCE VALUE---- 156-561 (Normotensive) <1300 (Hypertensive) Collection Duration 24 h 11/23 3:27 PM ENVIRONMENTAL COORDINATOR [facility] Volume 1000 mL 11/23/2022 3:27 PM ENVIRONMENTAL COORDINATOR [facility] Comment: ----ADDITIONAL INFORMATION---- This test was developed and its performance characteristics determined by [facility] in a manner consistent with CLIA requirements. This test has not been cleared or approved by the U.S. Food and Drug Administration. Urine (Urine, 24 Hours) 11/19/2022 6:30 AM ENVIRONMENTAL COORDINATOR 11/20/2022 12:40 PM ENVIRONMENTAL COORDINATOR Kyra Bridges, B.Ch. LAB URINE ORDERABLES [facility] [address] [place] [address] [facility] [address] [place] [address] * Catecholamine Fractionation, Free, 24 Hour, Urine (11/19/2022 6:30 AM ENVIRONMENTAL COORDINATOR) Pathologist [facility] Collection Duration 24 h 11/23 2:00 PM ENVIRONMENTAL COORDINATOR [facility] Volume 1000 mL 11/23/2022 2:00 PM ENVIRONMENTAL COORDINATOR [facility] Norepinephrine 28 15 - 80 mcg/24 h 11/23/2022 2:00 PM ENVIRONMENTAL COORDINATOR [facility] Epinephrine 2.9 <21 mcg/24 h 11/23/2022 2:00 PM ENVIRONMENTAL COORDINATOR [facility] Dopamine 178 65 - 400 mcg/24 h 11/23/2022 2:00 PM ENVIRONMENTAL COORDINATOR [facility] Comment: ----ADDITIONAL INFORMATION---- This test was developed and its performance characteristics determined by [facility] in a manner consistent with CLIA requirements. This test has not been cleared or approved by the U.S. Food and Drug Administration. Urine (Urine, 24 Hours) 11/19/2022 6:30 AM ENVIRONMENTAL COORDINATOR 11/20/2022 11:27 AM ENVIRONMENTAL COORDINATOR Kyra Bridges, B.Ch. LAB URINE ORDERABLES [facility] [address] [place] [address] [facility] [address] [place] [address] documented in this encounter Visit Diagnoses Diagnosis Adrenal Gland Disorder (HCC) documented in this encounter Care Teams Marketing Budget Analyst Relationship Specialty Start Date End Date None Reported, Pcp PCP - General Family Medicine 05/20/22 documented as of this encounter
--- OUTSIDE RECORDS SUMMARY | 2023-10-27 22:56 | XMS_ITS | Encounter Summary ---
Author Name Unknown Organization [facility] Address [address] [place] [address] Care Team Providers Care Cns Name Role Phone None Reported, Pcp Primary Care Provider Unavail able Reason for Referral * Outpatient (Routine) - Closed Specialty Diagnoses / Procedures Referred By Contranjana t Referred To Contact Obstetrics and Gynecology Diagnoses Recurrent Loss Not Currently June Brady P.A.-C. [address] [place] [address] [facility] Referral ID Status Reason Start Date Expiration Date Visits Re quested Visits Authorized [id number] Closed 11/23/2022 11/23/2023 1 1 G MIXER Encounter Details Date Type Department Care Team (Late st Contact Info) Description 11/17/2022 Orders Only Department of Obstetrics and Gynecology in [place], [place] [address] [place] [phone] June Brady P.A.-C. [address] [place] [phone] Recurrent Loss Not Currently (Primary Dx) Social History Tobacco Use Types [...] often do you attend chur ch or jew services? More than 4 times per year 11/24/2022 Do you belong to any clubs o r organizations such as adventist groups, unions, fraternal or athletic groups, or [...] Answer Date Recorded PHQ-2 Score 0 11/04/2022 [facility] of Occupat ional Health - Occupational Stress [...] Diagnoses Order Schedule Obstetrics and Gynecology - Clinical genomics consult (clinic) Outpatient Referral Routine Recurrent Loss Not Currently Expected: 11/23/2022 (Approximate), Expires: 02/15/2024 documented as of this encounter Visit Diagnoses Diagnosis Recurrent Loss Not Currently - Primary documented in this encounter Care Teams Cns Relationship Specialty Start Date End Date None Reported, Pcp PCP - General Family Medicine 05/20/22 documented as of this encounter
== END 2023-10-27 22:51 | disposition left against medical advice (07) ==
DX: Z53.21 Procedure and treatment not carried out due to patient leaving prior to being seen by health care provider (principal)

== ENCOUNTER 2025-01-21 23:03 | Emergency (ER) | payer OTHER, SELFPAY ==
[2025-01-21 23:14] VITALS: BP 156/96; PULSE 115; RESP 18; TEMP 35.6; O2SAT 98; BMI 30.2
--- OUTSIDE RECORDS SUMMARY | 2025-01-21 23:48 | XMS_ITS | Encounter Summary ---
Author Organization [facility] Address [address] [place] [address] Care Team Providers Care Stock Shipper Name Role Phone BogdanGypsy ANA LAURA IMAGERY ANALYST Unavailable [phone] Keven Krueger Primary Care Provider + [phone] Chato Diaz MD Unavailable [phone] Chato Diaz MD Unavailable [phone] Chato Diaz MD Unavailable [phone] Ref-Primary, Physician Primary Care Provider Marko Smith MD Unavailable + Chato Diaz MD Unavailable [phone] Jimenez Madera DO Primary Care Provider [phone] Jimenez Madera DO Unavailable [phone] Chato Diaz MD Unavailable [phone] Rosalba Romo MD Unavailable [phone] Alisson Rose MD Unavailable Jasiel Villela MD Primary Care Provider + [phone] Encounter Details Date Type Department Care Team (Late st Contact Info) Description 04/24/2020 MyC Medical Advice [facility] Heart [address] [place] [phone] Chato Diaz MD [address] [facility] [address] [place] [address] Social History Tobacco Use Types Packs/Day Years Used Date Smoking Tobacco: Never Smokeless Tobacco: Never Alcohol Use Standard Drinks/Week Comments No 0 (1 standard drink = 0.6 oz pur e alcohol) PHQ-2 Answer Date Recorded PHQ-2 Score 0 02/07/2019 Comments No Sex and Gender Information Value Date Recorded Sex Assigned at Female 10/26/2022 5:46 AM PLAN CHECKER Legal Sex Female 4:22 AM PLAN CHECKER Gender Identity Female 10/26/2022 5:45 AM PLAN CHECKER Sexual Orientation Straight 10/26/2022 5: 46 AM PLAN CHECKER 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 of this encounter Plan of Treatment Not on file documented as of this encounter Visit Diagnoses Not on filedocumented in this encounter Care Teams Stock Shipper Relationship Specialty Start Date End Date Keven Krueger [address] [phone] PCP - General Family Practice 05/01/19 08/11/22 No Ref-Primary, Physician PCP - General 08/12/22 10/28/22 [place] [address] [place] [address] PCP - General Family Medicine 10/29/22 02/23/24 [place] [address] [address] [place], [place] [id number] PCP - General 10/16/24 Gypsy Mcfadden APRN IMAGERY ANALYST [address] [address] [place], [place] [address] Assigned PCP 02/12/19 02/07/22 Chato Diaz MD [address] [place] [address] Assigned Heart and Vascular Provider 08/09/20 11/01/21 Chato Diaz MD [address] [place] [address] Cardiovascular Disease 03/24/22 Chato Diaz MD [address] [place] [address] Cardiovascular Disease 03/24/22 Marko Smith MD [address] [place] [address] Assigned Heart and Vascular Provider 08/15/22 11/20/22 Chato Diaz MD [address] [place] [address] Assigned Heart and Vascular Provider 07/18/22 08/14/22 [place] [address] [place] [address] Assigned PCP 11/07/22 03/08/24 Chato Diaz MD [address] [place] [address] Assigned Heart and Vascular Provider 11/21/22 06/08/24 Rosalba Romo MD [address] [place] [address] Assigned Pulmonology Provider 12/12/22 06/08/24 [place] [address] [place] [address] Assigned PCP 03/09/24 documented as of this encounter
--- OUTSIDE RECORDS SUMMARY | 2025-01-21 23:48 | XMS_ITS | Encounter Summary ---
Author Organization [facility] Address [address] [place] [address] Care Team Providers Care Guard Rail Installer Name Role Phone Elke Allred MD Primary Care Provider Keven Krueger Primary Care Provider [phone] Michelle Ware PA-C Unavailable Michelle Ware PA-C Unavailable No Ref-Primary, Physician Primary Care Provider Gypsy Mcfadden APRN MELT ROOM OPERATOR Unavailable [phone] Keven Krueger Primary Care Provider [phone] Chato Diaz MD Unavailable [phone] Chato Diaz MD Unavailable [phone] Chato Diaz MD Unavailable [phone] Ref-Primary, Physician Primary Care Provider Marko Smith MD Unavailable + Chato Diaz MD Unavailable [phone] Jimenez Madera DO Primary Care Provider [phone] Jimenez Madera DO Unavailable [phone] Chato Diaz MD Unavailable [phone] ZionandreyRosalba MD Unavailable [phone] Alisson Rose MD Unavailable Jasiel Villela MD Primary Care Provider + [phone] Encounter Details Date Type Department Care Team (Late st Contact Info) Description 08/05/2012 Office Visit-[facility] INTERFACE [facility] DE[facility] Aramis Jolley MD [address] [place] [address] Social History Tobacco Use Types Packs/Day Years Used Date Smoking Tobacco: Never Smokeless Tobacco: Never Alcohol Use Standard Drinks/Week Comments No 0 (1 standard drink = 0.6 oz pur e alcohol) Comments No Sex and Gender Information Value Date Recorded Sex Assigned at Female 10/26/2022 5:46 AM STEEL LAYER Legal Sex Female 4:22 AM STEEL LAYER Gender Identity Female 10/26/2022 5:45 AM STEEL LAYER Sexual Orientation Straight 10/26/2022 5: 46 AM STEEL LAYER 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 As you [...] shows no pronator drift, normal finger tapping, lbzrjo-wlvo-kmzmtx, and pohx-oxrl-kkte. There isno tremor with her hands held [...] Sincerely, Aramis Jolley MD Department of Neurology [facility] [id number] Electronically signed by:Aramis Jolley M.D. Aug 05 2012 12:52PM STEEL LAYER documented in this encounter Plan of Treatment Not on file documented as of this encounter Visit Diagnoses Not on filedocumented in this encounter Care Teams Guard Rail Installer Relationship Specialty Start Date End Date Elke Allred MD [facility] [address] [address] PCP - General 07/25/04 12/25/15 Keven Krueger [address] [phone] PCP - General Family Practice 12/26/15 02/06/19 Michelle Ware PA-C [address] [place] [address] PCP - Assigned PCP 07/02/17 12/20/18 No Ref-Primary, Physician PCP - General 02/07/19 04/30/19 Keven Krueger [address] [phone] PCP - General Family Practice 05/01/19 08/11/22 No Ref-Primary, Physician PCP - General 08/12/22 10/28/22 [place] [address] [place] [address] PCP - General Family Medicine 10/29/22 02/23/24 [place] [address] [place] [address] PCP - General 10/16/24 Michelle Ware PA-C [address] [address] [place], [place] [address] Assigned PCP 07/02/17 02/11/19 Gypsy Mcfadden APRN MELT ROOM OPERATOR [address] [place] [address] Assigned PCP 02/12/19 02/07/22 Chato Diaz MD [address] [place], [place] [address] Assigned Heart and Vascular Provider 08/09/20 11/01/21 Chato Diaz MD [address] [place] [address] Cardiovascular Disease 03/24/22 Chato Diaz MD [address] [place] [address] Cardiovascular Disease 03/24/22 Marko Smith MD [address] [place] [address] Assigned Heart and Vascular Provider 08/15/22 11/20/22 Chato Diaz MD [address] [place], [place] [address] Assigned Heart and Vascular Provider 07/18/22 08/14/22 [place] [address] [address], [place] [address] Assigned PCP 11/07/22 03/08/24 Chato Diaz MD [address] [facility] [address] [place] [address] Assigned Heart and Vascular Provider 11/21/22 06/08/24 Rosalba Romo MD [address] [place] [id number] Assigned Pulmonology Provider 12/12/22 06/08/24 [place] [address] [place] [address] Assigned PCP 03/09/24 documented as of this encounter
--- OUTSIDE RECORDS SUMMARY | 2025-01-21 23:48 | XMS_ITS | Encounter Summary ---
Author Organization [place] Address [address] [place] [address] Care Team Providers Care Sagger Preparer Name Role Phone BogdanGypsy ANA LAURA FACULTY MEMBER Unavailable [phone] Keven Krueger Primary Care Provider + [phone] Chato Diaz MD Unavailable [phone] Chato Diaz MD Unavailable [phone] Chato Diaz MD Unavailable [phone] Ref-Primary, Physician Primary Care Provider Marko Smith MD Unavailable + Chato Diaz MD Unavailable [phone] Jimenez Madera DO Primary Care Provider [phone] Jimenez Madera DO Unavailable [phone] Chato Diaz MD Unavailable [phone] Rosalba Romo MD Unavailable [phone] Alisson Rose MD Unavailable Jasiel Villela MD Primary Care Provider + [phone] Encounter Details Date Type Department Care Team (Late st Contact Info) Description 10/21/2020 MyC Medical Advice [facility] Heart [address] [place] [phone] Chato Diaz MD [address] [facility] [address] [place] [address] Social History Tobacco Use Types Packs/Day Years Used Date Smoking Tobacco: Never Smokeless Tobacco: Never Alcohol Use Standard Drinks/Week Comments No 0 (1 standard drink = 0.6 oz pur e alcohol) PHQ-2 Answer Date Recorded PHQ-2 Score 0 02/07/2019 Comments No Sex and Gender Information Value Date Recorded Sex Assigned at Female 10/26/2022 5:46 AM SECURITY CONTROL ASSESSOR Legal Sex Female 4:22 AM SECURITY CONTROL ASSESSOR Gender Identity Female 10/26/2022 5:45 AM SECURITY CONTROL ASSESSOR Sexual Orientation Straight 10/26/2022 5: 46 AM SECURITY CONTROL ASSESSOR 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 of this encounter Plan of Treatment Not on file documented as of this encounter Visit Diagnoses Not on filedocumented in this encounter Care Teams Sagger Preparer Relationship Specialty Start Date End Date Keven Krueger [address] [phone] PCP - General Family Practice 05/01/19 08/11/22 No Ref-Primary, Physician PCP - General 08/12/22 10/28/22 [place] [address] [place] [address] PCP - General Family Medicine 10/29/22 02/23/24 [place] [address] [address] [place], [place] [phone] PCP - General 10/16/24 Gypsy Mcfadden APRN FACULTY MEMBER [address] [place] [address] Assigned PCP 02/12/19 02/07/22 Chato Diaz MD [address] [place] [address] Assigned Heart and Vascular Provider 08/09/20 11/01/21 Chato Diaz MD [address] [place] [address] Cardiovascular Disease 03/24/22 Chato Diaz MD [address] [place] [address] Cardiovascular Disease 03/24/22 Marko Smith MD [address] [place] [address] Assigned Heart and Vascular Provider 08/15/22 11/20/22 Chato Diaz MD [address] [place] [address] Assigned Heart and Vascular Provider 07/18/22 08/14/22 [place] [address] [place] [address] Assigned PCP 11/07/22 03/08/24 Chato Diaz MD [address] [place] [address] Assigned Heart and Vascular Provider 11/21/22 06/08/24 Rosalba Romo MD [address] [facility] [facility] [address] [place] [address] Assigned Pulmonology Provider 12/12/22 06/08/24 [place] [address] [place] [address] Assigned PCP 03/09/24 documented as of this encounter
--- OUTSIDE RECORDS SUMMARY | 2025-01-21 23:48 | XMS_ITS | Encounter Summary ---
Author Organization [facility] Address [address] [place] [address] Care Team Providers Care Facilities Painter Name Role Phone None Reported, Pcp Primary Care Provider Unavail able Reason for Visit * Reason Onset Date Comments Communication 01/10/2025 Encounter Details Date Type Department Care Team (Latest Contact Info) Description 01/10/2025 Clinical Communication Department of Obstetrics and Gynecology, Division of Gynecologic Oncology in [place], [place] [address] [place] [address] Rachelle Gómez M.D. [address] [place] [phone] Communication Social History Tobacco Use Types Packs/Day Years Used Date Smoking Tobacco: Never Smokeless Tobacco: Never Alcohol Use Standard Drinks/Week Comments No 0 (1 standard drink = 0.6 oz pur e alcohol) [facility] Utilities Answer Date Recorded In the past 12 months has e Phizz[employer], gas, oil, or water [employer]FEye[employer] threatened to shut off services in your home? No 12/02/2023 Humiliation, Afraid, Rape, and Kick questionnair e [...] any clubs o r organizations such as zoroastrianism groups, unions, fraternal or athletic groups, or [...] PHQ-2 Answer Date Recorded PHQ-2 Score 0 05/16/2024 [facility] of Occupat ional [...] exercise (like a brisk walk)? 3 days 12/02/2023 On average, how many minutes do you engage in exercise at this level? 10 min 12/02/2023 Hunger Vital Sign Answer Date Recorded Within the past 12 months, y ou worried that your food would run out before you got the money to buy more. Never true 12/02/19 24 Within the past 12 months, t he food you bought just didn't last and you didn't have money to get more. Never true 12/02/2023 PRAPARE - Transportation Answer Date Re corded In the past 12 months, has l ack of transportation kept you from medical appointments or from getting medications? No 11/18 In the past 12 months, has l ack of transportation kept you from meetings, work, or from getting things needed for daily living? No 12/02/2023 Depression Answer Date Recor ded PHQ-9 Total Score (max 27) 2 05/16 Nutrition Answer Date Recorded On average, how many serving s of fruits and vegetables do you eat per day (serving size is equal to 1 cup or approximately the size of a tennis ball)? 3-5 12/02/2023 Dental Answer Date Recorded Dental: Regular Dentist Yes 05/21/20 Employment Answer Date Recorded Employment status N/A 12/02/2023 Housing Stability Answer Date Recorded What is your living situation today? I have a [facility] place to live 12/02/2023 Education Answer Date Recorded What is the highest level of school you have completed or the highest degree you have received? Associate degree: academic program 03/08/2020 Comments No Sex and Gender Information Value Date Recorded Sex Assigned at Female 05/07/2018 8:20 PM CDT Legal Sex Female 10:32 AM SWATCH CHECKER Gender Identity Female 05/07/2018 8:20 PM CDT Sexual Orientation Straight 05/07/2018 8: 20 PM CDT documented as of this encounter Plan of Treatment Not on file documented as of this encounter Visit Diagnoses Not on filedocumented in this encounter Additional Health Concerns Assessment Noted Time PHQ-9 Depression Total Score: 2 05/16/20 24 7:54 AM CDT documented as of this encounter Care Teams Facilities Painter Relationship Specialty Start Date End Date None Reported, Pcp PCP - General Family Medicine 05/20/22 documented as of this encounter
--- OUTSIDE RECORDS SUMMARY | 2025-01-21 23:48 | XMS_ITS | Encounter Summary ---
Author Organization [facility] Address [address] [place] [address] Care Team Providers Care Stripping Machine Operator Name Role Phone BogdanGypsy ANA LAURA SUPERVISOR CORE SHOP Unavailable [phone] Keven Krueger Primary Care Provider + [phone] Chato Diaz MD Unavailable [phone] Chato Diaz MD Unavailable [phone] Chato Diaz MD Unavailable [phone] Ref-Primary, Physician Primary Care Provider Marko Smith MD Unavailable + Chato Diaz MD Unavailable [phone] Jimenez Madera DO Primary Care Provider +[phone] Jimenez Madera DO Unavailable [phone] Chato Diaz MD Unavailable [phone] Rosalba Romo MD Unavailable [phone] Alisson Rose MD Unavailable Jasiel Villela MD Primary Care Provider + [phone] Encounter Details Date Type Department Care Team (Late st Contact Info) Description 04/24/2020 MyC Medical Advice [facility] [address] [place] [phone] Chato Diaz MD [address] [facility] [address] [place] [address] Social History Tobacco Use Types Packs/Day Years Used Date Smoking Tobacco: Never Smokeless Tobacco: Never Alcohol Use Standard Drinks/Week Comments No 0 (1 standard drink = 0.6 oz pur e alcohol) PHQ-2 Answer Date Recorded PHQ-2 Score 0 02/07/2019 Comments No Sex and Gender Information Value Date Recorded Sex Assigned at Female 10/26/2022 5:46 AM YARN WINDER Legal Sex Female 4:22 AM YARN WINDER Gender Identity Female 10/26/2022 5:45 AM YARN WINDER Sexual Orientation Straight 10/26/2022 5: 46 AM YARN WINDER 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 of this encounter Plan of Treatment Not on file documented as of this encounter Visit Diagnoses Not on filedocumented in this encounter Care Teams Stripping Machine Operator Relationship Specialty Start Date End Date Keven Krueger [address] [id number] PCP - General Family Practice 05/01/19 08/11/22 No Ref-Primary, Physician PCP - General 08/12/22 10/28/22 [place] [address] [place] [address] PCP - General Family Medicine 10/29/22 02/23/24 [place] [address] [address] [place], [place] [address] PCP - General 10/16/24 Gypsy Mcfadden APRN SUPERVISOR CORE SHOP [address] [address] [place], [place] [address] Assigned PCP 02/12/19 02/07/22 Chato Diza MD [address] [place] [address] Assigned Heart and Vascular Provider 08/09/20 11/01/21 Chato Diaz MD [address] [place] [address] Cardiovascular Disease 03/24/22 Chato Diaz MD [address] [place] [address] Cardiovascular Disease 03/24/22 Marko Smith MD [address] [place] [address] Assigned Heart and Vascular Provider 08/15/22 11/20/22 Chato Diaz MD [address] [place] [address] Assigned Heart and Vascular Provider 07/18/22 08/14/22 [place] [address] [place] [address] Assigned PCP 11/07/22 03/08/24 Chato Diaz MD [address] [place] [address] Assigned Heart and Vascular Provider 11/21/22 06/08/24 Rosalba Romo MD [address] [place] [address] Assigned Pulmonology Provider 12/12/22 06/08/24 [place] [address] [place] [address] Assigned PCP 03/09/24 documented as of this encounter
--- OUTSIDE RECORDS SUMMARY | 2025-01-21 23:48 | XMS_ITS | Encounter Summary ---
Author Organization [facility] Address [address] [place] [address] Care Team Providers Care Smoke Eater Name Role Phone BogdanGypsy ANA LAURA KNOCKOUT WORKER Unavailable [phone] Keven Krueger Primary Care Provider + [phone] Chato Diaz MD Unavailable [phone] Chato Diaz MD Unavailable [phone] Chato Diaz MD Unavailable [phone] Ref-Primary, Physician Primary Care Provider Marko Smith MD Unavailable + Chato Diaz MD Unavailable [phone] Jimenez Madera DO Primary Care Provider +[phone] Jimenez Madera DO Unavailable [phone] Chato Diaz MD Unavailable [phone] Rosalba Romo MD Unavailable [phone] Alisson Rose MD Unavailable Jasiel Villela MD Primary Care Provider + [phone] Encounter Details Date Type Department Care Team (Late st Contact Info) Description 05/06/2020 MyC Medical Advice [facility] [address] [place] [phone] Chato Diaz MD [address] [facility] [address] [place] [address] Social History Tobacco Use Types Packs/Day Years Used Date Smoking Tobacco: Never Smokeless Tobacco: Never Alcohol Use Standard Drinks/Week Comments No 0 (1 standard drink = 0.6 oz pur e alcohol) PHQ-2 Answer Date Recorded PHQ-2 Score 0 02/07/2019 Comments No Sex and Gender Information Value Date Recorded Sex Assigned at Female 10/26/2022 5:46 AM SOLE RUFFER Legal Sex Female 4:22 AM SOLE RUFFER Gender Identity Female 10/26/2022 5:45 AM SOLE RUFFER Sexual Orientation Straight 10/26/2022 5: 46 AM SOLE RUFFER 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 No / Unsure 04/29/2020 10:01 AM CDT documented as of this encounter Plan of Treatment Not on file documented as of this encounter Visit Diagnoses Not on filedocumented in this encounter Care Teams Smoke Eater Relationship Specialty Start Date End Date Keven Krueger [address] [address] PCP - General Family Practice 05/01/19 08/11/22 No Ref-Primary, Physician PCP - General 08/12/22 10/28/22 [place] [address] [place] [address] PCP - General Family Medicine 10/29/22 02/23/24 [place] [address] [place] [address] PCP - General 10/16/24 Bogdan Gypsy SHIPPING MANAGER KNOCKOUT WORKER [address] [address] [place] [address] Assigned PCP 02/12/19 02/07/22 Chato Diaz MD [address] [place] [address] Assigned Heart and Vascular Provider 08/09/20 11/01/21 Chato Diaz MD [address] [place] [address] Cardiovascular Disease 03/24/22 Chato Diaz MD [address] [place] [address] Cardiovascular Disease 03/24/22 Marko Smith MD [address] [place] [address] Assigned Heart and Vascular Provider 08/15/22 11/20/22 Chato Diaz MD [address] [place] [address] Assigned Heart and Vascular Provider 07/18/22 08/14/22 [place] [address] [place] [address] Assigned PCP 11/07/22 03/08/24 Chato Diaz MD [address] [place] [address] Assigned Heart and Vascular Provider 11/21/22 06/08/24 Rosalba Romo MD [address] [address] Assigned Pulmonology Provider 12/12/22 06/08/24 [place] [address] [place] [address] Assigned PCP 03/09/24 documented as of this encounter
--- OUTSIDE RECORDS SUMMARY | 2025-01-21 23:49 | XMS_ITS | Encounter Summary ---
Author Organization [facility] Address [address] [place] [address]. [place] [address] Care Team Providers Care Piercer Name Role Phone Chato Diaz MD Unavailable [phone] Chato Diaz MD Unavailable [phone] Chato Diaz MD Unavailable +[phone] Rosalba Romo MD Unavailable [phone] Alisson Rose MD Unavailable Jasiel Villela MD Primary Care Provider + [phone] Reason for Visit * Reason Onset Date Comments Patient Request 03/24/2024 Encounter Details Date Type Department Care Team (Late st Contact Info) Description 03/24/2024 [facility] [place] [facility] [address] [place] [address] [place] [address] [place] [address] Patient Request Social History Tobacco Use Types Packs/Day Years Used Date Smoking Tobacco: Never Smokeless Tobacco: Never Alcohol Use Standard Drinks/Week Comments No 0 (1 standard drink = 0.6 oz pur e alcohol) PHQ-2 Answer Date Recorded PHQ-2 Score 0 01/11/2024 Adolescent Education Answer Date Record ed Getting School Help Needed Not on file 07/15 Interpersonal Safety Answer Date Record ed Do you feel physically and e motionally safe where you currently live? Yes 01/11/2024 Within the past 12 months, h ave you been hit, slapped, kicked or otherwise physically hurt by someone? No 01/11/2024 Within the past 12 months, h ave you been humiliated or emotionally abused in other ways by your partner or ex-partner? 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 ) [phone] Dr. Rose, please review and order as appropriate. Lexi Gonzáles RN [facility] documented in this encounter Plan of Treatment Not on file documented as of this encounter Visit Diagnoses Not on filedocumented in this encounter Care Teams Piercer Relationship Specialty [place] [address] [place] [address] PCP - General 10/16/24 Chato Diaz MD [address] [facility] [address] [place] [address] Cardiovascular Disease 03/24/22 Chato Diaz MD [address] [facility] [address] [place] [address] Cardiovascular Disease 03/24/22 Chato Diaz MD [address] [facility] [address] [place] [address] Assigned Heart and Vascular Provider 11/21/22 06/08/24 Rosalba Romo MD 606 [facility] [address] [place] [address] Assigned Pulmonology Provider 12/12/22 06/08/24 [place] [address] [place] [place] [address] Assigned PCP 03/09/24 documented as of this encounter
--- OUTSIDE RECORDS SUMMARY | 2025-01-21 23:49 | XMS_ITS | Encounter Summary ---
Author Organization [facility] Address [address] [place] [address]. [place] [address] Care Team Providers Care Food Counter Worker Name Role Phone Chato Diaz MD Unavailable [phone] Chato Diaz MD Unavailable [phone] Jimenez Madera DO Primary Care Provider [phone] Jimenez Madera DO Unavailable [phone] Chato Diaz MD Unavailable [phone] Rosalba Romo MD Unavailable [phone] Alisson Rose MD Unavailable Jasiel Villela MD Primary Care Provider [phone] Reason for Visit * Reason Onset Date Comments Panel Management 02/22/2024 Encounter Details Date Type Department Care Team (Late st Contact Info) Description 02/22/2024 Telephone [facility] [address] [place] [address] [place] [id number] [place] [address] Panel Management Social History Tobacco Use Types Packs/Day [...] Sex Assigned at Female 10/26/2022 5:46 AM TOXICOLOGIST Legal Sex Female 4:22 AM TOXICOLOGIST Gender Identity Female 10/26/2022 5:45 AM TOXICOLOGIST Sexual Orientation Straight 10/26/2022 5: 46 AM TOXICOLOGIST 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 [] LAST PANEL ENCOUNTER [] FUTURE APPTS [] IMMUNIZATIONS [] Media Tab Action needed: Patient had Pap at [facility] and fertility 06/06/2022 Type of outreach: Sent Kauli message. Ailin Plummer documented in this encounter Plan of Treatment Not on file documented as of this encounter Visit Diagnoses Not on filedocumented in this encounter Care Teams Food Counter Worker Relationship Specialty [place] [address] [place] [address] PCP - General Family Medicine 10/29/22 02/23/24 [place] [address] [place] [address] PCP - General 10/16/24 Chato Diaz MD [address] [place] [address] Cardiovascular Disease 03/24/22 Chato Diaz MD [address] [place] [address] Cardiovascular Disease 03/24/22 [place] [address] [place] [address] Assigned PCP 11/07/22 03/08/24 Chato Diaz MD [address] [place] [address] Assigned Heart and Vascular Provider 11/21/22 06/08/24 Rosalba Romo MD [address] [place], [place] [address] Assigned Pulmonology Provider 12/12/22 06/08/24 [place] [address] [address] [place], [place] [address] Assigned PCP 03/09/24 documented as of this encounter
--- OUTSIDE RECORDS SUMMARY | 2025-01-21 23:49 | XMS_ITS | Encounter Summary ---
Author Organization [facility] Address [address] [place] [address] Care Team Providers Care Transportation Analyst Name Role Phone BogdanGypsy ANA LAURA CORPORATE LICENSED BROKER Unavailable [phone] Keven Krueger Primary Care Provider + [phone] Chato Diaz MD Unavailable [phone] Chato Diaz MD Unavailable [phone] Chato Diaz MD Unavailable [phone] Ref-Primary, Physician Primary Care Provider Marko Smith MD Unavailable + Chato Diaz MD Unavailable [phone] Jimenez Madera DO Primary Care Provider [phone] Jimenez Madera DO Unavailable Chato Diaz MD Unavailable [phone] Rosalba Romo MD Unavailable [phone] Alisson Rose MD Unavailable Jasiel Villela MD Primary Care Provider + [phone] Encounter Details Date Type Department Care Team (Late st Contact Info) Description 03/06/2020 MyC Medical Advice [facility] [address] [place] [address] Chato Diaz MD [address] [facility] [address] [place] [address] Social History Tobacco Use Types Packs/Day Years Used Date Smoking Tobacco: Never Smokeless Tobacco: Never Alcohol Use Standard Drinks/Week Comments No 0 (1 standard drink = 0.6 oz pur e alcohol) PHQ-2 Answer Date Recorded PHQ-2 Score 0 02/07/2019 Comments No Sex and Gender Information Value Date Recorded Sex Assigned at Female 10/26/2022 5:46 AM BINDER CASER Legal Sex Female 4:22 AM BINDER CASER Gender Identity Female 10/26/2022 5:45 AM BINDER CASER Sexual Orientation Straight 10/26/2022 5: 46 AM BINDER CASER 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 No / Unsure 03/05/2020 8:31 AM CDT documented as of this encounter Miscellaneous Notes * Telephone Encounter - Salma Teresa, TAMARA - 03/12/2020 4:53 PM CDT PATIENT WELLNESS [...] the procedure is deemed necessary. Notify your preconstruction manager/supervisor blood. The patient must be informed to call the procedural department. A marine steam fitter helper with the appropriate PPE will bring the [...] on filedocumented in this encounter Care Teams Transportation Analyst Relationship Specialty Start Date End Date Keven Krueger [address] [address] PCP - General Family Practice 05/01/19 08/11/22 No Ref-Primary, Physician PCP - General 08/12/22 10/28/22 [place] [address] [place] [address] PCP - General Family Medicine 10/29/22 02/23/24 [place] [address] [place] [address] PCP - General 10/16/24 Gypsy Mcfadden APRN CORPORATE LICENSED BROKER [address] [place] [address] Assigned PCP 02/12/19 02/07/22 Chato Diaz MD [address] [place] [address] Assigned Heart and Vascular Provider 08/09/20 11/01/21 Chato Diaz MD [address] [place], [place] [address] Cardiovascular Disease 03/24/22 Chato Diaz MD [address] [place], [place] [address] Cardiovascular Disease 03/24/22 Marko Smith MD [address] [place], [place] [address] Assigned Heart and Vascular Provider 08/15/22 11/20/22 Chato Diaz MD [address] [place], [place] [address] Assigned Heart and Vascular Provider 07/18/22 08/14/22 [place] [address] [place] [address] Assigned PCP 11/07/22 03/08/24 Chato Diaz MD [address] [place], [place] [address] Assigned Heart and Vascular Provider 11/21/22 06/08/24 Rosalba Romo MD [address] [place], [place] [address] Assigned Pulmonology Provider 12/12/22 06/08/24 [place] [address] [place] [address] Assigned PCP 03/09/24 documented as of this encounter
--- OUTSIDE RECORDS SUMMARY | 2025-01-21 23:49 | XMS_ITS | Encounter Summary ---
Author Organization [facility] Address [address] [place] [address] Care Team Providers Care Asp Web Developer Name Role Phone Keven Krueger Primary Care Provider [phone] Michelle Ware PA-C Unavailable Michelle Ware PA-C Unavailable No Ref-Primary, Physician Primary Care Provider Gypsy Mcfadden APRN FILM EXAMINER Unavailable [phone] Keven Krueger Primary Care Provider +[phone] Chato Diaz MD Unavailable +[phone] Chato Diaz MD Unavailable +[phone] Chato Diaz MD Unavailable [phone] Ref-Primary, Physician Primary Care Provider Marko Smith MD Unavailable + Chato Diaz MD Unavailable +[phone] Jimenez Madera DO Primary Care Provider [phone] Jimenez Madera DO Unavailable [phone] Chato Diaz MD Unavailable +[phone] Rosalba Romo MD Unavailable [phone] Alisson Rose MD Unavailable Jasiel Villela MD Primary Care Provider [phone] Encounter Details Date Type Department Care Team (Late st Contact Info) Description 04/25/2018 MyC Medical Advice [facility] [address] [place] [address] Michelle Ware PA-C [address] [place] [address] Social History Tobacco Use Types Packs/Day Years Used Date Smoking Tobacco: Never Smokeless Tobacco: Never Alcohol Use Standard Drinks/Week Comments No 0 (1 standard drink = 0.6 oz pur e alcohol) Comments Yes Sex and Gender Information Value Date Recorded Sex Assigned at Female 10/26/2022 5:46 AM RACK PUSHER Legal Sex Female 4:22 AM RACK PUSHER Gender Identity Female 10/26/2022 5:45 AM RACK PUSHER Sexual Orientation Straight 10/26/2022 5: 46 AM RACK PUSHER 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 of this encounter Plan of Treatment Not on file documented as of this encounter Visit Diagnoses Not on filedocumented in this encounter Care Teams Asp Web Developer Relationship Specialty Start Date End Date Keven Krueger [address] [address] PCP - General Family Practice 12/26/15 02/06/19 Michelle Ware PA-C [address] [place] [address] PCP - Assigned PCP 07/02/17 12/20/18 No Ref-Primary, Physician PCP - General 02/07/19 04/30/19 Keven Krueger [address] [place] [address] [address] [place], [place] [address] PCP - General Family Practice 05/01/19 08/11/22 No Ref-Primary, Physician PCP - General 08/12/22 10/28/22 [place] [address] [place] [address] PCP - General Family Medicine 10/29/22 02/23/24 [place] [address] [place] [address] PCP - General 10/16/24 Michelle Ware PA-C [address] [place] [address] Assigned PCP 07/02/17 02/11/19 Gypsy Mcfadden APRN [facility] [address] [place] [address] Assigned PCP 02/12/19 02/07/22 Chato Diaz MD [address] [place] [address] Assigned Heart and Vascular Provider 08/09/20 11/01/21 Chato Diaz MD [address] [place] [address] Cardiovascular Disease 03/24/22 Chato Diaz MD [address] [place] [address] Cardiovascular Disease 03/24/22 Marko Smith MD [address] [place] [address] Assigned Heart and Vascular Provider 08/15/22 11/20/22 Chato Diaz MD [address] [place] [address] Assigned Heart and Vascular Provider 07/18/22 08/14/22 [place] [address] [place] [address] Assigned PCP 11/07/22 03/08/24 Chato Diaz MD [address] [place] [address] Assigned Heart and Vascular Provider 11/21/22 06/08/24 Rosalba Romo MD [address] [place], [place] [address] Assigned Pulmonology Provider 12/12/22 06/08/24 [place] [address] [address] [place], [place] [address] Assigned PCP 03/09/24 documented as of this encounter
--- OUTSIDE RECORDS SUMMARY | 2025-01-21 23:49 | XMS_ITS | Encounter Summary ---
Author Organization [facility] Address [address] [place] [address] Care Team Providers Care Broadloom Weaver Name Role Phone Chato Diaz MD Unavailable [phone] Chato Diaz MD Unavailable [phone] Jimenez Madera DO Primary Care Provider [phone] Jimenez Madera DO Unavailable [phone] Chato Diaz MD Unavailable +[phone] Rosalba Romo MD Unavailable [phone] Alisson Rose MD Unavailable Jasiel Villela MD Primary Care Provider [phone] Encounter Details Date Type Department Care Team (Late st Contact Info) Description 02/22/2024 MyC Medical Advice [facility] [address] [place] [address] Ailin Plummer, SPRING TIER Social History Tobacco Use Types Packs/Day Years [...] Sex Assigned at Female 10/26/2022 5:46 AM SECONDARY SCHOOL TEACHER LIBRARIAN Legal Sex Female 4:22 AM SECONDARY SCHOOL TEACHER LIBRARIAN Gender Identity Female 10/26/2022 5:45 AM SECONDARY SCHOOL TEACHER LIBRARIAN Sexual Orientation Straight 10/26/2022 5: 46 AM SECONDARY SCHOOL TEACHER LIBRARIAN 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 of this encounter Plan of Treatment Not on file documented as of this encounter Visit Diagnoses Not on filedocumented in this encounter Care Teams Broadloom Weaver Relationship Specialty Start [place] [address] [place] [address] PCP - General Family Medicine 10/29/22 02/23/24 [place] [address] [place] [address] PCP - General 10/16/24 Chato Diaz MD [address] [place] [address] Cardiovascular Disease 03/24/22 Chato Diaz MD [address] [place] [address] Cardiovascular Disease 03/24/22 [place] [address] [place] [address] Assigned PCP 11/07/22 03/08/24 Chato Diaz MD [address] [facility] [address] [place] [address] Assigned Heart and Vascular Provider 11/21/22 06/08/24 Rosalba Romo MD [address] [place], [place] [address] Assigned Pulmonology Provider 12/12/22 06/08/24 [place] [address] [address] [address] Assigned PCP 03/09/24 documented as of this encounter
--- OUTSIDE RECORDS SUMMARY | 2025-01-21 23:49 | XMS_ITS ---
Author Organization [facility] Address [address] [place] [address] Care Team Providers Care Planimeter Operator Name Role Phone None, No PCP Primary Care Provider Abril James Unavailable [phone] Mary Murray Unavailable REASON FOR VISIT WAFER SUBSTRATE TESTER AUB Consult New Pt paperwork/PHQ-9, LMP:, BC:, AUB Sx:, Onset:, Concerns:, PHQ-9, NA, AIRCRAFT POWER PLANT ASSEMBLER Medications Medication SIG (Take, Route, Fr equency, Duration) Notes Start Date End Date Status Prometrium 200 MG 1 capsule at bedtime Orally Once a day Active Problems Problem Type SNOMED Code ICD Code Onset Dates Problem Status W/U Status Risk Notes Problem 590102466 PCOS (polycystic ovarian syndrome) (E28.2) Active confirmed Problem [id number] Abnormal uterine bleeding (N93.9) Active confirmed Encounters Encounter Location Date Provider Diagnosis [address] [address] 08/02/2023 Mary Chen PCOS (polycystic ovarian syndrome) E28.2 and Abnormal uterine bleeding N93.9 Assessments Encounter Date Diagnosis (ICD Code) Assessment Notes Treatment Notes Treatment Clinical Notes Section Notes 08/02/2023 PCOS (polycystic ovarian syndrome) (ICD-10 - E28.2) 08/02/2023 Abnormal uterine bleeding (ICD-10 - N93.9) Plan Of Treatment No Information Progress Notes * Laila QUINNOB: [birth year] (44 yo F)Acc No.[id number]:08/02/2023 Patient: Beth POLLACK Provider: Kingsley Chen MD :1980 A ge:43 Y S ex:Female Date:08/02/2023 Address:[address] [place], [place] [id number] Pcp:No PCP None Subjective: * Chief Complaints: * 1 . WAFER SUBSTRATE TESTER AUB Consult New Pt paperwork/PHQ-9. 2. LMP:. 3. BC:. 4. AUB Sx:. 5. Onset:. 6. Concerns:. 7. PHQ-9. 8. 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 * HPI: * General: Patient presenting for AUB, with history of PCOS. * Medical History: P olycystic Ovarian Syndrome. * Medications: T aking Prometrium 200 MG Capsule 1 capsule at bedtime Orally Once a day Objective: * Vitals: * Examination: * General Examination: GENERAL APPEARANCE: i n no acute distress, well developed, well nourished. HEAD n ormocephalic, atraumatic. PSYCH: a lert, oriented, judgement and insight good, mood/affect full range, speech clear. Assessment: * Assessment: 1. A bnormal uterine bleeding - N93.9 2 . P COS (polycystic ovarian syndrome) - E28.2 (Primary) Plan: * Treatment: * Images: Billing Information: * Visit Code: 59560 Office Visit, New Pt., Level 3. * Procedure Codes: * Electronic signature of Michelle Chen MD on 01/21/2025 at 11:49 PM CDT Sign off status: Pending * Provider: Kingsley Chen MD Date: 1 Generated for Roxanai corby/Luis F/eTransmitting on: 0 01/21/2025 11:49 PM CDT History and Physical Notes * HPI (History of Present Illness) Category Sub-Category Detail Notes Category Not es *General Patient present ing for AUB, with history of PCOS. Examination Category Sub-Category Detail Notes Category Not es *General Examination GENERAL APPEARANCE: in no a cute distress, well developed, well nourished HEAD normocephalic, atrau matic PSYCH: alert, oriented, lee gement and insight good, mood/affect full range, speech clear
--- OUTSIDE RECORDS SUMMARY | 2025-01-21 23:49 | XMS_ITS | Encounter Summary ---
Author Organization [facility] Address [address] [place] [address]. [place] [address] Care Team Providers Care Bridge Mechanic Name Role Phone Chato Diaz MD Unavailable [phone] Chato Diaz MD Unavailable [phone] Jimenez Madera DO Primary Care Provider [phone] Jimenez Madera DO Unavailable [phone] Chato Diaz MD Unavailable [phone] Rosalba Romo MD Unavailable [phone] Alisson Rose MD Unavailable Jasiel Villela MD Primary Care Provider + [phone] Encounter Details Date Type Department Care Team (Late st Contact Info) Description 01/11/2024 [facility] Medical Advice [facility] [address] [place] [address] [place] [address] [place] [address] Social History Tobacco Use Types [...] Sex Assigned at Female 10/26/2022 5:46 AM DIRECTOR OF INTELLIGENCE Legal Sex Female 4:22 AM DIRECTOR OF INTELLIGENCE Gender Identity Female 10/26/2022 5:45 AM DIRECTOR OF INTELLIGENCE Sexual Orientation Straight 10/26/2022 5: 46 AM DIRECTOR OF INTELLIGENCE 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 Hansa Mueller RN on 01/11/2024 at 2:47 PM documented in this encounter Plan of Treatment Not on file documented as of this encounter Visit Diagnoses Not on filedocumented in this encounter Care Teams Bridge Mechanic Relationship Specialty [place] [address] [place] [address] PCP - General Family Medicine 10/29/22 02/23/24 [place] [address] [place] [address] PCP - General 10/16/24 Chato Diaz MD [address] [facility] [address] [place], [place] [address] Cardiovascular Disease 03/24/22 Chato Diaz MD [address] [place], [place] [address] Cardiovascular Disease 03/24/22 [place] [address] [place] [address] Assigned PCP 11/07/22 03/08/24 Chato Diaz MD [address] [place] [address] Assigned Heart and Vascular Provider 11/21/22 06/08/24 Rosalba Romo MD [address] [place] [address] Assigned Pulmonology Provider 12/12/22 06/08/24 [place] [address] [address] [place] [address] Assigned PCP 03/09/24 documented as of this encounter
--- OUTSIDE RECORDS SUMMARY | 2025-01-21 23:49 | XMS_ITS | Encounter Summary ---
Author Organization [facility] Address [address] [place] [address]. [place] [address] Care Team Providers Care Break Out Man Name Role Phone Chato Diaz MD Unavailable [phone] Chato Diaz MD Unavailable [phone] Jimenez Madera DO Primary Care Provider [phone] Jimenez Madera DO Unavailable [phone] Chato Diaz MD Unavailable [phone] Rosalba Romo MD Unavailable [phone] Alisson Rose MD Unavailable Jasiel Villela MD Primary Care Provider + [phone] Encounter Details Date Type Department Care Team (Late st Contact Info) Description 01/20/[address] 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 of this encounter Plan of Treatment Not on file documented as of this encounter Visit Diagnoses Not on filedocumented in this encounter Care Teams Break Out Man Relationship Specialty [place] [address] [place] [address] PCP - General Family Medicine 10/29/22 02/23/24 [place] [address] [place] [address] PCP - General 10/16/24 Chato Diaz MD [address] [place] [id number] Cardiovascular Disease 03/24/22 Chato Diaz MD [address] [place] [address] Cardiovascular Disease 03/24/22 [place] [address] [place] [address] Assigned PCP 11/07/22 03/08/24 Chato Diaz MD [address] [facility] [address] [place] [address] Assigned Heart and Vascular Provider 11/21/22 06/08/24 Rosalba Romo MD [address] [place], [place] [address] Assigned Pulmonology Provider 12/12/22 06/08/24 [place] [address] [place] [address] Assigned PCP 03/09/24 documented as of this encounter
--- OUTSIDE RECORDS SUMMARY | 2025-01-21 23:49 | XMS_ITS | Data Portability ---
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 Polycystic ovary syndrome [id number] E28.2 Health Concerns Section Related Observation LastModified by Organization Detai ls LastModified Time None Recorded Concern Status LastModified by Organization Details LastModified Time None Recorded Advance Directives Directive None Recorded Payers Encounter Date Sequence Insurance Name Policy Number Policy Poe Covered Member ID Poe Member ID Guarantor Name 09/25/2021 1 [facility] [id number] Beth Quinn [id number] Beth Quinn Notes Date Note Type Note Provider Name and Address Organization Details Recorded Time 09/25/2021 text/html Richa is a new pt who present today [...] suppositories each time. [facility]. One [facility] them was while she was a patient at [facility] she she states they did a complete genetic work-up, including MTHFR gene for which she is heterozygous. She was tested for several inflammatory and autoimmune conditions, all negative. Each miscarriage occurred around 5-6 weeks, longest one being 7 weeks gestation and was the only one where they saw a heartbeat at one point. Pt states she saw a top specialist in [place] for recurrent miscarriages and she was unable to help. She has had normal ultrasounds showing normal uterine structure, no defects, as well as normal tubal dye studies. She has also met with a vascular doctor and an prom burn off operator who she says were also not helpful. [...] should attempt this or not. HUYEN EPPERSON, GAS SYSTEMS WORKER [address] [facility],[address], [place], [address], [place] - [employer] COSMETOLOGY TEACHER 10/01/2021 15:16:19 OBGyn Episode No OBEpisode recorded.
--- OUTSIDE RECORDS SUMMARY | 2025-01-21 23:49 | XMS_ITS | Encounter Summary ---
Author Organization [facility] Address [address] [place] [address]. [place] [address] Care Team Providers Care Commercial Production Editor Name Role Phone Chato Diaz MD Unavailable [phone] Chato Diaz MD Unavailable [phone] No Ref-Primary, Physician Primary Care Provider Marko Smith MD Unavailable + Jimenez Madera DO Primary Care Provider [phone] Jimenez Madera DO Unavailable [phone] Chato Diaz MD Unavailable [phone] Rosalba Romo MD Unavailable [phone] Alisson Rose MD Unavailable Jasiel Villela MD Primary Care Provider + [phone] Reason for Visit * Reason Onset Date Comments Appointment 10/28/2022 Encounter Details Date Type Department Care Team (Late st Contact Info) Description 10/28/2022 [facility] - [address], [address] [place] [address] Nadeem Blanco MD [address] [place] [address] Appointment Social History Tobacco Use Types Packs/Day Years Used Date Smoking Tobacco: Never Smokeless Tobacco: Never Alcohol Use Standard Drinks/Week Comments No 0 (1 standard drink = 0.6 oz pur e alcohol) PHQ-2 Answer Date Recorded PHQ-2 Score 0 10/26/2022 Comments Unknown Sex and Gender Information Value Date Recorded Sex Assigned at Female 10/26/2022 5:46 AM SPRING COILER HAND Legal Sex Female 4:22 AM SPRING COILER HAND Gender Identity Female 10/26/2022 5:45 AM SPRING COILER HAND Sexual Orientation Straight 10/26/2022 5: 46 AM SPRING COILER HAND 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 No / Unsure 10/28/2022 8:49 AM SPRING COILER HAND documented as of this encounter Miscellaneous Notes * Telephone Encounter - Rosa Saldana - 10/28/2022 3:40 PM CST Spoke with [...] right placeor provider to be scheduled with. NG COILER HAND documented in this encounter Plan of Treatment Not on file documented as of this encounter Visit Diagnoses Not on filedocumented in this encounter Care Teams Commercial Production Editor Relationship Specialty Start Date End Date No Ref-Primary, Physician PCP - General 08/12/22 10/28/22 [place] [address] [place] [address] PCP - General Family Medicine 10/29/22 02/23/24 [place] [address] [place] [address] PCP - General 10/16/24 Chato Diaz MD [address] [place] [address] Cardiovascular Disease 03/24/22 Chato Diaz MD [address] [place] [address] Cardiovascular Disease 03/24/22 Marko Smith MD [address] [place] [address] Assigned Heart and Vascular Provider 08/15/22 11/20/22 [place] [address] [place] [address] Assigned PCP 11/07/22 03/08/24 Chato Diaz MD [address] [place] [address] Assigned Heart and Vascular Provider 11/21/22 06/08/24 Rosalba Romo MD [address] [place] [address] Assigned Pulmonology Provider 12/12/22 06/08/24 [place] [address] [place] [address] Assigned PCP 03/09/24 documented as of this encounter
--- OUTSIDE RECORDS SUMMARY | 2025-01-21 23:49 | XMS_ITS | Encounter Summary ---
Author Organization [facility] Address [address] [place] [address]. [place] [address] Care Team Providers Care Garment Tag Stringer Name Role Phone Chato Diaz MD Unavailable [phone] Chato Diaz MD Unavailable [phone] Chato Diaz MD Unavailable [phone] Rosalba Romo MD Unavailable [phone] Alisson Rose MD Unavailable Jasiel Villela MD Primary Care Provider [phone] Encounter Details Date Type Department Care Team (Late st Contact Info) Description 03/24/2024 [facility] Medical Advice [facility] [address] [place] [address] [place] [address] [place] [address] Social History Tobacco Use Types Packs/Day Years [...] Sex Assigned at Female 10/26/2022 5:46 AM RETIREMENT SALES CONSULTANT Legal Sex Female 4:22 AM RETIREMENT SALES CONSULTANT Gender Identity Female 10/26/2022 5:45 AM RETIREMENT SALES CONSULTANT Sexual Orientation Straight 10/26/2022 5: 46 AM RETIREMENT SALES CONSULTANT 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 Will pend order and forward to Dr. Madera. Of note she has sent this request out to multiple providers. documented in this encounter Plan of Treatment Not on file documented as of this encounter Visit Diagnoses Not on filedocumented in this encounter Care Teams Garment Tag Stringer Relationship Specialty [place] [address] [place] [address] PCP - General 10/16/24 Chato Diaz MD [address] [place] [id number] Cardiovascular Disease 03/24/22 Chato Diaz MD [address] [place] [address] Cardiovascular Disease 03/24/22 Chato Diaz MD [address] [facility] [address] [place] [address] Assigned Heart and Vascular Provider 11/21/22 06/08/24 Rosalba Romo MD [address] [place] [address] Assigned Pulmonology Provider 12/12/22 06/08/24 [place] [address] [place] [address] Assigned PCP 03/09/24 documented as of this encounter
--- OUTSIDE RECORDS SUMMARY | 2025-01-21 23:49 | XMS_ITS | Encounter Summary ---
Author Organization [facility] Address [address] [facility] [place] [address] Care Team Providers Care Aircraft Electronics Technical Officer Name Role Phone Chato Diaz MD Unavailable [phone] Chato Diaz MD Unavailable [phone] Chato Diaz MD Unavailable [phone] Rosalba Romo MD Unavailable [phone] Alisson Rose MD Unavailable Jasiel Villela MD Primary Care Provider [phone] Encounter Details Date Type Department Care Team (Late st Contact Info) Description 03/27/2024 [facility] Only [facility] [address] [place] [address] June Luna, DO [address] [facility] [address] [place] [address] with history of miscarriage, first trimester (Primary Dx) Social History Tobacco Use Types [...] Sex Assigned at Female 10/26/2022 5:46 AM METAL EXPEDITER Legal Sex Female 4:22 AM METAL EXPEDITER Gender Identity Female 10/26/2022 5:45 AM METAL EXPEDITER Sexual Orientation Straight 10/26/2022 5: 46 AM METAL EXPEDITER 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 [address] Lab (1st floor, no room number) [place] [address], [facility] documented in this encounter Visit Diagnoses Diagnosis with history of miscarriage, first trimester- Primary documented in this encounter Care Teams Aircraft Electronics Technical Officer Relationship Specialty Start [place] [address] [place] [address] PCP - General 10/16/24 Chato Diaz MD [address] [place] [address] Cardiovascular Disease 03/24/22 Chato Diza MD [address] [place] [address] Cardiovascular Disease 03/24/22 Chato Diaz MD [address] [place] [address] Assigned Heart and Vascular Provider 11/21/22 06/08/24 Rosalba Romo MD [address] [place], [place] [address] Assigned Pulmonology Provider 12/12/22 06/08/24 [place] [address] [address] [address] [address] Assigned PCP 03/09/24 documented as of this encounter
--- OUTSIDE RECORDS SUMMARY | 2025-01-21 23:49 | XMS_ITS | Encounter Summary ---
Author Organization [facility] Address [address] [facility] [place] [address] Care Team Providers Care Assistant Spa Director Name Role Phone Chato Diaz MD Unavailable [phone] Chato Diaz MD Unavailable [phone] Chato Diaz MD Unavailable [phone] Rosalba Romo MD Unavailable [phone] Alisson Rose MD Unavailable Jasiel Villela MD Primary Care Provider [phone] Encounter Details Date Type Department Care Team (Late st Contact Info) Description 03/27/2024 [facility] Only [facility] [address] [place] [address] June Luna, DO [address] [facility] [address] [place] [address] Social History Tobacco Use Types Packs/Day Years [...] Sex Assigned at Female 10/26/2022 5:46 AM TRAY DELIVERY AIDE Legal Sex Female 4:22 AM TRAY DELIVERY AIDE Gender Identity Female 10/26/2022 5:45 AM TRAY DELIVERY AIDE Sexual Orientation Straight 10/26/2022 5: 46 AM TRAY DELIVERY AIDE 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 of this encounter Plan of Treatment Not on file documented as of this encounter Visit Diagnoses Not on filedocumented in this encounter Care Teams Assistant Spa Director Relationship Specialty Start [place] [address] [place] [address] PCP - General 10/16/24 Chato Diaz MD [address] [place] [id number] Cardiovascular Disease 03/24/22 Chato Diaz MD [address] [place] [address] Cardiovascular Disease 03/24/22 Chato Diaz MD [address] [place] [address] Assigned Heart and Vascular Provider 11/21/22 06/08/24 Rosalba Romo MD [address] [address] Assigned Pulmonology Provider 12/12/22 06/08/24 [place] [address] [place] [address] Assigned PCP 03/09/24 documented as of this encounter
--- OUTSIDE RECORDS SUMMARY | 2025-01-21 23:49 | XMS_ITS | Encounter Summary ---
Author Organization [facility] Address [address] [facility] [place] [address] Care Team Providers Care Palliative Senior Np Name Role Phone Chato Diaz MD Unavailable [phone] Chato Diaz MD Unavailable [phone] Marko Smith MD Unavailable + Jimenez Madera DO Primary Care Provider [phone] Jimenez Madera DO Unavailable [phone] Chato Diaz MD Unavailable [phone] Rosalba Romo MD Unavailable [phone] Alisson Rose MD Unavailable Jasiel Villela MD Primary Care Provider + [phone] Encounter Details Date Type Department Care Team (Late st Contact Info) Description 11/05/2022 Orders Only [facility] [address] [place] [address] June Luna DO [address] [place] [address] Fertility testing (Primary Dx) Social History Tobacco Use Types Packs/Day Years Used Date Smoking Tobacco: Never Smokeless Tobacco: Never Alcohol Use Standard Drinks/Week Comments No 0 (1 standard drink = 0.6 oz pur e alcohol) PHQ-2 Answer Date Recorded PHQ-2 Score 0 10/26/2022 Comments Unknown Sex and Gender Information Value Date Recorded Sex Assigned at Female 10/26/2022 5:46 AM CASHIER TUBE ROOM Legal Sex Female 4:22 AM CASHIER TUBE ROOM Gender Identity Female 10/26/2022 5:45 AM CASHIER TUBE ROOM Sexual Orientation Straight 10/26/2022 5: 46 AM CASHIER TUBE ROOM 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 No / Unsure 10/28/2022 8:49 AM CASHIER TUBE ROOM documented as of this encounter Plan of Treatment Not on file documented as of this encounter Visit Diagnoses Diagnosis Fertility testing- Primary documented in this encounter Care Teams Palliative Senior Np Relationship Specialty Start [place] [address] [place] [address] PCP - General Family Medicine 10/29/22 02/23/24 [place] [address] [place] [address] PCP - General 10/16/24 Chato Diaz MD [address] [place] [address] Cardiovascular Disease 03/24/22 Chato Diaz MD [address] [place] [address] Cardiovascular Disease 03/24/22 Marko Smith MD [address] [place] [address] Assigned Heart and Vascular Provider 08/15/22 11/20/22 [place] [address] [place] [address] Assigned PCP 11/07/22 03/08/24 Chato Diaz MD [address] [facility] [address] [place], [place] [address] Assigned Heart and Vascular Provider 11/21/22 06/08/24 Rosalba Romo MD [address] [facility] [address] [place], [place] [address] Assigned Pulmonology Provider 12/12/22 06/08/24 [place] [address] [place] [address] Assigned PCP 03/09/24 documented as of this encounter
--- OUTSIDE RECORDS SUMMARY | 2025-01-21 23:49 | XMS_ITS | Encounter Summary ---
Author Organization [place] Address [facility]0 [facility] [place] [address] Care Team Providers Care Remediation Project Engineer Name Role Phone Keven Krueger Primary Care Provider + [phone] Chato Diaz MD Unavailable [phone] Chato Diaz MD Unavailable [phone] Ref-Primary, Physician Primary Care Provider Marko Smith MD Unavailable + Chato Diaz MD Unavailable [phone] Jimenez Madera DO Primary Care Provider [phone] Jimenez Madera DO Unavailable Chato Diaz MD Unavailable +[phone] Rosalba Romo MD Unavailable [phone] Alisson Rose MD Unavailable Jasiel Villela MD Primary Care Provider + [phone] Encounter Details Date Type Department Care Team (Late st Contact Info) Description 07/17/2022 [facility] [place] [address] [facility] [address] [place] [address] Chato Diaz MD [address] [facility] [address] [place] [address] Social History Tobacco Use Types Packs/Day Years Used Date Smoking Tobacco: Never Smokeless Tobacco: Never Alcohol Use Standard Drinks/Week Comments No 0 (1 standard drink = 0.6 oz pur e alcohol) PHQ-2 Answer Date Recorded PHQ-2 Score 0 02/07/2019 Comments Unknown Sex and Gender Information Value Date Recorded Sex Assigned at Female 10/26/2022 5:46 AM CLAIMS SUPERVISOR Legal Sex Female 4:22 AM CLAIMS SUPERVISOR Gender Identity Female 10/26/2022 5:45 AM CLAIMS SUPERVISOR Sexual Orientation Straight 10/26/2022 5: 46 AM CLAIMS SUPERVISOR Occupation Industry Job Start Date Job End [...] on filedocumented in this encounter Care Teams Remediation Project Engineer Relationship Specialty Start Date End Date Keven Krueger [address] [id number] PCP - General Family Practice 05/01/19 08/11/22 No Ref-Primary, Physician PCP - General 08/12/22 10/28/22 [place] [address] [place] [address] PCP - General Family Medicine 10/29/22 02/23/24 [place] [address] [place] [address] PCP - General 10/16/24 Chato Diaz MD [address] [place] [address] Cardiovascular Disease 03/24/22 Chato Diaz MD [address] [place] [address] Cardiovascular Disease 03/24/22 Marko Smith MD [address] [place] [address] Assigned Heart and Vascular Provider 08/15/22 11/20/22 Chato Diaz MD [address] [place] [address] Assigned Heart and Vascular Provider 07/18/22 08/14/22 [place] [address] [place] [address] Assigned PCP 11/07/22 03/08/24 Chato Diaz MD [address] [place] [address] Assigned Heart and Vascular Provider 11/21/22 06/08/24 Rosalba Romo MD [address] [place], [place] [address] Assigned Pulmonology Provider 12/12/22 06/08/24 [place] [address] [place] [address] Assigned PCP 03/09/24 documented as of this encounter
--- OUTSIDE RECORDS SUMMARY | 2025-01-21 23:49 | XMS_ITS | Encounter Summary ---
Author Organization [place] Address [address] [place] [address]. [place] [address] Care Team Providers Care Gas Systems Worker Name Role Phone Chato Diaz MD Unavailable [phone] Chato Diaz MD Unavailable [phone] Chato Diaz MD Unavailable [phone] Rosalba Romo MD Unavailable [phone] Alisson Rose MD Unavailable Jasiel Villela MD Primary Care Provider [phone] Encounter Details Date Type Department Care Team (Late st Contact Info) Description 03/24/2024 [facility] Medical Advice [facility] Heart [facility] [address] [facility] [address] [place] [address] Chato Diaz MD [address] [facility] [address] [place], [place] [address] Social History Tobacco Use Types Packs/Day Years [...] Sex Assigned at Female 10/26/2022 5:46 AM UNIT TECHNICIAN Legal Sex Female 4:22 AM UNIT TECHNICIAN Gender Identity Female 10/26/2022 5:45 AM UNIT TECHNICIAN Sexual Orientation Straight 10/26/2022 5: 46 AM UNIT TECHNICIAN 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 of this encounter Plan of Treatment Not on file documented as of this encounter Visit Diagnoses Not on filedocumented in this encounter Care Teams Gas Systems Worker Relationship Specialty [place] [address] [place] [address] PCP - General 10/16/24 Chato Diaz MD [address] [place] [address] Cardiovascular Disease 03/24/22 Chato Diaz MD [address] [place] [address] Cardiovascular Disease 03/24/22 Chato Diaz MD [address] [place] [address] Assigned Heart and Vascular Provider 11/21/22 06/08/24 Rosalba Romo MD [address] [place], [place] [address] Assigned Pulmonology Provider 12/12/22 06/08/24 [place] [address] [address] [place] [address] Assigned PCP 03/09/24 documented as of this encounter
--- OUTSIDE RECORDS SUMMARY | 2025-01-21 23:49 | XMS_ITS | Encounter Summary ---
Author Organization [place] Address [address] [facility] [place] [address] Care Team Providers Care Bomb Loader Name Role Phone Chato Diaz MD Unavailable [phone] Chato Diaz MD Unavailable [phone] Alisson Rose MD Unavailable Jasiel Villela MD Primary Care Provider + [phone] Encounter Details Date Type Department Care Team (Late st Contact Info) Description 01/04/2025 [facility] Medical Advice [facility] [address] [place] [address] Chato Diaz MD [address] [facility] [address] [place] [address] Social History Tobacco Use Types [...] your partner or ex-partner? 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
--- OUTSIDE RECORDS SUMMARY | 2025-01-21 23:49 | XMS_ITS | Encounter Summary ---
Author Organization [place] Address [address] [place] [address] Care Team Providers Care Hospital Pharmacy Director Name Role Phone Keven Krueger Primary Care Provider [phone] Michelle Ware PA-C Unavailable Michelle Ware PA-C Unavailable No Ref-Primary, Physician Primary Care Provider Gypsy Mcfadden APRN AUTOMOBILE SALESMAN Unavailable [phone] Keven Krueger Primary Care Provider +[phone] Chato Diaz MD Unavailable [phone] Chato Diaz MD Unavailable [phone] Chato Diaz MD Unavailable [phone] No Ref-Primary, Physician Primary Care Provider Marko Smith MD Unavailable + Chato Diaz MD Unavailable [phone] Jimenez Madera DO Primary Care Provider [phone] Jimenez Madera DO Unavailable [phone] Chato Diaz MD Unavailable [phone] Rosalba Romo MD Unavailable Alisson Rose MD Unavailable Jasiel Villela MD Primary Care Provider [phone] Encounter Details Date Type Department Care Team (Late st Contact Info) Description 04/10/2018 Orders Only [facility] [address] [place] [address] Jean Jimenez MD [facility] [address] [facility] 200 [place] [address] Social History Tobacco Use Types Packs/Day Years Used Date Smoking Tobacco: Never Smokeless Tobacco: Never Alcohol Use Standard Drinks/Week Comments No 0 (1 standard drink = 0.6 oz pur e alcohol) Comments Yes Sex and Gender Information Value Date Recorded Sex Assigned at Female 10/26/2022 5:46 AM DIRECTOR OF LEADERSHIP DEVELOPMENT Legal Sex Female 4:22 AM DIRECTOR OF LEADERSHIP DEVELOPMENT Gender Identity Female 10/26/2022 5:45 AM DIRECTOR OF LEADERSHIP DEVELOPMENT Sexual Orientation Straight 10/26/2022 5: 46 AM DIRECTOR OF LEADERSHIP DEVELOPMENT 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 of this encounter Plan of Treatment Not on file documented as of this encounter Visit Diagnoses Not on filedocumented in this encounter Care Teams Hospital Pharmacy Director Relationship Specialty Start Date End Date Keven Krueger [address] [address] PCP - General Family Practice 12/26/15 02/06/19 Michelle Ware PA-C [address] [place] [address] PCP - Assigned PCP 07/02/17 12/20/18 No Ref-Primary, Physician PCP - General 02/07/19 04/30/[address] [id number] PCP - General Family Practice 05/01/19 08/11/22 No Ref-Primary, Physician PCP - General 08/12/22 10/28/22 [place] [address] [place] [address] PCP - General Family Medicine 10/29/22 02/23/24 [place] [address] [place] [address] PCP - General 10/16/24 Michelle Ware PA-C [address] [place] [address] Assigned PCP 07/02/17 02/11/19 Gypsy Mcfadden APRN AUTOMOBILE SALESMAN [address] [place] [address] Assigned PCP 02/12/19 02/07/22 Chato Diaz MD [address] [place] [address] Assigned Heart and Vascular Provider 08/09/20 11/01/21 Chato Diaz MD [address] [place] [address] Cardiovascular Disease 03/24/22 Chato Diaz MD [address] [place] [address] Cardiovascular Disease 03/24/22 Marko Smith MD [address] [place] [address] Assigned Heart and Vascular Provider 08/15/22 11/20/22 Chato Diaz MD [address] [place] [address] Assigned Heart and Vascular Provider 07/18/22 08/14/22 [place] [address] [place] [address] Assigned PCP 11/07/22 03/08/24 Chato Diaz MD [address] [place] [address] Assigned Heart and Vascular Provider 11/21/22 06/08/24 Rosalba Romo MD [address] [place], [place] [address] Assigned Pulmonology Provider 12/12/22 06/08/24 [place] [address] [address] [place] [address] Assigned PCP 03/09/24 documented as of this encounter
--- OUTSIDE RECORDS SUMMARY | 2025-01-21 23:49 | XMS_ITS | Encounter Summary ---
Author Organization [place] Address [address] [place] [address] Care Team Providers Care Panel Machine Setter Name Role Phone BogdanGypsy ANA LAURA ROTARY SHEAR OPERATOR Unavailable [phone] Keven Krueger Primary Care Provider + [phone] Chato Diaz MD Unavailable [phone] Chato Diaz MD Unavailable [phone] Chato Diaz MD Unavailable [phone] Ref-Primary, Physician Primary Care Provider Marko Smith MD Unavailable + Chato Diaz MD Unavailable [phone] Jimenez Madera DO Primary Care Provider [phone] Jimenez Madera DO Unavailable [phone] Chato Diaz MD Unavailable [phone] Rosalba Romo MD Unavailable [phone] Alisson Rose MD Unavailable Jasiel Villela MD Primary Care Provider + [phone] Encounter Details Date Type Department Care Team (Late st Contact Info) Description 03/04/2020 [facility] [place] Medical Advice [facility] Heart [address] [place] [address] Chato Diaz MD [address] [facility] [address] [place] [address] Social History Tobacco Use Types Packs/Day Years Used Date Smoking Tobacco: Never Smokeless Tobacco: Never Alcohol Use Standard Drinks/Week Comments No 0 (1 standard drink = 0.6 oz pur e alcohol) PHQ-2 Answer Date Recorded PHQ-2 Score 0 02/07/2019 Comments No Sex and Gender Information Value Date Recorded Sex Assigned at Female 10/26/2022 5:46 AM PROGRAMMING COORDINATOR Legal Sex Female 4:22 AM PROGRAMMING COORDINATOR Gender Identity Female 10/26/2022 5:45 AM PROGRAMMING COORDINATOR Sexual Orientation Straight 10/26/2022 5: 46 AM PROGRAMMING COORDINATOR Occupation Industry Job Start Date Job End [...] on filedocumented in this encounter Care Teams Panel Machine Setter Relationship Specialty Start Date End Date Keven Krueger [address] [address] PCP - General Family Practice 05/01/19 08/11/22 No Ref-Primary, Physician PCP - General 08/12/22 10/28/22 [place] [address] [place] [address] PCP - General Family Medicine 10/29/22 02/23/24 [place] [address] [place] [address] PCP - General 10/16/[address] SCAN TECH ROTARY SHEAR OPERATOR [address] [address] [place] [address] Assigned PCP 02/12/19 02/07/22 Chato Diaz MD [address] [place] [address] Assigned Heart and Vascular Provider 08/09/20 11/01/21 Chato Diaz MD [address] [place] [address] Cardiovascular Disease 03/24/22 Chato Diaz MD [address] [place] [address] Cardiovascular Disease 03/24/22 Marko Smith MD [address] [place] [address] Assigned Heart and Vascular Provider 08/15/22 11/20/22 Chato Diaz MD [address] [place] [address] Assigned Heart and Vascular Provider 07/18/22 08/14/22 [place] [address] [address] [place] [address] Assigned PCP 11/07/22 03/08/24 Chato Diaz MD [address] [place] [address] Assigned Heart and Vascular Provider 11/21/22 06/08/24 Rosalba Romo MD [address] [place] [address] Assigned Pulmonology Provider 12/12/22 06/08/24 [place] [address] [place] [address] Assigned PCP 03/09/24 documented as of this encounter
--- OUTSIDE RECORDS SUMMARY | 2025-01-21 23:49 | XMS_ITS | Clinical Summary ---
Author Organization [facility] Address [address] [place] [address] Care Team Providers Care Wall Covering Contractor Name Role Phone Unknown, Physician Primary Care Provider [phone] Source Comments You are receiving this document as you are listed as the primary care provider,follow-up provider, or the patient has been referred to you for consultation.This is in compliance with the Medicare and[facility] EHR Incentive Program,which states Providers who transition their patient to another setting of careor provider of care or refers their patient to another provider of care shouldprovide summary care record for each transition of care or referral. [employer] Allergies Active Allergy Reactions Criticality Noted Date Comments Sulfa Antibiotics Other, see comments 6 PN: Unknown reaction as child Medications medroxyPROGEST ERone (PROVERA) 10 MG tabletIndicati ons:IZABELLA SALAS WedJun 10, 2016 1:28 PM Received from: External Pharmacy TAKE 1 TABLET (10 MG) BY MOUTH ONCE DAILY FOR 10 DAYS 1 05/05/20 16 Active EPINEPHrine (EPIPEN) 0.3 MG/0.3ML injectionIndic ations:IZABELLA SALAS WedJun 10, 2016 1:28 PM Received from: External Pharmacy INJECT 0.3 MG INTRAMUSCULARLY NEEDED 0 02/14/20 16 Active Calcium-Magnes ium-Vitamin D 500-250-200 MG-MG-UNIT Take 1 tablet by mouth daily (every 24 hours). 06/10/20 16 Active cholecalcifero l (VITAMIND3) 1000 UNITS capsule Take 1 capsule by mouth daily (every 24 hours). 06/10/20 16 Active folic acid 400 MCG tablet Take 400 mcg by mouth daily (every 24 hours). 06/10/20 16 Active Coenzyme Q10 (CO Q 10) 100 MG Take 1 capsule by mouth daily (every 24 hours). 06/10/20 16 Active omega-3 fatty acids (FISH OIL) 1000 MG capsule Take 1 capsule by mouth daily (every 24 hours). 06/10/20 16 Active clomiPHENE (CLOMID) 50 MG tabletIndicati ons:Irregular menstrual cycle Take 2 tablets by mouth daily (every 24 hours). on days 3-7 of menstrual cycle 10 tablet 5 06/10/20 16 Active Immunizations Immunization Administration Dates Next Due DTP 02/14/1987, 4,1982,1982 [...] Years Used Date Smoking Tobacco: Never Assessed Comments No Sex and Gender Information Value Date Recorded Sex Assigned at Not on file Legal Sex Female 4:54 AM CDT Gender Identity Not on file Sexual Orientation [...] 1982 Hep C Screening (Preventive Services) 1982 Mammogram 1982 HIV Screening (Preventive Services) 1998 Adult Preventive Visit 2000 04/29/1995 HepB (1) 2001 DTaP/Tdap/Td (7 - Tdap) 05/02/2017 05/02/20 07, 12/15/1994, 02/14/1987, Additional history exists COVID-19 Vaccine ( season) 2024 Influenza (#1) 2024 Zoster/Shingles (1 of 2) 2032 IPV (Polio) [...] on patient's age to complete this topic Meningococcal B Aged Out No longer el igible based on patient's age to complete this topic Pneumococcal Aged Out No longer eligi ble based on patient's age to complete this topic Insurance [facility] CIGNA Care Teams Wall Covering Contractor Relationship Specialty Start Date End Date Unknown, Physician [address] [place] [address] PCP - General 01/06/1999
--- OUTSIDE RECORDS SUMMARY | 2025-01-21 23:49 | XMS_ITS | Encounter Summary ---
Author Organization [facility] Address [address] [place] [address] Care Team Providers Care Engineering Manager Name Role Phone Chato Diaz MD Unavailable [phone] Chato Diaz MD Unavailable [phone] Jimenez Madera DO Primary Care Provider [phone] Jimenez Madera DO Unavailable [phone] Chato Diaz MD Unavailable [phone] Rosalba Romo MD Unavailable [phone] Alisson Rose MD Unavailable Jasiel Villela MD Primary Care Provider [phone] Reason for Visit * Reason Onset Date Comments Call Back 02/16/2024 Scans Encounter Details Date Type Department Care Team (Late st Contact Info) Description 02/16/2024 Telephone [facility] Heart [facility] [address] [place] [address] [address] [place] [address] Unknown Call Back (Scans) Social History Tobacco Use Types Packs/Day Years [...] Sex Assigned at Female 10/26/2022 5:46 AM TECHNOLOGY INFUSION SPECIALIST Legal Sex Female 4:22 AM TECHNOLOGY INFUSION SPECIALIST Gender Identity Female 10/26/2022 5:45 AM TECHNOLOGY INFUSION SPECIALIST Sexual Orientation Straight 10/26/2022 5: 46 AM TECHNOLOGY INFUSION SPECIALIST 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 of this encounter Miscellaneous Notes * Telephone Encounter - Gaby Metcalf - 02/16/2024 1:05 PM CDT Health Call Center Phone Message May a detailed message be left on voicemail: yes Reason for Call: Other: Pt would like a call back to schedule a carotid scan and ct calcium scan [facility] Action Taken: Other: Cardio Travel Screening: Not Applicable documented in this encounter Plan of Treatment Not on file documented as of this encounter Visit Diagnoses Not on filedocumented in this encounter Care Teams Engineering Manager Relationship Specialty [place] [address] [place] [address] PCP - General Family Medicine 10/29/22 02/23/24 [place] [address] [place] [address] PCP - General 10/16/24 Chato Diaz MD [address] [facility] [address] [place] [address] Cardiovascular Disease 03/24/22 Chato Diaz MD [address] [place] [address] Cardiovascular Disease 03/24/22 [place] [address] [place] [address] Assigned PCP 11/07/22 03/08/24 Chato Diaz MD [address] [place] [address] Assigned Heart and Vascular Provider 11/21/22 06/08/24 Rosalba Romo MD [address] [place] [address] Assigned Pulmonology Provider 12/12/22 06/08/24 [place] [address] [place] [address] Assigned PCP 03/09/24 documented as of this encounter
--- OUTSIDE RECORDS SUMMARY | 2025-01-21 23:49 | XMS_ITS | Encounter Summary ---
Author Organization [place] Address [address] [place] [address]. [place] [address] Care Team Providers Care Regulation Supervisor Name Role Phone Chato Diaz MD Unavailable [phone] Chato Diaz MD Unavailable [phone] Jimenez Madera DO Primary Care Provider [phone] Jimenez Madera DO Unavailable [phone] Chato Diaz MD Unavailable [phone] Rosalba Romo MD Unavailable [phone] Alisson Rose MD Unavailable Jasiel Villela MD Primary Care Provider + [phone] Encounter Details Date Type Department Care Team (Late st Contact Info) Description 02/21/2024 [facility] Medical Advice [facility] [place] [address] [place] [address] [address] [place] [address] Chato Diaz MD [address] 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 of this encounter Plan of Treatment Not on file documented as of this encounter Visit Diagnoses Not on filedocumented in this encounter Care Teams Regulation Supervisor Relationship Specialty Start [place] [address] [place] [address] PCP - General Family Medicine 10/29/22 02/23/24 [place] [address] [place] [address] PCP - General 10/16/24 Chato Diaz MD [address] [place] [address] Cardiovascular Disease 03/24/22 Chato Diaz MD [address] [place] [address] Cardiovascular Disease 03/24/22 [place] [address] [place] [address] Assigned PCP 11/07/22 03/08/24 Chato Diaz MD [address] [facility] [address] [place] [address] Assigned Heart and Vascular Provider 11/21/22 06/08/24 Rosalba Romo MD [address] [place], [place] [address] Assigned Pulmonology Provider 12/12/22 06/08/24 [place] [address] [place] [address] Assigned PCP 03/09/24 documented as of this encounter
--- OUTSIDE RECORDS SUMMARY | 2025-01-21 23:49 | XMS_ITS | Encounter Summary ---
Author Organization [facility] Address [address] [place] [address] Care Team Providers Care Train Driver Name Role Phone Chato Diaz MD Unavailable +[phone] Chato Diaz MD Unavailable +[phone] Jimenez Madera DO Primary Care Provider +[phone] Jimenez Madera DO Unavailable [phone] Chato Diaz MD Unavailable +[phone] Rosalba Romo MD Unavailable [phone] Alisson Rose MD Unavailable Jasiel Villela MD Primary Care Provider [phone] Encounter Details Date Type Department Care Team (Late st Contact Info) Description 02/17/2024 MyC Medical Advice [facility] [address] [place] [address] Bianca Miller, ASSET PROTECTION GREETER Social History Tobacco Use Types Packs/Day Years [...] Sex Assigned at Female 10/26/2022 5:46 AM USER INTERFACE ENGINEER Legal Sex Female 4:22 AM USER INTERFACE ENGINEER Gender Identity Female 10/26/2022 5:45 AM USER INTERFACE ENGINEER Sexual Orientation Straight 10/26/2022 5: 46 AM USER INTERFACE ENGINEER 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 of this encounter Plan of Treatment Not on file documented as of this encounter Visit Diagnoses Not on filedocumented in this encounter Care Teams Train Driver Relationship Specialty [place] [address] [place] [address] PCP - General Family Medicine 10/29/22 02/23/24 [place] [address] [place] [address] PCP - General 10/16/24 Chato Diaz MD [address] [place] [id number] Cardiovascular Disease 03/24/22 Chato Diaz MD [address] [place] [id number] Cardiovascular Disease 03/24/22 [place] [address] [place] [address] Assigned PCP 1/21/23 5/22/24 Chato Diaz MD [address] [facility] [address] [place] [address] Assigned Heart and Vascular Provider 11/21/22 06/08/24 Rosalba Romo MD [address] [place], [place] [address] Assigned Pulmonology Provider 12/12/22 06/08/24 [place] [address] [place] [place] [address] Assigned PCP 03/09/24 documented as of this encounter
--- OUTSIDE RECORDS SUMMARY | 2025-01-21 23:49 | XMS_ITS | Encounter Summary ---
Author Organization [place] Address [facility] [place] [address] Care Team Providers Care Compressor Station Engineer Chief Name Role Phone Chato Diaz MD Unavailable [phone] Chato Diaz MD Unavailable +[phone] Ref-Primary, Physician Primary Care Provider Marko Smith MD Unavailable + Jimenez Madera DO Primary Care Provider [phone] Jimenez Madera DO Unavailable [phone] Chato Diaz MD Unavailable +[phone] Rosalba Romo MD Unavailable [phone] Alisson Rose MD Unavailable Jasiel Villela MD Primary Care Provider + [phone] Encounter Details Date Type Department Care Team (Late st Contact Info) Description 08/21/2022 [facility] Medical Advice [facility] [place] [address] [facility] [address] [place] [address] Chato Diaz MD [address] [facility] [address] [place] [address] Social History Tobacco Use Types Packs/Day Years Used Date Smoking Tobacco: Never Smokeless Tobacco: Never Alcohol Use Standard Drinks/Week Comments No 0 (1 standard drink = 0.6 oz pur e alcohol) PHQ-2 Answer Date Recorded PHQ-2 Score 0 02/07/2019 Comments Unknown Sex and Gender Information Value Date Recorded Sex Assigned at Female 10/26/2022 5:46 AM ROLLER SKATES ASSEMBLER Legal Sex Female 4:22 AM ROLLER SKATES ASSEMBLER Gender Identity Female 10/26/2022 5:45 AM ROLLER SKATES ASSEMBLER Sexual Orientation Straight 10/26/2022 5: 46 AM ROLLER SKATES ASSEMBLER Occupation Industry Job Start Date Job End [...] on filedocumented in this encounter Care Teams Compressor Station Engineer Chief Relationship Specialty Start Date End Date No Ref-Primary, Physician PCP - General 08/12/22 10/28/22 [place] [address] [place] [address] PCP - General Family Medicine 10/29/22 02/23/24 [place] [address] [place] [address] PCP - General 10/16/24 Chato Diaz MD [address] [place] [id number] Cardiovascular Disease 03/24/22 Chato Diaz MD [address] [place] [address] Cardiovascular Disease 03/24/22 Marko Smith MD [address] [place] [address] Assigned Heart and Vascular Provider 08/15/22 11/20/22 [place] [address] [place] [address] Assigned PCP 11/07/22 03/08/24 Chato Diaz MD [address] [place] [address] Assigned Heart and Vascular Provider 11/21/22 06/08/24 Rosalba Romo MD [address] [place], [place] [address] Assigned Pulmonology Provider 12/12/22 06/08/24 [place] [address] [address] [place] [id number] Assigned PCP 03/09/24 documented as of this encounter
--- OUTSIDE RECORDS SUMMARY | 2025-01-21 23:49 | XMS_ITS | Encounter Summary ---
Author Organization [place] Address [address] [place] [address]. [place] [address] Care Team Providers Care Bank Officer Name Role Phone Chato Diaz MD Unavailable [phone] Chato Diaz MD Unavailable [phone] Jimenez Madera DO Primary Care Provider [phone] Jimenez Madera DO Unavailable Chato Diaz MD Unavailable +[phone] Rosalba Romo MD Unavailable [phone] Alisson Rose MD Unavailable Jasiel Villela MD Primary Care Provider + [phone] Reason for Visit * Reason Onset Date Comments MyChart Communication 01/10/2024 Encounter Details Date Type Department Care Team (Latest Contact Info) Description 01/10/2024 [facility] Heart [facility] [id number] [place] [address] [address] [place] [address] Chato Diaz MD [address] [facility] [address] [place], [place] [address] MyChart Communication Social History Tobacco Use Types [...] Sex Assigned at Female 10/26/2022 5:46 AM ELECTRICAL MAINTENANCE ENGINEER Legal Sex Female 4:22 AM ELECTRICAL MAINTENANCE ENGINEER Gender Identity Female 10/26/2022 5:45 AM ELECTRICAL MAINTENANCE ENGINEER Sexual Orientation Straight 10/26/2022 5: 46 AM ELECTRICAL MAINTENANCE ENGINEER 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 of this encounter Plan of Treatment Not on file documented as of this encounter Visit Diagnoses Not on filedocumented in this encounter Care Teams Bank Officer Relationship Specialty [place] [address] [place] [address] PCP - General Family Medicine 10/29/22 02/23/24 [place] [address] [place] [address] PCP - General 10/16/24 Chato Diaz MD [address] [place] 387[address] Cardiovascular Disease 03/24/22 Chato Diaz MD [address] [place] [address] Cardiovascular Disease 03/24/22 [place] [address] [place] [address] Assigned PCP 11/07/22 03/08/24 Chato Diaz MD [address] [facility] [address] [place] [address] Assigned Heart and Vascular Provider 11/21/22 06/08/24 Rosalba Romo MD [address] [place], [place] [address] Assigned Pulmonology Provider 12/12/22 06/08/24 [place] [address] [facility] [place] [id number] Assigned PCP 03/09/24 documented as of this encounter
--- OUTSIDE RECORDS SUMMARY | 2025-01-21 23:49 | XMS_ITS | Encounter Summary ---
Author Organization [facility] Address [address] [place] [address] Care Team Providers Care Cone Cleaner Name Role Phone BogdanGypsy ANA LAURA LINING PRESSER Unavailable [phone] Keven Krueger Primary Care Provider + [phone] Chato Diaz MD Unavailable [phone] Chato Diaz MD Unavailable [phone] Chato Diaz MD Unavailable +[phone] Ref-Primary, Physician Primary Care Provider Marko Smith MD Unavailable + Chato Diaz MD Unavailable [phone] Jimenez Madera DO Primary Care Provider [phone] Jimenez Madera DO Unavailable [phone] Chato Diaz MD Unavailable [phone] Rosalba Romo MD Unavailable [phone] Alisson Rose MD Unavailable Jasiel Villela MD Primary Care Provider + [phone] Encounter Details Date Type Department Care Team (Late st Contact Info) Description 03/04/2020 [facility] Medical Advice [facility] Heart [address] [place] [address] Chato Diaz MD [address] [facility] [address] [place] [address] Social History Tobacco Use Types Packs/Day Years Used Date Smoking Tobacco: Never Smokeless Tobacco: Never Alcohol Use Standard Drinks/Week Comments No 0 (1 standard drink = 0.6 oz pur e alcohol) PHQ-2 Answer Date Recorded PHQ-2 Score 0 02/07/2019 Comments No Sex and Gender Information Value Date Recorded Sex Assigned at Female 10/26/2022 5:46 AM STOREROOM CLERK Legal Sex Female 4:22 AM STOREROOM CLERK Gender Identity Female 10/26/2022 5:45 AM STOREROOM CLERK Sexual Orientation Straight 10/26/2022 5: 46 AM STOREROOM CLERK Occupation Industry Job Start Date Job End [...] on filedocumented in this encounter Care Teams Cone Cleaner Relationship Specialty Start Date End Date Keven Krueger [address] [address] PCP - General Family Practice 05/01/19 08/11/22 No Ref-Primary, Physician PCP - General 08/12/22 10/28/22 [place] [address] [place] [address] PCP - General Family Medicine 10/29/22 02/23/24 [place] [address] [place] [address] PCP - General 10/16/24 Bogdan Gypsy EGG TESTER LINING PRESSER [address] [address] [place] [address] Assigned PCP 02/12/19 02/07/22 Chato Diaz MD [address] [place] [id number] Assigned Heart and Vascular Provider 08/09/20 11/01/21 Chato Diaz MD [address] [place] [id number] Cardiovascular Disease 03/24/22 Chato Diaz MD [address] [place] [address] Cardiovascular Disease 03/24/22 Marko Smith MD [address] [place] [address] Assigned Heart and Vascular Provider 08/15/22 11/20/22 Chato Diaz MD [address] [place] [address] Assigned Heart and Vascular Provider 07/18/22 08/14/22 [place] [address] [address] [place] [address] Assigned PCP 11/07/22 03/08/24 Chato Diaz MD [address] [place] 6935[address] Assigned Heart and Vascular Provider 11/21/22 06/08/24 Rosalba Romo MD [address] [place] [address] Assigned Pulmonology Provider 12/12/22 06/08/24 [place] [address] [place] [address] Assigned PCP 03/09/24 documented as of this encounter
--- OUTSIDE RECORDS SUMMARY | 2025-01-21 23:49 | XMS_ITS | Encounter Summary ---
Author Organization [facility] Address [address] [place] [address]. [place] [address] Care Team Providers Care Rn Diabetes Name Role Phone Chato Diaz MD Unavailable [phone] Chato Diaz MD Unavailable +[phone] Ref-Primary, Physician Primary Care Provider Marko Smith MD Unavailable + Chato Diaz MD Unavailable [phone] Jimenez Madera DO Primary Care Provider [phone] Jimenez Madera DO Unavailable [phone] Chato Diaz MD Unavailable +[phone] Rosalba Romo MD Unavailable [phone] Alisson Rose MD Unavailable Jasiel Villela MD Primary Care Provider + [phone] Encounter Details Date Type Department Care Team (Late st Contact Info) Description 08/12/2022 [facility] Heart [facility] [address] [facility] [address] [place] [address] Marko Smith MD [address] [facility] [address] [place] [id number] Social History Tobacco Use Types Packs/Day Years Used Date Smoking Tobacco: Never Smokeless Tobacco: Never Alcohol Use Standard Drinks/Week Comments No 0 (1 standard drink = 0.6 oz pur e alcohol) PHQ-2 Answer Date Recorded PHQ-2 Score 0 02/07/2019 Comments Unknown Sex and Gender Information Value Date Recorded Sex Assigned at Female 10/26/2022 5:46 AM PARACHUTE FOLDER Legal Sex Female 4:22 AM PARACHUTE FOLDER Gender Identity Female 10/26/2022 5:45 AM PARACHUTE FOLDER Sexual Orientation Straight 10/26/2022 5: 46 AM PARACHUTE FOLDER Occupation Industry Job Start Date Job End [...] on filedocumented in this encounter Care Teams Rn Diabetes Relationship Specialty Start Date End Date No Ref-Primary, Physician PCP - General 08/12/22 10/28/22 [place] [address] [place] [address] PCP - General Family Medicine 10/29/22 02/23/24 [place] [address] [place] [address] PCP - General 10/16/24 Chato Diaz MD [address] [place] [id number] Cardiovascular Disease 03/24/22 Chato Diaz MD [address] [place] [address] Cardiovascular Disease 03/24/22 Marko Smith MD [address] [place] [address] Assigned Heart and Vascular Provider 08/15/22 11/20/22 Chato Diaz MD [address] [place] [address] Assigned Heart and Vascular Provider 07/18/22 08/14/22 [place] [address] [place] [address] Assigned PCP 11/07/22 03/08/24 Chato Diaz MD [address] [facility] [address] [place] [address] Assigned Heart and Vascular Provider 11/21/22 06/08/24 Rosalba Romo MD [address] [place] [address] Assigned Pulmonology Provider 12/12/22 06/08/24 [place] [address] [place] [address] Assigned PCP 03/09/24 documented as of this encounter
--- OUTSIDE RECORDS SUMMARY | 2025-01-21 23:49 | XMS_ITS | CCD ---
Author Name Interface, [id number] Address [address] [place] [address] [facility] Address [facility] [address] [address] Care Team Providers Care Payroll Lead Name Role Phone Tiff Rodas Unavailable Unavailable Reason for Visit Social History
--- OUTSIDE RECORDS SUMMARY | 2025-01-21 23:49 | XMS_ITS | Encounter Summary ---
Author Organization [place] Address [address] [place] [address] Care Team Providers Care Illustrator Set Name Role Phone Chato Diaz MD Unavailable [phone] Chato Diaz MD Unavailable [phone] Jimenez Madera DO Primary Care Provider Jimenez Madera DO Unavailable [phone] Chato Diaz MD Unavailable [phone] Rosalba Romo MD Unavailable [phone] Alisson Rose MD Unavailable Jasiel Villela MD Primary Care Provider [phone] Reason for Visit * Reason Onset Date Comments Call to schedule test 02/16/2024 CT Calcium Scan Encounter Details Date Type Department Care Team (Late st Contact Info) Description 02/16/2024 Telephone [facility] [address] [place] [address] Adult, Cardiology General Call to schedule test (CT Calcium Scan) Social History Tobacco Use Types Packs/Day Years [...] Sex Assigned at Female 10/26/2022 5:46 AM MANNEQUIN MOLDER Legal Sex Female 4:22 AM MANNEQUIN MOLDER Gender Identity Female 10/26/2022 5:45 AM MANNEQUIN MOLDER Sexual Orientation Straight 10/26/2022 5: 46 AM MANNEQUIN MOLDER 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 Beth tried booking her appt in [place] but they are scheduling out to the end of March. Please reachout to Beth to schedule. Thank you! Action Taken: Other: Cardiology Travel Screening: Not Applicable Thank you! [facility] documented in this encounter Plan of Treatment Not on file documented as of this encounter Visit Diagnoses Not on filedocumented in this encounter Care Teams Illustrator Set Relationship Specialty [place] [address] [place] [address] PCP - General Family Medicine 10/29/22 02/23/24 [place] [address] [place] [address] PCP - General 10/16/24 Chato Diaz MD [address] [place] [address] Cardiovascular Disease 03/24/22 Chato Diaz MD [address] [place] [address] Cardiovascular Disease 03/24/22 [place] [address] [place] [address] Assigned PCP 11/07/22 03/08/24 Chato Diaz MD [address] [place] [address] Assigned Heart and Vascular Provider 11/21/22 06/08/24 Rosalba Romo MD [address] [place], [place] [address] Assigned Pulmonology Provider 12/12/22 06/08/24 [place] [address] [address] [facility] [place] [id number] Assigned PCP 03/09/24 documented as of this encounter
--- OUTSIDE RECORDS SUMMARY | 2025-01-21 23:50 | XMS_ITS | Encounter Summary ---
Author Organization [place] Address [address] [place] [address] Care Team Providers Care Cabin Supervisor Name Role Phone Chato Diaz MD Unavailable [phone] Chato Diaz MD Unavailable [phone] Ref-Primary, Physician Primary Care Provider Marko Smith MD Unavailable + Jimenez Madera DO Primary Care Provider [phone] Jimenez Madera DO Unavailable [phone] Chato Diaz MD Unavailable +[phone] Rosalba Romo MD Unavailable [phone] Alisson Rose MD Unavailable Jasiel Villela MD Primary Care Provider + [phone] Reason for Visit * Reason Onset Date Comments Referral 10/26/2022 Encounter Details Date Type Department Care Team (Late st Contact Info) Description 10/26/2022 Telephone [facility] Neurology [facility] [address], [address] [place] [address] Unknown Referral Social History Tobacco Use Types Packs/Day Years Used Date Smoking Tobacco: Never Smokeless Tobacco: Never Alcohol Use Standard Drinks/Week Comments No 0 (1 standard drink = 0.6 oz pur e alcohol) PHQ-2 Answer Date Recorded PHQ-2 Score 0 10/26/2022 Comments Unknown Sex and Gender Information Value Date Recorded Sex Assigned at Female 10/26/2022 5:46 AM WASHER AND CRUSHER TENDER Legal Sex Female 4:22 AM WASHER AND CRUSHER TENDER Gender Identity Female 10/26/2022 5:45 AM WASHER AND CRUSHER TENDER Sexual Orientation Straight 10/26/2022 5: 46 AM WASHER AND CRUSHER TENDER 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 No / Unsure 10/28/2022 8:49 AM WASHER AND CRUSHER TENDER documented as of this encounter Miscellaneous Notes * Telephone Encounter - Wandy Rosenberg - 10/26/2022 2:37 PM CST [facility] Phone Message May a detailed message be left on voicemail: yes Reason for Call: Appointment Intake Referring Provider Name: Jimenez Madera DO Diagnosis and/or Symptoms: Patient has symptoms suggestive of Pots disorder POTS is not listed in our protocols. Please review and contact the patient to discuss scheduling options. Action Taken: Message routed to: Other: [facility] Travel Screening: Not Applicable ER AND CRUSHER TENDER documented in this encounter Plan of Treatment Not on file documented as of this encounter Visit Diagnoses Not on filedocumented in this encounter Care Teams Cabin Supervisor Relationship Specialty Start Date End Date No Ref-Primary, Physician PCP - General 08/12/22 10/28/22 [place] [address] [place] [address] PCP - General Family Medicine 10/29/22 02/23/24 [place] [address] [place] [address] PCP - General 10/16/24 Chato Diaz MD [address] [place] [address] Cardiovascular Disease 03/24/22 Chato Diaz MD [address] [place] [address] Cardiovascular Disease 03/24/22 Marko Smith MD [address] [place] [address] Assigned Heart and Vascular Provider 08/15/22 11/20/22 [place] [address] [place] [address] Assigned PCP 11/07/22 03/08/24 Chato Diaz MD [address] [place] [address] Assigned Heart and Vascular Provider 11/21/22 06/08/24 Rosalba Romo MD [address] [place], [place] [address] Assigned Pulmonology Provider 12/12/22 06/08/24 [place] [address] [address] [id number] Assigned PCP 03/09/24 documented as of this encounter
--- OUTSIDE RECORDS SUMMARY | 2025-01-21 23:50 | XMS_ITS | Encounter Summary ---
Author Organization [facility] Address [address] [place] [address] Care Team Providers Care Manager Knowledge Name Role Phone BogdanGypsy ANA LAURA INSPECTOR ADVANCED COMPOSITE Unavailable +[phone] Keven Krueger Primary Care Provider + [phone] Chato Diaz MD Unavailable +[phone] Chato Diaz MD Unavailable +[phone] Chato Diaz MD Unavailable +[phone] Ref-Primary, Physician Primary Care Provider Marko Smith MD Unavailable + Chato Diaz MD Unavailable +[phone] Jimenez Madera DO Primary Care Provider +[phone] Jimenez Madera DO Unavailable +[phone] Chato Diaz MD Unavailable +[phone] Rosalba Romo MD Unavailable +[phone] Alisson Rose MD Unavailable Jasiel Villela MD Primary Care Provider + [phone] Reason for Referral * (Routine) - Closed Specialty Diagnoses / Procedures Referred By Contac t Referred To Contact Diagnoses Encounter for preconception consultation Sienna Marks MD Phone: tel: fax: Referral ID Status Reason Start Date Expiration Date Visits Re quested Visits Authorized [id number] Closed 08/08/2019 08/07/2020 1 1 Question Answer MFM Location [facility] Indication: recurrent loss Inflammatory Bowel Disease Clinic: Joint MFM and GI Consultation: Yes Genetic Counseling Consultation: No fax [phone]/Taryn Marks/Remedios Comments >> Patient may proceed with [...] where they were done to arrange for bean picker machine operator prior to your scheduled appointment. Any new CT, MRI or other procedures ordered by your specialist must be performed at a [facility] facility or coordinated by your clinic's referral office. >> List of current medications >> This referral request >> Any documents/labs given to you for this referral Encounter Details Date Type Department Care Team (Latest Contact Info) Description 08/08/2019 Transcribe Orders [facility] [place] [address] [place] [address] Sienna Marks MD [address] [place], [place] [id number] Encounter for preconception consultation (Primary Dx) Social History Tobacco Use Types Packs/Day Years Used Date Smoking Tobacco: Never Smokeless Tobacco: Never Alcohol Use Standard Drinks/Week Comments No 0 (1 standard drink = 0.6 oz pur e alcohol) PHQ-2 Answer Date Recorded PHQ-2 Score 0 02/07/2019 Comments No Sex and Gender Information Value Date Recorded Sex Assigned at Female 10/26/2022 5:46 AM FORMING MACHINE TENDER Legal Sex Female 4:22 AM FORMING MACHINE TENDER Gender Identity Female 10/26/2022 5:45 AM FORMING MACHINE TENDER Sexual Orientation Straight 10/26/2022 5: 46 AM FORMING MACHINE TENDER Occupation Industry Job Start Date Job [...] Primary documented in this encounter Care Teams Manager Knowledge Relationship Specialty Start Date End Date Keven Krueger [address] [address] PCP - General Family Practice 05/01/19 08/11/22 No Ref-Primary, Physician PCP - General 08/12/22 10/28/22 [place] [address] [place] [address] PCP - General Family Medicine 10/29/22 02/23/24 [place] [address] [place] [address] PCP - General 10/16/24 Gypsy Mcfadden APRN INSPECTOR ADVANCED COMPOSITE [address] [place] [address] Assigned PCP 02/12/19 02/07/22 Chato Diaz MD [address] [place] [address] Assigned Heart and Vascular Provider 08/09/20 11/01/21 Chato Diaz MD [address] [place] [id number] Cardiovascular Disease 03/24/22 Chato Diaz MD [address] [place] [address] Cardiovascular Disease 03/24/22 Marko Smith MD [address] [place] [address] Assigned Heart and Vascular Provider 08/15/22 11/20/22 Chato Diaz MD [address] [place] [address] Assigned Heart and Vascular Provider 07/18/22 08/14/22 [place] [address] [place] [address] Assigned PCP 11/07/22 03/08/24 Chato Diaz MD [address] [place] [address] Assigned Heart and Vascular Provider 11/21/22 06/08/24 Rosalba Romo MD [address] [place] [address] Assigned Pulmonology Provider 12/12/22 06/08/24 [place] [address] [place] [address] Assigned PCP 03/09/24 documented as of this encounter
--- OUTSIDE RECORDS SUMMARY | 2025-01-21 23:50 | XMS_ITS | Encounter Summary ---
Author Organization [facility] Address [address] [place] [address] Care Team Providers Care Black And White Printer Operator Name Role Phone BogdanGypsy ANA LAURA BARREL RIFLER Unavailable +[phone] Keven Krueger Primary Care Provider + [phone] Chato Diaz MD Unavailable [phone] Chato Diaz MD Unavailable [phone] Chato Diaz MD Unavailable +[phone] Ref-Primary, Physician Primary Care Provider Marko Smith MD Unavailable + Chato Diaz MD Unavailable [phone] Jimenez Madera DO Primary Care Provider +[phone] Jimenez Madera DO Unavailable [phone] Chato Diaz MD Unavailable +[phone] Rosalba Romo MD Unavailable [phone] Alisson Rose MD Unavailable Jasiel Villela MD Primary Care Provider + [phone] Encounter Details Date Type Department Care Team (Late st Contact Info) Description 07/28/2019 MyC Medical Advice [facility] [address] [place] [phone] Chato Diaz MD [address] [facility] [address] [place] [address] Social History Tobacco Use Types Packs/Day Years Used Date Smoking Tobacco: Never Smokeless Tobacco: Never Alcohol Use Standard Drinks/Week Comments No 0 (1 standard drink = 0.6 oz pur e alcohol) PHQ-2 Answer Date Recorded PHQ-2 Score 0 02/07/2019 Comments No Sex and Gender Information Value Date Recorded Sex Assigned at Female 10/26/2022 5:46 AM CASINO SUPERVISOR Legal Sex Female 4:22 AM CASINO SUPERVISOR Gender Identity Female 10/26/2022 5:45 AM CASINO SUPERVISOR Sexual Orientation Straight 10/26/2022 5: 46 AM CASINO SUPERVISOR 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 of this encounter Plan of Treatment Not on file documented as of this encounter Visit Diagnoses Not on filedocumented in this encounter Care Teams Black And White Printer Operator Relationship Specialty Start Date End Date Keven Krueger [address] [phone] PCP - General Family Practice 05/01/19 08/11/22 No Ref-Primary, Physician PCP - General 08/12/22 10/28/22 [place] [address] [place] [address] PCP - General Family Medicine 10/29/22 02/23/24 [place] [address] [address] [place], [place] [phone] PCP - General 10/16/24 Gypsy Mcfadden APRN BARREL RIFLER [address] [address] [place], [place] [address] Assigned PCP 02/12/19 02/07/22 Chato Diaz MD [address] [place] [address] Assigned Heart and Vascular Provider 08/09/20 11/01/21 Chato Diaz MD [address] [place] [address] Cardiovascular Disease 03/24/22 Chato Diaz MD [address] [place] [address] Cardiovascular Disease 03/24/22 Marko Smith MD [address] [place] [address] Assigned Heart and Vascular Provider 08/15/22 11/20/22 Chato Diaz MD [address] [place] [address] Assigned Heart and Vascular Provider 07/18/22 08/14/22 [place] [address] [place] [address] Assigned PCP 11/07/22 03/08/24 Chato Diaz MD [address] [place] [address] Assigned Heart and Vascular Provider 11/21/22 06/08/24 Rosalba Romo MD [address] [place] [address] Assigned Pulmonology Provider 12/12/22 06/08/24 [place] [address] [place] [address] Assigned PCP 03/09/24 documented as of this encounter
--- OUTSIDE RECORDS SUMMARY | 2025-01-21 23:50 | XMS_ITS | Encounter Summary ---
Author Organization [facility] Address [address] [place] [address] Care Team Providers Care Squaring Shear Operator Name Role Phone BogdanGypsy ANA LAURA [facility] Unavailable +[phone] Keven Krueger Primary Care Provider + [phone] Chato Diaz MD Unavailable [phone] Chato Diaz MD Unavailable +[phone] Chato Diaz MD Unavailable +[phone] Ref-Primary, Physician Primary Care Provider Marko Smith MD Unavailable + Chato Diaz MD Unavailable [phone] Jimenez Madera DO Primary Care Provider +[phone] Jimenez Madera DO Unavailable [phone] Chato Diaz MD Unavailable [phone] Rosalba Romo MD Unavailable +[phone] Alisson Rose MD Unavailable Jasiel Villela MD Primary Care Provider + [phone] Encounter Details Date Type Department Care Team (Late st Contact Info) Description 07/10/[address] [facility] [address] [place] [phone] Chato Diaz MD [address] [facility] [address] [place] [address] Social History Tobacco Use Types Packs/Day Years Used Date Smoking Tobacco: Never Smokeless Tobacco: Never Alcohol Use Standard Drinks/Week Comments No 0 (1 standard drink = 0.6 oz pur e alcohol) PHQ-2 Answer Date Recorded PHQ-2 Score 0 02/07/2019 Comments No Sex and Gender Information Value Date Recorded Sex Assigned at Female 10/26/2022 5:46 AM INSTALLATIONS INSPECTOR Legal Sex Female 4:22 AM INSTALLATIONS INSPECTOR Gender Identity Female 10/26/2022 5:45 AM INSTALLATIONS INSPECTOR Sexual Orientation Straight 10/26/2022 5: 46 AM INSTALLATIONS INSPECTOR 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 of this encounter Plan of Treatment Not on file documented as of this encounter Visit Diagnoses Not on filedocumented in this encounter Care Teams Squaring Shear Operator Relationship Specialty Start Date End Date Keven Krueger [address] [phone] PCP - General Family Practice 05/01/19 08/11/22 No Ref-Primary, Physician PCP - General 08/12/22 10/28/22 [place] [address] [place] [address] PCP - General Family Medicine 10/29/22 02/23/24 [place] [address] [address] [place], [place] [phone] PCP - General 10/16/24 Gypsy Mcfadden APRN [facility] [address] [address] [place], [place] [address] Assigned PCP 02/12/19 02/07/22 Chato Diaz MD [address] [place] [address] Assigned Heart and Vascular Provider 08/09/20 11/01/21 Chato Diaz MD [address] [place] [address] Cardiovascular Disease 03/24/22 Chato Diaz MD [address] [place] [address] Cardiovascular Disease 03/24/22 Marko Smith MD [address] [place] [address] Assigned Heart and Vascular Provider 08/15/22 11/20/22 Chato Diaz MD [address] [place] [address] Assigned Heart and Vascular Provider 07/18/22 08/14/22 [place] [address] [place] [address] Assigned PCP 11/07/22 03/08/24 Chato Diaz MD [address] [place] [address] Assigned Heart and Vascular Provider 11/21/22 06/08/24 Rosalba Romo MD [address] [place] [address] Assigned Pulmonology Provider 12/12/22 06/08/24 [place] [address] [place] [address] Assigned PCP 03/09/24 documented as of this encounter
--- OUTSIDE RECORDS SUMMARY | 2025-01-21 23:50 | XMS_ITS | Encounter Summary ---
Author Organization [facility] Address [address] [place] [address] Care Team Providers Care Ecologist Technician Name Role Phone BogdanGypsy ANA LAURA TECHNOLOGY ASSISTANT Unavailable [phone] Keven Krueger Primary Care Provider + [phone] Chato Diaz MD Unavailable [phone] Chato Diaz MD Unavailable +[phone] Chato Diaz MD Unavailable +[phone] Ref-Primary, Physician Primary Care Provider Marko Smith MD Unavailable + Chato Diaz MD Unavailable [phone] Jimenez Madera DO Primary Care Provider +[phone] Jimenez Madera DO Unavailable [phone] Chato Diaz MD Unavailable +[phone] Rosalba Romo MD Unavailable [phone] Alisson Rose MD Unavailable Jasiel Villela MD Primary Care Provider + [phone] Encounter Details Date Type Department Care Team (Late st Contact Info) Description 09/01/2019 MyC Medical Advice [facility] [address] [place] [phone] Chato Diaz MD [address] [facility] [address] [place] [address] Social History Tobacco Use Types Packs/Day Years Used Date Smoking Tobacco: Never Smokeless Tobacco: Never Alcohol Use Standard Drinks/Week Comments No 0 (1 standard drink = 0.6 oz pur e alcohol) PHQ-2 Answer Date Recorded PHQ-2 Score 0 02/07/2019 Comments No Sex and Gender Information Value Date Recorded Sex Assigned at Female 10/26/2022 5:46 AM PURE PAK MACHINE OPERATOR Legal Sex Female 4:22 AM PURE PAK MACHINE OPERATOR Gender Identity Female 10/26/2022 5:45 AM PURE PAK MACHINE OPERATOR Sexual Orientation Straight 10/26/2022 5: 46 AM PURE PAK MACHINE OPERATOR 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 of this encounter Plan of Treatment Not on file documented as of this encounter Visit Diagnoses Not on filedocumented in this encounter Care Teams Ecologist Technician Relationship Specialty Start Date End Date Keven Krueger [address] [phone] PCP - General Family Practice 05/01/19 08/11/22 No Ref-Primary, Physician PCP - General 08/12/22 10/28/22 [place] [address] [place] [address] PCP - General Family Medicine 10/29/22 02/23/24 [place] [address] [address] [place], [place] [phone] PCP - General 10/16/24 Gypsy Mcfadden APRN TECHNOLOGY ASSISTANT [address] [place] [place], [place] [address] Assigned PCP 02/12/19 02/07/22 Chato Diaz MD [address] [place] [address] Assigned Heart and Vascular Provider 08/09/20 11/01/21 Chato Diaz MD [address] [place] [address] Cardiovascular Disease 03/24/22 Chato Diaz MD [address] [place] [address] Cardiovascular Disease 03/24/22 Marko Smith MD [address] [place] [address] Assigned Heart and Vascular Provider 08/15/22 11/20/22 Chato Diaz MD [address] [place] [address] Assigned Heart and Vascular Provider 07/18/22 08/14/22 [place] [address] [place] [address] Assigned PCP 11/07/22 03/08/24 Chato Diaz MD [address] [place] [address] Assigned Heart and Vascular Provider 11/21/22 06/08/24 Rosalba Romo MD [address] [place] [address] Assigned Pulmonology Provider 12/12/22 06/08/24 [place] [address] [place] [address] Assigned PCP 03/09/24 documented as of this encounter
--- OUTSIDE RECORDS SUMMARY | 2025-01-21 23:50 | XMS_ITS | Encounter Summary ---
Author Organization [facility] Address [address] [place] [address] Care Team Providers Care Aluminum Container Tester Name Role Phone BogdanGypsy ANA LAURA DIRECTOR OF EVENT MARKETING Unavailable [phone] Keven Krueger Primary Care Provider + [phone] Chato Diaz MD Unavailable [phone] Chato Diaz MD Unavailable [phone] Chato Diaz MD Unavailable +[phone] Ref-Primary, Physician Primary Care Provider Marko Smith MD Unavailable + Chato Diaz MD Unavailable [phone] Jimenez Madera DO Primary Care Provider [phone] Jimenez Madera DO Unavailable [phone] Chato Diaz MD Unavailable [phone] Rosalba Romo MD Unavailable +[phone] Alisson Rose MD Unavailable Jasiel Villela MD Primary Care Provider + [phone] Encounter Details Date Type Department Care Team (Late st Contact Info) Description 09/01/2019 MyC Medical Advice [facility] [address] [place] [phone] Chato Diaz MD [address] [facility] [address] [place] [address] Social History Tobacco Use Types Packs/Day Years Used Date Smoking Tobacco: Never Smokeless Tobacco: Never Alcohol Use Standard Drinks/Week Comments No 0 (1 standard drink = 0.6 oz pur e alcohol) PHQ-2 Answer Date Recorded PHQ-2 Score 0 02/07/2019 Comments No Sex and Gender Information Value Date Recorded Sex Assigned at Female 10/26/2022 5:46 AM PRODUCTION BORING MACHINE OPERATOR Legal Sex Female 4:22 AM PRODUCTION BORING MACHINE OPERATOR Gender Identity Female 10/26/2022 5:45 AM PRODUCTION BORING MACHINE OPERATOR Sexual Orientation Straight 10/26/2022 5: 46 AM PRODUCTION BORING MACHINE OPERATOR 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 of this encounter Plan of Treatment Not on file documented as of this encounter Visit Diagnoses Not on filedocumented in this encounter Care Teams Aluminum Container Tester Relationship Specialty Start Date End Date Keven Krueger [address] [phone] PCP - General Family Practice 05/01/19 08/11/22 No Ref-Primary, Physician PCP - General 08/12/22 10/28/22 [place] [address] [place] [address] PCP - General Family Medicine 10/29/22 02/23/24 [place] [address] [address] [place], [place] [phone] PCP - General 10/16/24 Gypsy Mcfadden APRN DIRECTOR OF EVENT MARKETING [address] [place], [place] [address]64[address] Assigned PCP 02/12/19 02/07/22 Chato Diaz MD [address] [place] [address] Assigned Heart and Vascular Provider 08/09/20 11/01/21 Chato Diaz MD [address] [place] [address] Cardiovascular Disease 03/24/22 Chato Diaz MD [address] [place] [address] Cardiovascular Disease 03/24/22 Marko Smith MD [address] [place] [address] Assigned Heart and Vascular Provider 08/15/22 11/20/22 Chato Diaz MD [address] [place] [address] Assigned Heart and Vascular Provider 07/18/22 08/14/22 [place] [address] [place] [address] Assigned PCP 11/07/22 03/08/24 Chato Diaz MD [address] [place] [address] Assigned Heart and Vascular Provider 11/21/22 06/08/24 Rosalba Romo MD [address] [place] [address] Assigned Pulmonology Provider 12/12/22 06/08/24 [place] [address] [place] [address] Assigned PCP 03/09/24 documented as of this encounter
--- OUTSIDE RECORDS SUMMARY | 2025-01-21 23:50 | XMS_ITS | Encounter Summary ---
Author Organization [facility] Address [address] [place] [address] Care Team Providers Care Director Of Maternity Services Name Role Phone BogdanGypsy ANA LAURA SLAG EXPANDER Unavailable [phone] Keven Krueger Primary Care Provider + [phone] Chato Diaz MD Unavailable [phone] Chato Diaz MD Unavailable [phone] Chato Diaz MD Unavailable +[phone] Ref-Primary, Physician Primary Care Provider Marko Smith MD Unavailable + Chato Diaz MD Unavailable [phone] Jimenez Madera DO Primary Care Provider +[phone] Jimenez Madera DO Unavailable [phone] Chato Diaz MD Unavailable +[phone] Rosalba Romo MD Unavailable [phone] Alisson Rose MD Unavailable Jasiel Villela MD Primary Care Provider + [phone] Encounter Details Date Type Department Care Team (Late st Contact Info) Description 03/23/2021 MyC Medical Advice [facility] Heart [address] [place] [phone] Chato Diaz MD [address] [facility] [address] [place] [address] Social History Tobacco Use Types Packs/Day Years Used Date Smoking Tobacco: Never Smokeless Tobacco: Never Alcohol Use Standard Drinks/Week Comments No 0 (1 standard drink = 0.6 oz pur e alcohol) PHQ-2 Answer Date Recorded PHQ-2 Score 0 02/07/2019 Comments No Sex and Gender Information Value Date Recorded Sex Assigned at Female 10/26/2022 5:46 AM SENIOR PRODUCTION PLANNER Legal Sex Female 4:22 AM SENIOR PRODUCTION PLANNER Gender Identity Female 10/26/2022 5:45 AM SENIOR PRODUCTION PLANNER Sexual Orientation Straight 10/26/2022 5: 46 AM SENIOR PRODUCTION PLANNER 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 of this encounter Miscellaneous Notes * Telephone Encounter - Miri Herzog RN - 03/24/2021 8:30 AM CDT [employer] message received from patient: I have been [...] on filedocumented in this encounter Care Teams Director Of Maternity Services Relationship Specialty Start Date End Date Keven Krueger [address] [phone] PCP - General Family Practice 05/01/19 08/11/22 No Ref-Primary, Physician PCP - General 08/12/22 10/28/22 [place] [address] [place] [address] PCP - General Family Medicine 10/29/22 02/23/24 [place] [address] [place] [address] PCP - General 10/16/24 Gypsy Mcfadden APRN SLAG EXPANDER [address] [place] [address] Assigned PCP 02/12/19 02/07/22 Chato Diaz MD [address] [place] [address] Assigned Heart and Vascular Provider 08/09/20 11/01/21 Chato Diaz MD [address] [place] [address] Cardiovascular Disease 03/24/22 Chato Diaz MD [address] [place] [address] Cardiovascular Disease 03/24/22 Marko Smith MD [address] [place] [address] Assigned Heart and Vascular Provider 08/15/22 11/20/22 Chato Diaz MD [address] [place] [address] Assigned Heart and Vascular Provider 07/18/22 08/14/22 [place] [address] [place] [address] Assigned PCP 11/07/22 03/08/24 Chato Diaz MD [address] [place] [address] Assigned Heart and Vascular Provider 11/21/22 06/08/24 Rosalba Romo MD [address] [place], [place] [address] Assigned Pulmonology Provider 12/12/22 06/08/24 [place] [address] [address] [place], [place] [address] Assigned PCP 03/09/24 documented as of this encounter
--- OUTSIDE RECORDS SUMMARY | 2025-01-21 23:50 | XMS_ITS | Encounter Summary ---
Author Organization [place] Address [address] [place] [address] Care Team Providers Care Boat Detailer Name Role Phone Gypsy Mcfadden APRN SHUTTLE VENEERING SUPERVISOR Unavailable [phone] Keven Krueger Primary Care Provider + [phone] Chato Diaz MD Unavailable +[phone] Chato Diaz MD Unavailable +[phone] Ref-Primary, Physician Primary Care Provider Marko Smith MD Unavailable + Chato Diaz MD Unavailable [phone] Jimenez Madera DO Primary Care Provider +[phone] Jimenez Madera DO Unavailable Chato Diaz MD Unavailable +[phone] Rosalba Romo MD Unavailable + [phone] Alisson Rose MD Unavailable Jasiel Villela MD Primary Care Provider + [phone] Encounter Details Date Type Department Care Team (Late st Contact Info) Description 01/01/2022 MyC Medical Advice [address] [address] Gypsy Mcfadden APRN SHUTTLE VENEERING SUPERVISOR [address] [place] [address] Social History Tobacco Use Types Packs/Day Years Used Date Smoking Tobacco: Never Smokeless Tobacco: Never Alcohol Use Standard Drinks/Week Comments No 0 (1 standard drink = 0.6 oz pur e alcohol) PHQ-2 Answer Date Recorded PHQ-2 Score 0 02/07/2019 Comments No Sex and Gender Information Value Date Recorded Sex Assigned at Female 10/26/2022 5:46 AM PAINTER ROUGH Legal Sex Female 4:22 AM PAINTER ROUGH Gender Identity Female 10/26/2022 5:45 AM PAINTER ROUGH Sexual Orientation Straight 10/26/2022 5: 46 AM PAINTER ROUGH 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 Gypsy Mcfadden CNP documented in this encounter Plan of Treatment Not on file documented as of this encounter Visit Diagnoses Not on filedocumented in this encounter Care Teams Boat Detailer Relationship Specialty Start Date End Date Keven Krueger [address] [id number] PCP - General Family Practice 05/01/19 08/11/22 No Ref-Primary, Physician PCP - General 08/12/22 10/28/22 [place] [address] [place] [address] PCP - General Family Medicine 10/29/22 02/23/24 [place] [address] [place] [address] PCP - General 10/16/24 Gypsy Mcfadden APRN SHUTTLE VENEERING SUPERVISOR [address] [address] [address] Assigned PCP 02/12/19 02/07/22 Chato Diaz MD [address] [place] [address] Cardiovascular Disease 03/24/22 Chato Diaz MD [address] [place] [address] Cardiovascular Disease 03/24/22 Marko Smith MD [address] [place] [address] Assigned Heart and Vascular Provider 08/15/22 11/20/22 Chato Diaz MD [address] [place] [address] Assigned Heart and Vascular Provider 07/18/22 08/14/22 [place] [address] [place] [address] Assigned PCP 11/07/22 03/08/24 Chato Diaz MD [address] [place] [address] Assigned Heart and Vascular Provider 11/21/22 06/08/24 Rosalba Romo MD [address] [facility] [address] [place] [address] Assigned Pulmonology Provider 12/12/22 06/08/24 [place] [address] [place] [address] Assigned PCP 03/09/24 documented as of this encounter
--- OUTSIDE RECORDS SUMMARY | 2025-01-21 23:50 | XMS_ITS | Encounter Summary ---
Author Organization [place] Address [address] [place] [address] Care Team Providers Care Lip Of Shank Cutter Name Role Phone BogdanGypsy ANA LAURA UPPER LINING CEMENTER Unavailable +[phone] Keven Krueger Primary Care Provider + [phone] Chato Diaz MD Unavailable +[phone] Chato Diaz MD Unavailable +[phone] Chato Diaz MD Unavailable +[phone] Ref-Primary, Physician Primary Care Provider Marko Smith MD Unavailable + Chato Diaz MD Unavailable [phone] Jimenez Madera DO Primary Care Provider +[phone] Jimenez Madera DO Unavailable +[phone] Chato Diaz MD Unavailable +[phone] Rosalba Romo MD Unavailable +[phone] Alisson Rose MD Unavailable Jasiel Villela MD Primary Care Provider + [phone] Encounter Details Date Type Department Care Team (Late st Contact Info) Description 01/29/2021 MyC Medical Advice [facility] [address] [place] [address] Chato Diaz MD [address] [facility] [address] [place] [address] Social History Tobacco Use Types Packs/Day Years Used Date Smoking Tobacco: Never Smokeless Tobacco: Never Alcohol Use Standard Drinks/Week Comments No 0 (1 standard drink = 0.6 oz pur e alcohol) PHQ-2 Answer Date Recorded PHQ-2 Score 0 02/07/2019 Comments No Sex and Gender Information Value Date Recorded Sex Assigned at Female 10/26/2022 5:46 AM CHILD CAREGIVER Legal Sex Female 4:22 AM CHILD CAREGIVER Gender Identity Female 10/26/2022 5:45 AM CHILD CAREGIVER Sexual Orientation Straight 10/26/2022 5: 46 AM CHILD CAREGIVER 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 RN will send to Dr. Diaz as FYI. Thank you- I have an appt scheduled with [facility]- and if they feel it [...] Carlson RN - 02/06/2021 7:25 AM CDT [employer] message received. Will send update to Dr. [...] and recommendation. 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 What would this mean for me? [...] on filedocumented in this encounter Care Teams Lip Of Shank Cutter Relationship Specialty Start Date End Date Keven Krueger [address] [address] PCP - General Family Practice 05/01/19 08/11/22 No Ref-Primary, Physician PCP - General 08/12/22 10/28/22 [place] [address] [place] [address] PCP - General Family Medicine 10/29/22 02/23/24 [place] [address] [facility] [address] PCP - General 10/16/24 Gypsy Mcfadden APRN UPPER LINING CEMENTER [address] [place] [address] Assigned PCP 02/12/19 02/07/22 Chato Diaz MD [address] [place] 7500[address] Assigned Heart and Vascular Provider 08/09/20 11/01/21 Chato Diaz MD [address] [place] [id number] Cardiovascular Disease 03/24/22 Chato Diaz MD [address] [place] [address] Cardiovascular Disease 03/24/22 Marko Smiht MD [address] [place] 005055 Assigned Heart and Vascular Provider 08/15/22 11/20/22 Chato Diaz MD [address] [place] 873075 Assigned Heart and Vascular Provider 07/18/22 08/14/22 [place] [address] [place] [address] Assigned PCP 11/07/22 03/08/24 Chato Diaz MD [address] [facility] [address] [place], [place] [address] Assigned Heart and Vascular Provider 11/21/22 06/08/24 Rosalba Romo MD [address] [place], [place] [address] Assigned Pulmonology Provider 12/12/22 06/08/24 [place] [address] [place] [address] Assigned PCP 03/09/24 documented as of this encounter
--- OUTSIDE RECORDS SUMMARY | 2025-01-21 23:50 | XMS_ITS | Encounter Summary ---
Author Organization [place] Address [address] [place] [address] Care Team Providers Care Tyre Fitter Name Role Phone Keven Krueger Primary Care Provider + [phone] Chato Diaz MD Unavailable +[phone] Chato Diaz MD Unavailable +[phone] Ref-Primary, Physician Primary Care Provider Marko Smith MD Unavailable + Chato Diaz MD Unavailable [phone] Jimenez Madera DO Primary Care Provider +[phone] Jimenez Madera DO Unavailable [phone] Chato Diaz MD Unavailable +[phone] Rosalba Romo MD Unavailable +[phone] Alisson Rose MD Unavailable Jasiel Villela MD Primary Care Provider + [phone] Reason for Visit * Reason Onset Date Comments Call Back 04/01/2022 Holter Monitor Encounter Details Date Type Department Care Team (Late st Contact Info) Description 04/01/2022 [facility] [address] [place] [address] Chato Diaz MD [address] [facility] [address] [place] [address] Call Back (Holter Monitor) Social History Tobacco Use Types Packs/Day Years Used Date Smoking Tobacco: Never Smokeless Tobacco: Never Alcohol Use Standard Drinks/Week Comments No 0 (1 standard drink = 0.6 oz pur e alcohol) PHQ-2 Answer Date Recorded PHQ-2 Score 0 02/07/2019 Comments No Sex and Gender Information Value Date Recorded Sex Assigned at Female 10/26/2022 5:46 AM PICKER TENDER HELPER Legal Sex Female 4:22 AM PICKER TENDER HELPER Gender Identity Female 10/26/2022 5:45 AM PICKER TENDER HELPER Sexual Orientation Straight 10/26/2022 5: 46 AM PICKER TENDER HELPER 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 of this encounter Miscellaneous Notes * Telephone Encounter - Ashley Soares - 04/01/2022 8:59 AM CDT [facility] Call Center Phone Message May a detailed [...] on filedocumented in this encounter Care Teams Tyre Fitter Relationship Specialty Start Date End Date Keven Krueger [address] [address] PCP - General Family Practice 05/01/19 08/11/22 No Ref-Primary, Physician PCP - General 08/12/22 10/28/22 [place] [address] [address] [address] PCP - General Family Medicine 10/29/22 02/23/24 [place] [address] [address] [address] PCP - General 10/16/24 Chato Diaz MD [address] [place] [address] Cardiovascular Disease 03/24/22 Chato Diaz MD [address] [place] [address] Cardiovascular Disease 03/24/22 Marko Smith MD [address] [place] [address] Assigned Heart and Vascular Provider 08/15/22 11/20/22 Chato Diaz MD [address] [place] [address] Assigned Heart and Vascular Provider 07/18/22 08/14/22 [place] [address] [address] [place], [place] [address] Assigned PCP 11/07/22 03/08/24 Chato Diaz MD [address] [place] [address] Assigned Heart and Vascular Provider 11/21/22 06/08/24 Rosalba Romo MD [address] [facility] 106 [place] [address] Assigned Pulmonology Provider 12/12/22 06/08/24 [place] [address] [place] [address] Assigned PCP 03/09/24 documented as of this encounter
--- OUTSIDE RECORDS SUMMARY | 2025-01-21 23:50 | XMS_ITS | Encounter Summary ---
Author Organization [place] Address [address] [place] [address]. [place] [address] Care Team Providers Care Managing Editor Name Role Phone Chato Diaz MD Unavailable +[phone] Chato Diaz MD Unavailable [phone] Jimenez Madera DO Primary Care Provider [phone] Jimenez Madera DO Unavailable [phone] Chato Diaz MD Unavailable [phone] Rosalba Romo MD Unavailable [phone] Alisson Rose MD Unavailable Jasiel Villela MD Primary Care Provider + [phone] Encounter Details Date Type Department Care Team (Late st Contact Info) Description 07/14/2023 [facility] [place] [facility] [place] [address] [place] [address] [address] [place] [address] Chato Diaz MD [address] [facility] [address] [place], [place] [address] Social History Tobacco Use Types Packs/Day Years Used Date Smoking Tobacco: Never Smokeless Tobacco: Never Alcohol Use Standard Drinks/Week Comments No 0 (1 standard drink = 0.6 oz pur e alcohol) PHQ-2 Answer Date Recorded PHQ-2 Score 0 10/26/2022 Adolescent Education Answer Date Record ed Getting School Help Needed Not on file 07/15 Comments Unknown Sex and Gender Information Value Date Recorded Sex Assigned at Female 10/26/2022 5:46 AM REGIONAL TRANSFER LIAISON Legal Sex Female 4:22 AM REGIONAL TRANSFER LIAISON Gender Identity Female 10/26/2022 5:45 AM REGIONAL TRANSFER LIAISON Sexual Orientation Straight 10/26/2022 5: 46 AM REGIONAL TRANSFER LIAISON 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 of this encounter Plan of Treatment Not on file documented as of this encounter Visit Diagnoses Not on filedocumented in this encounter Care Teams Managing Editor Relationship Specialty [place] [address] [place] [address] PCP - General Family Medicine 10/29/22 02/23/24 [place] [address] [facility] [place] [address] PCP - General 10/16/24 Chato Diaz MD [address] [place] [address]87[address] Cardiovascular Disease 03/24/22 Chato Diaz MD [address] [place] 714365 Cardiovascular Disease 03/24/22 [place] [address] [place] [address] Assigned PCP 11/07/22 03/08/24 Chato Diaz MD [address] [place] 859135 Assigned Heart and Vascular Provider 11/21/22 06/08/24 Rosalba Romo MD [address] [address] Assigned Pulmonology Provider 12/12/22 06/08/24 [place] [address] [place] [address] Assigned PCP 03/09/24 documented as of this encounter
--- OUTSIDE RECORDS SUMMARY | 2025-01-21 23:50 | XMS_ITS | Encounter Summary ---
Author Organization [place] Address [address] [place] [address] Care Team Providers Care Motorcycle Assembler Name Role Phone BogdanGypsy ANA LAURA HOUSEPERSON Unavailable [phone] Keven Krueger Primary Care Provider + [phone] Chato Diaz MD Unavailable [phone] Chato Diaz MD Unavailable [phone] Chato Diaz MD Unavailable [phone] Ref-Primary, Physician Primary Care Provider Marko Smith MD Unavailable + Chato Diaz MD Unavailable [phone] Jimenez Madera DO Primary Care Provider +[phone] Jimenez Madera DO Unavailable [phone] Chato Diaz MD Unavailable [phone] Rosalba Romo MD Unavailable [phone] Alisson Rose MD Unavailable Jasiel Villela MD Primary Care Provider + [phone] Encounter Details Date Type Department Care Team (Late st Contact Info) Description 09/01/[address] [facility] [address] [place] [address] Chato Diaz MD [address] [facility] [address] [place] [address] Social History Tobacco Use Types Packs/Day Years Used Date Smoking Tobacco: Never Smokeless Tobacco: Never Alcohol Use Standard Drinks/Week Comments No 0 (1 standard drink = 0.6 oz pur e alcohol) PHQ-2 Answer Date Recorded PHQ-2 Score 0 02/07/2019 Comments No Sex and Gender Information Value Date Recorded Sex Assigned at Female 10/26/2022 5:46 AM ETCHED CIRCUIT PROCESSOR Legal Sex Female 4:22 AM ETCHED CIRCUIT PROCESSOR Gender Identity Female 10/26/2022 5:45 AM ETCHED CIRCUIT PROCESSOR Sexual Orientation Straight 10/26/2022 5: 46 AM ETCHED CIRCUIT PROCESSOR 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 Diaz's response and recommendations. RN will send to Dr. Diaz to inquire about manager energy as well as if any alternative testing can be performed d/t patient's previous reaction with contrast dye. Is there a way to get a recommendation to a manager energy (I didn't know what that Dr would [...] feelings- hard to explain :'( . Thanks! ED CIRCUIT PROCESSOR * Telephone Encounter - Elvin Carlson RN - 09/01/2019 7:23 AM ETCHED CIRCUIT PROCESSOR [employer] message(s) received. RN will send patient's Labmeeting messages to Dr. Diaz for review and [...] start a small dose of pravastatin. ?? ED CIRCUIT PROCESSOR ED CIRCUIT PROCESSOR documented in this encounter Plan of Treatment Not on file documented as of this encounter Visit Diagnoses Not on filedocumented in this encounter Care Teams Motorcycle Assembler Relationship Specialty Start Date End Date Keven Krueger [address] [address] PCP - General Family Practice 05/01/19 08/11/22 No Ref-Primary, Physician PCP - General 08/12/22 10/28/22 [place] [address] [place] [address] PCP - General Family Medicine 10/29/22 02/23/24 [place] [address] [place] [address] PCP - General 10/16/24 Gypsy Mcfadden APRN HOUSEPERSON [address] [place] [address] Assigned PCP 02/12/19 02/07/22 Chato Diaz MD [address] [facility] [address] [place] 6677[address] Assigned Heart and Vascular Provider 08/09/20 11/01/21 Chato Diaz MD [address] [place] [address] Cardiovascular Disease 03/24/22 Chato Diaz MD [address] [place] [address] Cardiovascular Disease 03/24/22 Marko Smith MD [address] [place], [place] [address] Assigned Heart and Vascular Provider 08/15/22 11/20/22 Chato Diaz MD [address] [place] [address] Assigned Heart and Vascular Provider 07/18/22 08/14/22 [place] [address] [place] [address] Assigned PCP 11/07/22 03/08/24 Chato Diaz MD [address] [place] [address] Assigned Heart and Vascular Provider 11/21/22 06/08/24 Rosalba Romo MD [address] [place] [address] Assigned Pulmonology Provider 12/12/22 06/08/24 [place] [address] [address] [address] Assigned PCP 03/09/24 documented as of this encounter
--- OUTSIDE RECORDS SUMMARY | 2025-01-21 23:50 | XMS_ITS | Encounter Summary ---
Author Organization [place] Address [facility] [place] [address] Care Team Providers Care Educational Psychology Professor Name Role Phone Keven Krueger Primary Care Provider + [phone] Chato Diaz MD Unavailable +[phone] Chato Diaz MD Unavailable +[phone] Ref-Primary, Physician Primary Care Provider Marko Smith MD Unavailable + Chato Diaz MD Unavailable +[phone] Jimenez Madera DO Primary Care Provider +[phone] Jimenez Madera DO Unavailable [phone] Chato Diaz MD Unavailable +[phone] Rosalba Romo MD Unavailable +[phone] Alisson Rose MD Unavailable Jasiel Villela MD Primary Care Provider + [phone] Encounter Details Date Type Department Care Team (Late st Contact Info) Description 03/31/2022 [facility] [place] [facility] [place] [address] [facility] [address] [place] [address] Chato Diaz MD [address] [facility] [address] [place] [address] Social History Tobacco Use Types Packs/Day Years Used Date Smoking Tobacco: Never Smokeless Tobacco: Never Alcohol Use Standard Drinks/Week Comments No 0 (1 standard drink = 0.6 oz pur e alcohol) PHQ-2 Answer Date Recorded PHQ-2 Score 0 02/07/2019 Comments No Sex and Gender Information Value Date Recorded Sex Assigned at Female 10/26/2022 5:46 AM SPECIALTY FOOD PRODUCTS SUPERVISOR Legal Sex Female 4:22 AM SPECIALTY FOOD PRODUCTS SUPERVISOR Gender Identity Female 10/26/2022 5:45 AM SPECIALTY FOOD PRODUCTS SUPERVISOR Sexual Orientation Straight 10/26/2022 5: 46 AM SPECIALTY FOOD PRODUCTS SUPERVISOR Occupation Industry Job Start Date Job [...] well. Message text Responded to patient via [employer]. * Telephone Encounter - Elvin Carlson RN - 03/31/2022 9:16 AM CDT [employer] message received. RN will send to Dr. [...] on filedocumented in this encounter Care Teams Educational Psychology Professor Relationship Specialty Start Date End Date Keven Krueger [address] [address] PCP - General Family Practice 05/01/19 08/11/22 No Ref-Primary, Physician PCP - General 08/12/22 10/28/22 [place] [address] [place] [address] PCP - General Family Medicine 10/29/22 02/23/24 [place] [address] [place] [address] PCP - General 10/16/24 Chato Diaz MD [address] [place] [id number] Cardiovascular Disease 03/24/22 Chato Diaz MD [address] [place] [address] Cardiovascular Disease 03/24/22 Marko Smith MD [address] [place] 494595 Assigned Heart and Vascular Provider 08/15/22 11/20/22 Chato Diaz MD [address] [place] 592865 Assigned Heart and Vascular Provider 07/18/22 08/14/22 [place] [address] [place] [address] Assigned PCP 11/07/22 03/08/24 Chato Diaz MD [address] [place] 610875 Assigned Heart and Vascular Provider 11/21/22 06/08/24 Rosalba Romo MD [address] [place] [address] Assigned Pulmonology Provider 12/12/22 06/08/24 [place] [address] [place] [address] Assigned PCP 03/09/24 documented as of this encounter
--- OUTSIDE RECORDS SUMMARY | 2025-01-21 23:50 | XMS_ITS | Encounter Summary ---
Author Organization [place] Address [address] [place] [address] Care Team Providers Care Product Engineering Manager Name Role Phone BogdanGypsy ANA LAURA CEO AND FOUNDER Unavailable [phone] Keven Krueger Primary Care Provider + [phone] Chato Diaz MD Unavailable [phone] Chato Diaz MD Unavailable [phone] Chato Diaz MD Unavailable +[phone] Ref-Primary, Physician Primary Care Provider Marko Smith MD Unavailable + Cahto Diaz MD Unavailable [phone] Jimenez Madera DO Primary Care Provider +[phone] Jimenez Madera DO Unavailable [phone] Chato Diaz MD Unavailable +[phone] Rosalba Romo MD Unavailable [phone] Alisson Rose MD Unavailable Jasiel Villela MD Primary Care Provider + [phone] Encounter Details Date Type Department Care Team (Late st Contact Info) Description 07/09/2019 MyC Medical Advice [facility] [address] [place] [address] Chato Diaz MD [address] [facility] [address] [place] [address] Social History Tobacco Use Types Packs/Day Years Used Date Smoking Tobacco: Never Smokeless Tobacco: Never Alcohol Use Standard Drinks/Week Comments No 0 (1 standard drink = 0.6 oz pur e alcohol) PHQ-2 Answer Date Recorded PHQ-2 Score 0 02/07/2019 Comments No Sex and Gender Information Value Date Recorded Sex Assigned at Female 10/26/2022 5:46 AM CAREER GUIDANCE TECHNICIAN Legal Sex Female 4:22 AM CAREER GUIDANCE TECHNICIAN Gender Identity Female 10/26/2022 5:45 AM CAREER GUIDANCE TECHNICIAN Sexual Orientation Straight 10/26/2022 5: 46 AM CAREER GUIDANCE TECHNICIAN 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 of this encounter Plan of Treatment Not on file documented as of this encounter Visit Diagnoses Not on filedocumented in this encounter Care Teams Product Engineering Manager Relationship Specialty Start Date End Date Keven Krueger [address] [id number] PCP - General Family Practice 05/01/19 08/11/22 No Ref-Primary, Physician PCP - General 08/12/22 10/28/22 [place] [address] [place] [address] PCP - General Family Medicine 10/29/22 02/23/24 [place] [address] [address] [place], [place] [address] PCP - General 10/16/24 Gypsy Mcfadden APRN CEO AND FOUNDER [address] [address] [place], [place] [address] Assigned PCP 02/12/19 02/07/22 Chato Diaz MD [address] [place] [address] Assigned Heart and Vascular Provider 08/09/20 11/01/21 Chato Diaz MD [address] [place] [address] Cardiovascular Disease 03/24/22 Chato Diaz MD [address] [place] [address] Cardiovascular Disease 03/24/22 Marko Smith MD [address] [place] [address] Assigned Heart and Vascular Provider 08/15/22 11/20/22 Chato Diaz MD [address] [place] [address] Assigned Heart and Vascular Provider 07/18/22 08/14/22 [place] [address] [place] [address] Assigned PCP 11/07/22 03/08/24 Chato Diaz MD [address] [place] [address] Assigned Heart and Vascular Provider 11/21/22 06/08/24 Rosalba Romo MD [address] [place] [address] Assigned Pulmonology Provider 12/12/22 06/08/24 [place] [address] [place] [address] Assigned PCP 03/09/24 documented as of this encounter
--- OUTSIDE RECORDS SUMMARY | 2025-01-21 23:50 | XMS_ITS | Encounter Summary ---
Author Organization [place] Address [address] [place] [address] Care Team Providers Care Emergency Operator Name Role Phone BogdanGypsy ANA LAURA MOBILE PAINT SPECIALIST Unavailable [phone] Keven Krueger Primary Care Provider + [phone] Chato Diaz MD Unavailable [phone] Chato Diaz MD Unavailable [phone] Chato Diaz MD Unavailable [phone] Ref-Primary, Physician Primary Care Provider Marko Smith MD Unavailable + Chato Diaz MD Unavailable [phone] Jimenez Madera DO Primary Care Provider +[phone] Jimenez Madera DO Unavailable [phone] Chato Diaz MD Unavailable +[phone] Rosalba Romo MD Unavailable [phone] Alisson Rose MD Unavailable Jasiel Villela MD Primary Care Provider + [phone] Encounter Details Date Type Department Care Team (Late st Contact Info) Description 07/30/2019 MyC Medical Advice [facility] [address] [place] [address] Chato Diaz MD [address] [facility] [address] [place] [address] Social History Tobacco Use Types Packs/Day Years Used Date Smoking Tobacco: Never Smokeless Tobacco: Never Alcohol Use Standard Drinks/Week Comments No 0 (1 standard drink = 0.6 oz pur e alcohol) PHQ-2 Answer Date Recorded PHQ-2 Score 0 02/07/2019 Comments No Sex and Gender Information Value Date Recorded Sex Assigned at Female 10/26/2022 5:46 AM TURKISH LINE ATTENDANT Legal Sex Female 4:22 AM TURKISH LINE ATTENDANT Gender Identity Female 10/26/2022 5:45 AM TURKISH LINE ATTENDANT Sexual Orientation Straight 10/26/2022 5: 46 AM TURKISH LINE ATTENDANT 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 RN will send to Dr. Diaz for review/MARCELINO Siddiqil. Ok. It did all that while I [...] to visit my bro in law at [place]. I got out of car and walked, [...] Carlson RN - 07/31/2019 7:10 AM CDT [employer] message received. RN will send to Dr. [...] on filedocumented in this encounter Care Teams Emergency Operator Relationship Specialty Start Date End Date Keven Krueger [address] [phone] PCP - General Family Practice 05/01/19 08/11/22 No Ref-Primary, Physician PCP - General 08/12/22 10/28/22 [place] [address] [place] [address] PCP - General Family Medicine 10/29/22 02/23/24 [place] [address] [place] [address] PCP - General 10/16/24 Gypsy Mcfadden APRN MOBILE PAINT SPECIALIST [address] [place] [address] Assigned PCP 02/12/19 02/07/22 Chato Diaz MD [address] [place] [address] Assigned Heart and Vascular Provider 08/09/20 11/01/21 Chato Diaz MD [address] [place], [place] [address] Cardiovascular Disease 03/24/22 Chato Diaz MD [address] [place] [address] Cardiovascular Disease 03/24/22 Marko Smith MD [address] [place], [place] [address] Assigned Heart and Vascular Provider 08/15/22 11/20/22 Chato Diaz MD [address] [place] [address] Assigned Heart and Vascular Provider 07/18/22 08/14/22 [place] [address] [place] [address] Assigned PCP 11/07/22 03/08/24 Chato Diza MD [address] [place] [address] Assigned Heart and Vascular Provider 11/21/22 06/08/24 Rosalba Romo MD [address] [place] [address] Assigned Pulmonology Provider 12/12/22 06/08/24 [place] [address] [facility] [address] Assigned PCP 03/09/24 documented as of this encounter
--- OUTSIDE RECORDS SUMMARY | 2025-01-21 23:50 | XMS_ITS | Encounter Summary ---
Author Organization [facility] Address [address] [place] [address] Care Team Providers Care Unemployment Benefits Claims Taker Name Role Phone BogdanGypsy ANA LAURA ELL TEACHER Unavailable [phone] Keven Krueger Primary Care Provider + [phone] Chato Diaz MD Unavailable [phone] Chato Diaz MD Unavailable [phone] Chato Diaz MD Unavailable [phone] Ref-Primary, Physician Primary Care Provider Marko Smith MD Unavailable + Chato Diaz MD Unavailable [phone] Jimenez Madera DO Primary Care Provider +[phone] Jimenez Madera DO Unavailable [phone] Chato Diaz MD Unavailable +[phone] Rosalba Romo MD Unavailable +[phone] Alisson Rose MD Unavailable Jasiel Villela MD Primary Care Provider + [phone] Encounter Details Date Type Department Care Team (Late st Contact Info) Description 11/19/2020 MyC Medical Advice [facility] Heart [address] [place] [address] Chato Diaz MD [address] 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 Diaz for review. MAME Weldon November 19, 2020 3:01 PM NUT BOILER documented in this encounter Plan of Treatment Not on file documented as of this encounter Visit Diagnoses Not on filedocumented in this encounter Care Teams Unemployment Benefits Claims Taker Relationship Specialty Start Date End Date Keven Krueger [address] [address] PCP - General Family Practice 05/01/19 08/11/22 No Ref-Primary, Physician PCP - General 08/12/22 10/28/22 [place] [address] [place] [address] PCP - General Family Medicine 10/29/22 02/23/24 [place] [address] [place] [address] PCP - General 10/16/24 Gypsy Mcfadden APRN ELL TEACHER [address] [place] [address] Assigned PCP 02/12/19 02/07/22 Chato Diaz MD [address] [place] 6469[address] Assigned Heart and Vascular Provider 08/09/20 11/01/21 Chato Diaz MD [address] [place] [address] Cardiovascular Disease 03/24/22 Chato Diaz MD [address] [place] 767[address] Cardiovascular Disease 03/24/22 Marko Smith MD [address] [place] [address] Assigned Heart and Vascular Provider 08/15/22 11/20/22 Chato Diaz MD [address] [place] [address] Assigned Heart and Vascular Provider 07/18/22 08/14/22 [place] [address] [address] [place] [address] Assigned PCP 11/07/22 03/08/24 Chato Diaz MD [address] [facility] [address] [place] [address] Assigned Heart and Vascular Provider 11/21/22 06/08/24 Rosalba Romo MD [address] [place], [place] [address] Assigned Pulmonology Provider 12/12/22 06/08/24 [place] [address] [place] [address] Assigned PCP 03/09/24 documented as of this encounter
--- OUTSIDE RECORDS SUMMARY | 2025-01-21 23:50 | XMS_ITS | Encounter Summary ---
Author Organization [place] Address [address] [place] [address] Care Team Providers Care Relief Master Name Role Phone BogdanGypsy ANA LAURA DAG COATER Unavailable [phone] Keven Krueger Primary Care Provider + [phone] Chato Diaz MD Unavailable [phone] Chato Diaz MD Unavailable [phone] Chato Diaz MD Unavailable [phone] Ref-Primary, Physician Primary Care Provider Marko Smith MD Unavailable + Chato Diaz MD Unavailable [phone] Jimenez Madera DO Primary Care Provider +[phone] Jimenez Madera DO Unavailable +[phone] Chato Diaz MD Unavailable [phone] Rosalba Romo MD Unavailable +[phone] Alisson Rose MD Unavailable Jasiel Villela MD Primary Care Provider + [phone] Encounter Details Date Type Department Care Team (Late st Contact Info) Description 07/10/2019 MyC Medical Advice [facility] Clinic [address] [place] [phone] Chato Diaz MD [address] [facility] [address] [place] [address] Social History Tobacco Use Types Packs/Day Years Used Date Smoking Tobacco: Never Smokeless Tobacco: Never Alcohol Use Standard Drinks/Week Comments No 0 (1 standard drink = 0.6 oz pur e alcohol) PHQ-2 Answer Date Recorded PHQ-2 Score 0 02/07/2019 Comments No Sex and Gender Information Value Date Recorded Sex Assigned at Female 10/26/2022 5:46 AM CROP OR LIVESTOCK TENANT FARMER Legal Sex Female 4:22 AM CROP OR LIVESTOCK TENANT FARMER Gender Identity Female 10/26/2022 5:45 AM CROP OR LIVESTOCK TENANT FARMER Sexual Orientation Straight 10/26/2022 5: 46 AM CROP OR LIVESTOCK TENANT FARMER 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 of this encounter Plan of Treatment Not on file documented as of this encounter Visit Diagnoses Not on filedocumented in this encounter Care Teams Relief Master Relationship Specialty Start Date End Date Keven Krueger [address] [phone] PCP - General Family Practice 05/01/19 08/11/22 No Ref-Primary, Physician PCP - General 08/12/22 10/28/22 [place] [address] [place] [address] PCP - General Family Medicine 10/29/22 02/23/24 [place] [address] [address] [place], [place] [address] PCP - General 10/16/24 Gypsy Mcfadden APRN DAG COATER [address] [address] [place], [place] [address] Assigned PCP 02/12/19 02/07/22 Chato Diaz MD [address] [place] [address] Assigned Heart and Vascular Provider 08/09/20 11/01/21 Chato Diaz MD [address] [place] [address] Cardiovascular Disease 03/24/22 Chato Diaz MD [address] [place] [address] Cardiovascular Disease 03/24/22 Marko Smith MD [address] [place] [address] Assigned Heart and Vascular Provider 08/15/22 11/20/22 Chato Diaz MD [address] [place] [address] Assigned Heart and Vascular Provider 07/18/22 08/14/22 [place] [address] [place] [address] Assigned PCP 11/07/22 03/08/24 Chato Diaz MD [address] [place] [address] Assigned Heart and Vascular Provider 11/21/22 06/08/24 Rosalba Romo MD [address] [place] [address] Assigned Pulmonology Provider 12/12/22 06/08/24 [place] [address] [place] [address] Assigned PCP 03/09/24 documented as of this encounter
--- OUTSIDE RECORDS SUMMARY | 2025-01-21 23:50 | XMS_ITS | Encounter Summary ---
Author Organization [facility] Address [address] [place] [address] Care Team Providers Care Banbury Machine Operator Name Role Phone BogdanGypsy ANA LAURA FLATBED STITCHER Unavailable [phone] Keven Krueger Primary Care Provider + [phone] Chato Diaz MD Unavailable [phone] Chato Diaz MD Unavailable +[phone] Chato Diaz MD Unavailable +[phone] Ref-Primary, Physician Primary Care Provider Marko Smith MD Unavailable + Chato Diaz MD Unavailable [phone] Jimenez Madera DO Primary Care Provider +[phone] Jimenez Madera DO Unavailable [phone] Chato Diaz MD Unavailable +[phone] Rosalba Romo MD Unavailable [phone] Alisson Rose MD Unavailable Jasiel Villela MD Primary Care Provider + [phone] Encounter Details Date Type Department Care Team (Late st Contact Info) Description 09/02/2021 MyC Medical Advice [facility] Heart [address] [place] [address] Chato Diaz MD [address] 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 RN will send to Dr. Diaz as FYI. Thank you, have a great Thanksgiving :) I will start stomach OTCs. Pretty harsh diet change, so just wanted to get basics figured. Here's a couple records from January also to add in. AL ACCOUNT MANAGER * Telephone Encounter - Elvin Carlson RN - 09/02/2021 7:52 AM GLOBAL ACCOUNT MANAGER Images from the original note were not included. [employer]p-labs messages received. RN will send to Dr. [...] no heart indications- I will move to OT heartburn meds. AL ACCOUNT MANAGER documented in this encounter Plan of Treatment Not on file documented as of this encounter Visit Diagnoses Not on filedocumented in this encounter Care Teams Banbury Machine Operator Relationship Specialty Start Date End Date Keven Krueger [address] [phone] PCP - General Family Practice 05/01/19 08/11/22 No Ref-Primary, Physician PCP - General 08/12/22 10/28/22 [place] [address] [place] [address] PCP - General Family Medicine 10/29/22 02/23/24 [place] [address] [place] [address] PCP - General 10/16/24 Gypsy Mcfadden APRN FLATBED STITCHER [address] [place] [address] Assigned PCP 02/12/19 02/07/22 Chato Diaz MD [address] [facility] [address] [place] [address] Assigned Heart and Vascular Provider 08/09/20 11/01/21 Chato Diaz MD [address] [place] [address] Cardiovascular Disease 03/24/22 Chato Diaz MD [address] [place] [address] Cardiovascular Disease 03/24/22 Marko Smith MD [address] [place] [address] Assigned Heart and Vascular Provider 08/15/22 11/20/22 Chato Diaz MD [address] [place] [address] Assigned Heart and Vascular Provider 07/18/22 08/14/22 [place] [address] [place] [address] Assigned PCP 11/07/22 03/08/24 Chato Diaz MD [address] [place] [address] Assigned Heart and Vascular Provider 11/21/22 06/08/24 Rosalba Romo MD [address] [place] [address] Assigned Pulmonology Provider 12/12/22 06/08/24 [place] [address] [place] [address] Assigned PCP 03/09/24 documented as of this encounter
--- OUTSIDE RECORDS SUMMARY | 2025-01-21 23:50 | XMS_ITS | Encounter Summary ---
Author Organization [facility] Address [address] [place] [address] Care Team Providers Care Want Ad Supervisor Name Role Phone Keven Krueger Primary Care Provider [phone] Michelle Ware PA-C Unavailable Michelle Ware PA-C Unavailable No Ref-Primary, Physician Primary Care Provider Gypsy Mcfadden APRN FEEDER WORKER POWER UNIT OPERATOR Unavailable [phone] Keven Krueger Primary Care Provider +[phone] Chato Diaz MD Unavailable +[phone] Chato Diaz MD Unavailable +[phone] Chato Diaz MD Unavailable [phone] Ref-Primary, Physician Primary Care Provider Marko Smith MD Unavailable + Chato Diaz MD Unavailable +[phone] Jimenez Madera DO Primary Care Provider [phone] Jimenez Madera DO Unavailable [phone] Chato Diaz MD Unavailable +[phone] Rosalba Romo MD Unavailable [phone] Alisson Rose MD Unavailable Jasiel Villela MD Primary Care Provider [phone] Reason for Referral * - Closed Specialty Diagnoses / Procedures Referred By Contac t Referred To Contact Diagnoses Encounter for preconception consultation Kyra Silva MD Phone: tel: fax: Referral ID Status Reason Start Date Expiration Date Visits Re quested Visits Authorized [id number] Closed 05/27/2018 05/27/2019 1 1 Question Answer MFM Consult Yes - In consult clinic Comments recurrent loss x3 * - Closed Specialty Diagnoses / Procedures Referred By Betsy manzanares Referred To Contact Diagnoses Encounter for preconception consultation Kyra Silva MD Phone: tel: fax: Referral ID Status Reason Start Date Expiration Date Visits Re quested Visits Authorized [id number] Closed 05/26/2018 05/26/2019 1 1 Question Answer MFM Location [facility] Indication: recurrent loss x3 Genetic Counseling Consultation: No fax microbial specialist Basia Silva [phone] Comments >> Patient may proceed with recommendations [...] where they were done to arrange for mushroom picker prior to your scheduled appointment. Any new CT, MRI or other procedures ordered by your specialist must be performed at a [facility] facility or coordinated by your clinic's referral office. >> List of current medications >> This referral request >> Any documents/labs given to you for this referral Encounter Details Date Type Department Care Team (Late st Contact Info) Description 05/26/2018 Orders Only [facility] [address] [address] Kyra Silva MD [address] [address] Encounter for preconception consultation (Primary Dx) Social History Tobacco Use Types Packs/Day Years Used Date Smoking Tobacco: Never Smokeless Tobacco: Never Alcohol Use Standard Drinks/Week Comments No 0 (1 standard drink = 0.6 oz pur e alcohol) Comments No Sex and Gender Information Value Date Recorded Sex Assigned at Female 10/26/2022 5:46 AM DANCING TEACHER Legal Sex Female 4:22 AM DANCING TEACHER Gender Identity Female 10/26/2022 5:45 AM DANCING TEACHER Sexual Orientation Straight 10/26/2022 5: 46 AM DANCING TEACHER Occupation Industry Job Start Date Job [...] Primary documented in this encounter Care Teams Want Ad Supervisor Relationship Specialty Start Date End Date Keven Krueger [address] [address] PCP - General Family Practice 12/26/15 02/06/19 Michelle Ware PA-C [address] [place] [address] PCP - Assigned PCP 07/02/17 12/20/18 No Ref-Primary, Physician PCP - General 02/07/19 04/30/19 Keven Krueger [place] [address] [place], [place] [address] PCP - General Family Practice 05/01/19 08/11/22 No Ref-Primary, Physician PCP - General 08/12/22 10/28/22 [place] [address] [place] [address] PCP - General Family Medicine 10/29/22 02/23/24 [place] [address] [place] [address] PCP - General 10/16/24 Michelle Ware PA-C [address] [place] [address] Assigned PCP 07/02/17 02/11/19 Gypsy Mcfadden APRN FEEDER WORKER POWER UNIT OPERATOR [address] [address] [address] Assigned PCP 02/12/19 02/07/22 Chato Diaz MD [address] [place] [address] Assigned Heart and Vascular Provider 08/09/20 11/01/21 Chato Diaz MD [address] [place] [address] Cardiovascular Disease 03/24/22 Chato Diaz MD [address] [place] [address] Cardiovascular Disease 03/24/22 Marko Smith MD [address] [place] [address] Assigned Heart and Vascular Provider 08/15/22 11/20/22 Chato Diaz MD [address] [place] [address] Assigned Heart and Vascular Provider 07/18/22 08/14/22 [place] [address] [place] [address] Assigned PCP 11/07/22 03/08/24 Chato Diaz MD [address] [place] [address] Assigned Heart and Vascular Provider 11/21/22 06/08/24 Rosalba Romo MD [address] [place], [place] [address] Assigned Pulmonology Provider 12/12/22 06/08/24 [place] [address] [place] [address] Assigned PCP 03/09/24 documented as of this encounter
--- OUTSIDE RECORDS SUMMARY | 2025-01-21 23:50 | XMS_ITS | Encounter Summary ---
Author Organization [place] Address [address] [place] [address] Care Team Providers Care Back Hoe Operator Name Role Phone BogdanGypsy ANA LAURA STAFFING AND SCHEDULING COORDINATOR Unavailable [phone] Keven Krueger Primary Care Provider + [phone] Chato Diaz MD Unavailable [phone] Chato [...] Jasiel Villela MD Primary Care Provider + [phone] Encounter Details Date Type Department Care Team (Late st Contact Info) Description 08/08/2021 [facility] Medical Advice [facility] Heart [address] [place] [phone] Chato Diaz MD [address] 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 of this encounter Plan of Treatment Not on file documented as of this encounter Visit Diagnoses Not on filedocumented in this encounter Care Teams Back Hoe Operator Relationship Specialty Start Date End Date Keven Krueger [address] [phone] PCP - General Family Practice 05/01/19 08/11/22 No Ref-Primary, Physician PCP - General 08/12/22 10/28/22 [place] [address] [place] [address] PCP - General Family Medicine 10/29/22 02/23/24 [place] [address] [address] [place], [place] [id number] PCP - General 10/16/24 Gypsy Mcfadden APRN STAFFING AND SCHEDULING COORDINATOR [address] [place] [address] Assigned PCP 02/12/19 02/07/22 Chato Diaz MD [address] [place] [address] Assigned Heart and Vascular Provider 08/09/20 11/01/21 Chato Diaz MD [address] [place] [address] Cardiovascular Disease 03/24/22 Chato Diaz MD [address] [place] [address] Cardiovascular Disease 03/24/22 Marko Smith MD [address] [place] [address] Assigned Heart and Vascular Provider 08/15/22 11/20/22 Chato Diaz MD [address] [place] [address] Assigned Heart and Vascular Provider 07/18/22 08/14/22 [place] [address] [place] [address] Assigned PCP 11/07/22 03/08/24 Chato Diaz MD [address] [place] [address] Assigned Heart and Vascular Provider 11/21/22 06/08/24 Rosalba Romo MD [address] [address] [place] [address] Assigned Pulmonology Provider 12/12/22 06/08/24 [place] [address] [place] [address] Assigned PCP 03/09/24 documented as of this encounter
--- OUTSIDE RECORDS SUMMARY | 2025-01-21 23:50 | XMS_ITS | Encounter Summary ---
Author Organization [place] Address [address] [place] [address] Care Team Providers Care Leasing Associate Name Role Phone BogdanGypsy ANA LAURA SECOND RIDE FARE COLLECTOR Unavailable +[phone] Keven Krueger Primary Care Provider + [phone] Chato Diaz MD Unavailable [phone] Chato Diaz MD Unavailable [phone] Chato Diaz MD Unavailable [phone] Ref-Primary, Physician Primary Care Provider Marko Smith MD Unavailable + Chato Diaz MD Unavailable [phone] Jimenez Madera DO Primary Care Provider +[phone] Jimenez Madera DO Unavailable [phone] Chato Diaz MD Unavailable [phone] Rosalba Romo MD Unavailable [phone] Alisson Rose MD Unavailable Jasiel Villela MD Primary Care Provider + [phone] Encounter Details Date Type Department Care Team (Late st Contact Info) Description 06/03/2021 MyC Medical Advice [facility] Heart [address] [place] [phone] Chtao Diaz MD [address] [facility] [address] [place] [address] Social History Tobacco Use Types Packs/Day Years Used Date Smoking Tobacco: Never Smokeless Tobacco: Never Alcohol Use Standard Drinks/Week Comments No 0 (1 standard drink = 0.6 oz pur e alcohol) PHQ-2 Answer Date Recorded PHQ-2 Score 0 02/07/2019 Comments No Sex and Gender Information Value Date Recorded Sex Assigned at Female 10/26/2022 5:46 AM ASPHALT COATER Legal Sex Female 4:22 AM ASPHALT COATER Gender Identity Female 10/26/2022 5:45 AM ASPHALT COATER Sexual Orientation Straight 10/26/2022 5: 46 AM ASPHALT COATER 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 of this encounter Miscellaneous Notes * Telephone Encounter - Leigha Cheatham RN - 06/04/2021 8:35 AM CDT [employer] message received from patient; Will route to [...] on filedocumented in this encounter Care Teams Leasing Associate Relationship Specialty Start Date End Date Keven Krueger [address] [address] PCP - General Family Practice 05/01/19 08/11/22 No Ref-Primary, Physician PCP - General 08/12/22 10/28/22 [place] [address] [address] [place] [address] PCP - General Family Medicine 10/29/22 02/23/24 [place] [address] [facility] [address] PCP - General 10/16/24 Gypsy Mcfadden APRN SECOND RIDE FARE COLLECTOR [address] [place] [address] Assigned PCP 02/12/19 02/07/22 Chato Diaz MD [address] [place] [address] Assigned Heart and Vascular Provider 08/09/20 11/01/21 Chato Diaz MD [address] [place] [address] Cardiovascular Disease 03/24/22 Chato Diaz MD [address] [place] [address] Cardiovascular Disease 03/24/22 Marko Smith MD [address] [place] [address] Assigned Heart and Vascular Provider 08/15/22 11/20/22 Chato Diaz MD [address] [place] [address] Assigned Heart and Vascular Provider 07/18/22 08/14/22 [place] [address] [place] [address] Assigned PCP 11/07/22 03/08/24 Chato Diaz MD [address] [facility] [address] [place] [address] Assigned Heart and Vascular Provider 11/21/22 06/08/24 Rosalba Romo MD [address] [place], [place] [address] Assigned Pulmonology Provider 12/12/22 06/08/24 [place] [address] [place] [address] Assigned PCP 03/09/24 documented as of this encounter
--- OUTSIDE RECORDS SUMMARY | 2025-01-21 23:50 | XMS_ITS | Encounter Summary ---
Author Organization [place] Address [address] [place] [address] Care Team Providers Care Engineering Instructor Name Role Phone Keven Krueger Primary Care Provider + [phone] Chato Diaz MD Unavailable [phone] Chato Diaz MD Unavailable [phone] Ref-Primary, Physician Primary Care Provider Marko Smith MD Unavailable + Chato Diaz MD Unavailable [phone] Jimenez Madera DO Primary Care Provider [phone] Jimenez Madera DO Unavailable [phone] Chato Diaz MD Unavailable [phone] Rosalba Romo MD Unavailable + [phone] Alisson Rose MD Unavailable Jasiel Villela MD Primary Care Provider + [phone] Reason for Visit * Reason Onset Date Comments Appointment 06/26/2022 NEW EP Encounter Details Date Type Department Care Team (Late st Contact Info) Description 06/26/2022 [facility] Heart [address] [address] Maico Gambino MD Appointment (NEW EP) Social History Tobacco Use Types Packs/Day Years Used Date Smoking Tobacco: Never Smokeless Tobacco: Never Alcohol Use Standard Drinks/Week Comments No 0 (1 standard drink = 0.6 oz pur e alcohol) PHQ-2 Answer Date Recorded PHQ-2 Score 0 02/07/2019 Comments No Sex and Gender Information Value Date Recorded Sex Assigned at Female 10/26/2022 5:46 AM QUALITY IMPROVEMENT MANAGER Legal Sex Female 4:22 AM QUALITY IMPROVEMENT MANAGER Gender Identity Female 10/26/2022 5:45 AM QUALITY IMPROVEMENT MANAGER Sexual Orientation Straight 10/26/2022 5: 46 AM QUALITY IMPROVEMENT MANAGER Occupation Industry Job Start Date Job [...] filedocumented in this encounter Care Teams Engineering Instructor Relationship Specialty Start Date End Date Keven Krueger [address] [address] PCP - General Family Practice 05/01/19 08/11/22 No Ref-Primary, Physician PCP - General 08/12/22 10/28/22 [place] [address] [address] [place], [place] [id number] PCP - General Family Medicine 10/29/22 02/23/24 [place] [address] [place] [address] PCP - General 10/16/24 Chato Diaz MD [address] [place] [address] Cardiovascular Disease 03/24/22 Chato Diaz MD [address] [place] [address] Cardiovascular Disease 03/24/22 Marko Smith MD [address] [place] [id number] Assigned Heart and Vascular Provider 08/15/22 11/20/22 Chato Diaz MD [address] [place] [address] Assigned Heart and Vascular Provider 07/18/22 08/14/22 [place] [address] [place] [address] Assigned PCP 11/07/22 03/08/24 Chato Diaz MD [address] [facility] [address] [place], [place] [address] Assigned Heart and Vascular Provider 11/21/22 06/08/24 Rosalba Romo MD [address] [place], [place] [address] Assigned Pulmonology Provider 12/12/22 06/08/24 [place] [address] [address] [facility] [place] [address] Assigned PCP 03/09/24 documented as of this encounter
--- OUTSIDE RECORDS SUMMARY | 2025-01-21 23:50 | XMS_ITS | Encounter Summary ---
Author Organization [place] Address [address] [place] [address]. [place] [address] Care Team Providers Care Switchboard Troubleshooter Name Role Phone Chato Diaz MD Unavailable [phone] Chato Diaz MD Unavailable [phone] Ref-Primary, Physician Primary Care Provider Marko Smith MD Unavailable + Jimenez Madera DO Primary Care Provider [phone] Jimenez Madera DO Unavailable [phone] Chato Diaz MD Unavailable [phone] Rosalba Romo MD Unavailable [phone] Alisson Rose MD Unavailable Jasiel Villela MD Primary Care Provider + [phone] Reason for Visit * Reason Onset Date Comments Call Back 10/23/2022 Referral daniel vigil Encounter Details Date Type Department Care Team (Late st Contact Info) Description 10/23/2022 Telephone [facility] [place] [address] [facility] [address] [place] [address] Chato Diaz MD [address] [facility] [address] [place] [address] Call Back (Referral questions ) Social History Tobacco Use Types Packs/Day Years Used Date Smoking Tobacco: Never Smokeless Tobacco: Never Alcohol Use Standard Drinks/Week Comments No 0 (1 standard drink = 0.6 oz pur e alcohol) PHQ-2 Answer Date Recorded PHQ-2 Score 0 10/26/2022 Comments Unknown Sex and Gender Information Value Date Recorded Sex Assigned at Female 10/26/2022 5:46 AM ARROW POINT ATTACHER Legal Sex Female 4:22 AM ARROW POINT ATTACHER Gender Identity Female 10/26/2022 5:45 AM ARROW POINT ATTACHER Sexual Orientation Straight 10/26/2022 5: 46 AM ARROW POINT ATTACHER 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 No / Unsure 10/26/2022 5:52 AM ARROW POINT ATTACHER documented as of this encounter Miscellaneous Notes [...] Not Applicable Thank you! [facility] W POINT ATTACHER documented in this encounter Plan of Treatment Not on file documented as of this encounter Visit Diagnoses Not on filedocumented in this encounter Care Teams Switchboard Troubleshooter Relationship Specialty Start Date End Date No Ref-Primary, Physician PCP - General 08/12/22 10/28/22 [place] [address] [address] [place], [place] [phone] PCP - General Family Medicine 10/29/22 02/23/24 [place] [address] [place] [address] PCP - General 10/16/24 Chato Diaz MD [address] [place] [address] Cardiovascular Disease 03/24/22 Chato Diaz MD [address] [place] [address] Cardiovascular Disease 03/24/22 Marko Smith MD [address] [place] [address] Assigned Heart and Vascular Provider 08/15/22 11/20/22 [place] [address] [place] [address] Assigned PCP 11/07/22 03/08/24 Chato Diaz MD [address] [place] [address] Assigned Heart and Vascular Provider 11/21/22 06/08/24 Rosalba Romo MD [address] [place], [place] [address] Assigned Pulmonology Provider 12/12/22 06/08/24 [place] [address] [address] [place] [place] [address] Assigned PCP 03/09/24 documented as of this encounter
--- OUTSIDE RECORDS SUMMARY | 2025-01-21 23:50 | XMS_ITS | Encounter Summary ---
Author Organization [place] Address [address] [place] [address] Care Team Providers Care Certified Activities Director Name Role Phone Keven Krueger Primary Care Provider + [phone] Chato Diaz MD Unavailable [phone] Chato Diaz MD Unavailable [phone] Ref-Primary, Physician Primary Care Provider Marko Smith MD Unavailable + Chato Diaz MD Unavailable [phone] Jimenez Madera DO Primary Care Provider [phone] Jimenez Madera DO Unavailable [phone] Chato Diaz MD Unavailable [phone] Rosalba Romo MD Unavailable [phone] Alisson Rose MD Unavailable Jasiel Villela MD Primary Care Provider + [phone] Reason for Referral * CV Testing (Routine) - Closed Specialty Diagnoses / Procedures Referred By Contac t Referred To Contact Diagnoses Palpitations Procedures Cardiac Event Monitor Adult Pediatric Chato Diaz MD [address] [facility] [address] [place] [address] Phone: tel: fax: Referral ID Status Reason Start Date Expiration Date Visits Re quested Visits Authorized [id number] Closed 06/02/2022 06/02/2023 1 1 Reason for Visit * Reason Onset Date Comments Orders 06/02/2022 Request for Zio Patch Encounter Details Date Type Department Care Team (Late st Contact Info) Description 06/02/2022 [facility] Heart [facility] [address] [facility] [address] [place] [phone] Chato Diaz MD [address] [facility] [address] [place] [id number] Orders (Request for Zio Patch) Social History Tobacco Use Types Packs/Day Years Used Date Smoking Tobacco: Never Smokeless Tobacco: Never Alcohol Use Standard Drinks/Week Comments No 0 (1 standard drink = 0.6 oz pur e alcohol) PHQ-2 Answer Date Recorded PHQ-2 Score 0 02/07/2019 Comments No Sex and Gender Information Value Date Recorded Sex Assigned at Female 10/26/2022 5:46 AM MANAGER DOMESTIC Legal Sex Female 4:22 AM MANAGER DOMESTIC Gender Identity Female 10/26/2022 5:45 AM MANAGER DOMESTIC Sexual Orientation Straight 10/26/2022 5: 46 AM MANAGER DOMESTIC 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 Dr. Emily plummer with 30 day event monitor for patient (see encounter 03/31/22). Order placed. Message sent to scheduling to set up 30 day event monitor. * Telephone Encounter - Rachelle Hernandez - 06/02/2022 8:29 AM CDT [facility] Call Center Phone Message May a detailed message be left on voicemail: yes Reason for Call: Order(s): Other: Reason for requested: Beth calling to request a 30 day Ziopatch order be placed so she can get that done prior to her upcoming appointment. Eden call her once the order is placed [...] Modality Other Chato Diaz MD [facility] ORDERA BLES Edited Result - Final documented in this encounter Visit Diagnoses Diagnosis Palpitations- Primary documented in this encounter Care Teams Certified Activities Director Relationship Specialty Start Date End Date Keven Krueger [address] [id number] PCP - General Family Practice 05/01/19 08/11/22 No Ref-Primary, Physician PCP - General 08/12/22 10/28/22 [place] [address] [place] [address] PCP - General Family Medicine 10/29/22 02/23/24 [place] [address] [place] [address] PCP - General 10/16/24 Chato Diaz MD [address] [facility] [address] [place] [address] Cardiovascular Disease 03/24/22 Chato Diaz MD [address] [place] [id number] Cardiovascular Disease 03/24/22 Marko Smith MD [address] [place] [address] Assigned Heart and Vascular Provider 08/15/22 11/20/22 Chato Diaz MD [address] [place] [address] Assigned Heart and Vascular Provider 07/18/22 08/14/22 [place] [address] [place] [address] Assigned PCP 11/07/22 03/08/24 Chato Diaz MD [address] [place] [address] Assigned Heart and Vascular Provider 11/21/22 06/08/24 Rosalba Romo MD [address] [place] [address] Assigned Pulmonology Provider 12/12/22 06/08/24 [place] [address] [address] [id number] Assigned PCP 03/09/24 documented as of this encounter
--- OUTSIDE RECORDS SUMMARY | 2025-01-21 23:50 | XMS_ITS | Clinical Summary ---
Author Organization [facility] Address [address] [place] [address] Care Team Providers Care Global Human Resources Director Name Role Phone Josh Hsu MD Unavailable Jasiel Villela MD Primary Care Provider + [phone] Allergies Active Allergy Reactions Criticality Noted Date Comments Iodinated Contrast Media Tachycardia Unknown 10/22/2021 Metformin Dizziness 01/25/2024 Ended up in ED,unexplained sx; not hypoglycemic -BS 60-70 (she has been down to the 40s without symptoms before) Sulfa (Sulfonamide Antibiotics) 06/22/2006 family has allergies to this Medications LORazepam (ATIVAN) 0.5 mg tab Take 0.5 mg by mouth once daily if needed. Use when flying. Active propranoloL (INDERAL) 20 mg tablet Take 0.5 Tablets by mouth 3 times daily if needed. 0 Active progesterone micronized (PROMETRIUM) 200 mg capsule Insert 1 Capsule into the vagina. 1 capsule per vagina on menstrual cycle days 30-40 for 14 days. Active labetaloL (TRANDATE) 100 mg tablet Take 50 mg by mouth once daily if needed. 2 Active medication order Ynes ons:PCOS (polycystic ovarian syndrome),Histor y of recurrent miscarriages *NOW Vit D 1,000 IU -2x daily *Co-Q10 100 mg daily *Calcium-magnes ium-vitamin D 500-250-200 nightly *Potassium citrate 99 mcg daily *New Chapter Women's vitamin daily * [place] [employer] Fish oil to 2,000mg daily -Heart Calm - taurine, magnesium glycinate, potassium, phosphorus: Take 1 capsule prn for PVCs 0 3 Active naltrexone LOW DOSE oral custom compoundIndicati ons:Thyroid nodule,PCOS (polycystic ovarian syndrome) Low Dose Naltrexone compounded to 3mg: Take 0.5 tablet by mouth daily at bedtime and increase dose as instructed 60 Each 4 Active Additional Information Patient not taking.Reported on 11/14/2024 naltrexone LOW DOSE oral custom compoundIndicati ons:Thyroid nodule,PCOS (polycystic ovarian syndrome) Low Dose Naltrexone compounded to 1.5 mg capsule: Take 1 capsule by mouth daily at bedtime and then increase as instructed 60 Each 4 Active Additional Information Patient not taking.Reported on 11/14/2024 Active Problems Problem Noted Date Diagnosed Date Thyroid nodule 08/07/2024 Hyperlipidemia LDL goal <130 01/11/2024 Endometrial hyperplasia with atypia 04/23/2023 Atypical chest pain 01/18/2015 Human papilloma virus (HPV) infection 08/28/2013 Hypertriglyceridemia 11/07/2011 Overview (03/24/2022): (Problem list name updated by automated process. Provider to review and confirm.) (Problem list name updated by automated process. Provider to review and confirm.) Insulin resistance 11/07/2011 Palpitations 11/10/2008 Overview (11/14/2008): hall monitor: September 2008: Normal holter: showing a few sinus arrythmia, PVC/PAC and Sinus Tachycardia. See report 09/25/08 - No further workup per Cards. Polycystic ovaries 04/02/2008 Anxiety state, unspecified 04/02/2008 Encounters Date Type Department Care Team Description 11/14/2024 11:40 AM MAINSPRING TORQUE TESTER Office Visit [facility] [address] [place] [address] Jasiel Villela MD Cough (Productive cough ) 11/14/2024 Travel 11/01/2024 9:00 AM MAINSPRING TORQUE TESTER Telemedicine [facility] [address] [place] [address] Jonelle Franklin NP Follow Up; Consult 10/31/2024 Orders Only [facility] Staff, Other Clinical 1 scan: (1-Ord) [facility] from Last 3 Months Immunizations Immunization Administration Dates Next Due DTP 02/14/1987, 4,1982,1981,1982 MMR 12/26/2018,04/29/1995,08/04/1983 Oral Polio Vaccine 02/14/1987, 4,1982,1981 Td (Age >=7 Years) 12/15/1994 Td, Preservative Free (age > = 7 Years) 12/15/1994 Tdap 05/02/2007 Family History Medical History Relation Name Comments Hyperlipidemia Brother Heart Disease Father quad bypass Hyperlipidemia Father elevated TG Nephrolithiasis Father Other Maternal Grandfather hypogly cemia Cancer Maternal Grandmother vulvar cancer from lichen sclerosus Heart failure Maternal Grandmother Hypertension Maternal Grandmother Celiac disease Mother Estela's thyroiditis Mother Other Mother elevated BS Diabetes Paternal Grandfather Diabetes type II Paternal Grandfather Heart Disease Paternal Grandfather triple bypass Arthritis Paternal Grandmother psoriat ic Heart Disease Paternal Grandmother stent Memory loss Paternal Grandmother Stroke Paternal Grandmother Relation Name Status Comments Brother Alive Father Alive Maternal Grandfather Alive Maternal Grandmother Mother Alive Other Alive Paternal Grandfather Paternal Grandmother Alive Social History Tobacco Use Types Packs/Day Years Used Date Smoking Tobacco: Never Passive Smoke Exposure: Never Smokeless Tobacco: Never Tobacco Cessation:Counseling Given: Not Answered Alcohol Use Standard Drinks/Week Comments No 0 (1 standard drink = 0.6 oz pur e alcohol) PHQ-2 Answer Date Recorded PHQ-2 TOTAL SCORE 0 11/14/2024 Social Connections Answer Date Recorded Do you often feel lonely or isolated from those around you? 0 10/25/2023 Financial Resource Strain Answer Date R ecorded Difficulty of Paying Living Expenses 3 10/25/2023 Difficulty of Paying Living Expenses Not on file 10/25/2023 Food Insecurity Answer Date Recorded Do you worry your food will run out before you are able to buy more? 1 10/25/2023 Transportation Needs Answer Date Record ed Does lack of transportation keep you from medica l appointments? 1 10/25/2023 Does lack of transportation keep you from work, meetings or getting things that you need? 1 10/25/2023 Housing Stability Answer Date Recorded What is your housing situation today? 1 10/25/2023 Utilities Answer Date Recorded Do you have trouble paying f or utilities (for example, heat, electricity, water, phone)? 1 10/25/2023 Comments No Sex and Gender Information Value Date Recorded Sex Assigned at Not on file Legal Sex Female 7:17 AM MAINSPRING TORQUE TESTER Gender Identity Not on file Sexual Orientation Not on file Obstetrics History Para Term AB IAB SAB Ectopic Multiple Livin g Live Births 7 0 0 0 6 0 5 1 0 0 0 Date Outcome GA Total Labor Labor/2nd/3rd Weight Sex Type Anes PTL Kaitlyn A1 A5 Name Clin 5 SAB Comments:Early loss on 3rd cycle of letrozole, +FH 7 SAB Comments:D&C after ear ly loss with letrozole, mild OHSS, Peak hcg 4000+ 8 SAB M Comments:Twin preg at 5 weeks with letrozole, 2 mg dexamethasone and progesterone. Pathology showed XY with FISH negative for ch 13, 16 and 18 9 SAB 9 SAB Comments:Blighted ovum . No D& C spontaneous 11/2021 Ectopic 5w0 d Last Filed Vital Signs Vital Sign Reading Time Taken Comments Blood Pressure 130/80 11/14/2024 11:51 AM MAINSPRING TORQUE TESTER Pulse 80 11/14/2024 11:51 AM MAINSPRING TORQUE TESTER Temperature 36.7 C (98 F) 11/14/2024 11:51 AM MAINSPRING TORQUE TESTER Respiratory Rate 16 10/28/2023 7:38 AM MAINSPRING TORQUE TESTER Oxygen Saturation 96% 11/14/2024 11:51 AM MAINSPRING TORQUE TESTER Inhaled Oxygen Concentration - - Weight 77 kg (169 lb 11.2 oz) 11/14/2024 11:51 A M MAINSPRING TORQUE TESTER Height 162 cm (5' 3.78) 07/17/2024 10:56 AM CDT Body Mass Index 29.33 07/17/2024 10:56 AM CDT Plan of Treatment Health Maintenance Due Date Last Done Comments Tetanus booster 05/02/2017 05/02/2007, 11/19, 12/15/1994 Pap test for age 21-65 02/08/2024 9 (Verified in Care Everywhere or Patient Record) COVID-19 vaccine series ( season) 2024 Influenza Vaccine (Season Ended) 2025 BMI (ht and wt on same day) for age 18+ 07/17/2025 07/17/2024, 11/12/2023, 10/28/2023, Additional history exists Depression screening for age 12+ 11/14/2025 11/14/2024, 10/28/2023 Tdap Completed 05/02/2007 HIV for age 15-65 Addressed 12/25/2019 (Ve rified in Care Everywhere or Patient Record) Overridden with the intention of not completing the topic Hepatitis C screening for age 18-79 Completed 01/07/2024, 12/25/2019 (Verified in Care Everywhere or Patient Record) Pneumococcal series for age 6-49 Aged Out No longer eligible b ased on patient's age to complete this topic Procedures Procedure Name Priority Date/Time Associated Diagnosis Comments SCAN CORRESP-LABORATORY RESULTS 10/31/2024 11:10 AM MAINSPRING TORQUE TESTER ANTI HCV Routine 01/07/2024 9:23 AM CDT Elevated ALT measurement from Last 3 Months or Most Recently Relevant to Health Maintenance Results * SCAN CORRESP-LABORATORY RESULTS (10/31/2024 11:10 AM MAINSPRING TORQUE TESTER) Narrative 10/31/2024 11:10 AM MAINSPRING TORQUE TESTER Ordered by an unspecified provider. us Other Clinical Staff OTHER Final Resul t * ANTI HCV (01/07/2024 9:23 AM CDT) HEPATITIS C ANTIBODY Non-Reacti ve Non-React nithya 01/07/2024 5:09 PM CDT [facility] Comment:Please note, per www .CDC.gov: If a patient is known to be at high risk of HCV infection, or is symptomatic, and the physician's suspicion of HCV infection is high, HCV RNA testing is often employed and is of diagnostic value, even after an initial negative anti-HCV test result. Blood BLOOD SPECIMEN / Unknown Venipuncture / Unknown 01/07/2024 9:23 AM CDT 01/07/2024 9:23 AM CDT us Jasiel Villela MD SEND OUTS Final Result [facility] [address] [place] [address], [place] from Last 3 Months or Most Recently Relevant to Health Maintenance Insurance [facility] Care Teams Global Human Resources Director Relationship Specialty [place] [address] [place] [address] PCP - General Family Practice 08/07/24 Josh Hsu MD [address] [place] [address] Consulting Physician Cardiovascular Disease 01/18/15
--- OUTSIDE RECORDS SUMMARY | 2025-01-21 23:50 | XMS_ITS | Encounter Summary ---
Author Organization [place] Address [facility] [place] [address] Care Team Providers Care Insurance Office Manager Name Role Phone Chato Diaz MD Unavailable [phone] Chato Diaz MD Unavailable [phone] Ref-Primary, Physician Primary Care Provider Marko Smith MD Unavailable + Jimenez Madera DO Primary Care Provider [phone] Jimenez Madera DO Unavailable [phone] Chato Diaz MD Unavailable [phone] Rosalba Romo MD Unavailable [phone] Alisson Rose MD Unavailable Jasiel Villela MD Primary Care Provider + [phone] Encounter Details Date Type Department Care Team (Late st Contact Info) Description 09/26/2022 [facility] [place] Medical Adv[place] [facility] [address] [facility] [address] [place] [address] Chato Diaz MD [address] [facility] [address] [place] [address] Social History Tobacco Use Types Packs/Day Years Used Date Smoking Tobacco: Never Smokeless Tobacco: Never Alcohol Use Standard Drinks/Week Comments No 0 (1 standard drink = 0.6 oz pur e alcohol) PHQ-2 Answer Date Recorded PHQ-2 Score 0 02/07/2019 Comments Unknown Sex and Gender Information Value Date Recorded Sex Assigned at Female 10/26/2022 5:46 AM RADIO COMMUNICATION COORDINATOR Legal Sex Female 4:22 AM RADIO COMMUNICATION COORDINATOR Gender Identity Female 10/26/2022 5:45 AM RADIO COMMUNICATION COORDINATOR Sexual Orientation Straight 10/26/2022 5: 46 AM RADIO COMMUNICATION COORDINATOR 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 Attachment is within [place] encounter. RN will send to Dr. Diaz [...] Lol. ;) I think endocrinology maybe too. Laura rejected me so far for anything. Btw, you'll see my mom soon in November. See you then! O COMMUNICATION COORDINATOR documented in this encounter Plan of Treatment Not on file documented as of this encounter Visit Diagnoses Not on filedocumented in this encounter Care Teams Insurance Office Manager Relationship Specialty Start Date End Date No Ref-Primary, Physician PCP - General 08/12/22 10/28/22 [place] [address] [place] [address] PCP - General Family Medicine 10/29/22 02/23/24 [place] [address] [address] [place] [address] PCP - General 10/16/24 Chato Diaz MD [address] [place] [address] Cardiovascular Disease 03/24/22 Chato Diaz MD [address] [place] [address] Cardiovascular Disease 03/24/22 Marko Smith MD [address] [place] [address] Assigned Heart and Vascular Provider 08/15/22 11/20/22 [place] [address] [address] [place], [place] [id number] Assigned PCP 11/07/22 03/08/24 Chato Diaz MD [address] [place] [address] Assigned Heart and Vascular Provider 11/21/22 06/08/24 Rosalba Romo MD [address] [place] [address] Assigned Pulmonology Provider 12/12/22 06/08/24 [place] [address] [address] [place], [place] [address] Assigned PCP 03/09/24 documented as of this encounter
--- OUTSIDE RECORDS SUMMARY | 2025-01-21 23:51 | XMS_ITS | Encounter Summary ---
Author Organization [place] Address [address] [place] [address]. [place] [address] Care Team Providers Care Coating And Baking Operator Name Role Phone Chato Lopez MD Unavailable [phone] Chato Lopez MD Unavailable [phone] Jimenez Madera DO Primary Care Provider [phone] Jimenez Madera DO Unavailable [phone] Chato Lopez MD Unavailable [phone] Rosalba Romo MD Unavailable [phone] Alisson Rose MD Unavailable Jasiel Villela MD Primary Care Provider + [phone] Encounter Details Date Type Department Care Team (Late st Contact Info) Description 03/31/2023 [facility] [place] Medical Advice [facility] [address] [place] [address] [address] [place] [address] Chato Lopez MD [address] [facility] [address] [place], [place] [address] Social History Tobacco Use Types Packs/Day Years Used Date Smoking Tobacco: Never Smokeless Tobacco: Never Alcohol Use Standard Drinks/Week Comments No 0 (1 standard drink = 0.6 oz pur e alcohol) PHQ-2 Answer Date Recorded PHQ-2 Score 0 10/26/2022 Comments Unknown Sex and Gender Information Value Date Recorded Sex Assigned at Female 10/26/2022 5:46 AM HOSPITAL SALES REPRESENTATIVE Legal Sex Female 4:22 AM HOSPITAL SALES REPRESENTATIVE Gender Identity Female 10/26/2022 5:45 AM HOSPITAL SALES REPRESENTATIVE Sexual Orientation Straight 10/26/2022 5: 46 AM HOSPITAL SALES REPRESENTATIVE 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 RN will send to Dr. [...] on filedocumented in this encounter Care Teams Coating And Baking Operator Relationship Specialty Start [place] [address] [place] [address] PCP - General Family Medicine 10/29/22 02/23/24 [place] [address] [place] [address] PCP - General 10/16/24 Chato Lopez MD [address] [place] [address] Cardiovascular Disease 03/24/22 Chato Lopez MD [address] [place] [address] Cardiovascular Disease 03/24/22 [place] [address] [place] [address] Assigned PCP 11/07/22 03/08/24 Chato Lopez MD [address] [place] [address] Assigned Heart and Vascular Provider 11/21/22 06/08/24 Rosalba Romo MD [address] [place], [place] [address] Assigned Pulmonology Provider 12/12/22 06/08/24 [place] [address] [facility] [place], [place] [address] Assigned PCP 03/09/24 documented as of this encounter
--- OUTSIDE RECORDS SUMMARY | 2025-01-21 23:51 | XMS_ITS | Encounter Summary ---
Author Organization [place] Address [address] [place] [address] Care Team Providers Care Customer Care Assistant Name Role Phone Bogdan[facility]psy [facility] Unavailable [phone] Keven Krueger Primary Care Provider + [phone] Chato Diaz MD Unavailable [phone] Chato Diaz MD Unavailable [phone] Chato Diaz MD Unavailable [phone] Ref-Primary, Physician Primary Care Provider Marko Smith MD Unavailable + Chato Diaz MD Unavailable [phone] Jimenez Madera DO Primary Care Provider [phone] Jimenez Madera DO Unavailable [phone] Chato Diaz MD Unavailable [phone] Rosalba Romo MD Unavailable [phone] Alisson Rose MD Unavailable Jasiel Villela MD Primary Care Provider + [phone] Encounter Details Date Type Department Care Team (Late st Contact Info) Description 05/11/[address] [facility] [address] [place] [phone] Chato Diaz MD [address] [facility] [address] [place] [address] Social History Tobacco Use Types Packs/Day Years Used Date Smoking Tobacco: Never Smokeless Tobacco: Never Alcohol Use Standard Drinks/Week Comments No 0 (1 standard drink = 0.6 oz pur e alcohol) PHQ-2 Answer Date Recorded PHQ-2 Score 0 02/07/2019 Comments No Sex and Gender Information Value Date Recorded Sex Assigned at Female 10/26/2022 5:46 AM WINE STEWARD/STEWARDESS Legal Sex Female 4:22 AM WINE STEWARD/STEWARDESS Gender Identity Female 10/26/2022 5:45 AM WINE STEWARD/STEWARDESS Sexual Orientation Straight 10/26/2022 5: 46 AM WINE STEWARD/STEWARDESS 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 of this encounter Plan of Treatment Not on file documented as of this encounter Visit Diagnoses Not on filedocumented in this encounter Care Teams Customer Care Assistant Relationship Specialty Start Date End Date Keven Krueger [address] [id number] PCP - General Family Practice 05/01/19 08/11/22 No Ref-Primary, Physician PCP - General 08/12/22 10/28/22 [place] [address] [place] [address] PCP - General Family Medicine 10/29/22 02/23/24 [place] [address] [address] [place], [place] [id number] PCP - General 10/16/24 Gypsy Mcfadden APRN [facility]OSP[facility] [employer] [address] [address] [place], [place] [address] Assigned PCP 02/12/19 02/07/22 Chato Diaz MD [address] [place] [address] Assigned Heart and Vascular Provider 08/09/20 11/01/21 Chato Diaz MD [address] [place] [address] Cardiovascular Disease 03/24/22 Chato Diaz MD [address] [place] [address] Cardiovascular Disease 03/24/22 Marko Smith MD [address] [place] [address] Assigned Heart and Vascular Provider 08/15/22 11/20/22 Chato Diaz MD [address] [place] [address] Assigned Heart and Vascular Provider 07/18/22 08/14/22 [place] [address] [place] [address] Assigned PCP 11/07/22 03/08/24 Chato Diaz MD [address] [place] [address] Assigned Heart and Vascular Provider 11/21/22 06/08/24 Rosalba Romo MD [address] [place] [address] Assigned Pulmonology Provider 12/12/22 06/08/24 [place] [address] [place] [address] Assigned PCP 03/09/24 documented as of this encounter
--- OUTSIDE RECORDS SUMMARY | 2025-01-21 23:51 | XMS_ITS | Encounter Summary ---
Author Organization [place] Address [address] [place] [address] Care Team Providers Care Chief Security And Safety Officer Name Role Phone Chato Diaz MD Unavailable [phone] Chato Diaz MD Unavailable [phone] Jimenez Madera DO Primary Care Provider [phone] Jimenez Madera DO Unavailable [phone] Chato Diaz MD Unavailable [phone] Rosalba Romo MD Unavailable [phone] Alisson Rose MD Unavailable Jasiel Villela MD Primary Care Provider [phone] Encounter Details Date Type Department Care Team (Late st Contact Info) Description 04/05/[address] [facility] [address], [address] [place] [address] Beba Ocampo Social History Tobacco Use Types Packs/Day Years Used Date Smoking Tobacco: Never Smokeless Tobacco: Never Alcohol Use Standard Drinks/Week Comments No 0 (1 standard drink = 0.6 oz pur e alcohol) PHQ-2 Answer Date Recorded PHQ-2 Score 0 10/26/2022 Comments Unknown Sex and Gender Information Value Date Recorded Sex Assigned at Female 10/26/2022 5:46 AM PETROLEUM SAMPLER Legal Sex Female 4:22 AM PETROLEUM SAMPLER Gender Identity Female 10/26/2022 5:45 AM PETROLEUM SAMPLER Sexual Orientation Straight 10/26/2022 5: 46 AM PETROLEUM SAMPLER 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 of this encounter Plan of Treatment Not on file documented as of this encounter Visit Diagnoses Not on filedocumented in this encounter Care Teams Chief Security And Safety Officer Relationship Specialty Start [place] [address] [place] [address] PCP - General Family Medicine 10/29/22 02/23/24 [place] [address] [place] [address] PCP - General 10/16/24 Chato Diaz MD [address] [place], [place] [address] Cardiovascular Disease 03/24/22 Chato Diaz MD [address] [place], [place] [address] Cardiovascular Disease 03/24/22 [place] [address] [place] [address] Assigned PCP 11/07/22 03/08/24 Chato Diaz MD [address] [place] [address] Assigned Heart and Vascular Provider 11/21/22 06/08/24 Rosalba Romo MD [address] [place] [address] Assigned Pulmonology Provider 12/12/22 06/08/24 [place] [address] [place] [address] Assigned PCP 03/09/24 documented as of this encounter
--- OUTSIDE RECORDS SUMMARY | 2025-01-21 23:51 | XMS_ITS | CCD ---
Author Name Interface, [id number] lity Address [facility] [address] [address] [facility] Address [address] [address] Care Team Providers Care Trailhead Maintenance Worker Name Role Phone Tiff Rodas Unavailable Unavailable Reason for Visit Social History Date Name Value Sex Female
--- OUTSIDE RECORDS SUMMARY | 2025-01-21 23:51 | XMS_ITS | Clinical Summary ---
Author Organization [place] Address [address] [place] [address] Care Team Providers Care Management Rep Name Role Phone Chato Diaz MD Unavailable [phone] Chato Diaz MD Unavailable [phone] Alisson Rose MD Unavailable Jasiel Villela MD Primary Care Provider + [phone] Allergies Active Allergy Reactions Criticality Noted Date Comments Sulfa Antibiotics 11/05/2011 Medications Calcium-Magnesiu m-Vitamin D 500-250-200 MG-MG-UNIT TABS Take by mouth daily 6 Active Multiple Vitamins-Mineral s (DAILY MULTI) TABS Take by mouth daily Active progesterone [address] 50 mg vaginally as needed Active labetalol (NORMODYNE) 100 MG tabletIndication s:PVC's (premature ventricular contractions),Pa lpitations Take 0.5 tablets (50 mg) by mouth 2 times daily 180 tablet 3 2 Active Additional Information Patient taking differently:50 mg OralPRN, Reported on 08/12/2022 fish oil-omega-3 fatty acids 1000 MG capsule Take 1 g by mouth daily Active co-enzyme Q-10 100 MG CAPS capsule Take 100 mg by mouth daily Active Probiotic Product (PROBIOTIC-10 PO) Active UNABLE TO FIND heart calm Acti ve potassium 99 MG TABS Active metoprolol tartrate (LOPRESSOR) 50 MG tabletIndication s:Palpitations Take 1 tablet (50 mg) by mouth every evening 90 tablet 3 3 Active Active Problems Problem Noted Date Diagnosed Date 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 Provider to review and confirm.) Hypertriglyceridemia 11/07/2011 Overview (07/18/2012): (Problem list name updated by automated process. Provider to review and confirm.) Insulin resistance 11/07/2011 Anxiety state 04/02/2008 Palpitations Encounters Date Type Department Care Team Description 01/04/2025 MyC Medical Advice [facility] [address] [address] Chato Diaz MD from Last 3 Months Immunizations Name Administration Dates Next Due Historical DTP/aP 02/14/1987,11/24/1983,12/03/18 83,1982,1982 MMR (MMRII) 12/26/2018,04/29/1995,08/04/1983 OPV, trivalent, live 02/14/1987,11/24/1983,09/02,1982 TD,PF 7+ [...] Assigned at Female 10/26/2022 5:46 AM REGIONAL CLINICAL RESEARCH ASSOCIATE Legal Sex Female 4:22 AM REGIONAL CLINICAL RESEARCH ASSOCIATE Gender Identity Female 10/26/2022 5:45 AM REGIONAL CLINICAL RESEARCH ASSOCIATE Sexual Orientation Straight 10/26/2022 5: 46 AM REGIONAL CLINICAL RESEARCH ASSOCIATE 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 Last Filed Vital Signs Vital Sign Reading Time Taken Comments Blood Pressure 129/84 04/03/2024 6:21 AM CDT Pulse 93 04/03/2024 6:21 AM CDT Temperature 36.5 C (97.7 F) 04/03/2024 6:21 AM CDT Respiratory Rate 18 04/03/2024 6:21 AM CDT Oxygen Saturation 97% 04/03/2024 9:32 AM CDT Inhaled Oxygen Concentration - - Weight 68.9 kg (152 lb) 04/03/2024 6:23 AM CDT Height 158.8 cm (5' 2.5) 01/11/2024 10:46 AM CD T Body Mass Index 27.36 01/11/2024 10:46 AM CDT Plan of Treatment Health Maintenance Due Date Last Done Comments ADVANCE CARE PLANNING 1982 MAMMO SCREENING 1982 YEARLY PREVENTIVE VISIT 04/29/1996 04/29/1995 HEPATITIS B IMMUNIZATION (1 of 3 - 19+ 3-dose series) 2001 ANNUAL REVIEW OF HM ORDERS 10/26/2023 10/26/2022 LIPID 10/28/2023 10/28/2022 COVID-19 Vaccine ( season) 2024 INFLUENZA VACCINE (#1) 2024 PHQ-2 (once per calendar year) 2024 01/11/2024, 10/26/2022, 10/26/2022, Additional history exists DIABETES SCREENING 04/03/2027 04/03/2024, 0 01/11/2024, 10/28/2022, Additional history exists HPV TEST 06/05/2027 06/05/2022, 02/07/2019 PAP 06/05/2027 06/05/2022, 0806/2022, 02/07/2019 ZOSTER IMMUNIZATION (1 of 2) 2032 DTAP/TDAP/TD IMMUNIZATION (8 - Td or Tdap) 09/07/2034 09/07/2024, 05/02/2007, 12/15/1994, Additional history exists HIV SCREENING Completed 08/18/2004 HEPATITIS C SCREENING Discontinued 01/07/2024 , 12/25/2019, 12/26/2018 HPV IMMUNIZATION Aged Out No longer e ligible based on patient's age to complete this topic MENINGITIS IMMUNIZATION Aged Out No l onger eligible based on patient's age to complete this topic Pneumococcal Vaccine: Pediatrics (0 to 5 Years) and At-Risk Patients (6 to 49 Years) Aged Out No longer eligible based on patient's age to complete this topic Procedures Procedure Name Priority Date/Time Associated Diagnosis Comments BASIC METABOLIC PANEL STAT 04/03/2024 6:44 AM CDT LIPID PROFILE Routine 10/28/2022 8:50 AM REGIONAL CLINICAL RESEARCH ASSOCIATE Cardiac arrhythmia, unspecified cardiac arrhythmia type ABSTRACT HPV (HIM EXTERNAL RESULT) Routine 06/05/2022 10:48 AM CDT HCL HIV 1 & 2 ANTIBODY Routine 08/18/2004 9:57 AM REGIONAL CLINICAL RESEARCH ASSOCIATE Anxiety State Nos Infectious Mononucleosis from Last 3 Months or Most Recently Relevant to Health Maintenance Results * (ABNORMAL) Basic metabolic panel (BMP) (04/03/2024 6:44 AM CDT) Sodium 136 135 - 145 mmol/L 04/03/2024 7:09 AM CDT [facility] Comment:Reference intervals for this test were updated on 07/13/2023 to more accurately reflect our healthy population. There may be differences in the flagging of prior results with similar values performed with this method. Interpretation of those prior results can be made in the context of the updated reference intervals. Potassium 3.6 3.4 - 5.3 mmol/L 04/03/2024 7:09 AM [facility] Chloride 103 98 - 107 mmol/L 04/03/2024 7:09 AM [facility] Carbon Dioxide (CO2) 19(L) 22 - 29 mmol/L 04/03/2024 7:09 AM [facility] Anion Gap 14 7 - 15 mmol/L 04/03/2024 7:09 AM [facility] Urea Nitrogen 13.6 6.0 - 20.0 mg/dL 04/03/2024 7:09 AM [facility] Creatinine 0.65 0.51 - 0.95 mg/dL 04/03/2024 7:09 AM [facility] GFR Estimate >90 >60 mL/min/1. 73m2 04/03/2024 7:09 AM [facility] Comment:eGFR calculated usin 2020 CKD-EPI equation. Calcium 8.9 8.6 - 10.0 mg/dL 04/03/2024 7:09 AM [facility] Glucose 84 70 - 99 mg/dL 04/03/2024 7:09 AM [facility] Blood BLOOD SPECIMEN / Unknown Venipuncture / Unknown 04/03/2024 6:44 AM CDT 04/03/2024 6:48 AM CDT us Evette Neal MD LAB - BLOOD ORDERABLES Final Result LABORATORY [facility] [address] Lab (1st floor, no room number) [place] [address], [facility] * (ABNORMAL) Lipid Profile (10/28/2022 8:50 AM REGIONAL CLINICAL RESEARCH ASSOCIATE) Cholesterol 270(H) <200 mg/dL 10/28/2022 5:14 PM REGIONAL CLINICAL RESEARCH ASSOCIATE [facility] Triglycerides 91 <150 mg/dL 10/28/2022 5:14 PM REGIONAL CLINICAL RESEARCH ASSOCIATE [facility] Direct Measure HDL 58 >=50 mg/dL 10/28/2022 5:14 PM REGIONAL CLINICAL RESEARCH ASSOCIATE [facility] LDL Cholesterol Calculated 194(H) <=100 mg/dL 10/28/2022 5:14 PM REGIONAL CLINICAL RESEARCH ASSOCIATE [facility] Non HDL Cholesterol 212(H) <130 mg/dL 10/28/2022 5:14 PM REGIONAL CLINICAL RESEARCH ASSOCIATE [facility] Blood BLOOD SPECIMEN / Unknown Venipuncture / Unknown 10/28/2022 8:50 AM REGIONAL CLINICAL RESEARCH ASSOCIATE 10/28/2022 8:50 AM REGIONAL CLINICAL RESEARCH ASSOCIATE Narrative [facility] - 10/28/2022 5:14 PM REGIONAL CLINICAL RESEARCH ASSOCIATE Cholesterol Desirable: <200 mg/dL Triglycerides Normal: Less than 150 mg/dL Borderline High: 150-199 mg/dL High: 200-499 mg/dL Very High: Greater than or equal to 500 mg/dL Direct Measure HDL Female: Greater than or equal to 50 mg/dL Male: Greater than or equal to 40 mg/dL LDL Cholesterol Desirable: <100mg/dL Above Desirable: 100-129 mg/dL Borderline High: 130-159 mg/dL High: 160-189 mg/dL Very High: >= 190 mg/dL Non HDL Cholesterol Desirable: 130 mg/dL Above Desirable: 130-159 mg/dL Borderline High: 160-189 mg/dL High: 190-219 mg/dL Very High: Greater than or equal to 220 mg/dL Jimenez Madera DO LAB - BLOOD ORDERABLES Final Re sult [facility] [address] [facility], [address] [id number] [phone] * Abstract HPV (HIM External Result) (06/05/2022 10:48 AM CDT) HPV Abstract See Scanned Document [employer] Johanne BERNADINE 06/05/2022 10:4 8 AM CDT Narrative RICK COLINDRES - 06/05/2022 10:48 AM CDT [employer] PROFESSOR AND FERTILITY - External Lab Results us Provider Outside LAB - HIM EXTERNAL RESULT Final Result TOÑ[employer] BERNADINE [address] [address] * HIV-1/HIV-2, SCREEN (08/18/2004 9:57 AM REGIONAL CLINICAL RESEARCH ASSOCIATE) HIV 1&2 Antibody Negative NEG [facility] 08/18/2004 9:57 AM REGIONAL CLINICAL RESEARCH ASSOCIATE 08/18/2004 10:02 AM REGIONAL CLINICAL RESEARCH ASSOCIATE Leonardo Mariee MD LABORATORY Final R esult [facility] [address] [place] [address] from Last 3 Months or Most Recently Relevant to Health Maintenance Insurance [employer] Care Teams Management Rep Relationship Specialty Start [place] [address] [address] [place], [place] [id number] PCP - General 10/16/24 Chato Diaz MD [address] [place] [id number] Cardiovascular Disease 03/24/22 Chato Diaz MD [address] [place] [id number] Cardiovascular Disease 03/24/22 [place] [address] [place] [address] Assigned PCP 03/09/24
--- OUTSIDE RECORDS SUMMARY | 2025-01-21 23:51 | XMS_ITS | Patient Health Record ---
Author Organization [facility] Address [address] [place] [address] Care Team Providers Care Health Professor Name Role Phone None, No PCP Primary Care Provider Abril James Unavailable [phone] Reason For Referral No Information Medications Medication SIG (Take, Route, Fr equency, Duration) Notes Start Date End Date Status Prometrium 200 MG 1 capsule at bedtime Orally Once a day Active Problems Problem Type SNOMED Code ICD Code Onset Dates Problem Status W/U Status Risk Notes Problem [id number] Abnormal uterine bleeding (N93.9) Active confirmed Problem [id number] PCOS (polycystic ovarian syndrome) (E28.2) Active confirmed Plan Of Treatment No Information Insurance Providers Payer Name Payer Address Payer Phone Subscriber Number Group Number Insured Name Patient Relationship to Insured Coverage Start Date Coverage End Date [employer] (Ins Bill) [address] [place] [address] [id number] Beth Quinn Self - patient is the insured Medical (General) History Medical History History ICD Code Polycystic Ovarian Syndrome
--- OUTSIDE RECORDS SUMMARY | 2025-01-21 23:51 | XMS_ITS | Encounter Summary ---
Author Organization [facility] Address [address] [place] [address] Care Team Providers Care Insurance Adjustor Name Role Phone BogdanGypsy ANA LAURA SHROUDMAN Unavailable [phone] Keven Krueger Primary Care Provider + [phone] Chato Diaz MD Unavailable [phone] Chato Diaz MD Unavailable [phone] Chato Diaz MD Unavailable [phone] Ref-Primary, Physician Primary Care Provider Marko Smith MD Unavailable + Chato Diaz MD Unavailable [phone] Jimenez Madera DO Primary Care Provider [phone] Jimenez Madera DO Unavailable [phone] Chato Diaz MD Unavailable [phone] Rosalba Romo MD Unavailable [phone] Alisson Rose MD Unavailable Jasiel Villela MD Primary Care Provider + [phone] Encounter Details Date Type Department Care Team (Late st Contact Info) Description 05/11/2019 MyC Medical Advice [facility] [address] [place] [id number] Chato Diaz MD [address] [facility] [address] [place] [address] Social History Tobacco Use Types Packs/Day Years Used Date Smoking Tobacco: Never Smokeless Tobacco: Never Alcohol Use Standard Drinks/Week Comments No 0 (1 standard drink = 0.6 oz pur e alcohol) PHQ-2 Answer Date Recorded PHQ-2 Score 0 02/07/2019 Comments No Sex and Gender Information Value Date Recorded Sex Assigned at Female 10/26/2022 5:46 AM STRINGER UP SOLDERING MACHINE Legal Sex Female 4:22 AM STRINGER UP SOLDERING MACHINE Gender Identity Female 10/26/2022 5:45 AM STRINGER UP SOLDERING MACHINE Sexual Orientation Straight 10/26/2022 5: 46 AM STRINGER UP SOLDERING MACHINE 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 of this encounter Plan of Treatment Not on file documented as of this encounter Visit Diagnoses Not on filedocumented in this encounter Care Teams Insurance Adjustor Relationship Specialty Start Date End Date Keven Krueger [address] [id number] PCP - General Family Practice 05/01/19 08/11/22 No Ref-Primary, Physician PCP - General 08/12/22 10/28/22 [place] [address] [place] [address] PCP - General Family Medicine 10/29/22 02/23/24 [place] [address] [address] [place], [place] [id number] PCP - General 10/16/24 Gypsy Mcfadden APRN SHROUDMAN [address] [address] [place], [place] [id number] Assigned PCP 02/12/19 02/07/22 Chato Diaz MD [address] [place] [address] Assigned Heart and Vascular Provider 08/09/20 11/01/21 Chato Diaz MD [address] [place] [address] Cardiovascular Disease 03/24/22 Chato Diaz MD [address] [place] [address] Cardiovascular Disease 03/24/22 Marko Smith MD [address] [place] [address] Assigned Heart and Vascular Provider 08/15/22 11/20/22 Chato Diaz MD [address] [place] [address] Assigned Heart and Vascular Provider 07/18/22 08/14/22 [place] [address] [place] [address] Assigned PCP 11/07/22 03/08/24 Chato Diaz MD [address] [place] [address] Assigned Heart and Vascular Provider 11/21/22 06/08/24 Rosalba Romo MD [address] [place] [address] Assigned Pulmonology Provider 12/12/22 06/08/24 [place] [address] [place] [address] Assigned PCP 03/09/24 documented as of this encounter
--- OUTSIDE RECORDS SUMMARY | 2025-01-21 23:51 | XMS_ITS | Encounter Summary ---
Author Organization [facility] Address [address] [place] [address]. [place] [address] Care Team Providers Care Litigation Legal Assistant Name Role Phone Chato Diaz MD Unavailable [phone] Chato Diaz MD Unavailable [phone] Marko Smith MD Unavailable + Jimenez Madera DO Primary Care Provider [phone] Jimenez Madera DO Unavailable [phone] Chato Diaz MD Unavailable [phone] Rosalba Romo MD Unavailable [phone] Alisson Rose MD Unavailable Jasiel Villela MD Primary Care Provider + [phone] Encounter Details Date Type Department Care Team (Late st Contact Info) Description 11/18/2022 [facility] Medical Advice [facility] [place] [address] [facility] [address] [place] [address] Chato Diaz MD [address] [facility] [address] [place], [place] [id number] Social History Tobacco Use Types Packs/Day Years Used Date Smoking Tobacco: Never Smokeless Tobacco: Never Alcohol Use Standard Drinks/Week Comments No 0 (1 standard drink = 0.6 oz pur e alcohol) PHQ-2 Answer Date Recorded PHQ-2 Score 0 10/26/2022 Comments Unknown Sex and Gender Information Value Date Recorded Sex Assigned at Female 10/26/2022 5:46 AM DRIVER STARTING GATE Legal Sex Female 4:22 AM DRIVER STARTING GATE Gender Identity Female 10/26/2022 5:45 AM DRIVER STARTING GATE Sexual Orientation Straight 10/26/2022 5: 46 AM DRIVER STARTING GATE 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 No / Unsure 11/16/2022 1:47 PM DRIVER STARTING GATE documented as of this encounter Plan of Treatment Not on file documented as of this encounter Visit Diagnoses Not on filedocumented in this encounter Care Teams Litigation Legal Assistant Relationship Specialty [place] [address] [place] [address] PCP - General Family Medicine 10/29/22 02/23/24 [place] [address] [place] [address] PCP - General 10/16/24 Chato Diaz MD [address] [place] [address] Cardiovascular Disease 03/24/22 Chato Diaz MD [address] [place] [address] Cardiovascular Disease 03/24/22 Marko Smith MD [address] [place] [address] Assigned Heart and Vascular Provider 08/15/22 11/20/22 [place] [address] [place] [address] Assigned PCP 11/07/22 03/08/24 Chato Diaz MD [address] [facility] [address] [place], [place] [address] Assigned Heart and Vascular Provider 11/21/22 06/08/24 Rosalba Romo MD [address] [place], [place] [address] Assigned Pulmonology Provider 12/12/22 06/08/24 [place] [address] [address] [place] [address] Assigned PCP 03/09/24 documented as of this encounter
--- OUTSIDE RECORDS SUMMARY | 2025-01-21 23:51 | XMS_ITS | Encounter Summary ---
Author Organization [facility] Address [address] [place] [address] Care Team Providers Care Group Home Worker Name Role Phone Unknown, Physician Primary Care Provider [phone] Encounter Details Date Type Department Care Team (Latest Contact Info) Description 05/13/1995 [place] [address] [place], [place] [phone] Social History Tobacco Use Types Packs/Day Years Used Date Smoking Tobacco: Never Assessed Comments Unknown Sex and Gender Information Value Date Recorded Sex Assigned at Not on file Legal Sex Female 4:54 AM CDT Gender Identity Not on file Sexual Orientation Not on file documented as of this encounter Plan of Treatment Not on file documented as of this encounter Visit Diagnoses Not on filedocumented in this encounter Care Teams Group Home Worker Relationship Specialty Start Date End Date Unknown, Physician [address] [place] [address] PCP - General 01/06/1999 documented as of this encounter
--- OUTSIDE RECORDS SUMMARY | 2025-01-21 23:51 | XMS_ITS | Clinical Summary ---
Author Organization [facility] Address [address] [place] [address] Care Team Providers Care Histotechnician Name Role Phone None Reported, Pcp Primary Care Provider Unavail able Source Comments Patient records contain information from all sites at [facility]. For routine questions regarding patient records, call [phone] during business hours, M-F 8:00 AM - 5:00 PM Central Time. Record requests for emergency care only can be directed to [phone] at any time.[facility] Allergies Active Allergy Reactions Criticality Noted Date Comments Metformin Other (see comments) 01/25/2024 Ended up in ED,unexplained sx; not hypoglycemic -BS 60-70 (she has been down to the 40s without symptoms before) Medications omega 2-hok-oqs-fish oil 1,000 mg (120 mg-180 mg) capsule Take 1,000 mg by mouth daily. 11/03/2019 Active labetaloL (NORMODYNE) 100 mg tablet Take 50 mg by mouth as needed. 03/05/2020 Active POTASSIUM CITRATE ORAL Take 99 mcg by mouth daily. Active vit calc,iron,folic ( VITAMIN ORAL) Active CALCIUM CITRATE ORAL Take 1 tablet by mouth daily. Active progesterone (PROMETRIUM) 200 mg capsule Take 200 mg by mouth as needed. Active cholecalciferol, vitamin D3, (cholecalciferol ) 25 mcg (1,000 Unit) tablet Take 25 mcg by mouth daily. Active progesterone (PROMETRIUM) 100 mg capsule Take 300 mg by mouth as needed. 05/11/[address] Active [address] tablet Take 81 mg by mouth daily. Active acetylcysteine (NAC) 600 mg capsule Take 600 mg by mouth daily. Active alpha lipoic acid 100 mg capsule Take 150 mg by mouth daily. Active naltrexone (Depade) 50 mg tablet Take 50 mg by mouth. 08/09/2024 Active co-enzyme Q-10 (Co Q-10) 100 mg capsule Take 100 mg by mouth daily. Active Active Problems Patient Care Coordination No te Formatting of this note migh t be different from the original. Date of confirmed loss by formal US: 04/10-Loss confirmed and RPOC seen (pt miscarried 04/01 at home). Bereavement / Educational materials given: Yes - Crystal---memento - Early Loss and Grief for Parents -Richa's Gift Supplies given with pathology sticker (bottles for POC, etc): No Future pathology order placed: No Genetics: No RH positive / negative, prophylactic RhoGAM: Plan: Cytotec prescribed for RPOC, will take 04/11/24. Problem Noted Date Diagnosed Date Nodule Thyroid 08/30/2024 Overview (08/30/2024): Thyroid nodule, 2.1 cm left lobe, predominantly cystic with 8 mm isoechoic solid component, very low suspicion TSH 1.72, FT3 3.7, FT4 0.6 08/04/2024 local labs (patient's iphone accessed results) FHX: mom with Graves' disease; other family with Estela's, strong celiac disease PMHx: multiple miscarriages, etiology unclear Assessment & Plan (08/30/2024 10:20 AM DEMOLITION ENGINEER): Beth presents for above, mom ( Oksana) on speaker phone. She has had recurrent miscarriages, seen by functional provider and fertility clinic in [place] that ordered the US We reviewed the images - this is a very low suspicion nodule with risk for cancer <1%; recommend repeat US in 3-5 years We discussed thyroid hormone levels and approaches to screening for thyroid dysfunction in detail They are keen on T4, T3 levels which i reviewed are not as reliable as TSH levels, which exponentially reflect T3 levels and the rational for using TSH rather than T4, T3 primarily Her TSH have all been normal and on US - thyroid appears normal. Based on FHx, she may be at risk for autoimmune thyroid disease, but at present, there is normal thyroid function Her mom asked about pituitary labs and metoprolol and impact on T3 levels- we reviewed and provided education on this Plan Repeat US in 3-5 years with PCP Annual TSH or sooner if symptoms arise Return PRN Missed 04/10/2024 Overview (04/19/2024): 04/19/24 MCB: Took cytotec x 3 doses. Continues to have RPOC. Hysteroscopy on 04/24 in Analyst Programmer. 04/10/24 MCB: SAB at home on 04/01. US today shows evidence of RPOC. Discussed med management vs. Surgical. Pt prefers med mgmt. Rx for cytotec and zofran sent to pharmacy. Plan f/u US in 7-10 days. 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 Concerning for loss given irregular GS appearance. Repeat US in 7 days. Encounters Date Type Department Care Team Description 01/10/2025 Clinical Communication Department of Obstetrics and Gynecology, Division of Gynecologic Oncology in [place], [place] [address] [place] [address] Rachelle Gómez M.D. Communication from Last 3 Months Social History Tobacco Use Types Packs/Day Years Used Date Smoking Tobacco: Never Smokeless Tobacco: Never Tobacco Cessation:Counseling Given: Not Answered Alcohol Use Standard Drinks/Week Comments No 0 (1 standard drink = 0.6 oz pur e alcohol) [facility] Utilities Answer Date Recorded In the past 12 months has th e TRData, gas, oil, or water Actionality threatened to shut off services in your [...] Answer Date Recorded PHQ-2 Score 0 05/16/2024 [facility] [place] of Occupat ional Health - Occupational Stress [...] your living situation today? I have a [facility] place to live 12/02/2023 Education Answer Date Recorded What is the highest level of school you have completed or the highest degree you have received? Associate degree: academic program 03/08/2020 Comments No Sex and Gender Information Value Date Recorded Sex Assigned at Female 05/07/2018 8:20 PM CDT Legal Sex Female 10:32 AM DEMOLITION ENGINEER Gender Identity Female 05/07/2018 8:20 PM CDT Sexual Orientation Straight 05/07/2018 8: 20 PM CDT Last Filed Vital Signs Vital Sign Reading Time Taken Comments Blood Pressure 141/85 08/30/2024 9:29 AM DEMOLITION ENGINEER Pulse 97 08/30/2024 9:29 AM DEMOLITION ENGINEER Temperature 36.7 C (98.1 F) 04/24/2024 11:01 AM CDT Respiratory Rate 18 04/24/2024 11:30 AM CDT Oxygen Saturation 98% 04/24/2024 11:30 AM CDT Inhaled Oxygen Concentration - - Weight 76.6 kg (168 lb 14 oz) 08/30/2024 9:29 AM DEMOLITION ENGINEER Height 161.2 cm (5' 3.47) 08/30/2024 9:29 AM CS T Body Mass Index 29.48 08/30/2024 9:29 AM DEMOLITION ENGINEER Plan of Treatment Health Maintenance Due Date Last Done Comments HIV Screening 1982 Mammogram 1982 Hepatitis B Vaccines (1 of 3 - 19+ 3-dose series) 2001 DTaP,Tdap,and Td Vaccines (7 - Td or Tdap) 05/02/2017 05/02/2007, 12/15/1994, 02/14/1987, Additional history exists Cervical/Vaginal Cancer Screening 02/07/2022 02/07/2019, 05/18/2016 (Performed elsewhere) COVID-19 Vaccine ( season) 2024 Influenza Vaccine (#1) 2024 Depression Screening (Annual PHQ-2) 10/18/2024 Lipid (Cholesterol) Screening 01/06/2029 01/07/2024, 10/28/2022, 05/31/2015 Hepatitis B Screening Discontinued 01/07/2024 , 01/07/2024, 12/25/2019 HPV Vaccines Aged Out No longer eligi ble based on patient's age to complete this topic IPV Vaccines Aged Out No longer eligi ble based on patient's age to complete this topic Pneumococcal vaccine (0-49 years) Aged Out No longer eligible based on patient's age to complete this topic Procedures Procedure Name Priority Date/Time Associated Diagnosis Comments HBS ANTIGEN SCRN, S Routine 01/07/2024 LIPID PANEL, S Routine 05/31/2015 12:46 PM CDT from Last 3 Months or Most Recently Relevant to Health Maintenance Results * HBs Antigen Scrn, Serum (01/07/2024) EXT Hepatitis B Surface Ag Negative Negative, None detected [facility] Blood (Blood, Venous) us Ordering Provider External [facility] MICROBIOLOGY - BLOOD ORDERABLES Final Result [facility] [address] [place] [address] * (ABNORMAL) Lipid Panel (05/31/2015 12:46 PM CDT) Cholesterol, Total 253(H) SeeComment MG/DL [facility] Comment: REFERENCE VALUE Desirable: < 200 Borderline high: 200 - 239 High: > or = 240 Triglycerides 179(H) SeeComment MG/DL [facility] Comment: REFERENCE VALUE Normal: <150 Borderline high: 150-199 High: 200-499 Very high: > or =500 Cholesterol, Non-HDL, Calculated 193(H) SeeComment MG/DL [facility] Comment: REFERENCE VALUE Desirable: <130 Above Desirable: 130-159 Borderline high: 160-189 High: 190-219 Very high: > or =220 Cholesterol, HDL, S 60 >=50 MG/DL [facility] Calculated LDL 157(H) SeeComment MG/DL [facility] Comment: REFERENCE VALUE Desirable: <100 Above Desirable: 100-129 Borderline high: 130-159 High: 160-189 Very high: > or =190 05/31/2015 12:4 6 PM CDT 05/31/2015 12:46 PM CDT June Brady P.A.-C. LAB BLOOD ADD-ON Final Result [facility] [address] [place] [address], [facility] from Last 3 Months or Most Recently Relevant to Health Maintenance Insurance [employer] Advance Directives For more information, please contact: [phone] * Full Code (Latest Code Status on File) Date Activated Date Inactivated Comments 04/24/2024 9:24 AM 04/24/2024 2:21 PM Question Answer Comments Full Code: Discussed Care Teams Histotechnician Relationship Specialty Start Date End Date None Reported, Pcp PCP - General Family Medicine 05/20/22
--- OUTSIDE RECORDS SUMMARY | 2025-01-21 23:51 | XMS_ITS | Encounter Summary ---
Author Organization [facility] Address [address] [place] [address] Care Team Providers Care Sugar Drier Name Role Phone BogdanGypsy ANA LAURA CONSTRUCTION PLUMBER Unavailable [phone] Keven Krueger Primary Care Provider + [phone] Chato Diaz MD Unavailable [phone] Chato Diaz MD Unavailable [phone] Chato Diaz MD Unavailable [phone] Ref-Primary, Physician Primary Care Provider Marko Smith MD Unavailable + Chato Diaz MD Unavailable [phone] Jimenez Madera DO Primary Care Provider [phone] Jimenez Madera DO Unavailable [phone] Chato Diaz MD Unavailable [phone] Rosalba Romo MD Unavailable [phone] Alisson Rose MD Unavailable Jasiel Villela MD Primary Care Provider + [phone] Encounter Details Date Type Department Care Team (Late st Contact Info) Description 05/11/2019 MyC Medical Advice [facility] [address] [place] [address] Chato Diaz MD [address] [facility] [address] [place] [address] Social History Tobacco Use Types Packs/Day Years Used Date Smoking Tobacco: Never Smokeless Tobacco: Never Alcohol Use Standard Drinks/Week Comments No 0 (1 standard drink = 0.6 oz pur e alcohol) PHQ-2 Answer Date Recorded PHQ-2 Score 0 02/07/2019 Comments No Sex and Gender Information Value Date Recorded Sex Assigned at Female 10/26/2022 5:46 AM IMPLEMENTATION COORDINATOR Legal Sex Female 4:22 AM IMPLEMENTATION COORDINATOR Gender Identity Female 10/26/2022 5:45 AM IMPLEMENTATION COORDINATOR Sexual Orientation Straight 10/26/2022 5: 46 AM IMPLEMENTATION COORDINATOR 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 RN will send to Dr. Diaz for review. Ok great- i will let the gastro know. The next thing he suggested was testing for esophageal spasms. I've been feeling fairly better though after the endoscopy. Maybe i just needed to have a swizzle stick run around down there! Lol. Thanks again! * Telephone Encounter - Carmen Carvalho RN - 05/11/2019 10:58 AM CDT [employer] message received: Hi- just had the echo [...] sedate the last few weeks. Maybe dr diaz will have some insight. I asked to not do the dye because dr diaz thought this test was only necessary If [...] lightheaded? Feel free to message me dr diazs suggestions and details about test. He's welcome [...] Resting a lot. Will route to Dr. Diaz to review patients concerns and stress echo (currently in process) documented in this encounter Plan of Treatment Not on file documented as of this encounter Visit Diagnoses Not on filedocumented in this encounter Care Teams Sugar Drier Relationship Specialty Start Date End Date Keven Krueger [address] [address] PCP - General Family Practice 05/01/19 08/11/22 No Ref-Primary, Physician PCP - General 08/12/22 10/28/22 [place] [address] [place] [address] PCP - General Family Medicine 10/29/22 02/23/24 [place] [address] [place] [address] PCP - General 10/16/24 Gypsy Mcfadden APRN [facility] [address] [place] [address] Assigned PCP 02/12/19 02/07/22 Chato Diaz MD [address] [place] [address] Assigned Heart and Vascular Provider 08/09/20 11/01/21 Chato Diaz MD [address] [place] [address] Cardiovascular Disease 03/24/22 Chato Diaz MD [address] [place] [address] Cardiovascular Disease 03/24/22 Marko Smith MD [address] [place] [address] Assigned Heart and Vascular Provider 08/15/22 11/20/22 Chato Diaz MD [address] [place] [address] Assigned Heart and Vascular Provider 07/18/22 08/14/22 [place] [address] [place] [address] Assigned PCP 11/07/22 03/08/24 Chato Diaz MD [address] [facility] [address] [place] [address] Assigned Heart and Vascular Provider 11/21/22 06/08/24 Rosalba Romo MD [address] [place] [address] Assigned Pulmonology Provider 12/12/22 06/08/24 [place] [address] [address] [place] [id number] Assigned PCP 03/09/24 documented as of this encounter
--- OUTSIDE RECORDS SUMMARY | 2025-01-21 23:51 | XMS_ITS | Encounter Summary ---
Author Organization [facility] Address [address] [place] [address] Care Team Providers Care Whip Sawyer Name Role Phone Unknown, Physician Primary Care Provider [phone] Encounter Details Date Type Department Care Team (Latest Contact Info) Description 04/29/1995 Orders Only Deepti Lima, MILITARY TECHNICIAN, ELECTRONICS RESEARCH ENGINEER [address] [place] [address] Social History Tobacco Use Types Packs/Day Years [...] on filedocumented in this encounter Care Teams Whip Sawyer Relationship Specialty Start Date End Date Unknown, Physician [address] [place], [place] [address] PCP - General 01/06/1999 documented as of this encounter
== END 2025-01-21 23:50 | disposition left against medical advice (07) ==
LOC: ED 23:46
DX: Z53.21 Procedure and treatment not carried out due to patient leaving prior to being seen by health care provider (principal)